=== PATIENT | female | born 1965 | race Caucasian/White ===

== ENCOUNTER 2017-07-09 09:45 | Outpatient (RCR) | payer OTHER, SELFPAY ==
--- NOTE | 2017-06-25 11:13 | PT.OTN ---
Current Diagnoses Pain in left shoulder (06/25/17) Stiffness of left shoulder, not elsewhere classified (06/25/17) Abnormal posture (06/25/17) Weakness (06/25/17) Transition note: On June 23, 2017 our therapy services consisting of Speech, Occupational, and Physical Therapy transitioned from the [employer] electronic documentation system to a new [employer] electronic documentation system.?? All documentation prior to June 23 can be found under [employer] saved data. From June 23 forward all medical record documentation will be in [employer].
--- NOTE | 2017-06-25 12:57 | PT.OTN ---
Current Diagnoses Pain in left shoulder (06/25/17) Stiffness of left shoulder, not elsewhere classified (06/25/17) Abnormal posture (06/25/17) Weakness (06/25/17) Physical Therapy Treatment Note PT-OP-A Visit Information Start: 06/25/17 08:08 Freq: Status: Active Protocol: Activity Type Activity Date Activity User E-Sign Co-Sign Detail Recorded Client Recorded Date Recorded By Document 06/25/17 10:52 [facility] [id number] 06/25/17 10:52 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 [id number] 06/25/17 09:53 [facility] 06/25/17 09:52 OP-PT Subjective [Patient Comments] -Patient Comments Hasn't had much time to exercise, but reporting increased pain after doing some aquatic exercise with a friend. Also thinks she may have moved wrong in bed. PT-OP-Q Treatments Start: 06/25/17 08:08 Freq: Status: Active Protocol: Activity Type Activity Date Activity User E-Sign Co-Sign Detail Recorded Client Recorded Date Recorded By Document 06/25/17 10:35 [facility] [id number] 06/25/17 10:51 [facility] 06/25/17 10:35 Cardio Equipment [Upper Body Ergometer (UBE)] -Duration (Minutes) 0 -Other too sore today Therapeutic Exercises [Prone Exercises] 1 -Prone Exercise Name prone shoulder ext, horizontal ab -Side bilateral -Equipment Used therapy ball [Sitting Exercises] 1 -Sitting Exercise Name pulleys for shld flex and abd -Side bilateral -Reps/Minutes 5 min [Standing Exercises] 1 -Standing Exercise Name rows, shoulder extension, ER, IR -Equipment Used L2 theraband -Reps/Minutes 10-15 reps ea -Comments manual cues for scapular movement Manual Therapy Treatment [Soft Tissue Mobilization] 1 -Body Location c/s and upper traps, biceps and deltoid reg -Mobilization Type Myofascial Release Rolling -Intensity/Depth Moderate -Body Position Supine PT-OP-R Modalities Start: 06/25/17 08:08 Freq: Status: Active Protocol: Activity Type Activity Date Activity User E-Sign Co-Sign Detail Recorded Client Recorded Date Recorded By Document 06/25/17 10:35 [facility] [id number] 06/25/17 10:51 [facility] 06/25/17 10:35 Electric Stimulation [Electric Stimulation] Interferential Current (IFC) -Body Location left shoulder -Duration (Minutes) 15 -Target/Sweep Sweep -High/Low High -Patient Position Supine -Combined With Heat/Cold Cold Pack Ultrasound Therapy [Treatment] Left Shoulder -Treatment Duration (minutes) 8 -Patient Position Supine -Coupling Medium Ultrasound Gel -Frequency Setting (mHz) 2 -Mode Setting Continuous -Intensity Setting (w/cm2) 1.2 -Patient Tolerance Fair PT-OP-T Assessment and Plan Start: 06/25/17 08:08 Freq: Status: Active Protocol: Activity Type Activity Date Activity User E-Sign Co-Sign Detail Recorded Client Recorded Date Recorded By Document 06/25/17 10:35 [facility] [id number] 06/25/17 10:51 [facility] 06/25/17 10:35 Physical Therapy Assessment [Progress Towards Goals] -Progress Towards Goals Slow Progress due to Activity Tolerance Slow Progress - Other -Progress Comments work and daily activities irritate shoulder, work schedule makes doing HEP difficult at times. Has not obtained kinesiotape yet . Physical Therapy Plan [Frequency and Duration] -Frequency of Treatment 1x/Week -Duration of Treatment 2 months -Plan of Care Start Date 06/04/17 -Plan of Care End Date 08/03/17 [Therapeutic Interventions] -Therapeutic Interventions Home Exercise Program Manual Therapy Patient/ Caregiver Education Self-Care/Home Management Soft Tissue Mobilization -Modalities Cold Pack/Ice Massage Electric Stimulation Iontophoresis Ultrasound [Next Visit Focus/Plan] -Next Visit Plan progress ther ex as indicated , instruct in self-taping, modify HEP as indicated.
--- NOTE | 2017-07-09 11:37 | PT.OTN ---
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 Further discussion about any other activities including dictating which may be increasing patient's pain. OP-PT Pain Assessment Pain Behaviors Pain Behaviors Facial Grimacing Wincing PT-OP-Q Treatments Start: 06/25/17 08:08 Freq: Status: Active Protocol: Document 07/09/17 09:45 [facility]AK (Rec: 07/09/17 11:35 [facility]AK [id number]) Cardio Equipment Upper Body Ergometer (UBE) Duration (Minutes) 3 Therapeutic Exercises Supine Exercises 1 Supine Exercise Name shoulder ER AROM Comments without then with 1# weight with end-range stretch Prone Exercises 2 Prone Exercise Name prone shld flex Side bilateral Reps/Minutes 15 1 Prone Exercise Name prone shoulder ext, horizontal ab Side bilateral Resistance 2# Equipment Used therapy ball Reps/Minutes 15 Sidelying Exercises 1 Sidelying Exercise Name shoulder ER Resistance 1 Sitting Exercises 2 Sitting Exercise Name lat pull Side bilateral Resistance 20 Standing Exercises 1 Standing Exercise Name rows, shoulder extension, ER, IR Equipment Used L2 theraband Reps/Minutes 10-15 reps ea Comments manual cues for scapular movement Manual Therapy Treatment Soft Tissue Mobilization 1 Body Location periscapular reg Mobilization Type Rolling Sustained Pressure Trigger Point Release Intensity/Depth Deep Body Position Sidelying Taping 1 Body Location left shoulder Treatment Focus pain management and facilitation of normal scapulohumeral rhythm Type of Tape Kinesio Tape Other Other Manual Treatments manual facilitation of correct scapular movement with all ther ex Self-Care/Home Management Treatment Education Patient Education Home Exercise Program Pain Management Other Education Try adjustment of posture for dictating PT-OP-R Modalities Start: 06/25/17 08:08 Freq: Status: Active Protocol: Document 07/09/17 09:45 [facility] (Rec: 07/09/17 11:35 [facility] [id number]) Electric Stimulation Electric Stimulation Interferential Current (IFC) Body Location left shoulder Duration (Minutes) 15 Target/Sweep Sweep High/Low High Patient Position Supine Combined With Heat/Cold Cold Pack PT-OP-T Assessment and Plan Start: 06/25/17 08:08 Freq: Status: Active Protocol: Document 07/09/17 09:45 [facility] (Rec: 07/09/17 11:35 [facility] [id number]) Physical Therapy Assessment Progress Towards Goals Progress Towards Goals Slow Progress due to Activity Tolerance Slow Progress - Other Progress Comments work and daily activities irritate shoulder, work schedule makes doing HEP difficult at times. Has not obtained kinesiotape yet. Assessment Summary Assessment Able to get good release of perscapular musculature with manual techniques today. Much discussion about need for improved compliance with HEP. Physical Therapy Plan Frequency and Duration Frequency of Treatment 1x/Week Duration of Treatment 2 months Plan of Care Start Date 06/04/17 Plan of Care End Date 08/03/17 Next Visit Focus/Plan Next Visit Plan emphasis on manual techniques in PT
--- NOTE | 2017-08-28 17:35 | PT.OTN ---
Current Diagnoses Pain in left shoulder (07/09/17) Stiffness of left shoulder, not elsewhere classified (07/09/17) Abnormal posture (07/09/17) Weakness (07/09/17) Physical Therapy Treatment Note PT-OP-A Visit Information Start: 06/25/17 08:08 Freq: Status: Active Protocol: Document 07/09/17 09:45 [facility] (Rec: 07/09/17 11:35 [facility]AK [id number]) Out-Patient Physical Therapy Visit Information Visit Information Visit Type Treatment Note Visit Start Time 09:45 Visit Stop Time 10:45 Total Visit Minutes 60 Visit Number 10 Number of BASS GUITAR TEACHER Visits 0 PT-OP-C Subjective Start: 06/25/17 08:08 Freq: Status: Active Protocol: Document 07/09/17 11:36 [facility] (Rec: 07/09/17 11:37 [facility] [id number]) OP-PT Subjective Patient Comments Patient Comments Pain persists, agrees more consistent HEP and possibly increasing frequency of PT to 2x/wk would be helpful. Further discussion about any other activities including dictating which may be increasing patient's pain. OP-PT Pain Assessment Pain Behaviors Pain Behaviors Facial Grimacing Wincing PT-OP-Q Treatments Start: 06/25/17 08:08 Freq: Status: Active Protocol: Document 08/27/17 09:09 [facility] (Rec: 08/27/17 09:47 [facility] [id number]) Cardio Equipment Upper Body Ergometer (UBE) Duration (Minutes) 5 RPM 80 Therapeutic Exercises Prone Exercises 2 Prone Exercise Name prone shld flex Side bilateral Equipment Used therapy ball Reps/Minutes 15 1 Prone Exercise Name prone shoulder ext, horizontal ab Side bilateral Resistance 2# Equipment Used therapy ball Reps/Minutes 15 Sitting Exercises 1 Sitting Exercise Name pulleys for shld flex and abd Side bilateral Reps/Minutes 5 min Standing Exercises 1 Standing Exercise Name rows, shoulder extension, ER, IR Equipment Used L2 theraband Reps/Minutes 10-15 reps ea Comments manual cues for scapular movement Manual Therapy Treatment Taping 1 Body Location left shoulder Treatment Focus pain management and facilitation of normal scapulohumeral rhythm Type of Tape Kinesio Tape Other Other Manual Treatments manual facilitation of correct scapular movement with all ther ex Self-Care/Home Management Treatment Education Patient Education Home Exercise Program Pain Management Other Education activity modification as needed PT-OP-R Modalities Start: 06/25/17 08:08 Freq: Status: Active Protocol: Document 08/27/17 09:09 [facility] (Rec: 08/28/17 17:35 [facility] [id number]) Electric Stimulation Electric Stimulation Interferential Current (IFC) Comments refused today due to time constraints, feeling better Ultrasound Therapy Treatment Left Shoulder Treatment Duration (minutes) 8 Patient Position Supine Coupling Medium Ultrasound Gel Frequency Setting (mHz) 2 Mode Setting Continuous Intensity Setting (w/cm2) 1.2 PT-OP-T Assessment and Plan Start: 06/25/17 08:08 Freq: Status: Active Protocol: Document 08/27/17 09:09 [facility] (Rec: 08/28/17 17:35 [facility] [id number]) Physical Therapy Assessment Impairments Impairments Activity Tolerance Pain Posture ROM Soft Tissue Mobility Strength Goals Four Impairment activity tolerance Intermediate Goal (LTG) Decrease Quickdash UE disability questionaire to no greater than 5% LTG Duration 2 months Three Impairment weakness Senior Financial Goal (LTG) Patient strength left shoulder to increase to 5/5 LTG Duration 2 months Two Impairment unable to perform surgery without an increase in pain Senior Financial Goal (LTG) Patient able to consistently perform surgery and do other usual activities without an increase in pain LTG Duration 2 months One Impairment pain Intermediate Goal (LTG) Decrease pain to no greater than 1-2/10 LTG Duration 2 months Progress Towards Goals Progress Towards Goals Progressing Toward Goals Progress Comments Better progress due to patient not going to cross-fit and modifying other activities. Assessment Summary Assessment will need further PT as patient attempts to resume some prior activities, continue with strengthening, flexibility, pain management. Physical Therapy Plan Frequency and Duration Frequency of Treatment 1x/Week Duration of Treatment 2 months Plan of Care Start Date 08/28/17 Plan of Care End Date 10/29/17 Therapeutic Interventions Therapeutic Interventions Aquatic Therapy Home Exercise Program Manual Therapy Patient/Caregiver Education Self-Care/Home Management Soft Tissue Mobilization Modalities Cold Pack/Ice Massage Electric Stimulation Iontophoresis Ultrasound Next Visit Focus/Plan Next Note Type Treatment Note Next Visit Plan Progression of ther ex as indicated, manual techniques and modalities as needed, assist/instruction with self- taping/family taping of shoulder.
--- NOTE | 2017-08-28 17:35 | PT.OPPOC ---
Current Diagnoses Pain in left shoulder (07/09/17) Stiffness of left shoulder, not elsewhere classified (07/09/17) Abnormal posture (07/09/17) Weakness (07/09/17) Provider Visit Care Team Role Provider Type Jeison Vences MD Family Provider Physician Primary Care Provider Specialty: [facility] Practice Address: [address] [place] [id number] Email: [email or web address] Jennifer Duque MD Attending Provider Physician Specialty: [facility] Practice Address: [address] [place] [address], [id number] Email: [email or web address] Plan Of Care PT-OP-T Assessment and Plan Start: 06/25/17 08:08 Freq: Status: Active Protocol: Document 08/27/17 09:09 [facility] (Rec: 08/28/17 17:35 [facility] [id number]) Physical Therapy Assessment Impairments Impairments Activity Tolerance Pain Posture ROM Soft Tissue Mobility Strength Goals Four Impairment activity tolerance Retirement Goal (LTG) Decrease Quickdash UE disability questionaire to no greater than 5% LTG Duration 2 months Three Impairment weakness Retirement Goal (LTG) Patient strength left shoulder to increase to 5/5 LTG Duration 2 months Two Impairment unable to perform surgery without an increase in pain 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 Assessment Summary Assessment will need further PT as patient attempts to resume some prior activities, continue with strengthening, flexibility, pain management. Physical Therapy Plan Frequency and Duration Frequency of Treatment 1x/Week Duration of Treatment 2 months Plan of Care Start Date 08/28/17 Plan of Care End Date 10/29/17 Therapeutic Interventions Therapeutic Interventions Aquatic Therapy Home Exercise Program Manual Therapy Patient/Caregiver Education Self-Care/Home Management Soft Tissue Mobilization Modalities Cold Pack/Ice Massage Electric Stimulation Iontophoresis Ultrasound Next Visit Focus/Plan Next Note Type Treatment Note Next Visit Plan Progression of ther ex as indicated, manual techniques and modalities as needed, assist/instruction with self- taping/family taping of shoulder. Plan of Care Dates Plan of Care Start Date 08/28/17 Plan of Care End Date 10/29/17 Please Sign and Return: I have reviewed this Plan of Care and certify that the skilled therapy services above are required to meet the patient?s needs. Physician Signature Date Printed Name and Credentials Clinical Instructor Signature Printed Name and Credentials
--- NOTE | 2018-01-10 11:14 | PT.OPDS ---
Current Diagnoses Pain in left shoulder (07/09/17) Stiffness of left shoulder, not elsewhere classified (07/09/17) Abnormal posture (07/09/17) Weakness (07/09/17) Provider Visit Care Team Role Provider Type Jeison Vences MD Family Provider Physician Primary Care Provider Specialty: [facility] Practice Address: [address] [place] [id number] Email: [email or web address] Jennifer Duque MD Attending Provider Physician Specialty: [facility] Practice Address: [address] [place] [address], [address] Email: [email or web address] Visit Number Visit Number 10 Discharge Summary PT-OP-C Subjective Start: 06/25/17 08:08 Freq: Status: Active Protocol: Document 07/09/17 11:36 SAK (Rec: 07/09/17 11:37 SAK [id number]) OP-PT Subjective Patient Comments Patient Comments Pain persists, agrees more consistent HEP and possibly increasing frequency of PT to 2x/wk would be helpful. Further discussion about any other activities including dictating which may be increasing patient's pain. OP-PT Pain Assessment Pain Behaviors Pain Behaviors Facial Grimacing Wincing PT-OP-T Assessment and Plan Start: 06/25/17 08:08 Freq: Status: Active Protocol: Document 01/10/18 11:13 SAK (Rec: 01/10/18 11:14 SAK [id number]) Physical Therapy Plan Discharge Physical Therapy Discharge Reasons No Longer Attending PT Discharge Comments Nolberto has not been seen in PT since 08/27/17. Will discharge from PT at this time. May benefit from further PT in the future.
== END 2018-02-08 11:10 ==
LOC: PHYS 09:45
PROVIDERS: Family Provider Family Medicine; PCP Family Medicine; Visit Provider Family Medicine
DX: M25.512 Pain in left shoulder (principal); R53.1 Weakness; M25.612 Stiffness of left shoulder, not elsewhere classified; R29.3 Abnormal posture
CPT/HCPCS: 97014; 97033; 97035; 97110; 97140; G0283

== ENCOUNTER → 2017-10-15 12:46 | Outpatient (CLI) | payer OTHER, SELFPAY ==
--- NOTE | 2017-10-15 | DI.MG.S_ITS ---
BILATERAL DIGITAL SCREENING MAMMOGRAM 3D/2D WITH CAD: 10/15/2017 CLINICAL: Routine screening. Family history of breast cancer. Comparison is made to exams dated: 10/04/2015 mammogram, 12/01/2013 mammogram, and 02/06/2011 mammogram - [facility]. The tissue of both breasts is extremely dense, which lowers the sensitivity of mammography. Current study was also evaluated with a Computer Aided Detection (CAD) system. There are clustered fine calcifications in the right breast at 11 o'clock posterior depth. There is irregular equal density architectural distortion with an indistinct margin in the left breast central to the nipple anterior depth. This correlates with surgery. There is a post surgical scar associated with the architectural distortion. No other significant masses or calcifications are seen in either breast. IMPRESSION: INCOMPLETE: NEEDS ADDITIONAL IMAGING EVALUATION The clustered fine calcifications in the right breast at 11 o'clock posterior depth are indeterminate. Mediolateral, exaggerated CC, and additional views are recommended. The irregular equal density architectural distortion in the left breast central to the nipple anterior depth is consistent with a post surgical scar and is benign. This exam was interpreted at Station ID: [id number]. NOTE: For mammograms, a report in lay terms will be sent to the patient. Approximately 15% of breast malignancies will not be visualized mammographically. In the management of a palpable breast mass, a negative mammogram must not discourage biopsy of a clinically suspicious lesion. Electronically Signed By: Amos nava/ki:10/15/2017 18:47:53 letter sent: Additional Imaging Needed ACR BI-RADS Category 0: Incomplete [id number]
== END ==
PROVIDERS: Family Provider Family Medicine; PCP Family Medicine; Visit Provider Family Medicine
DX: Z12.31 Encounter for screening mammogram for malignant neoplasm of breast (principal); Z80.3 Family history of malignant neoplasm of breast
CPT/HCPCS: 77063; 77067

== ENCOUNTER → 2017-10-23 06:55 | Outpatient (CLI) | payer OTHER, SELFPAY ==
[2017-10-23 08:37] LABS: Add Manual Diff / Slide Review NO; Basophils Percent Auto 0.3 % (0-2); Eosinophils Percent Auto 1.3 % (2-4); Hematocrit 40.9 % (36-46); Hemoglobin 14.2 g/dL (12.0-16.0); Lymphocytes Percent Auto 33.9 % (25-40); Mean Corpuscular HGB Conc 34.7 % (30-36); Mean Corpuscular Hemoglobin 32.9 PG (26-34); Mean Corpuscular Volume 94.9 fL (80-100); Monocytes Percent Auto 10.8 % (3-14); Neutrophils Absolute Auto 2600 /uL (3000-5900); Neutrophils Percent Auto 53.7 % (50-75); Platelet Count 361 X10^3/uL (150-400); Red Blood Cell Count 4.31 X10^6/uL (4.0-5.2); Red Cell Distribution Width 13.1 % (11.6-14.8); White Blood Cell Count 4.8 X10^3/uL (4.5-11.0)
[2017-10-23 09:20] LABS: Alanine Aminotransferase 17 IU/L (9-52); Albumin 4.4 g/dL (3.5-5.0); Albumin Globulin Ratio 1.3 (1.0-2.8); Alkaline Phosphatase 69 U/L (38-126); Aspartate Aminotransferase 24 IU/L (14-36); BUN Creatinine Ratio 21.4 (6-22); Bilirubin Total 0.5 mg/dL (0.2-1.3); Blood Urea Nitrogen 15 mg/dL (7-17); Calcium 9.1 mg/dL (8.4-10.2); Carbon Dioxide 33 mmol/L (22-32); Chloride 104 mmol/L (98-107); Cholesterol 193 mg/dL (140-199); Estimated Glomerular Filt Rate > 60.0 mL/min (>60); Globulin 3.4 g/dL (1.7-4.1); Glucose 100 mg/dL (70-100); HDL Cholesterol 57 mg/dL (40-60); HEMOLYSIS < 15 (0-50); LDL Cholesterol Calculated 114 mg/dL (<100); Magnesium 2.2 mg/dL (1.6-2.3); Potassium 4.6 mmol/L (3.4-5.1); Sodium 146 mmol/L (137-145); Total Protein 7.8 g/dL (6.3-8.2); Triglycerides 109 mg/dL (35-150)
[2017-10-23 09:43] LABS: Free T4, Direct Thyroxine 1.35 ng/dL (0.78-2.19)
[2017-10-23 09:57] LABS: Thyroid Stimulating Hormone 2.66 uIU/mL (0.47-4.68)
== END ==
PROVIDERS: PCP Family Medicine; Visit Provider Family Medicine
DX: E78.5 Hyperlipidemia, unspecified (principal)
CPT/HCPCS: 36415; 80053; 80061; 83735; 84439; 84443; 85025

== ENCOUNTER 2017-10-24 07:45 | Emergency (ER) | payer OTHER, SELFPAY ==
[2017-10-24 07:45] VITALS: BP 156/104; PULSE 80; RESP 20; TEMP 37; O2SAT 100; BMI 35.0
[2017-10-24 07:55] VITALS: BP 151/100; PULSE 83; O2SAT 100
--- NOTE | 2017-10-24 07:55 | DI.CT.S_ITS ---
PROCEDURE: CT HEAD/BRAIN WO CON INDICATIONS: headahes for couple weeks TECHNIQUE: Noncontrast 4.5 mm thick angled axial sections acquired from the foramen magnum to the vertex, with coronal and sagittal reformats. For radiation dose reduction, the following was used: automated exposure control, adjustment of mA and/or kV according to patient size. COMPARISON: None. FINDINGS: Image quality: Excellent. CSF spaces: Basal cisterns are patent. No extra-axial fluid collections. Ventricles are normal in size and shape. Brain: No midline shift. No intracranial masses or hemorrhage. Rodríguez-white matter interface is normal. Skull and face: Calvarium and visualized facial bones are intact, without suspicious lesions. Sinuses: Visualized sinuses and mastoids are clear. IMPRESSION: No acute intracranial findings. Dictated by: Mitzi Deleon M.D. on 10/24/2017 at 8:28 Approved by: Mitzi Deleon M.D. on 10/24/2017 at 8:30
--- NOTE | 2017-10-24 07:56 | DI.RAD.S_ITS ---
PROCEDURE: XR CHEST 1V INDICATIONS: chest pain TECHNIQUE: One view of the chest was acquired. COMPARISON: None. FINDINGS: Surgical changes and devices: None. Lungs and pleura: No pleural effusions or pneumothorax. Lungs are clear. Mediastinum: Mediastinal contours appear normal. Heart size is normal. Bones and chest wall: No suspicious bony lesions. Overlying soft tissues appear unremarkable. IMPRESSION: No acute cardiopulmonary findings. Dictated by: Mitzi Deleon M.D. on 10/24/2017 at 8:27 Approved by: Mitzi Deleon M.D. on 10/24/2017 at 8:27
[2017-10-24] MEDS: PANTOPRAZOLE 40 MG VIAL IV (08:17)
[2017-10-24] MEDS: ONDANSETRON 4 MG/2 ML INJ IV (08:17)
[2017-10-24] MEDS: KETOROLAC 60 MG/2 ML VIAL 30 MG IV (08:17)
[2017-10-24] MEDS: SODIUM CHLORIDE 0.9% 1,000 ML 1000 ML IV (08:17)
[2017-10-24 08:19] LABS: Alanine Aminotransferase 19 IU/L (9-52); Albumin 4.3 g/dL (3.5-5.0); Albumin Globulin Ratio 1.4 (1.0-2.8); Alkaline Phosphatase 67 U/L (38-126); Aspartate Aminotransferase 19 IU/L (14-36); BUN Creatinine Ratio 22.9 (6-22); Bilirubin Total 0.6 mg/dL (0.2-1.3); Blood Urea Nitrogen 16 mg/dL (7-17); Calcium 8.8 mg/dL (8.4-10.2); Carbon Dioxide 29 mmol/L (22-32); Chloride 105 mmol/L (98-107); Creatine Kinase 63 U/L (30-135); Estimated Glomerular Filt Rate > 60.0 mL/min (>60); Globulin 3.1 g/dL (1.7-4.1); Glucose 106 mg/dL (70-100); HEMOLYSIS 22 (0-50); Potassium 3.8 mmol/L (3.4-5.1); Sodium 143 mmol/L (137-145); Total Protein 7.4 g/dL (6.3-8.2)
[2017-10-24 08:35] LABS: Troponin I < 0.012 ng/mL (0.01-0.034)
--- NOTE | 2017-10-24 08:45 | ED.CHESTPAIN ---
HPI - Chest Pain General Chief Complaint: Chest Pain Stated Complaint: CHEST PAIN, HEADACHE Time Seen by Provider: 10/24/17 07:48 Source: patient, RN notes reviewed and old records reviewed Mode of arrival: ambulatory Limitations: no limitations History of Present Illness HPI narrative: patient is a 52-year-old female who presents with headache and chest pain. She has had worsening headaches over the last few weeks all. She has also noticed that her blood pressure has been elevated actually just started metoprolol yesterday. This morning she does have a headache and had some right-sided arm and chest discomfort as well. No shortness of breath feeling somewhat nauseated no vomiting no weakness. MD complaint: chest pain and other ( headache) Related Data Previous Rx's Medication Instructions Recorded zolpidem [Ambien] 10 mg PO HS #10 tab 03/25/16 levonorgestrel-ethinyl estrad 1 tab PO Q DAY #4 pac 12/02/16 [Aviane] levothyroxine [Synthroid] 100 mcg PO QAM #90 tab 12/02/16 scopolamine 1 mg over 3 days 1 patch TRANSDERMAL Q3D PRN #1 each 08/27/17 transdermal patch gentamicin 0.3 % eye drops 2 drop OPHTHALMIC (EYE) Q4H #5 ml 08/28/17 nitrofurantoin 100 mg PO BID #14 cap 09/07/17 monohydrate/macrocrystals 100 mg capsule metoprolol succinate ER 25 mg 12.5 mg PO BID #60 tab 10/22/17 tablet,extended release 24 hr progesterone micronized 100 mg 100 mg PO QAM 30 Days #30 cap 10/23/17 capsule Allergies Allergy/AdvReac Type Severity Reaction Status Date / Time Sulfa (Sulfonamide Allergy Unknown RASH Verified 10/24/17 09:13 Antibiotics) [SULFA (SULFONAMIDE ANTIBIOTICS)] codeine [CODEINE] AdvReac Mild GI Verified 10/24/17 09:13 Review of Systems Review of Systems All systems reviewed & are unremarkable except as noted in HPI and below Constitutional Denies chills, Denies fever(s), Reports headache(s), Denies lethargy and Denies weakness Eyes Denies blurry vision, Denies change in vision, Denies diplopia, Denies eye discharge and Denies loss of vision ENT Ears, Nose, Mouth, and Throat: Reports headache(s) Cardiovascular Reports chest pain, Denies irregular heart rhythm, Denies lightheadedness, Denies palpitations, Denies dyspnea and Denies dyspnea on exertion Respiratory Denies cough, Denies dyspnea, Denies dyspnea on exertion and Denies wheezing Gastrointestinal Gastrointestinal: Denies abdominal pain, Reports nausea and Denies vomiting Musculoskeletal Denies back pain, Denies muscle weakness, Denies numbness and Denies tingling Integumentary/Breasts Denies pruritus, Denies erythema, Denies rash and Denies wounds Neurologic Reports headache(s), Denies loss of vision, Denies numbness, Denies tingling and Denies weakness Endocrine Denies palpitations Allergic/Immunologic Denies wheezing PFSH Medical History Hypertension (Acute) Social History Smoking Status: Never smoker alcohol intake: current substance use type: does not use Exam Initial Vital Signs Initial Vital Signs: Vital Signs Temperature 98.6 F 10/24/17 07:45 Pulse Rate 80 10/24/17 07:45 Respiratory Rate 20 10/24/17 07:45 Blood Pressure 156/104 H 10/24/17 07:45 Pulse Oximetry 100 10/24/17 07:45 GENERAL: Well-appearing, well-nourished and in no acute distress. HEENT: Head atraumatic,EOMI, pupils reactive, face symmetric, neck is supple no meningeal signs CARDIOVASCULAR: Regular rate and rhythm without murmurs, rubs or gallops. RESPIRATORY: Breath sounds equal bilaterally, no wheezes rales or rhonchi. ABDOMEN: Soft, nontender. Normoactive bowel sounds all 4 quadrants. No guarding or rebound. EXTREMITIES: Normal range of motion, no clubbing or edema. Neurovascularly intact NEUROLOGICAL: Alert and oriented x4.Normal gait and speech. Cranial nerves II through XII grossly intact. Good ebecqd-st-owta, good ewig-kq-sefo, strength equal bilaterally, no dysarthria or aphasia, sensation in tact to soft touch bilaterally, no visual changes, no facial droop SKIN: Warm, dry, no laceration, no petechiae, no rashes or lesions. Scores HEART Score Heart Score history: Slightly Suspicious Heart Score EKG: Normal Heart Score Age: 45-64 years old Heart Score risk factors: 1-2 risk factors Heart Score troponin: < or = to normal limit Heart Score Total: 2 NIH Stroke Scale Level of Conciousness: Alert, keenly responsive Ask month/age: Answers both questions correctly. Open/close eyes, close hand: Performs both tasks correctly Best gaze horizontal: Normal Visual melendez: No visual loss Facial palsy: Normal symetrical movement Left arm drift: No drift for full 10 sec Right arm drift: No drift for full 10 sec Left leg drift: No drift for full 10 sec Right leg drift: No drift for full 10 sec Limb ataxia: Absent Sensory on face/arms/legs: Normal, no sensory loss Best language: No aphasia, normal Dysarthria: Normal Extinction or inattention: No abnormality Total NIH Stroke scale score: 0 Course Orders Ordered: ED Orders 10/24/17 07:55 CT head/brain wo con Stat 10/24/17 07:56 XR chest 1V Stat 10/24/17 07:59 Comprehensive Metabolic Panel Stat Troponin & CK Cardiac Panel Stat Discontinued Medications Sodium Chloride (Normal Saline 0.9%) 1,000 mls @ 1,000 mls/hr IV BOLUS ONE Stop: 10/24/17 08:54 Last Infusion: 10/24/17 09:36 Dose: 0 mls/hr Admin: 10/24/17 08:17 Dose: 1,000 mls/hr Ketorolac Tromethamine (Toradol) 30 mg IV NOW ONE Stop: 10/24/17 07:56 Last Admin: 10/24/17 08:17 Dose: 30 mg Labetalol HCl (Normodyne) 10 mg IV NOW ONE Stop: 10/24/17 08:55 Last Admin: 10/24/17 09:00 Dose: 10 mg Ondansetron HCl (Zofran) 4 mg IV NOW ONE Stop: 10/24/17 07:56 Last Admin: 10/24/17 08:17 Dose: 4 mg Pantoprazole Sodium (Protonix) 40 mg IV NOW ONE Stop: 10/24/17 07:56 Last Admin: 10/24/17 08:17 Dose: 40 mg Vital Signs - 8 hr 10/24/17 07:45 10/24/17 07:55 10/24/17 08:55 Temperature 98.6 F Pulse Rate 80 83 74 Respiratory Rate 20 12 Blood Pressure 156/104 H Blood Pressure [Right Arm] 151/100 H 141/111 H Pulse Oximetry 100 100 99 10/24/17 09:15 Temperature Pulse Rate 81 Respiratory Rate 20 Blood Pressure Blood Pressure [Right Arm] 143/91 H Pulse Oximetry 98 MDM - Chest Pain Lab Data Attestation: I reviewed the patient's lab results. Result diagrams: 10/24/17 07:59 Lab Results 10/24/17 Range/Units 07:59 Sodium 143 (137-145) mmol/L Potassium 3.8 (3.4-5.1) mmol/L Chloride 105 (98-107) mmol/L Carbon Dioxide 29 (22-32) mmol/L BUN 16 (7-17) mg/dL Creatinine 0.70 (0.52-1.04) mg/dL Estimated GFR > 60.0 (>60) mL/min BUN/Creatinine Ratio 22.9 H (6-22) Glucose 106 H (70-100) mg/dL Calcium 8.8 (8.4-10.2) mg/dL Total Bilirubin 0.6 (0.2-1.3) mg/dL AST 19 (14-36) IU/L ALT 19 (9-52) IU/L Alkaline Phosphatase 67 (38-126) U/L Total Creatine Kinase 63 (30-135) U/L Troponin I < 0.012 (0.01-0.034) ng/mL Total Protein 7.4 (6.3-8.2) g/dL Albumin 4.3 (3.5-5.0) g/dL Globulin 3.1 (1.7-4.1) g/dL Albumin/Globulin Ratio 1.4 (1.0-2.8) Imaging Data Chest x-ray: Radiologist's impression: PROCEDURE: XR CHEST 1V INDICATIONS: chest pain TECHNIQUE: One view of the chest was acquired. COMPARISON: None. FINDINGS: Surgical changes and devices: None. Lungs and pleura: No pleural effusions or pneumothorax. Lungs are clear. Mediastinum: Mediastinal contours appear normal. Heart size is normal. Bones and chest wall: No suspicious bony lesions. Overlying soft tissues appear unremarkable. IMPRESSION: No acute cardiopulmonary findings. Dictated by: Mitzi Deleon M.D. on 10/24/2017 at 8:27 CT scan - head: Radiologist's impression: PROCEDURE: CT HEAD/BRAIN WO CON INDICATIONS: headahes for couple weeks TECHNIQUE: Noncontrast 4.5 mm thick angled axial sections acquired from the foramen magnum to the vertex, with coronal and sagittal reformats. For radiation dose reduction, the following was used: automated exposure control, adjustment of mA and/or kV according to patient size. COMPARISON: None. FINDINGS: Image quality: Excellent. CSF spaces: Basal cisterns are patent. No extra-axial fluid collections. Ventricles are normal in size and shape. Brain: No midline shift. No intracranial masses or hemorrhage. Rodríguez-white matter interface is normal. Skull and face: Calvarium and visualized facial bones are intact, without suspicious lesions. Sinuses: Visualized sinuses and mastoids are clear. IMPRESSION: No acute intracranial findings. Dictated by: Mitzi Deleon M.D. on 10/24/2017 at 8:28 ECG Data Attestation: I personally reviewed and interpreted this ECG as follows: Prior ECG tracings: available for review Interpretation: Normal sinus rhythm rate [address] changes no T-wave inversions similar to prior EKG MDM Narrative Medical decision making narrative: Toradol has helped her headache some however her blood pressure still remained elevated. She is given 1 dose of labetalol. She is headache and chest pain free feels ready able to go home. She has appointment with primary next week to discuss her blood pressure medication. she actually did have blood work as CBC a cholesterol panel done yesterday. Sodium was noted to be slightly elevated at 146 which is improved today. No other abnormalities noted. Discharge Plan Departure Patient Disposition: Home Clinical Impression: Headache, Atypical chest pain, Hypertension Discharge Date/Time: 10/24/17 09:38 Interventions: ED Discharge Assessment Last Done: 10/24/17 09:37 Instructions: Essential Hypertension Activity Restrictions/Additional Instructions: *You have been diagnosed with hypertension, headache, atypical chest *What to do: blood work, CT scan chest x-ray EKG all reassuring you may need blood pressure medication change please discuss this with your primary *Continue to take medications as directed *Follow up with your primary care provider in 2-3 days *Return to ER if you should have worsening headache, chest pain, shortness of breath palpitations dizziness had or any new, worsening or concerning symptoms Prescriptions: No Action zolpidem [Ambien] 10 MG tablet 10 mg PO HS Qty: 10 RF: 0 levonorgestrel-ethinyl estrad [Aviane] 1 EACH tablet 1 tab PO Q DAY Qty: 4 RF: 3 levothyroxine [Synthroid] 100 MCG tablet 100 mcg PO QAM Qty: 90 RF: 3 scopolamine base [Transderm-Scop] 1 mg over 3 days patch 3 day 1 patch Transdermal Q3D PRN (Reason: motion sickness) Qty: 1 RF: 0 gentamicin 0.3 % drops 2 drop ophthalmic (eye) Q4H Qty: 5 RF: 0 nitrofurantoin monohyd/m-cryst [Macrobid] 100 mg capsule 100 mg PO BID Qty: 14 RF: 1 metoprolol succinate 25 mg tablet extended release 24 hr 12.5 mg PO BID Qty: 60 RF: 5 progesterone micronized 100 mg capsule 100 mg PO QAM 30 Days Qty: 30 RF: 11 Referrals: Jeison Vences MD [Primary Care Provider] -
[2017-10-24 08:55] VITALS: BP 141/111; PULSE 74; RESP 12; O2SAT 99
[2017-10-24] MEDS: LABETALOL 100 MG/20ML MDV 10 MG IV (09:00)
[2017-10-24 09:15] VITALS: BP 143/91; PULSE 81; RESP 20; O2SAT 98
== END 2017-10-24 09:38 | disposition home or self-care (01) ==
PROVIDERS: Emergency Provider Emergency Medicine; PCP Family Medicine
DX: R51 Headache (principal); R07.89 Other chest pain; I10 Essential (primary) hypertension
CPT/HCPCS: 36415; 36591; 70450; 71045; 80053; 82550; 82553; 84484; 93005; 93010; 93041; 96361; 96374; 96375; 99283; 99285; C9113; J1885; J2405

== ENCOUNTER → 2017-11-26 13:03 | Outpatient (CLI) | payer OTHER, SELFPAY ==
--- NOTE | 2017-11-26 13:04 | DI.MG.S_ITS ---
UNILATERAL RIGHT DIGITAL DIAGNOSTIC MAMMOGRAM 3D/2D WITH ADDITIONAL VIEWS: 11/26/2017 CLINICAL: Additional evaluation requested from prior study. Family history of breast cancer. Comparison is made to exams dated: 10/15/2017 mammogram, 10/04/2015 mammogram, and 12/08/2013 mammogram - [facility]. The tissue of right breast is extremely dense, which lowers the sensitivity of mammography. There is new cluster of grouped fine pleomorphic calcifications in the right breast at 11 o'clock posterior depth. No other significant masses or calcifications are seen in the breast. IMPRESSION: SUSPICIOUS OF MALIGNANCY The new cluster of grouped fine pleomorphic calcifications in the right breast are at a moderate suspicion for malignancy. A stereotactic biopsy is recommended. The findings were discussed with the patient at the conclusion of the study by Dr. Brenner. This exam was interpreted at Station ID: [id number]. NOTE: For mammograms, a report in lay terms will be sent to the patient. Approximately 15% of breast malignancies will not be visualized mammographically. In the management of a palpable breast mass, a negative mammogram must not discourage biopsy of a clinically suspicious lesion. Electronically Signed By: Amos Rodríguez M.D. ddannie/:11/26/2017 15:04:10 letter sent: Biopsy Required ACR BI-RADS Category 4c: Suspicious abnormality - moderate concern but not classic for malignancy [id number]
== END ==
PROVIDERS: PCP Family Medicine; Visit Provider Family Medicine
DX: R92.1 Mammographic calcification found on diagnostic imaging of breast (principal); Z80.3 Family history of malignant neoplasm of breast
CPT/HCPCS: 77065; G0279

== ENCOUNTER → 2017-12-21 08:12 | Outpatient (CLI) | payer OTHER, SELFPAY ==
[2017-12-21 16:39] LABS: Influenza A and B by PCR Rapid Negative (Negative)
== END ==
PROVIDERS: PCP Family Medicine; Visit Provider Family Medicine
DX: R05 Cough (principal)
CPT/HCPCS: 87400

== ENCOUNTER → 2018-01-11 14:06 | Outpatient (CLI) | payer OTHER, SELFPAY | DX: Z23 Encounter for immunization (principal) | CPT/HCPCS: 90471; 90686 ==

== ENCOUNTER → 2018-02-12 14:15 | Outpatient (CLI) | payer OTHER, SELFPAY ==
--- NOTE | 2018-02-12 14:16 | DI.RAD.S_ITS ---
PROCEDURE: XR SHOULDER LT MIN 2V INDICATIONS: SHOULDER PAIN TECHNIQUE: 3 views of the shoulder were acquired. COMPARISON: None. FINDINGS: Bones: No fractures or dislocations. Suspected 7-8mm loose body Moderate chromic clavicular joint degeneration. There is glenohumeral degenerative sclerosis and spurring. No suspicious bony lesions. Visualized ribs appear intact. Soft tissues: No suspicious soft tissue calcifications. IMPRESSION: Mild to moderate left shoulder joint degeneration. Small loose body. Dictated by: Jacob Brenner M.D. on 02/12/2018 at 16:25 Approved by: Jacob Brenner M.D. on 02/12/2018 at 16:27
== END ==
PROVIDERS: PCP Family Medicine; Visit Provider Physical Medicine & Rehabilitation
DX: M25.512 Pain in left shoulder (principal); M19.012 Primary osteoarthritis, left shoulder; M24.012 Loose body in left shoulder
CPT/HCPCS: 73030

== ENCOUNTER 2018-05-13 09:01 | Day surgery (SDC) | payer OTHER, SELFPAY ==
--- NOTE | 2018-05-13 | PATH_ITS ---
[facility] Accession Number: [id number] . 01 Material submitted: . GASTRIC POLYPS . 02 Diagnosis: Gastric Polyps, Biopsies: Fundic gland polyps. No evidence of Helicobacter organisms on H/E stain. Negative for intestinal metaplasia, dysplasia or malignancy. MRV/05/14/2018 . 02 Electronically signed: . Sukhwinder Sun MD, PhD, Pathologist NPI- [id number] . 01 Gross description: . GASTRIC POLYPS: Received in formalin are 3 fragment(s) of kan, soft tissue measuring 0.2 x 0.2 x 0.2 cm to 0.3 x 0.3 x 0.3 cm which is entirely submitted and submitted entirely in 1 cassette(s) /DMC /DMC . 02 Pathologist provided ICD-10: K31.7 . 02 CPT . 351830 Performed at: 01 [facility] [address] [place] [address], [place], [place] [id number] MD Amos Bills MD Phone: [phone] Performed at: 02 [facility] [address] [place], [place] [id number] MD Louise Martinez MD Phone: [phone]
[2018-05-13 09:19] VITALS: BP 124/83; PULSE 74; RESP 15; TEMP 36.8; O2SAT 98; BMI 31.9
[2018-05-13] MEDS: LACTATED RINGERS 1,000 ML 200 ML IV (09:30)
--- NOTE | 2018-05-13 09:39 | PM.HP.1 ---
History of Present Illness Date Patient Seen: 05/13/18 Time Patient Seen: 09:31 Chief complaint: [id number] EGD Narrative: The patient is a woman who has dysphagia mostly of pills in her upper esophagus and epigastric pain often after an evening meal. She is here for an EGD to evaluate for a stricture and to determine if she has some cause of her epigastric pain. Patient History Medical History Hypothyroidism (Chronic) Hypertension (Chronic) Surgical History H/O rectocele repair (Resolved) Social History household members: family Smoking Status: Never smoker alcohol intake: current substance use type: does not use Family & Social History Social History: household members family Tobacco & Substance use: Smoking Status Never smoker alcohol intake current alcohol intake frequency holiday/special occasion Substance Use Type does not use Meds Home Medications Medication Instructions Recorded Confirmed Type progesterone micronized 100 mg 100 mg PO QAM 30 Days #30 cap 10/23/17 05/13/18 Rx capsule levothyroxine 112 mcg tablet 112 mcg PO DAILY #90 tab 10/30/17 02/12/18 Rx lisinopril 10 mg tablet 10 mg PO DAILY #90 tab 10/30/17 05/13/18 Rx conjugated estrogens 0.3 mg tablet 0.3 mg PO .COMPLEX #45 tab 02/24/18 05/13/18 Rx conjugated estrogens 0.625 mg 0.625 mg PO .COMPLEX #45 tab 02/24/18 05/13/18 Rx tablet Allergies Allergy/AdvReac Type Severity Reaction Status Date / Time Sulfa (Sulfonamide Allergy Mild RASH Verified 05/13/18 09:17 Antibiotics) [SULFA (SULFONAMIDE ANTIBIOTICS)] codeine [CODEINE] AdvReac Mild GI Verified 02/12/18 14:44 Review of Systems Review of Systems No cardiopulmonary GI symptoms. No neurovascular symptoms. Exam Vital Signs (past 8 hours): - 05/13/18 09:19 Temperature 98.3 F Pulse Rate 74 Respiratory Rate 15 Blood Pressure 124/83 Pulse Oximetry 98 Oxygen Delivery Method Room Air Narrative Exam Narrative: Co Operative no apparent distress. Eyes nonicteric. Lungs are clear to auscultation no rales or rhonchi. Heart regular rate and rhythm without murmur gallop. Abdomen is soft nontender without mass. Alert and oriented x3. Assessment & Plan Assessment & Plan narrative: Patient with dysphagia and epigastric pain for an EGD to evaluate. I have discussed an EGD with her. Also the possibility of dilatation of the stricture. Risks of bleeding and perforation were discussed with her. She appears to understand and wishes to proceed.
--- NOTE | 2018-05-13 09:45 | PM.PREOP ---
Pre-operative Note Interval Note History & Physical reviewed/Exam performed by Physician: Yes Changes to H&P: No ASA Class (for procedural sedation): II
[2018-05-13] MEDS: TETRACAINE/BENZOCAINE/BUTAMBEN (CETACAINE) BOTTLE 1 SPRAY TOP (09:52)
[2018-05-13] MEDS: LIDOCAINE 4% SOLN 50 ML 20 ML TOP (09:52)
[2018-05-13] MEDS: fentaNYL 250 MCG/5 ML INJ IV (09:56)
[2018-05-13] MEDS: MIDAZOLAM 5 MG/5 ML VIAL IV (09:56)
[2018-05-13 10:20] VITALS: BP 120/74; PULSE 80; RESP 16; TEMP 36.4; O2SAT 98
--- NOTE | 2018-05-13 10:20 | P.OP.ENDO_ITS ---
Operative Date/Time/Diagnoses Date of procedure: 05/13/18 Time of procedure: 10:15 Post-op diagnosis: same (Benign appearing gastric polyps) Procedure & Clinicians Study performed: EGD with cold biopsy Same procedure as scheduled: Yes Indications: Determine cause of symptoms Surgeon: Tarun Craft Procedure Notes SCOAP/Timeout: Performed Procedure in detail: The patient had topical anesthetic applied to oropharynx. She was placed in left lateral decubitus position and underwent IV sedation directed by the surgeon consisting of fentanyl and Versed. A bite block was inserted and the scope was advanced through it into the esophagus. The es ophagus was unremarkable. GE junction was noted at 37 cm from the incisors. The stomach insufflated well. Multiple gastric fundic appearing polyps were seen in the body. There were no ulcers in the body the antrum or incisura. Examining the incisura it was clear there were additional proximal benign-appearing polyps. The pyloric channel was patent but appeared to be fixed open. The duodenum was unremarkable to the 4th part. The scope was brought back into the stomach and retroflexed. The proximal stomach was normal except for gastric fundic polyps. There was no evidence of a hiatal hernia either from above or below. Biopsies were taken randomly of multiple polyps to confirm the diagnosis suspected. The scope was straightened and brought out through the esophagus again. No lesions were seen. The scope was removed and the patient tolerated the procedure well. Of note: The patient had an inordinate amount of secretions during the procedure. If future studies are contemplated content sitter giving a drug preprocedure to reduce her secretions. Scope withdrawal time: Not applicable Sedation minutes: 11 Findings: polyp (Gastric fundic) Specimen(s): other (Gastric fundic polyps) Complications: none Recommendations: Continue medication(s) Follow up: as needed Disposition: same day surgery
[2018-05-13 10:32] VITALS: BP 121/75; PULSE 82; RESP 15; TEMP 36.4; O2SAT 95
--- NOTE | 2018-05-13 10:36 | SUR.OPER ---
attempted to document sedation medications in flow sheet but was unable to input .5mg doses of midazolam. Correct dosage of fentanyl 75mg and midazolam 1.50mg are documented in the MAR
== END 2018-05-13 10:40 | disposition home or self-care (01) ==
PROVIDERS: PCP Family Medicine; Visit Provider Specialist
PROC: 0DJ08ZZ Inspection of Upper Intestinal Tract, Via Natural or Artificial Opening Endoscopic (ICD-10-PCS; CPT 43235; principal; 2018-05-13 09:45)
DX: K31.7 Polyp of stomach and duodenum (principal); E03.9 Hypothyroidism, unspecified; I10 Essential (primary) hypertension; R10.13 Epigastric pain
CPT/HCPCS: 43239; 99152; J2250; J3010

== ENCOUNTER → 2018-10-22 07:50 | Outpatient (CLI) | payer OTHER, SELFPAY ==
[2018-10-22 08:51] LABS: BUN Creatinine Ratio 28.6 (6-22); Blood Urea Nitrogen 20 mg/dL (7-17); Calcium 9.2 mg/dL (8.4-10.2); Carbon Dioxide 30 mmol/L (22-32); Chloride 104 mmol/L (98-107); Cholesterol 233 mg/dL (140-199); Estimated Glomerular Filt Rate > 60.0 mL/min (>60); Glucose 97 mg/dL (70-100); HDL Cholesterol 55 mg/dL (40-60); HEMOLYSIS < 15 (0-50); LDL Cholesterol Calculated 161 mg/dL (<100); Sodium 144 mmol/L (137-145); Triglycerides 84 mg/dL (35-150)
[2018-10-22 09:15] LABS: Thyroid Stimulating Hormone 3.79 uIU/mL (0.47-4.68)
== END ==
PROVIDERS: PCP Family Medicine; Visit Provider Family Medicine
DX: I10 Essential (primary) hypertension (principal); E78.2 Mixed hyperlipidemia; E03.9 Hypothyroidism, unspecified
CPT/HCPCS: 36415; 80048; 80061; 84439; 84443

== ENCOUNTER → 2018-11-18 17:46 | Outpatient (CLI) | payer OTHER, SELFPAY ==
--- NOTE | 2018-11-18 | DI.MG.S_ITS ---
BILATERAL DIGITAL SCREENING MAMMOGRAM 3D/2D WITH CAD: 11/18/2018 CLINICAL: Routine screening. Family history of breast cancer. Comparison is made to exams dated: 10/15/2017 mammogram, 10/04/2015 mammogram, and 12/01/2013 mammogram - [facility]. The tissue of both breasts is heterogeneously dense. This may lower the sensitivity of mammography. Current study was also evaluated with a Computer Aided Detection (CAD) system. There is possible architectural distortion in the left breast at 1 o'clock anterior depth. No other significant masses, calcifications, or other findings are seen in either breast. IMPRESSION: INCOMPLETE: NEEDS ADDITIONAL IMAGING EVALUATION The possible architectural distortion in the left breast is indeterminate. A diagnostic mammogram and ultrasound is recommended. This exam was interpreted at Station ID: [id number]. NOTE: For mammograms, a report in lay terms will be sent to the patient. Approximately 15% of breast malignancies will not be visualized mammographically. In the management of a palpable breast mass, a negative mammogram must not discourage biopsy of a clinically suspicious lesion. Electronically Signed By: Mitzi rogers/ki:11/19/2018 13:46:08 letter sent: Additional Imaging Needed ACR BI-RADS Category 0: Incomplete 3340F
== END ==
PROVIDERS: PCP Family Medicine; Visit Provider Family Medicine
DX: Z12.31 Encounter for screening mammogram for malignant neoplasm of breast (principal); Z80.3 Family history of malignant neoplasm of breast
CPT/HCPCS: 77063; 77067

== ENCOUNTER → 2018-12-03 10:18 | Outpatient (CLI) | payer OTHER, SELFPAY ==
--- NOTE | 2018-12-03 10:20 | DI.MG.S_ITS ---
UNILATERAL LEFT DIGITAL DIAGNOSTIC MAMMOGRAM 3D/2D WITH ADDITIONAL VIEWS: 12/03/2018 CLINICAL: Additional evaluation requested from prior study. Left Palpable lump. Comparison is made to exams dated: 11/18/2018 mammogram, 11/26/2017 mammogram, and 10/15/2017 mammogram - [facility]. The tissue of left breast is heterogeneously dense. This may lower the sensitivity of mammography. There is a triangular marker overlying the skin of the upper outer left breast at the site of the patient's reported palpable abnormality. This correlates with the architectural distortion in the left breast seen on comparison screening mammogram of 11/18/18. IMPRESSION: INCOMPLETE: NEEDS ADDITIONAL IMAGING EVALUATION Patient's reported focal palpable abnormality correlates with the architectural distortion in the left breast seen on comparison screening mammogram of 11/18/18. Targeted diagnostic ultrasound recommended for further evaluation, which will be performed immediately following this exam. This exam was interpreted at Station ID: [id number]. NOTE: For mammograms, a report in lay terms will be sent to the patient. Approximately 15% of breast malignancies will not be visualized mammographically. In the management of a palpable breast mass, a negative mammogram must not discourage biopsy of a clinically suspicious lesion. Electronically Signed By: New Olson M.D. ecl/:12/03/2018 10:52:12 ACR BI-RADS Category 0: Incomplete [id number]
--- NOTE | 2018-12-03 10:21 | DI.US.S_ITS ---
LIMITED ULTRASOUND OF LEFT BREAST AND AXILLA: 12/03/2018 CLINICAL: Patient returns today to evaluate an architectural distortion in the left breast. Comparison is made to exams dated: 12/03/2018 mammogram, 11/18/2018 mammogram, 10/15/2017 mammogram, 10/04/2015 mammogram, 12/01/2013 mammogram, and 02/13/2011 mammogram - [facility]. Color flow and real-time ultrasound of the left breast upper outer quadrant and axilla regions were performed. Rodríguez scale images of the real-time examination were reviewed. The targeted ultrasound of the upper outer quadrant of the left breast demonstrates a 1.0 x 1.0 x 0.7 cm irregular indistinct hypoechoic mass in the left breast at 2:00 position retroareolar depth which demonstrates posterior shadowing artifact and internal vascularity on Doppler ultrasound. This lesion is superficial and there is possible involvement of the overlying skin as the skin layer overlying the lesion appears indistinct. This appears to correlate with the site of architectural distortion seen on comparison mammography. This is located near but not immediately beneath the site of patient's reported focal palpable abnormality. No other suspicious masses or abnormalities are identified by ultrasound in the imaged areas of the upper outer left breast. Targeted ultrasound of the left axilla demonstrates multiple left axillary lymph nodes, with an axillary lymph node demonstrating a 4 mm of cortical thickening along the superficial cortex of the lymph node. IMPRESSION: SUSPICIOUS OF MALIGNANCY 1. 1.0 x 0.7 x 0.7 cm irregular indistinct mass in the left breast at 2:00 position retroareolar depth is suspicious for malignancy. An ultrasound-guided biopsy is recommended. 2. There is an axillary lymph node demonstrating 4 mm of cortical thickening along the superficial cortex of the lymph node. An ultrasound-guided biopsy is recommended. These results and recommendations were discussed with the patient at the time of the exam by the [facility] Radiologist Dr. Edmar Matthew in person. This exam was interpreted at Station ID: [id number]. Electronically Signed By: New Olson M.D. ecl/:12/03/2018 11:27:21 letter sent: Biopsy Required Ultrasound BI-RADS: 4c High suspicion of malignancy
== END ==
PROVIDERS: PCP Family Medicine; Visit Provider Family Medicine
DX: R92.8 Other abnormal and inconclusive findings on diagnostic imaging of breast (principal); N63.21 Unspecified lump in the left breast, upper outer quadrant
CPT/HCPCS: 76642; 77065; G0279

== ENCOUNTER → 2018-12-17 07:40 | Outpatient (CLI) | payer OTHER, SELFPAY ==
--- NOTE | 2018-12-17 07:42 | DI.MRI.S_ITS ---
BREAST MRI OF BOTH BREASTS: 12/17/2018 CLINICAL: Abnormal mammo. Separate possible mass. Strong family history. Screening mammogram of 11/18/18 demonstrated possible architectural distortion in the upper outer left breast near 1:00 position. This persisted on the additional diagnostic views performed on 12/03/18, and also correlated with an area of palpable concern as indicated by the patient at the time of the exam. Targeted left breast and axillary ultrasound demonstrated a 1.0 x 0.7 x 0.7 cm irregular mass in the left breast at 2:00 position retroareolar depth which was suspicious for malignancy, and an ultrasound-guided biopsy was recommended. There was an axillary lymph node demonstrating 4 mm of cortical thickening, for which ultrasound biopsy was also recommended. Targeted ultrasound of the upper outer left breast demonstrated no other suspicious abnormality. Comparison is made to exams dated: 12/03/2018 ultrasound, 12/03/2018 mammogram, 11/18/2018 mammogram, and 10/15/2017 mammogram - [facility]. Informed consent was obtained from the patient. Axial T1 images were obtained. Bilateral background breast enhancement is minimal. PROCEDURE: MR BREAST BI WO/W CON INDICATIONS: Abnormal mammo. Separate possible mass. Strong family history. Screening mammogram of 11/18/18 demonstrated possible architectural distortion in the upper outer left breast near 1:00 position. This persisted on the additional diagnostic views performed on 12/03/18, and also correlated with an area of palpable concern as indicated by the patient at the time of the exam. Targeted left breast and axillary ultrasound demonstrated a 1.0 x 0.7 x 0.7 cm irregular mass in the left breast at 2:00 position retroareolar depth which was suspicious for malignancy, and an ultrasound-guided biopsy was recommended. There was an axillary lymph node demonstrating 4 mm of cortical thickening, for which ultrasound biopsy was also recommended. Targeted ultrasound of the upper outer left breast demonstrated no other suspicious abnormality. TECHNIQUE: The patient was placed prone in a dedicated breast imaging coil. Precontrast axial STIR and 3D FLASH without fat saturation sequences were obtained. Both before and after bolus injection of contrast, sequential 1-minute axial 3D FLASH with fat saturation sequences for 3 time points, with subtraction images and maximum intensity projections (MIP's) generated. Delayed sagittal FLASH images with fat saturation were also obtained. 20 cc of ProHance intravenous contrast was utilized for this exam. Computer-aided detection, including computer algorithm analysis of MRI image data for lesion detection and characterization, pharmacokinetic analysis, with further physician review for interpretation, was performed. COMPARISON: [facility], US, US BREAST LT LIMITED, 12/03/2018, 10:53. [facility], MG, MM SPECIAL VIEW LT, 12/03/2018, 10:34. [facility], MG, MM SCREENING MAMMO BI, 11/18/2018, 18:01. [facility], MR, SHOULDER WITHOUT CONTRAST, 02/12/2017, 15:42. [facility], MR, SHOULDER WITHOUT CONTRAST, 12/01/2013, 16:15. FINDINGS: Image quality: Excellent. There is mild background parenchymal enhancement. Right breast: There is mild to moderate retroareolar ductal ectasia with T1 signal hyperintensity suggestive of proteinaceous or hemorrhagic intraductal debris. Left breast: There is mild to moderate retroareolar ductal ectasia with T1 signal hyperintensity suggestive of infiltrates or hemorrhagic intraductal debris. There is anterior left lateral retroareolar parenchymal scarring and distortion. There is a 0.9 cm anteroposterior by 0.7 cm mediolateral by 0.7 cm craniocaudal peripherally enhancing oval mass adjacent the ductal ectasia described above in the upper outer left breast at retroareolar depth, best seen on axial image 64 of series 22. This demonstrates rapid initial phase contrast enhancement with washout contrast enhancement kinetics. This appears to correlate with the mass seen in the left breast at 2:00 position retroareolar depth as described on comparison left breast ultrasound 12/03/18. There is a 2.8 cm anteroposterior by 1.7 cm mediolateral by 1.9 cm craniocaudal irregular spiculated mass of the upper outer left breast at middle depth. This appears to be located near 1:00-2:00 position approximately 5 cm from the nipple. There is additional irregular non-mass enhancement extending approximately 2 cm surrounding this mass. This demonstrates rapid initial phase contrast enhancement with washout contrast enhancement kinetics. This appears to correlate with the area of architectural distortion seen on comparison mammography. Miscellaneous: There is an inferior left axillary lymph node demonstrating asymmetric anterior cortical thickening, best seen on axial image 110 of series 17. This correlates with fracture or ultrasound findings of 12/03/18. There is a 0.8 cm T2 hyperintense intrahepatic mass in the anterior right hepatic lobe on axial image 20 of series 2. A subtle T2 hyperintense mass measuring 1.9 cm diameter is identified in the hepatic lobe on axial image 2 of series 23, which appears to correlate with the probable hemangioma seen on comparison CTs of 03/21/12 and 08/07/11. IMPRESSION: SUSPICIOUS OF MALIGNANCY 1. 0.9 cm x 0.7 cm x 0.7 cm enhancing oval mass in the upper outer left breast at retroareolar depth, with adjacent ductal ectasia. This is suspicious for malignancy and appears to correlate with the mass in the left breast at 2:00 position retroareolar depth as described on comparison left breast ultrasound of 12/03/18. An ultrasound-guided biopsy of the mass seen on ultrasound with post-biopsy clip placement and post-biopsy mammogram remains recommended. 2. 2.8 cm x 1.9 cm x 1.7 cm enhancing irregular mass in the upper outer left breast at middle depth, with a surrounding non-mass enhancement. This is also suspicious for malignancy and appears to correlate with the architectural distortion seen on comparison mammograms of 12/03/18 and 11/18/18. Of note, a convincing ultrasound correlate for this 2.8 cm mass could not be identified on the comparison ultrasound of 12/03/18. Recommend correlation with the results and post-biopsy clip marker location of the biopsy described above. If the clip does not correlate with the architectural distortion seen on mammography, then a stereotactic/tomosynthesis guided biopsy or MRI guided biopsy is recommended for this suspicious finding. 3. Redemonstrated inferior left axillary lymph node demonstrating asymmetric anterior cortical thickening, correlating with ultrasound findings of 12/03/18. 4. No suspicious masses or non-mass enhancement in the right breast. No right axillary or bilateral internal mammary lymphadenopathy. BIRADS: 4. Suspicious for malignancy. Recommend ultrasound-guided biopsy as described above, with possible additional stereotactic/tomosynthesis or MRI guided biopsy as recommended above. These findings were discussed with referring provider Dr. Jeison Vences by telephone by Dr. Olson at 4:15 pm on 12/17/18. COMMENT: The imaging literature indicates that a negative contrast breast MRI examination has a high sensitivity and a moderate specificity for detecting and excluding invasive carcinomas to a detection threshold of 3-5 mm; nonetheless, appropriate clinical and mammographic follow-up are recommended. MRI is not sensitive for detecting DCIS (ductal carcinoma in situ) and may not detect large invasive neoplasms that show only minimal enhancement such as mucinous carcinoma. If there are suspicious calcifications or clinically worrisome palpable masses, then biopsy should still be considered. Invasive neoplasms can be hidden by co-existent and benign enhancement caused by mastitis, hormone therapy effects, radiation therapy, , and recent biopsy or surgery. False positive examinations can occur in a number of circumstances, including breasts that have recently been subject to invasive procedures and those that contain atypical ductal hyperplasia, hormonally stimulated glandular tissue, fat necrosis, or radial scars. This exam was interpreted at Station ID: [id number]. Electronically Signed By: New Olson M.D. ecl/:12/17/2018 16:46:59 copy to: JEISON VENCES letter sent: Biopsy Required ACR BI-RADS Category 4: Suspicious abnormality 3344F
== END ==
PROVIDERS: PCP Family Medicine; Referring Provider Specialist; Visit Provider Family Medicine
DX: R92.8 Other abnormal and inconclusive findings on diagnostic imaging of breast (principal); N63.21 Unspecified lump in the left breast, upper outer quadrant; N60.42 Mammary duct ectasia of left breast; N60.41 Mammary duct ectasia of right breast; Z80.3 Family history of malignant neoplasm of breast
CPT/HCPCS: 77049; A9579

== ENCOUNTER → 2019-01-07 17:09 | Outpatient (CLI) | payer OTHER, SELFPAY | PROVIDERS: PCP Family Medicine | DX: Z23 Encounter for immunization (principal) | CPT/HCPCS: 90471; 90686 ==

== ENCOUNTER 2019-01-18 14:42 | Observation (INO) | payer OTHER, SELFPAY ==
[2019-01-17] VITALS (14 sets, daily range): BP systolic 118–148; BP diastolic 7–91; PULSE 91–111; RESP 9–20; TEMP 36.6–37.1; O2SAT 93–96; BMI 68.3
--- NOTE | 2019-01-17 | PATH_ITS ---
[facility] Accession Number: [id number] . 01 Material submitted: . PART A: lymph node - LEFT AXILLA SENTINEL NODE PART B: lymph node - LEFT AXILLA NODES ADJACENT TO SENTINEL NODE PART C: breast - LEFT BREAST . 01 Clinical history: . L MASTECTOMY/SENT NODE BX C: STITCH DUMONT TAIL OF GOLDEN, SHORT STITCH DUMONT MEDIAL ELIPSE . 01 Diagnosis: A. Left Axilla [place] Lymph Node, Excisional Biopsy: One out of one lymph node positive for carcinoma (1/1). Largest metastatic focus: 0.6 cm. Extranodal extension: Not definitively identified. Background with benign lymphoepithelial-like (squamous) inclusion cyst. . B. Left Axilla Lymph Nodes, Adjacent to [place] Lymph Node, Dissection: Two out of two lymph nodes positive for carcinoma (2/2). Largest metastatic focus: 1.3 cm. Extranodal extension: Focally present. . C. Left Breast, Mastectomy: Invasive (lobular) carcinoma with focal pleomorphic features, grade 2 of 3 ([place] combined histologic grade, total score 7/9), with the following features: 1. Tumor size (invasive component): 4.4 cm, by microscopic measurement; see comment. 2. Tubular differentiation: None (3/3). 3. Nuclear pleomorphism: High (3/3). 4. Mitotic grade: Low (1/3). 5. In situ Neoplasia: a. Ductal carcinoma in situ: Absent (focal atypical ductal hyperplasia is present). b. Atypical lobular hyperplasia/lobular carcinoma in situ: Present. 6. Calcifications: Present, in association with benign breast tissue. 7. Lymphovascular space invasion: Not definitively identified (please see parts A and B). 8. Resection margins: a. Invasive carcinoma: Negative (invasive carcinoma is 0.25 cm from the posterior margin, 0.4 cm from the superficial superior margin (see comment), 0.4 cm from the lateral margin, and more than 1.0 cm from the remaining margins). 9. Prognostic markers (performed on this mastectomy specimen): a. Estrogen receptor status: Positive (>95% tumor cells staining, staining intensity: strong). b. Progesterone recptor status: Positive (>85% tumor cells staining, staining intensity: strong). c. HER-2 status: Equivocal for protein overexpression by immunohistochemistry (2+); Her2 gene amplification by FISH studies are pending, and results will be reported in an addendum. 10. Regional lymph node status: a. 3/3 lymph nodes positive for metastatic carcinoma (including 1 sentinel lymph node). b. Size of largest metastatic deposit: 1.3 cm. c. Extranodal extension: Focally present. 11. Additional findings: a. Skin and nipple are present, and are not involved by invasive carcinoma or Paget disease. b. Skeletal muscle is not present for evaluation. c. Background breast consisting of fibrocystic change including sclerosing adenosis, columnar cell change/columnar cell hyperplasia, fibroadenomatoid change, focal usual ductal hyperplasia, incidental fibroadenoma (0.5 cm), and incidental intraductal papilloma. d. Biopsy site changes and areas of scarring/fibrosis consistent with prior procedure are also present. 12. Pathologic Stage: pT2 pN1a (sn). [facility] [place] [place] 01/24/2019 1641 Local . 01 Comment: The invasive lobular carcinoma has an irregular growth pattern, with two main masses, forming a 'dumbbell' shape, connected by scattered foci of invasive carcinoma. Based on the pattern of involvement of the intervening sections, it is best to interpret this lesion as one large contiguous mass. Invasive carcinoma involves relatively contiguously slices 6 through 17, for an estimated size, based on slice thickness, of approximately 4.4 cm (approximately 10 slices involved, each of about 0.44 cm in thickness). . Within one block of tissue (C32), invasive carcinoma is present at an edge of tissue with thermal cautery artifact and scattered ink; however, adjacent fibroadipose tissue with blue ink is present and is considered to represent the true (superficial superior) margin. Deeper levels are examined. These findings are best interpreted as artefactual and the margin is best assessed as negative. This is further reviewed by my colleague Dr. Inman who agrees with the interpretation. . Dr. oSuza reviewed block A1, and agrees with the interpretation of a benign lymphoepithelial-like (squamous) inclusion cyst. . 01 Electronically signed: . Leann Smith MD, Pathologist NPI- [id number] . 01 Gross description: . (A) Received in formalin, labeled left axilla sentinel node [id number], is a lymph node (1.5 x 1.3 x 0.3 cm). Serially sectioned and entirely submitted in cassette A1. (B) Received in formalin, labeled left axilla nodes adjacent to sentinel node, are two lymph nodes (1.1 x 0.7 x 0.3 cm and 1.5 x 1.3 x 0.7 cm). The smaller lymph node is trisected and entirely submitted in cassette B1 and the larger one is serially sectioned and entirely submitted in cassettes B2-B3. . (C) Received: In formalin, labeled left breast, long stitch dumont tail of Golden, short stitch dumont medial ellipse. . Specimen: Left modified radical mastectomy. Weight: 713 grams. 3.7 cm anterior to posterior, 18.2 cm medial to lateral, and 23.2 cm superior to inferior. Skin Ellipse: Present, kan and unremarkable, measuring 7.5 cm medial to lateral, 3.7 cm superior to inferior. Nipple/Areolar: 1.7 x 1.5 cm diameter everted nipple within a 4.8 x 3.0 cm diameter areola. Axillary Tail: Attached, long stitch dumont tail of Golden, measures 6.2 x 5.0 x 1.7 cm. Margins: The skin ellipse is oriented by surgeon with short medial suture. The posterior surface is covered by fascia and is smooth and is inked black. The anterior soft tissue margins are unremarkable and are inked blue for anterior-superior and green for anterior-inferior. Slices: Serially sectioned medial to lateral into seventeen slices excluding the tail of Golden. . Lesions: Two lesions are identified. Lesion #1: Description: Rodríguez-white firm 1.3 x 1.0 x 0.9 cm. Slices Involved: Slices 9 and 10 located in the upper outer quadrant at approximately 1 to 2 o'clock position. Distance to Margins: 1.4 cm from the superior anterior margin, 2.2 cm from the skin surface, and 3.3 cm from the inferior margin. . Lesion #2: Description: Rodríguez-white firm with ill-defined borders. A biopsy marker is identified within the mass in slice 12. Size: 3.0 x 1.8 x 0.9 cm. Slices Involved: Slices 12 and 13 located in the upper outer quadrant. Distance to Margins: 1.2 cm from the superior-anterior margin, 3.5 cm from the deep margin and 8.3 cm from lesion #1. Other: The uninvolved breast parenchyma is kan-yellow lobulated adipose tissue and densely fibrous focally firm. No lymph nodes are identified within the tail of Golden. . Patient Transition Specialist sections are submitted as follows: Cassette Code: C1-C2: Nipple, serially sectioned, entirely submitted. C3: Skin, b2b outside sales representative. C4: Slice 6, b2b outside sales representative fibrous firm tissue, four slices lateral to lesion #1. C5-C8: Slice 8, tissue directly medial to lesion #1, no lesion identified within this slice. C9-C14: Slice 9, lesion #1, margins. C15-C20: Slice 10, lesion #1, margins, location of biopsy marker. C21-C24: Slice 11, tissue directly medial to lesion #2, no obvious lesion identified within this slice. C25-C30: Slice 12, lesion #2, margins, location of biopsy marker. C31, C32: Slice 13, lesion #2, b2b outside sales representative. C33-C36: Slice 14, tissue directly lateral to lesion #2, no obvious lesion is identified within this slice. C37: Slice 15, fibrous and focally firm tissue, b2b outside sales representative. C38: Slice 12, tumor close to superficial superior margin. C39: Slice 11, questionable tumor. C40: Slice 17, b2b outside sales representative, perpendicularly sectioned (representing most lateral margin. C41: Slice 16, b2b outside sales representative. C42: Slice 5, b2b outside sales representative, lower inner quadrant. C43: Slice 5, upper inner quadrant, b2b outside sales representative. C44: Slice 4, b2b outside sales representative. C45: Slice 12, b2b outside sales representative, left lower quadrant. . Fixation time: The specimen was placed in formalin on 01/17/2019 with no time given. The approximate total fixation time is calculated to be 56 hours and 30 minutes. . Note: After serially sectioning, the specimen was reviewed by Dr. Miryam Souza. ([id number]) /JOSE ANTONIO 01/24/2019 1028 Local . 01 Microscopic: . PARADISE immunostain is performed on block B2, in order to assess for extranodal extension and the extent of metastasis, with appropriately staining external controls. PARADISE highlights focal extranodal extension. E-cadherin and Beta-catenin immunostains are performed on block C31, with appropriately staining external controls, and are lost within the invasive carcinoma in support of the lobular phenotype. . Predictive marker immunohistochemical studies are performed on block C31 with the invasive carcinoma showing the following results: . Estrogen receptor (SP1): Positive (>95%, Strong intensity). Progesterone receptor (1E2): Positive (>85%, Strong intensity). Her2 (4B5): Equivocal for protein overexpression by immunohistochemistry (2+); Her2 gene amplification by FISH studies are pending. . Internal controls are present for ER and TN. . Cold ischemic time is indeterminate. The scoring criteria for breast biomarkers by immunohistochemistry is based on the ASCO/CAP guidelines (Alaina AC et al, J Clin Oncol: 2017 10;36(20):1538-1775 and Medel ME et al, Arch Pathol Lab Med: 2009;134(6):907-22). Deparaffinized sections of formalin fixed tissue (along with appropriate positive controls) are incubated with the above antibody(s). Using the automated [place] stainer, tissue is incubated with the designated antibody which is then localized by a non-biotin, dual polymer detection system. The external controls are reviewed for appropriate reactivity and found to be adequate. Results on the target cell population are indicated above. These tests have not been validated on decalcified tissue. This test was developed and its performance characteristics determined by [facility]. It has not been cleared or approved by the U.S. Food and Drug Administration. The FDA has determined that such clearance or approval is not necessary. This test is used for clinical purposes. It should not be regarded as investigational or for research. . 01 Pathologist provided ICD-10: C50.112 . 01 CPT . 628200, 505654, 261856, Y01693, Y42307, 299569, [id number], [id number] Performed at: 01 [facility] [place] [address], [place], [place] [id number] MD Amos Bills MD Phone: [phone]
--- NOTE | 2019-01-17 11:26 | DI.NM.S_ITS ---
PROCEDURE: NM SENTINEL NODE W IMAGING COMPARISON: [facility], US, US BIOPSY BREAST 1ST LESION LEFT, 12/31/2018, 13:08. INDICATIONS: breast cancer left breast FINDINGS: A single identified sentinel lymph node is found at the left axilla, marked on the skin surface overlying the structure to assist in surgical localization. IMPRESSION: Successful identification of a single left axillary lymph node showing elevated isotope deposition after periareolar isotope injection. Dictated by: Edmar Matthew M.D. on 01/17/2019 at 14:31 Approved by: Edmar Matthew M.D. on 01/17/2019 at 14:34
[2019-01-17] MEDS: SCOPOLAMINE 1 PATCH TOP (12:33)
--- NOTE | 2019-01-17 12:48 | PM.HP.1 ---
History of Present Illness History of Present Illness Date Patient Seen: 01/17/19 Time Patient Seen: 12:48 Chief complaint: [id number] L MASTECTOMY/SENT NODE BX *OPB* Narrative: The patient is a woman who had biopsies done of 2 areas in her left breast. Both positive for lobular carcinoma ERPR positive HER2 Guille negative. She is brought in for mastectomy and sentinel node biopsy for multi focal disease. This is been discussed with her extensively preop. She is not interested in reconstruction at this time. Patient History Medical History Hypertension (Chronic) Hypothyroidism (Chronic) Surgical History H/O rectocele repair (Resolved) History of breast biopsy (Acute) History of tonsillectomy (Acute) Family & Social History Family History (Updated 01/17/19 @ 12:50 by Tarun Craft MD) Family/Other Cancer Social History: household members spouse,family,children Prior Living Arrangements House Tobacco & Substance use: Smoking Status Never smoker alcohol intake current alcohol intake frequency holiday/special occasion Substance Use Type does not use Meds Home Medications and Allergies Home Medications Medication Instructions Recorded Confirmed Type levothyroxine 112 mcg tablet 112 mcg PO DAILY #90 tab 10/30/17 01/17/19 Rx lisinopril 10 mg tablet 10 mg PO DAILY #90 tab 10/30/17 01/17/19 Rx Allergies Allergy/AdvReac Type Severity Reaction Status Date / Time Sulfa (Sulfonamide Allergy Mild RASH Verified 12/08/18 12:25 Antibiotics) [SULFA (SULFONAMIDE ANTIBIOTICS)] codeine [CODEINE] AdvReac Mild GI Verified 12/08/18 12:25 Review of Systems Review of Systems ROS Unobtainable: All systems reviewed & are unremarkable except as noted in HPI and below Respiratory Comments: Has a slight cough that she believes is related to the lisinopril she is taking. She has no sputum production. Gastrointestinal Comments: Severe GI upset accompanies the use of some narcotics. She does tolerate tramadol. Hematologic/Lymphatic Comments: Bleeds unusually after procedures. Exam Vital Signs (past 8 hours): - 01/17/19 11:52 Temperature 98 F Pulse Rate 91 H Respiratory Rate 20 Blood Pressure 138/85 Pulse Oximetry 95 Oxygen Delivery Method Room Air Narrative Exam Narrative: Vitals noted. Cooperative in no apparent distress. Eyes are nonicteric. There are no nodes in the neck or supraclavicular axillary areas. There is some bruising about her breast from her prior biopsy on the left. No mass in the right breast. Prior to the biopsy her left breast was also without palpable lesion except for small area which she could feel. Heart regular rate and rhythm without murmur gallop. Lungs are clear to auscultation without rales or rhonchi. Assessment & Plan Assessment & Plan narrative: Multifocal breast cancer in the left patient is opted to undergo a mastectomy with sentinel node biopsy. I have discussed the procedure with her including risks of bleeding infection intercostal brachial nerve injury and a seroma formation. She understands should be numb on her chest wall permanently. All questions were answered and she wished to proceed. Because of her tendency to bleed after procedures will probably keep her overnight for observation.
[2019-01-17] MEDS: LACTATED RINGERS 1,000 ML 100 ML IV ×2 (13:54→17:35)
[2019-01-17] MEDS: ACETAMINOPHEN IV 1,000 MG/100 ML VIAL 400 MG IV (14:30)
[2019-01-17] MEDS: CEFAZOLIN 2 GM/100 ML FROZ.PIGGY IV (14:33)
--- NOTE | 2019-01-17 14:58 | SUR.OPER ---
Supine on padded OR bed, head on pillow, arms secured on padded arm boards at <90 degrees abduction, legs uncrossed, safety belt at thigh, tape over blanket over lower legs.EXTRA PADDING TO LEFT ARM TO SUPPORT PATIENTS LEFT SHOULDER.
--- NOTE | 2019-01-17 15:13 | SUR.OPER ---
GLASSES TO PACU IN LABELED CONTAINER
[2019-01-17] MEDS: CEFAZOLIN 1 GM VIAL IV (18:47)
[2019-01-17] MEDS: HYDROMORPHONE 2 MG INJ IV ×4 (19:33→19:53)
--- NOTE | 2019-01-17 19:34 | PM.OP.1 ---
Operative Date/Time/Diagnoses Date of procedure: 01/17/19 Time of procedure: 19:35 Pre-op diagnosis: Mult centric l breast cancer left side Post-op diagnosis: same Procedure & Clinicians Procedure: Left mastectomy with sentinel node biopsy Same procedure as scheduled: Yes Indications: Multicentric breast cancer Surgeon: Tarun Craft Click Yes if Unassisted: Yes Anesthesia Type: General Operative Notes Findings: Very deep node in the axilla. Diffuse oozing during the operation. Closure Type: primary Specimen(s): other (Breast and sentinel node) Applied: drain(s) (Two Boni drains) Estimated Blood Loss (mL): 500 Blood products transfused: none Procedure in detail: Patient was placed supine on the operating room table and underwent general LMA anesthesia. She was prepped and draped in the usual fashion. She had been injected with radionucleotide prior to the operation for the sentinel node biopsy any lips was made including the nipple areolar complex. This carried into the subcu. Flaps were raised superiorly to the clavicle medially to the midline and lateral when I reached the area of the axilla using the navigator we dissected into the axilla to locate the sentinel node. This was rather difficult because the node and a being very high in the axilla behind tech minor. Ultimately we were able to located in remove it along with adjacent nodes. Only 1 however was positive and had counts at 10 seconds of over 40,000.(there were brief counts noted as high as 10,000 but they could not be sustained). The other nodes adjacent to the positive node were removed with the specimen. Meticulous hemostasis was achieved. Clips were used to try to limit the amount of drainage that might occur with removal of this node with the clips being applied to any thing that might have been lymphatic going to or from the node. Once this was accomplished we turned back to the breast and raised the inferior flap to the inframammary fold. The breast was then taken off superior to inferior and medial lateral. This was done using cautery. As the operation progressed I attempted to the patient bled unusually. This prolonged the operation considerably along with the dissection to find the node. Ultimately the breast was removed and the wound was irrigated and hemostasis achieved. I was very meticulous about this due to the patient's history of bleeding postop from other operations. Two drains were placed. These were 19 Hebrew Boni drains. Both were placed under the flap and also into the axilla. The subcu was closed with interrupted 3 0 Vicryl. The skin was closed running 4 0 Vicryl subcuticular stitch and Steri-Strips. Bulky dressing was applied and an Yony wrap applied over it and the patient was awakened extubated taken recovery area in good condition. Complications: none Post-operative Condition: stable Disposition: PACU
[2019-01-17] MEDS: LORazepam 2 MG/ML INJ 0.25 MG IV (19:51)
--- NOTE | 2019-01-17 20:52 | SUR.PHASEI ---
Stable PACU> Dr. Craft to bedside spoke with pt about pain. Pt states pain level high, falls asleep easily when not spoken to, easily arousable. Transported up to room 204, and left in stable condition. Ice packs x 2 placed to both shoulder areas per request of pt for comfort.
[2019-01-17] MEDS: LACTATED RINGERS 1,000 ML 125 ML IV (21:20)
[2019-01-18] VITALS (12 sets, daily range): BP systolic 109–128; BP diastolic 58–78; PULSE 80–90; RESP 13–18; TEMP 37.1–37.4; O2SAT 86–96
--- NOTE | 2019-01-18 01:34 | PC.NURSE ---
Addendum entered by Joanne Reeves R.N. 01/18/19 03:49: Up to bathroom and voided 800cc; no further hesitancy. More alert than earlier. States pain in left axilla is 2/10 at rest but increases with movement but is tolerable and states she doesn't need any further pain medication. No further nausea but still seems unsteady when walking. Taking sips of gingerale and ice chips. Addendum entered by Joanne Reeves R.N. 01/18/19 01:39: Did attempt to try patient on RA but O2 sat dropped to 86% when asleep so back on 2L/min oxygen per NC and sat is at 96% while asleep. Original Note: 0020 Patient found attempting to get out of bed with spouse's assistance. Walked to/from bathroom with 1-2 assist as is weak and unsteady. Currently remains drowsy fuzzy and slightly forgetful likely due to Ativan + Dilaudid given in PACU. Breath sounds CTA with sat of 96% while on oxygen at 2L/min. HRR but tachy in low 100's which she states is her baseline. Having nausea with movement and did have small emesis of clear liquid; offered Zofran but declines as having no nausea at rest. BT hypoactive; denies flatus. Was able to urinate when on toilet but was unmeasured; did have some urinary hesitancy but denies dysuria. Dressing/mary wrap to left chest is CDI. Has 2 Boni drains which are intact and compressed. Once back in bed positioned with arm supported by blanket/pillow and ice packs to chest and axilla. Denies pain. Wearing bilateral calf SCD's. Fall risk score is moderate but spouse at bedside so alarm is not in use.
[2019-01-18] MEDS: LACTATED RINGERS 1,000 ML 125 ML IV (04:38)
[2019-01-18] MEDS: LEVOTHYROXINE 112 MCG TABLET PO (05:37)
[2019-01-18 05:55] LABS: Add Manual Diff / Slide Review NO; Basophils Absolute Auto 0 /uL (0-100); Basophils Percent Auto 0.2 % (0-2); Eosinophils Absolute Auto 0 /uL (0-450); Hematocrit 34.2 % (36-46); Hemoglobin 11.9 g/dL (12.0-16.0); Lymphocytes Absolute Auto 1100 /uL (1100-4500); Lymphocytes Percent Auto 12.9 % (25-40); Mean Corpuscular HGB Conc 34.8 % (30-36); Mean Corpuscular Volume 91.9 fL (80-100); Monocytes Absolute Auto 700 /uL (0-900); Monocytes Percent Auto 8.5 % (3-14); Neutrophils Absolute Auto 6400 /uL (1500-7000); Neutrophils Percent Auto 78.4 % (50-75); Platelet Count 307 X10^3/uL (150-400); Red Blood Cell Count 3.72 X10^6/uL (4.0-5.2); Red Cell Distribution Width 12.7 % (11.6-14.8); White Blood Cell Count 8.2 X10^3/uL (4.5-11.0)
--- NOTE | 2019-01-18 08:40 | CM.DANOTE ---
Addendum entered by Rosa Alberts LPN 01/18/19 13:54: Dr. Craft was here this morning to see pt. She may go home later today or may stay overnight, dependent on how she is feeling...DCP team will check in tomorrow if she is still here to follow for any d/c needs that may arise. and friend have been at bedside and are supportive. Original Note: Discharge Planning/Care Management DCP: assessment: case received, EMR reviewed. 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 She admitted yesterday for a scheduled surgery: L Mastectomy under care of Dr. Craft. PCP: Dr. Jere Vences Payer: [facility]. Pt spouse has been at bedside through the night. Dr. Craft indicates he is keeping pt overnight post surgery to monitor for bleeding. [address] P: check in prn as needs unfold and assist with any d/c needs that may arise (being also mindful of pt's status at and respect for her privacy. CM Discharge Assessment Start: 01/18/19 08:39 Freq: Status: Active Protocol: Document 01/18/19 08:39 ITV (Rec: 01/18/19 08:40 ITV [id number]) Discharge Planning Assessment Advance Directives? Yes: at home Advance Directives on File No History Provided By Medical Record Prior Living Arrangements House Household Members spouse,family,children Type of transportation used prior to Drives own vehicle admit Independent with ADL's Yes Is patient alert and oriented? 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 No Does patient have MANCIA/SOB No Hx Sleep Apnea No CPAP/BIPAP use not prescribed Currently Taking a Beta Omar No Hx Chest Pain No Hx SOB No Hx Syncope or Dizziness No Anti-Coagulant Therapy No Has a Child Care Leader No Cardiac Testing No Hx Pacemaker/ICD No Pacemaker Rep Required? No Cardiac Clearance Received Not Applicable dysphagia No Urinary Catheter Present No Hx Urinary Self Catheterization No Diabetes No Patient No Lactating No Hx Drug Resistant Organism No Presence of External or Internal Medical No Devices Marital Status Lives With spouse,family Prior Living Arrangements House Support System Spouse Does the Patient Have Assistance After Yes Surgery Patient Discharge Plan Description Return Home Advance Directives? Yes
[2019-01-18] MEDS: DOCUSATE 100 MG CAPSULE PO ×2 (09:11→20:53)
[2019-01-18] MEDS: LISINOPRIL 10 MG TABLET PO (09:12)
--- NOTE | 2019-01-18 09:41 | PC.NURSE ---
Addendum entered by Marlena Guerra R.N. 01/18/19 10:14: Dr. Craft in to see pt, changed left breast dressing. Per Dr. Plata drains do not need to be stripped, order to empty Q4hr. Behind right ear is a scopolamine patch placed 01/17. O2 sat 95% on 2L NC, instructed to deep breath and cough with breast splinting. Original Note: Day Shift- Pt A&OX4, able to make needs known, call light within reach. Pt's Fantasma and friend Maria Luz in room. Pt rates 2/10 deep aching to left axilla area, Did not want prn meds at this time. Ice pack in place. CMS+, radial pulse moderate and palpable. Denies numbness or tingling. Pt instructed on light movement, no heavy lifting, or extension of left arm. [address] labelled #1 and #2 draining bloody drainage. Pt stated her Fantasma and her sister will be emptying at home. Pt requesting regular diet, did not want clear liquids and request for stool softener. Dr. Craft paged at [phone], rec'd call back to S/L IVF, Docusate 100mg BID, and to keep with clear liquid diet until Dr assess pt at bedside. Pt updated with above conversation with Dr. Craft.
[2019-01-18] MEDS: ACETAMINOPHEN 325 MG TABLET 650 MG PO ×2 (10:25→20:53)
--- NOTE | 2019-01-18 17:14 | PM.PNPO.1 ---
Subjective Subjective Date Patient Seen: 01/18/19 Time Patient Seen: 17:14 Interval history: The patient seen earlier today and again this evening. She was a bit a little nauseated earlier and was feeling a little weak. This evening she remains dizzy and not quite up to going home. Principal pain is in the left axilla. The rest is not tender. Exam Vital Signs (past 8 hours): - 01/18/19 10:25 01/18/19 12:00 01/18/19 16:11 Temperature 98.8 F 99.2 F Pulse Rate 90 80 Respiratory Rate 13 18 Blood Pressure 118/58 L 116/73 Pulse Oximetry 95 91 96 Oxygen Delivery Method Room Air Oxygen Flow Rate 0 Narrative Exam Narrative: Chest wall is flat. Drainage as expected. Dressing was not taken down entirely just enough to make sure there was no bleeding under the flaps. Objective Labs Result Diagrams: 01/18/19 05:45 Labs: Laboratory Results - last 24 hr 01/18/19 05:45 WBC 8.2 RBC 3.72 L Hgb 11.9 L Hct 34.2 L MCV 91.9 MCH 32.0 MCHC 34.8 RDW 12.7 Plt Count 307 Neut % (Auto) 78.4 H Lymph % (Auto) 12.9 L Jennings % (Auto) 8.5 Eos % (Auto) 0.0 L Baso % (Auto) 0.2 Neut # (Auto) 6400 Lymph # (Auto) 1100 Jennings # (Auto) 700 Eos # (Auto) 0 Baso # (Auto) 0 Assessment & Plan Post-op Postoperative Procedures: Procedures Operation Date: 01/17/19 14:00 Actual Procedures Side Surgeon p Mastectomy With [place] Node Biopsy Left Tarun Craft MD Postoperative day: 1 Postoperative status narrative: Patient is doing well but feeling a little queasy at times and dizzy. Not quite sure she is ready to be discharged. She had a very prolonged operation with a large amount of blood loss and I would like to keep her 1 more night and probably discharge her in the morning. Postoperative plan narrative: Probable discharge in the morning Quality VTE Deep Vein Thrombosis/Pulmonary Embolism Present on Admission: No
[2019-01-18] MEDS: SODIUM CHLORIDE 0.9% FLUSH 10 ML IV (20:54)
--- NOTE | 2019-01-18 22:00 | PC.NURSE ---
PM shift student note. Patient c/o minimal pain, 1 or 2 at worst. Dressing CDI, two Boni drains in place labeled 1 and 2. Small, sero-sanguineous drainage from both ( 10mL and 15mL respectively). Low grade fever trending for most of shift, decreased with tylenol at 2100. Both right hand and right forearm IV's removed, one on patient request and the other due to infiltration. IVs will not be replaced on patient request. IS at bedside, call light in reach, and bed locked and low.
--- NOTE | 2019-01-18 23:10 | PC.NURSE ---
Evening Shift Note R hand PIV removed per patient request at change of shift, site painful with mobility. R FA PIV flushed during this shift, site painful and no blood return, PIV removed due to site compromise. Patient aware of need for PIV incase of emergent access, patient will consider new PIV. aircraft stress analyst RN aware and will follow up tonight.
[2019-01-19 00:50] VITALS: O2SAT 94
[2019-01-19 01:00] VITALS: BP 111/71; PULSE 86; RESP 16; TEMP 36.8; O2SAT 93
[2019-01-19 05:00] VITALS: BP 109/70; PULSE 74; RESP 16; TEMP 36.8; O2SAT 94
[2019-01-19] MEDS: LEVOTHYROXINE 112 MCG TABLET PO (06:13)
[2019-01-19] MEDS: DOCUSATE 100 MG CAPSULE PO (08:18)
[2019-01-19] MEDS: ACETAMINOPHEN 325 MG TABLET 650 MG PO (08:18)
[2019-01-19] MEDS: TRAMADOL 50 MG TABLET 100 MG PO ×2 (08:21→09:38)
[2019-01-19 08:22] VITALS: BP 121/75; PULSE 94; RESP 17; TEMP 36.9; O2SAT 96
[2019-01-19] MEDS: LISINOPRIL 10 MG TABLET PO (08:22)
--- NOTE | 2019-01-19 11:47 | P.DS_ITS ---
History of Present Illness History of Present Illness Chief complaint: [id number] L MASTECTOMY/SENT NODE BX *OPB* Narrative: The patient is a woman who had biopsies done of 2 areas in her left breast. Both positive for lobular carcinoma ERPR positive HER2 Guille negative. She is brought in for mastectomy and sentinel node biopsy for multi focal disease. This is been discussed with her extensively preop. She is not interested in reconstruction at this time. Discharge Providers Provider Date of admission: 01/18/19 14:42 Discharge Date: 01/19/19 Primary care physician: Jeison Vences MD Consults: 01/17/19 21:02 Consult to Discharge Planning Routine Comment: Discharge provider: Tarun Craft MD Summary Hospital Course Discharge Diagnosis: 1. Multicentric breast cancer left breast 2. Chronic hypertension treated with medication 3. Chronic hypothyroidism treated with medication 4. Acute blood loss anemia secondary to operation Exam Vital Signs (past 8 hours): - 01/19/19 05:00 01/19/19 08:22 Temperature 98.2 F 98.5 F Pulse Rate 74 94 H Respiratory Rate 16 17 Blood Pressure 109/70 121/75 Pulse Oximetry 94 96 Oxygen Delivery Method Room Air Oxygen Flow Rate 0 Narrative Exam Narrative: Wounds look fine. No cellulitis. Some minor bruising. Drains draining principally serous with slight blood tinged fluid. No evidence of bleeding under the flaps. Objective Labs Result Diagrams: 01/18/19 05:45 Discharge Plan Discharge Plan Patient Disposition: Home Discharge orders & Medications Prescriptions: New tramadol 50 mg tablet See Rx Instructions .ROUTE .COMPLEX PRN (Reason: painful procedure) Qty: 20 RF: 0 Continued lisinopril 10 mg tablet 10 mg PO DAILY Qty: 90 RF: 3 levothyroxine [Levo-T] 112 mcg tablet 112 mcg PO DAILY Qty: 90 RF: 3 Follow up/Referrals: Jeison Vences MD [Primary Care Provider] - Tarun Craft MD [Physician] - 3-5 Days (If you need to reach a doctor after hours call our office and listen to the entire message. At the end you will be connected with our page paraffin plant sweater operator) Diet/Activity/Treatments Diet: Diet as Tolerated Activity: Avoid driving until pain free off medication Other treatments: Do your arm exercises at least 3 times a day. Take a multiple vitamin with iron in it at least daily. Skin/Wound/Dressing Care Dressing: You may remove dressing daily and shower. After a few more days you will not need a dressing on the incision but you will need 1 around the drains. Visit Report/Discharge Packet Instructions: DI for Mastectomy, DI for [place] Drains, How to Prevent Falls, DI for Postoperative Pain Visit Report Forms: Patient Portal/API, Stroke Signs & Symptoms Discharge Data Primary Care Provider: Jeison Vences Attending Provider: Tarun Craft Admit Date/Time: 01/18/19 14:42 Quality VTE Deep Vein Thrombosis/Pulmonary Embolism Present on Admission: No
--- NOTE | 2019-01-19 12:57 | PC.NURSE ---
Discharge pt c/o pain in left axilla. Requested tramadol for pain. after second dose states that pain is tolerable at a 1-2/10 (from 08/02). Drain care provided to pt, aware of emptying and recording output. States her sister in law will empty and she is RN. Dressing changed by MD prior to d/c. Pt aware of showering instructions per MD. PIV out already. Pt states she took all belongings with her. took Rx and got filled prior to pt leaving. Pt left in w/c with Student RN escort to car with .
== END 2019-01-19 12:20 | disposition home or self-care (01) ==
LOC: OR 16:47
PROVIDERS: Admitting Provider Specialist; PCP Family Medicine; Visit Provider Specialist
PROC: 0HTU0ZZ Resection of Left Breast, Open Approach (ICD-10-PCS; CPT 19303; principal; 2019-01-17 14:00)
DX: C50.112 Malignant neoplasm of central portion of left female breast (principal); I10 Essential (primary) hypertension; E03.9 Hypothyroidism, unspecified; Z17.0 Estrogen receptor positive status [ER+]; D62 Acute posthemorrhagic anemia
CPT/HCPCS: 19303; 38525; 36415; 78195; 85025; A9541; G0378; J0131; J0690; J1100; J1170; J2060; J2250; J2405; J2704; J3010

== ENCOUNTER → 2019-01-28 07:30 | Outpatient (CLI) | payer OTHER, SELFPAY ==
[2019-01-17 22:53] VITALS: BMI 68.3
--- NOTE | 2019-01-28 07:34 | DI.NM.S_ITS ---
PROCEDURE: NM BONE SCAN WHOLE BODY RADIOPHARMACEUTICAL: 19.6 mCi Tc-99m MDP IV. INDICATIONS: Breast cancer rule out Mets TECHNIQUE: Delayed whole-body scintigrams were obtained approximately 3-4 hours after intravenous injection of radiotracer. Anterior and posterior views were acquired from vertex to feet. Additional left and right oblique views of the chest, abdomen, and pelvis were obtained. COMPARISON: [facility], CT, CT CHEST ABD PEL W CON, 01/28/2019, 9:19. [facility], CT, PE STUDY (CTA CHEST), 03/21/2012, 8:43. [facility], CT, ABDOMEN/PELVIS WITH CONTRAST, 08/07/2011, 16:16. FINDINGS: Degenerative changes at the tarsal-metatarsal region of the feet bilaterally, otherwise normal. IMPRESSION: No evidence of osseous metastatic disease. Tarsal-metatarsal region bone scan uptake noted symmetric bilaterally consistent with underlying mild degenerative change. Dictated by: Edmar Matthew M.D. on 01/28/2019 at 13:47 Approved by: Edmar Matthew M.D. on 01/28/2019 at 13:50
[2019-01-28 08:16] LABS: Add Manual Diff / Slide Review NO; Basophils Absolute Auto 0 /uL (0-100); Basophils Percent Auto 0.5 % (0-2); Eosinophils Absolute Auto 100 /uL (0-450); Eosinophils Percent Auto 2.2 % (2-4); Hematocrit 34.9 % (36-46); Hemoglobin 12.2 g/dL (12.0-16.0); Lymphocytes Absolute Auto 2100 /uL (1100-4500); Lymphocytes Percent Auto 42.9 % (25-40); Mean Corpuscular Hemoglobin 32.2 PG (26-34); Mean Corpuscular Volume 91.9 fL (80-100); Monocytes Absolute Auto 500 /uL (0-900); Monocytes Percent Auto 10.8 % (3-14); Neutrophils Absolute Auto 2200 /uL (1500-7000); Neutrophils Percent Auto 43.6 % (50-75); Platelet Count 431 X10^3/uL (150-400); Red Blood Cell Count 3.79 X10^6/uL (4.0-5.2); Red Cell Distribution Width 12.8 % (11.6-14.8); White Blood Cell Count 4.9 X10^3/uL (4.5-11.0)
[2019-01-28 09:20] LABS: Alanine Aminotransferase 17 IU/L (<35); Albumin 4.5 g/dL (3.5-5.0); Albumin Globulin Ratio 1.5 (1.0-2.8); Alkaline Phosphatase 83 U/L (38-126); Aspartate Aminotransferase 23 IU/L (14-36); Bilirubin Total 0.5 mg/dL (0.2-1.3); Blood Urea Nitrogen 21 mg/dL (7-17); Calcium 9.6 mg/dL (8.4-10.2); Carbon Dioxide 30 mmol/L (22-32); Chloride 103 mmol/L (98-107); Estimated Glomerular Filt Rate > 60.0 mL/min (>60); Globulin 3.1 g/dL (1.7-4.1); Glucose 102 mg/dL (70-100); HEMOLYSIS < 15 (0-50); Potassium 4.1 mmol/L (3.4-5.1); Sodium 141 mmol/L (137-145); Total Protein 7.6 g/dL (6.3-8.2)
--- NOTE | 2019-01-28 09:40 | DI.CT.S_ITS ---
PROCEDURE: CT CHEST ABD PEL W CON INDICATIONS: Breast cancer rule out Mets TECHNIQUE: After the administration of oral and intravenous contrast, 5 mm thick sections acquired from the lung apices to the symphysis. 5 mm coronal and sagittal reformats were performed, with additional 7 mm coronal MIP reformats through the lungs. For radiation dose reduction, the following was used: automated exposure control, adjustment of mA and/or kV according to patient size. COMPARISON: [facility], CT, ABDOMEN/PELVIS WITH CONTRAST, 08/07/2011, 16:16. [facility], CT, PE STUDY (CTA CHEST), 03/21/2012, 8:43. [facility], MG, MM SCREENING MAMMO BI, 10/15/2017, 13:02. [facility], MR, MR BREAST BI WO/W CON, 12/17/2018, 8:00. FINDINGS: Image quality: Excellent. CHEST: Lungs and pleura: No acute airspace opacities. No pleural effusions or pneumothorax. Central and peripheral airways appear patent and normal in caliber. Mediastinum: Heart size is normal. No pericardial effusion. No mediastinal or hilar adenopathy by size criteria. Thoracic aorta and central pulmonary arteries are normal in size. Esophagus is normal in caliber. No hiatal hernia. Chest wall: No axillary or supraclavicular adenopathy by size criteria. Thyroid gland appears normal. There is expected postsurgical change of left axillary node excision, and also of operative intervention left breast and possible superimposed radiation therapy.. ABDOMEN: Solid organs: Liver is normal in size and unchanged in enhancement. With reference to prior CT pulmonary angiogram and also earlier abdomen/pelvis CT dated 08/07/11 no change in the liver parenchyma is suspected. Within the right anterior hepatic segment superiorly seen on series 2 image 44 is a low density 6 mm cystlike structure, which can be seen as faintly present on the CT pulmonary angiogram study from February 2012. Additionally, a homogeneously enhancing structure at the right posterior hepatic segment superiorly was present on that 2012 CT, representing a hemangioma. More inferiorly within the inferior margin of the right hepatic lobe to nearby nodular enhancing structures were previously present in 2012, characteristic of intrahepatic hemangiomas and have not enlarged. Incidental note is made of mild focal fatty infiltration within the anterior border of the fissure for the falciform ligament, left medial hepatic segment, as a frequent normal variant finding. This specifically does not represent a focus of metastatic disease. Gallbladder appears normal. Biliary system is non dilated. Pancreas enhances normally. Spleen is normal in size and enhancement. No adrenal nodules. Kidneys demonstrate normal size and enhancement, without hydronephrosis. An extrarenal pelvis is again noted on the left. Peritoneum and bowel: Bowel loops demonstrate normal wall thickness and caliber. No free fluid or air. Nodes and vessels: No retroperitoneal or mesenteric adenopathy by size criteria. Aorta and inferior vena cava are normal in size. Miscellaneous: No ventral hernias. PELVIS: Genitourinary: Bladder wall thickness is normal. Miscellaneous: No inguinal hernias or adenopathy. Bones: No suspicious bony lesions. No vertebral body compression fractures. IMPRESSION: 1. No evidence of metastatic disease. 2. Expected postsurgical change of left axillary node excision and left breast operative intervention. Cutaneous thickening noted over the left breast may indicate superimposed post radiation change. 3. Prior CT scan from 2011 and 2012 includes visualization of liver parenchyma, which contains several scattered hepatic hemangiomas, a single subcentimeter cyst near the dome of the right diaphragm, and also a triangular focus of fatty infiltration at the anterior border of the fissure for the falciform ligament, a frequent normal variant finding. Dictated by: Edmar Matthew M.D. on 01/28/2019 at 11:11 Approved by: Edmar Matthew M.D. on 01/28/2019 at 11:31
== END ==
PROVIDERS: Family Provider Internal Medicine; PCP Family Medicine; Visit Provider Specialist
DX: Z01.818 Encounter for other preprocedural examination (principal); C50.912 Malignant neoplasm of unspecified site of left female breast; C77.3 Secondary and unspecified malignant neoplasm of axilla and upper limb lymph nodes; D18.09 Hemangioma of other sites; K76.89 Other specified diseases of liver; Z79.890 Hormone replacement therapy
CPT/HCPCS: 36415; 71260; 74177; 77080; 78306; 80053; 85025; A9503; Q9967

== ENCOUNTER 2019-02-17 12:00 | Day surgery (SDC) | payer OTHER, SELFPAY ==
[2019-01-17 22:53] VITALS: BMI 68.3
[2019-02-17] VITALS (8 sets, daily range): BP systolic 134–149; BP diastolic 86–104; PULSE 81–97; RESP 11–20; TEMP 36.1–36.5; O2SAT 92–98
[2019-02-17] MEDS: LACTATED RINGERS 1,000 ML 100 ML IV (12:41)
--- NOTE | 2019-02-17 12:50 | PM.HP.1 ---
History of Present Illness History of Present Illness Date Patient Seen: 02/17/19 Time Patient Seen: 12:50 Chief complaint: [id number] PORT-A-CATH Narrative: Patient is a woman who has breast cancer about to undergo chemotherapy. She has limited peripheral access and I was asked to place a Port-A-Cath. Patient History Medical History (Updated 02/17/19 @ 12:54 by Tarun Craft MD) Breast cancer metastasized to axillary lymph node (Acute) Hypertension (Chronic) Hypothyroidism (Chronic) Surgical History H/O rectocele repair (Resolved) History of breast biopsy (Acute) History of tonsillectomy (Acute) S/P left mastectomy (Acute 01/17/19) Family & Social History Family History Family/Other Cancer Social History: household members spouse,family,children Tobacco & Substance use: Smoking Status Never smoker alcohol intake current alcohol intake frequency holiday/special occasion Substance Use Type does not use Meds Home Medications and Allergies Home Medications Medication Instructions Recorded Confirmed Type levothyroxine 112 mcg tablet 112 mcg PO DAILY #90 tab 10/30/17 02/17/19 Rx lisinopril 10 mg tablet 10 mg PO DAILY #90 tab 10/30/17 02/17/19 Rx tramadol See Rx Instructions .ROUTE 01/19/19 01/24/19 Rx .COMPLEX PRN #20 tab gabapentin 100 mg capsule 100 mg PO BID #60 cap 02/07/19 02/17/19 Rx Allergies Allergy/AdvReac Type Severity Reaction Status Date / Time Sulfa (Sulfonamide Allergy Mild RASH Verified 02/17/19 12:39 Antibiotics) [SULFA (SULFONAMIDE ANTIBIOTICS)] codeine [CODEINE] AdvReac Mild GI Verified 02/17/19 12:39 Review of Systems Review of Systems ROS Unobtainable: All systems reviewed & are unremarkable except as noted in HPI and below Cardiovascular Comments: Hypertension controlled with medication Musculoskeletal Comments: Chronic left shoulder problems with some pain postmastectomy Endocrine Comments: Hypothyroid on medication Exam Vital Signs (past 8 hours): - 02/17/19 12:30 Temperature 96.9 F L Pulse Rate 81 Respiratory Rate 16 Blood Pressure 142/86 H Pulse Oximetry 98 Oxygen Delivery Method Room Air Narrative Exam Narrative: Cooperative no apparent distress. Lungs are clear to auscultation no rales or rhonchi. Heart regular rate and rhythm no murmur gallop. No rashes on the chest wall. Eyes are nonicteric. Patient is alert and oriented x3. Speech rate and content are appropriate. Assessment & Plan Assessment and plan (1) Breast cancer metastasized to axillary lymph node: Problem details: Plan to place a port. I've discussed the procedure with her and the rationale. Risks of bleeding, infection (risk ongoing with access), lung collapse which might require chest tube, and DVT which could cause arm swelling or pulmonary embolism or all discussed with her. She appears to understand wishes to proceed. Current visit: No Status: Acute
--- NOTE | 2019-02-17 12:55 | PM.PREOP ---
Pre-operative Note Interval Note History & Physical reviewed/Exam performed by Physician: Yes Changes to H&P: No
[2019-02-17] MEDS: CEFAZOLIN 2 GM/100 ML FROZ.PIGGY IV (13:02)
[2019-02-17] MEDS: LIDOCAINE 1% 30 ML INJ (13:34)
[2019-02-17] MEDS: HEPARIN 5,000 UNIT, SODIUM CHLORIDE 0.9% 50 ML IV (13:35)
--- NOTE | 2019-02-17 13:55 | PM.OP.1 ---
Operative Date/Time/Diagnoses Date of procedure: 02/17/19 Time of procedure: 13:55 Pre-op diagnosis: Breast cancer Post-op diagnosis: same Procedure & Clinicians Procedure: Placement of right subclavian Port-A-Cath Same procedure as scheduled: Yes Indications: IV access for chemotherapy. Patient has limited peripheral access. Surgeon: Tarun Craft Click Yes if Unassisted: Yes Anesthesia Type: General Operative Notes Findings: Tip in the SVC. No evidence of pneumothorax Closure Type: primary Specimen(s): none sent Prosthetic devices, grafts, tissues, transplants, or devices: Port Estimated Blood Loss (mL): 5 Blood products transfused: none Procedure in detail: Patient was placed supine on the operating room table and underwent general LMA anesthesia. Her chest wall was washed with Betadine soap and then she was prepped with chlorhexidine and alcohol. Local anesthetic was infiltrated in a field block fashion beneath the right clavicle. A transverse incision was made and carried into the subcu. The patient was placed in Trendelenburg and needle inserted on 2nd attempt into the subclavian vein.(The patient had expressed a desire to avoid the neck if possible.) A guidewire was passed and the needle removed. Fluoroscopy revealed the guidewire going in the appropriate direction. A pocket was created inferior to the incision and the port was put together and placed in the pocket. The catheter length that was appropriate was estimated and the length adjusted accordingly. Dilator and introducer were passed over the guidewire under fluoroscopic visualization. The guidewire and dilator removed leaving the introducer in place. The catheter was passed through the introducer and it was peeled away leaving the tip of the catheter in the distal SVC. The catheter was aspirated and flushed with heparinized saline. The catheter was secured to the chest wall with interrupted silk sutures. The subcu was closed with interrupted 3 0 Vicryl and the skin was closed a running 4 0 Vicryl subcuticular stitch and a Steri-Strip. The dressing was applied and the patient was awakened, extubated taken the recovery area in good condition. Postprocedure x-ray showed the catheter in appropriate position in the SVC and no evidence of pneumothorax Complications: none Post-operative Condition: stable Disposition: PACU Plan for aftercare: Will follow up to examine the incision in about a week to 10 days
--- NOTE | 2019-02-17 14:04 | DI.RAD.S_ITS ---
PROCEDURE: XR CHEST 1V INDICATIONS: PORT A CATH PLACEMENT TECHNIQUE: One view of the chest was acquired. COMPARISON: [facility], CR, XR CHEST 1V, 10/24/2017, 7:39. FINDINGS: Surgical changes and devices: There is a right Port-A-Cath, the tip of which is likely within the superior projected over the superior SVC. Surgical clips are present in the left axilla. Lungs and pleura: Lungs are clear. No pleural effusions or pneumothorax. Mediastinum: Mediastinal contours appear normal. Heart size is normal. Bones and chest wall: No suspicious bony lesions. Overlying soft tissues appear unremarkable. IMPRESSION: No acute cardiopulmonary findings. Right Port-A-Cath as above. Dictated by: Mitzi Deleon M.D. on 02/17/2019 at 13:35 Approved by: Mitzi Deleon M.D. on 02/17/2019 at 13:36
--- NOTE | 2019-02-17 14:29 | SUR.PHASEI ---
Dr Craft at bedside. Site CDI. Tolerating po.
[2019-02-17] MEDS: KETOROLAC 30 MG/ML VIAL IV (15:16)
== END 2019-02-17 16:57 | disposition home or self-care (01) ==
PROVIDERS: Family Provider Internal Medicine; PCP Family Medicine; Visit Provider Specialist
PROC: (CPT 36561; principal; 2019-02-17 13:00)
DX: C50.919 Malignant neoplasm of unspecified site of unspecified female breast (principal); C77.3 Secondary and unspecified malignant neoplasm of axilla and upper limb lymph nodes; I87.2 Venous insufficiency (chronic) (peripheral)
CPT/HCPCS: 36561; 71045; 76000; C1788; J0690; J1644; J1885; J2250; J3010

== ENCOUNTER → 2019-02-21 17:15 | Outpatient (CLI) | payer OTHER, SELFPAY ==
[2019-01-17 22:53] VITALS: BMI 68.3
[2019-02-21 17:54] LABS: Add Manual Diff / Slide Review NO; Basophils Absolute Auto 100 /uL (0-100); Basophils Percent Auto 1.7 % (0-2); Eosinophils Absolute Auto 100 /uL (0-450); Eosinophils Percent Auto 2.2 % (2-4); Hematocrit 36.3 % (36-46); Hemoglobin 12.5 g/dL (12.0-16.0); Lymphocytes Absolute Auto 2000 /uL (1100-4500); Lymphocytes Percent Auto 32.5 % (25-40); Mean Corpuscular HGB Conc 34.3 % (30-36); Mean Corpuscular Hemoglobin 31.8 PG (26-34); Mean Corpuscular Volume 92.7 fL (80-100); Monocytes Absolute Auto 600 /uL (0-900); Monocytes Percent Auto 9.5 % (3-14); Neutrophils Absolute Auto 3400 /uL (1500-7000); Neutrophils Percent Auto 54.1 % (50-75); Platelet Count 384 X10^3/uL (150-400); Red Blood Cell Count 3.92 X10^6/uL (4.0-5.2); White Blood Cell Count 6.2 X10^3/uL (4.5-11.0)
== END ==
PROVIDERS: Family Provider Internal Medicine; PCP Family Medicine; Visit Provider Surgery
DX: C50.919 Malignant neoplasm of unspecified site of unspecified female breast (principal); C77.3 Secondary and unspecified malignant neoplasm of axilla and upper limb lymph nodes
CPT/HCPCS: 36415; 85025

== ENCOUNTER → 2019-02-28 11:04 | Outpatient (CLI) | payer OTHER, SELFPAY ==
[2019-01-17 22:53] VITALS: BMI 68.3
--- NOTE | 2019-02-28 11:06 | DI.ECHO.S_ITS ---
[facility]---------+ [facility] +---------+ : : [address] [place] : : : : [id number] : : : : Phone: [phone]+ Echocardiogram Report + + :Name: JEFFERY CUELLAR Study Date: 02/28/2019 Height: 67 in : :[facility] Weight: 200 lb : : Gender: Female BSA: 2.0 m2 : :: 1965 Age: 53 yrs BP: 120/74 mmHg: :Reason For Study: Pre Chemo : :Ordering Physician: Zeferino : :Hospitalist Performed By: Estuardo Castrejon : :Referring: FLAVIA ARRIETA : + + Interpretation Summary The left ventricle is normal in size. The left ventricular ejection fraction is normal. Left ventricular wall motion is normal. Diastolic parameters suggest a relaxation abnormality of the left ventricle, consistent with probable normal filling pressures. The right ventricle is normal in size and function. No hemodynamically significant valvular abnormalities. No significant change compared to prior echo. Procedure: A two-dimensional transthoracic echocardiogram with color flow and Doppler was performed. The study quality was technically adequate. Prior echo performed on 10/04/15. The patient was in normal sinus rhythm during the exam. Left Ventricle: The left ventricle is normal in size. There is normal left ventricular wall thickness. The ejection fraction is estimated to be 55-60%. The left ventricular ejection fraction is normal. Left ventricular wall motion is normal. Diastolic parameters suggest a relaxation abnormality of the left ventricle, consistent with probable normal filling pressures. Right Ventricle: The right ventricle is normal in size and function. Atria: The left atrial size is normal. Right atrial size is normal. There is no Doppler evidence for an interatrial shunt. Mitral Valve: The mitral valve is normal in structure and function. There is no mitral regurgitation noted. Aortic Valve: The aortic valve is trileaflet. The aortic valve opens well. No aortic regurgitation is present. Tricuspid Valve: The tricuspid valve leaflets are thin and pliable. No tricuspid regurgitation. Pulmonary artery pressures cannot be estimated because of the lack of a measurable TR jet velocity. Pulmonic Valve: The pulmonic valve is normal in structure and function. There is trace pulmonic regurgitation. Great Vessels: The aortic root is normal size. The dimensions of the ascending aorta are normal. The pulmonary artery is normal size. The IVC is of normal diameter and collapses greater than 50% with a sniff. This suggests a low right atrial pressure of 3 mm Hg. Pericardium/ Pleura There is no pericardial effusion. There is no pleural effusion. MMode/2D Measurements & Calculations LVIDd: 4.4 cm LVOT diam: 2.1 cm LVIDs: 3.1 cm Ao root diam: 3.1 cm FS: 29.7 % Aortic Jxn: 3.1 cm EPSS: 0.83 cm asc Aorta Diam: 3.0 cm IVSd: 1.1 cm LVPWd: 0.88 cm LV treviño. diameter/BSA (cm/m^2): 2.2 LV sys. diameter/BSA (cm/m^2): 1.5 LA A2 area: 21.1 cm2 RA long axis: 5.2 cm LA A4 area: 14.6 cm2 RA area: 16.1 cm2 LA length (vol): 5.0 cm RA vol: 42.3 ml LA vol: 52.2 ml RA : 20.9 ml/m2 LA vol index: 25.8 ml/m2 TAPSE: 2.4 cm Doppler Measurements & Calculations Ao V2 max: 106.0 cm/sec LVOT Max Ld: 72.5 cm/sec Ao V2 mean: 74.4 cm/sec LV V1 max P.1 mmHg Ao max P.5 mmHg LV V1 VTI: 16.2 cm Ao mean P.5 mmHg WICHO(I,D): 2.7 cm2 Ao V2 VTI: 21.5 cm WICHO(V,D): 2.4 cm2 sev ratio: 0.75 WICHO indexed to BSA (cm^2/m^2): 1.3 MV E max ld: 49.3 cm/sec PA V2 max: 64.2 cm/sec MV A max ld: 59.9 cm/sec PA V2 mean: 47.1 cm/sec MV E/A: 0.82 PA mean P.97 mmHg Med Peak E' Ld: 5.7 cm/sec PA Accel Time: 0.09 sec E/E' med: 8.7 Lat Peak E' Ld: 11.3 cm/sec E/E' lat: 4.4 E/e' average: 6.5 MV dec time: 0.23 sec SV(LVOT): 57.2 ml Electronically signed by: Chevy Wilde M.D. on Reading Physician:02/28/2019 04:57 PM
== END ==
PROVIDERS: PCP Family Medicine; Visit Provider Specialist
DX: Z01.818 Encounter for other preprocedural examination (principal); C50.919 Malignant neoplasm of unspecified site of unspecified female breast; C77.3 Secondary and unspecified malignant neoplasm of axilla and upper limb lymph nodes
CPT/HCPCS: 93306

== ENCOUNTER → 2019-03-25 13:13 | Outpatient (CLI) | payer OTHER, SELFPAY ==
[2019-01-17 22:53] VITALS: BMI 68.3
[2019-03-25 13:36] LABS: Add Manual Diff / Slide Review YES; Hematocrit 34.6 % (36-46); Hemoglobin 11.9 g/dL (12.0-16.0); Mean Corpuscular HGB Conc 34.2 % (30-36); Mean Corpuscular Hemoglobin 31.4 PG (26-34); Mean Corpuscular Volume 91.7 fL (80-100); Platelet Count 352 X10^3/uL (150-400); Red Blood Cell Count 3.78 X10^6/uL (4.0-5.2); Red Cell Distribution Width 12.8 % (11.6-14.8); White Blood Cell Count 11.8 X10^3/uL (4.5-11.0)
[2019-03-25 13:56] LABS: Neutrophils Absolute Manual 8850 /uL (3000-5900); RBC Morphology Normal Morphology; Total Cells Counted 100
== END ==
PROVIDERS: PCP Family Medicine; Visit Provider Specialist
DX: R50.9 Fever, unspecified (principal); Z91.89 Other specified personal risk factors, not elsewhere classified
CPT/HCPCS: 36415; 85025

== ENCOUNTER → 2019-04-05 12:28 | Outpatient (CLI) | payer OTHER, SELFPAY ==
[2019-01-17 22:53] VITALS: BMI 68.3
--- NOTE | 2019-04-05 12:57 | DI.CT.S_ITS ---
PROCEDURE: CT ANGIO CHEST INDICATIONS: dyspnea TECHNIQUE: After the administration of intravenous contrast, 2 mm thick sections acquired from the pulmonary apices to the posterior costophrenic angles. 3-dimensional maximum intensity projection (MIP) coronal and sagittal reformats were then acquired through the thorax. For radiation dose reduction, the following was used: automated exposure control, adjustment of mA and/or kV according to patient size. COMPARISON: [facility], CT, PE STUDY (CTA CHEST), 03/21/2012, 8:43. [facility], CT, CT CHEST ABD PEL W CON, 01/28/2019, 9:19. FINDINGS: Image quality: Excellent. Pulmonary arteries: Pulmonary arteries are normal in size, and demonstrate no intraluminal filling defects to suggest central pulmonary embolism. Lungs and pleura: Lungs are clear. No pleural effusions or pneumothorax. Central and peripheral airways are patent. Mediastinum: Heart size is normal, without pericardial effusion. No mediastinal or hilar adenopathy. Thoracic aorta is normal in caliber and enhancement. Esophagus is normal in caliber, without hiatal hernia. Bones and chest wall: Right chest wall Port-A-Cath. Status post left mastectomy. No suspicious bony lesions. Spine degenerative disc disease and facet arthropathy. Ribs and thoracic spine appear intact throughout. Thyroid gland is normal. No axillary or supraclavicular adenopathy. Surgical clips in the left axilla. Abdomen: Small cyst in the anterior margin of the right lobe liver is stable. Visualized upper abdominal solid organs appear normal in the early arterial phase of enhancement. IMPRESSION: 1. No pulmonary embolus. 2. No lung consolidation or pleural effusions. Dictated by: Luh Presley MD, PhD on 04/05/2019 at 13:16 Approved by: Luh Presley MD, PhD on 04/05/2019 at 13:32
== END ==
PROVIDERS: PCP Family Medicine; Referring Provider Family Medicine; Visit Provider Family Medicine
DX: R06.09 Other forms of dyspnea (principal); K76.89 Other specified diseases of liver; Z90.12 Acquired absence of left breast and nipple
CPT/HCPCS: 71275; Q9967

== ENCOUNTER → 2019-06-22 15:32 | Outpatient (CLI) | payer OTHER, SELFPAY ==
[2019-01-17 22:53] VITALS: BMI 68.3
[2019-06-22 18:14] LABS: COVID19 -Nasal RAPID Negative (Negative)
== END ==
PROVIDERS: PCP Family Medicine; Visit Provider Registered Nurse
DX: Z20.828 Contact with and (suspected) exposure to other viral communicable diseases (principal)
CPT/HCPCS: 87635

== ENCOUNTER → 2019-07-01 14:58 | Outpatient (CLI) | payer OTHER, SELFPAY ==
[2019-01-17 22:53] VITALS: BMI 68.3
--- NOTE | 2019-07-01 15:01 | DI.MRI.S_ITS ---
PROCEDURE: MR HEAD/BRAIN WO/W CON INDICATIONS: Vertigo. History of breast cancer TECHNIQUE: Noncontrast axial T1 spin echo, axial T2 fast spin echo, sagittal and axial FLAIR, coronal T2 fast spin echo, axial gradient echo, axial diffusion and ADC through the brain. After the administration of contrast, axial and coronal 3D VIBE or T1 spin echo with fat saturation through the brain. COMPARISON: None. FINDINGS: Image quality: Excellent. CSF Spaces: Basal cisterns are patent. No extra-axial fluid collections. Ventricles are normal in size and shape. Brain: No midline shift. No intracranial bleeds or masses. No abnormal intracranial enhancement. The brainstem appears normal. Diffusion-weighted images demonstrate no acute ischemic insults. No chronic ischemic insults. Normal intravascular flow voids are present. Skull and face: Calvarial marrow is normal in signal. Orbits appear normal. Sinuses: Sinuses and mastoids appear clear. IMPRESSION: 1. No evidence of metastatic disease. 2. No abnormal intracranial mass or mass effect. 3. No suspicious postcontrast enhancement. 4. No abnormal intracranial signal. 5. No areas of acute or chronic infarction. Dictated by: Luh Presley MD, PhD on 07/01/2019 at 16:17 Approved by: Luh Presley MD, PhD on 07/01/2019 at 16:19
== END ==
PROVIDERS: PCP Family Medicine; Referring Provider Radiology Therapeutic Radiology; Visit Provider Radiology Therapeutic Radiology
DX: C50.412 Malignant neoplasm of upper-outer quadrant of left female breast (principal); R42 Dizziness and giddiness; Z17.0 Estrogen receptor positive status [ER+]
CPT/HCPCS: 70553

== ENCOUNTER → 2019-07-11 09:20 | Outpatient (CLI) | payer OTHER, SELFPAY ==
[2019-01-17 22:53] VITALS: BMI 68.3
[2019-07-11 11:35] LABS: COVID19 -Nasal RAPID Negative (Negative)
== END ==
PROVIDERS: PCP Family Medicine; Visit Provider Registered Nurse
DX: Z01.818 Encounter for other preprocedural examination (principal)
CPT/HCPCS: 87635

== ENCOUNTER 2019-07-14 09:44 | Day surgery (SDC) | payer OTHER, SELFPAY ==
[2019-01-17 22:53] VITALS: BMI 68.3
[2019-07-07 10:46] VITALS: BMI 31.3
[2019-07-14] VITALS (7 sets, daily range): BP systolic 121–138; BP diastolic 77–88; PULSE 86–92; RESP 13–15; TEMP 36.3–37; O2SAT 94–99; BMI 31.3
[2019-07-14] MEDS: LACTATED RINGERS 1,000 ML 42 ML IV (11:05)
--- NOTE | 2019-07-14 11:36 | PM.HP.1 ---
History of Present Illness History of Present Illness Date Patient Seen: 07/14/19 Time Patient Seen: 11:36 Chief complaint: [id number] Narrative: The patient is a woman who is about to undergo radiation therapy for breast cancer. The radiation oncologist requested removal of her Port-A-Cath prior to initiation of treatment. Otherwise I would have to stay in and she is at risk of DVT therefore she is brought in for removal. Patient History Medical History (Updated 07/14/19 @ 11:37 by Tarun Craft MD) Breast cancer metastasized to axillary lymph node (Acute) Hypertension (Chronic) Hypothyroidism (Chronic) Port-A-Cath in place (Acute 02/17/19) Surgical History H/O rectocele repair (Resolved) History of breast biopsy (Acute) History of tonsillectomy (Acute) S/P left mastectomy (Acute 01/17/19) Family & Social History Family History Family/Other Cancer Social History: household members spouse,family,children Prior Living Arrangements House Tobacco & Substance use: Smoking Status Never smoker alcohol intake current alcohol intake frequency holiday/special occasion Substance Use Type does not use Meds Home Medications and Allergies Home Medications Medication Instructions Recorded Confirmed Type levothyroxine 112 mcg tablet 112 mcg PO DAILY #90 tab 10/30/17 07/14/19 Rx Breast prosthesis and bra fitting #1 ea 05/02/19 07/13/19 Rx pantoprazole [Protonix] 40 mg PO DAILY 07/14/19 07/14/19 History Allergies Allergy/AdvReac Type Severity Reaction Status Date / Time Sulfa (Sulfonamide Allergy Mild RASH Verified 07/14/19 10:37 Antibiotics) [SULFA (SULFONAMIDE ANTIBIOTICS)] codeine [CODEINE] AdvReac Mild GI Verified 07/14/19 10:37 Review of Systems Review of Systems Narrative: No cough cold asthma. No chest pain. Has reflux symptoms and hypothyroidism. No black or bloody bowel movements. Exam Vital Signs (past 8 hours): - 07/14/19 10:17 Temperature 98.6 F Pulse Rate 92 H Respiratory Rate 15 Blood Pressure 138/88 Pulse Oximetry 98 Oxygen Delivery Method Room Air Narrative Exam Narrative: Cooperative no apparent distress. Lungs are clear to auscultation no rales or rhonchi heart regular rate and rhythm no murmur gallop well-healed scar from her mastectomy. Port with no rash overlying it. Assessment & Plan Assessment and plan (1) Breast cancer metastasized to axillary lymph node: Current visit: No Status: Acute Assessment & Plan narrative: Patient post chemotherapy for breast cancer. They have completed use of her Port-A-Cath. She is here for removal. I have discussed the procedure with her. Risks of bleeding infection and a divot on her chest wall discussed. She appears to understand wishes to proceed
--- NOTE | 2019-07-14 11:39 | PM.PREOP ---
Pre-operative Note COVID-19 COVID-19 status: Negative Result date/Date tested (Pos, Neg/Pending): 07/11/19 Interval Note History & Physical reviewed/Exam performed by Physician: Yes Changes to H&P: No
[2019-07-14] MEDS: CEFAZOLIN 2 GM/100 ML FROZ.PIGGY IV (12:20)
--- NOTE | 2019-07-14 12:23 | SUR.OPER ---
Supine on padded OR bed, head on pillow, arms secured on padded arm boards at <90 degrees abduction, legs uncrossed, safety belt at thigh, tape over blanket over lower legs.
[2019-07-14] MEDS: BUPIVACAINE 0.5% (PF) VIAL 30 ML INJ (12:30)
--- NOTE | 2019-07-14 12:34 | SUR.OPER ---
GLASSES IN LABELED BAG TO PACU WITH PATIENT
--- NOTE | 2019-07-14 13:10 | PM.OP.1 ---
Operative Date/Time/Diagnoses Date of procedure: 07/14/19 Time of procedure: 13:10 Pre-op diagnosis: Breast cancer with history of Port-A-Cath now no longer in use. Post-op diagnosis: same Procedure & Clinicians Procedure: Removal of Port-A-Cath Same procedure as scheduled: Yes Indications: Patient with a Port-A-Cath no longer in use. Surgeon: Tarun Craft Click Yes if Unassisted: Yes Anesthesia Type: General Operative Notes Findings: Port removed intact Closure Type: primary Specimen(s): none sent Prosthetic devices, grafts, tissues, transplants, or devices: None Estimated Blood Loss (mL): 5 Blood products transfused: none Procedure in detail: The patient was placed supine on the operating room table and underwent general LMA anesthesia. She was prepped and draped in the usual fashion. Local anesthetic was infiltrated in field block fashion around the port and the prior incision site. The scar was excised. The dissection was carried down to the level of the catheter. A pursestring suture of 3 0 Vicryl was placed around the catheter entrance into the subcu on the upper flap. The catheter was removed and the suture tied closing off the tract. The port was then dissected from surrounding tissue and removed intact. The sutures holding in place were also removed. A small part of the wall that formed around the port was also removed. The subcu was closed with interrupted 3 0 Vicryl. The skin was closed running 4 0 Vicryl subcuticular stitch and Steri-Strips. Dressing was applied. Patient tolerated the procedure well. Complications: none Post-operative Condition: stable Disposition: PACU Plan for aftercare: Follow-up by phone or in the office
[2019-07-14] MEDS: KETOROLAC 30 MG/ML VIAL IV (13:30)
== END 2019-07-14 13:58 | disposition home or self-care (01) ==
PROVIDERS: PCP Family Medicine; Referring Provider Specialist; Visit Provider Specialist
PROC: (CPT 36590; principal; 2019-07-14 09:45)
DX: Z45.2 Encounter for adjustment and management of vascular access device (principal); C77.3 Secondary and unspecified malignant neoplasm of axilla and upper limb lymph nodes; C50.919 Malignant neoplasm of unspecified site of unspecified female breast; E03.9 Hypothyroidism, unspecified
CPT/HCPCS: 36590; J0690; J1100; J1885; J2250; J2405; J2704; J3010

== ENCOUNTER → 2019-10-25 14:10 | Outpatient (CLI) | payer OTHER, SELFPAY ==
[2019-01-17 22:53] VITALS: BMI 68.3
[2019-10-26 10:16] LABS: COVID19 Sendout Not Detected (Not Detect)
== END ==
PROVIDERS: PCP Family Medicine; Visit Provider Nurse Practitioner
DX: Z20.828 Contact with and (suspected) exposure to other viral communicable diseases (principal)
CPT/HCPCS: 87635

== ENCOUNTER → 2019-11-19 08:45 | Outpatient (CLI) | payer OTHER, SELFPAY ==
[2019-01-17 22:53] VITALS: BMI 68.3
[2019-11-19 09:59] LABS: Add Manual Diff / Slide Review NO; Alanine Aminotransferase 33 IU/L (<35); Albumin 4.5 g/dL (3.5-5.0); Albumin Globulin Ratio 1.4 (1.0-2.8); Alkaline Phosphatase 77 U/L (38-126); Aspartate Aminotransferase 28 IU/L (14-36); BUN Creatinine Ratio 25.4 (6-22); Basophils Absolute Auto 0 /uL (0-100); Basophils Percent Auto 0.8 % (0-2); Bilirubin Total 0.6 mg/dL (0.2-1.3); Blood Urea Nitrogen 17 mg/dL (7-17); Calcium 9.5 mg/dL (8.4-10.2); Carbon Dioxide 32 mmol/L (22-32); Chloride 103 mmol/L (98-107); Cholesterol 210 mg/dL (140-199); Eosinophils Absolute Auto 100 /uL (0-450); Eosinophils Percent Auto 4.1 % (2-4); Estimated Glomerular Filt Rate > 60.0 mL/min (>60); Globulin 3.3 g/dL (1.7-4.1); Glucose 105 mg/dL (70-100); HDL Cholesterol 38 mg/dL (40-60); HEMOLYSIS < 15 (0-50); Hematocrit 37.5 % (36-46); Hemoglobin 12.9 g/dL (12.0-16.0); LDL Cholesterol Calculated 145 mg/dL (<100); Lymphocytes Absolute Auto 1000 /uL (1100-4500); Lymphocytes Percent Auto 32.8 % (25-40); Mean Corpuscular HGB Conc 34.5 % (30-36); Mean Corpuscular Hemoglobin 31.5 PG (26-34); Mean Corpuscular Volume 91.2 fL (80-100); Monocytes Absolute Auto 400 /uL (0-900); Monocytes Percent Auto 14.4 % (3-14); Neutrophils Absolute Auto 1400 /uL (1500-7000); Neutrophils Percent Auto 47.9 % (50-75); Platelet Count 321 X10^3/uL (150-400); Red Blood Cell Count 4.11 X10^6/uL (4.0-5.2); Red Cell Distribution Width 13.7 % (11.6-14.8); Sodium 142 mmol/L (137-145); Total Protein 7.8 g/dL (6.3-8.2); Triglycerides 134 mg/dL (35-150)
[2019-11-19 10:14] LABS: Free T4, Direct Thyroxine 1.12 ng/dL (0.78-2.19)
[2019-11-19 10:27] LABS: Thyroid Stimulating Hormone 3.19 uIU/mL (0.47-4.68)
== END ==
PROVIDERS: PCP Family Medicine; Referring Provider Family Medicine; Visit Provider Family Medicine
DX: C50.919 Malignant neoplasm of unspecified site of unspecified female breast (principal); C77.3 Secondary and unspecified malignant neoplasm of axilla and upper limb lymph nodes; E78.5 Hyperlipidemia, unspecified; I10 Essential (primary) hypertension; E03.9 Hypothyroidism, unspecified
CPT/HCPCS: 36415; 80053; 80061; 84439; 84443; 85025

== ENCOUNTER → 2019-11-21 12:56 | Outpatient (CLI) | payer OTHER, SELFPAY ==
[2019-01-17 22:53] VITALS: BMI 68.3
[2019-11-22 06:36] LABS: Hemoglobin A1C% w Est Avg Glu 5.7 % (4.0-6.0)
== END ==
PROVIDERS: PCP Family Medicine; Visit Provider Family Medicine
DX: R73.9 Hyperglycemia, unspecified (principal)
CPT/HCPCS: 83036

== ENCOUNTER → 2019-11-22 13:49 | Outpatient (CLI) | payer OTHER, SELFPAY ==
[2019-01-17 22:53] VITALS: BMI 68.3
[2019-11-24 08:40] LABS: COVID19 Sendout Not Detected (Not Detect)
== END ==
PROVIDERS: PCP Family Medicine; Visit Provider Physician Assistant
DX: Z03.818 Encounter for observation for suspected exposure to other biological agents ruled out (principal)
CPT/HCPCS: 87635

== ENCOUNTER 2019-12-07 12:00 | Outpatient (RCR) | payer OTHER, SELFPAY ==
[2019-01-17 22:53] VITALS: BMI 68.3
--- NOTE | 2019-07-18 19:36 | PT.OIE ---
Current Diagnoses Lymphedema, not elsewhere classified (07/13/19) Pain in left shoulder (07/13/19) Past Medical History (Last Updated 07/14/19 @ 11:37 by Tarun Craft MD) Breast cancer metastasized to axillary lymph node (Acute) Hypertension (Chronic) Hypothyroidism (Chronic) Port-A-Cath in place (Acute 02/17/19) Past Surgical History (Last Reviewed 07/14/19 @ 11:37 by Tarun Craft MD) H/O rectocele repair (Resolved) History of breast biopsy (Acute) History of tonsillectomy (Acute) S/P left mastectomy (Acute 01/17/19) Visit Care Team Role Provider Type Jeison Vences MD Attending Provider Physician Primary Care Provider Referring Provider Specialty: Family Practice Address: [address] [place] [address] Email: [email or web address] Physical Therapy Initial Evaluation PT-OP-A Visit Information Start: 07/13/19 08:14 Freq: Status: Active Protocol: Document 07/13/19 13:29 [facility] (Rec: 07/13/19 13:48 [facility] [email or web address]) Out-Patient Physical Therapy Visit Information Visit Information Visit Type Initial Evaluation Visit Note 54 year old female s/o left breast mastectomy. She has finished her chemo treatment over 3 weeks ago and will begin radiation treatment 07/19/19 Visit Start Time 11:20 Visit Stop Time 12:20 Total Visit Minutes 60 Visit Number 1 Evaluation Information Evaluation Date 07/13/19 PT-OP-B Current Condition Start: 07/13/19 08:14 Freq: Status: Active Protocol: Document 07/13/19 13:29 [facility] (Rec: 07/13/19 13:48 [facility] [email or web address]) Current Condition History of Current Condition Onset Date surgical date 01/17/19 History of Current Condition pt underwent Left sided mastectomy with lymph node removal 01/17/19. She has finished her course of chemotherapy over 3 weeks ago and is starting her radiation next Thursday07/19/19. 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 She reports she has had little to no c/o swelling in the left arm which was her surgical side however her right arm did become swollen due to the port. At one point she described pain down the back of her right arm to her elbow. A ultrasound was taken to rule out a blood clot and this was negative. She is having her port removed tomorrow. 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 She was seen in PT in June of 2017 for her shoulder. At this point Ana Luisa feels her shoulder ROM restrictions are more from this old injury than from her mastectomy. She rates her left shoulder pain as 2/10. Future Testing and Treatments Planned Ana Luisa will be starting daily radiation on Tuesday 07/18 for 5 weeks. Treatment Goals Patient/Caregiver Goals Ana Luisa's goals are for prevention of muscle restriction, ROM restrictions and prevention of lymphedema as she is returning to work in August 2019. Prior Functional Status Baseline Function- Other prior history of left sided pain and decreased ROM Current Functional Impairments (Reported) Functional Limitations- ADL's Decreased energy s/p chemo therapy and she is somewhat limited with doing her usual activities at home at this time due to decreased energy. Her shoulder pain is rated 2/ 10 and does cause pain with full shoulder flexion over head and with full ER. PT-OP-C Subjective Start: 07/13/19 08:14 Freq: Status: Active Protocol: Document 07/13/19 13:29 [facility] (Rec: 07/13/19 13:48 [facility] [email or web address]) Patient Questionnaires Lymphedema Life Impact Score Lymphedema Score 1 Lymphedema Impairment 0% Impaired (Score 18) Other Questionnaire Name and Score FACIT fatigue scale score of 13 OP-PT Pain Assessment Pain Assessment Grid Paper Pain Assessment Grid Completed Yes Location Left Shoulder Pain Location Details left shoulder Intensity 2 Scale Used Numeric (1 - 10) Pain Duration with reaching and lifting overhead PT-OP-F Manual Assessment Start: 07/13/19 08:14 Freq: Status: Active Protocol: Document 07/13/19 19:02 [facility] (Rec: 07/18/19 19:13 [facility] [email or web address]) Manual Assessments Soft Tissue Assessment Soft Tissue Mobility Assessment Ana Luisa's incisions appear well healed from her left mastectomy and she is happy with the limited amount of scar tissue. There is palpable tightness of the pec minor at both corocoid and attachment to the ribs. Suscapularis is tight with shoulder PROM abduction She is very tender to palpation on the right side at her port location and this will be taken out tomorrow PT-OP-J Posture/Palpation/Skin Start: 07/13/19 08:14 Freq: Status: Active Protocol: Document 07/13/19 19:02 [facility] (Rec: 07/18/19 19:13 [facility] [email or web address]) Palpation Assessment Location right chest tenderness Palpation Location tenderness at the region of the port on the right side chest wall Palpation Findings None/Normal,Tenderness left pec minor Palpation Findings Soft Tissue Tightness PT-OP-K Range of Motion Start: 07/13/19 08:14 Freq: Status: Active Protocol: Document 07/13/19 13:52 [facility] (Rec: 07/13/19 13:55 [facility] [email or web address]) Shoulder Goniometric Range of Motion Shoulder Right Shoulder ROM WFL Yes Left Shoulder ROM WFL No Testing Position Sitting Flexion 150 Abduction 120 External Rotation at 45 degrees 35 Abduction Shoulder ROM Limitations Shoulder ROM Limitations Soft Tissue Tightness Comments supine L shoulder ROM was more painful than sitting. left side flexion to 150, abduction to 90 degrees prior to pain, 30 with pec minor stretch, IR full ROM, ER pain at end range of 40 degrees. There is some pec minor tightness limiting abduction but Ana Luisa feels that most of these ROM restrictions are due to her previous shoulder injury PT-OP-M Strength Start: 07/13/19 08:14 Freq: Status: Active Protocol: Document 07/13/19 19:02 [facility] (Rec: 07/18/19 19:13 [facility] [email or web address]) Shoulder Strength Shoulder Manual Muscle Testing Right Flexion 5 Normal Abduction (C5) 5 Normal External Rotation 5 Normal Left Flexion 3 Fair Abduction (C5) 3 Fair External Rotation 4 Good PT-OP-N Lymphedema Start: 07/13/19 08:14 Freq: Status: Active Protocol: Document 07/13/19 19:02 [facility] (Rec: 07/18/19 19:13 [facility] [email or web address]) Lymphedema Measurements Upper Extremity Circumference Measurements Left MCP 18 cm Wrist 15.5 cm 10 cm From Distal Crease 20 cm 20 cm From Distal Crease 27 cm 35 cm From Distal Crease 37 cm Right MCP 18 cm Wrist 15.5 cm 10 cm From Distal Crease 21 cm 20 cm From Distal Crease 27 cm 30 cm From Distal Crease 37 cm Comments Lymphedema Comments The right UE had the port placement which gave Ana Luisa more trouble than the surgical side on the left. Ana Luisa reports she did have a good amount of swelling in her right arm at one point. She measures 1 cm more on the right side at 10 cm distal from the wrist crease as compared to the left. PT-OP-Q Treatments Start: 07/13/19 08:14 Freq: Status: Active Protocol: Document 07/13/19 13:48 [facility] (Rec: 07/13/19 13:52 [facility] [email or web address]) Therapeutic Exercises Supine Exercises 1 Supine Exercise Name 1/2 foam roll stretch with arms in 30 degrees abduction Side bilateral Reps/Minutes 5-10 minutes Comments good tolerance for the stretch and no increased complaints of pain Prone Exercises 1 Prone Exercise Name sphinx pose Comments pt unable to due today due to the port but will try once port is out Other Exercises 1 Other Exercise Name bonita pose Side bilateral Reps/Minutes hold 1-2 minutes each Comments pt to place hands in center, then left, then right Manual Therapy Treatment Soft Tissue Mobilization 1 Body Location gentle STM and stretching of the pec minor on the left Intensity/Depth Superficial Body Position Supine Comments I went very light today with soft tissue work but Ana Luisa reports treatment feels good, gentle stretching into abduction with pec minor stretch and gentle STM/MFR over the pec minor PT-OP-T Assessment and Plan Start: 07/13/19 08:14 Freq: Status: Active Protocol: Document 07/13/19 19:13 [facility] (Rec: 07/18/19 19:21 [facility] [email or web address]) Physical Therapy Assessment Goals Four Impairment Cancer related fatigue Translational Specialist Goal (LTG) With a individualized training program Ana Luisa is able to reduce effects of fatigue with radiation therapy. She is able to return to work in August after she finishes radiation treatment. LTG Duration 8 weeks Three Impairment Decreased flexion and abduction strength of the left shoulder Translational Specialist Goal (LTG) Ana Luisa demonstrates improved strength of the left shoulder and her strength is improved to 5/5 MMT Two Impairment Shoulder pain rated 2/10 Short Term Goal (STG) Ana Luisa is able to begin strengthening her rotator cuff for improved stabilization of the left shoulder and decreased c/o pain STG Duration 5 weeks One Impairment Pectoralis muscle tightness and restrictions Fpc Goal (LTG) Manual therapy techniques will be used to keep the pectoralis muscle for being more restricted as Ana Luisa undergoes radiation therapy and prevent forward shoulder posture. LTG Duration 8 weeks Assessment Summary Assessment Ana Luisa presents to physical therapy today s/p left sided Mastectomy on 01/17/19. At this time she has completed her chemotherapy 3 1/2 weeks ago and is scheduled to begin radiation therapy 07/19/19. She has been working at home on her shoulder ROM and flexibility. She has been walking daily and doing some yoga. Ana Luisa does have a history of left sided shoulder pain and MRI report taken 2016 showed a calcific tendinitis of the supraspinatus tendon on the left and mild to moderated AC joint degeneration. She notes at this point her shoulder symptoms she has are due to her old shoulder surgery and not her mastectomy. With examination today she has pain in the left shoulder with end range flexion and abduction. Ana Luisa does report a reduction in her energy levels overall. Her pain in the left shoulder is mild and rated 2/10. Ana Luisa's goals for PT are prevention of muscle tightening and restriction, prevention of ROM restriction, prevention of lymphedema, improving overall endurance. Ana Luisa plans on returning to work in August 2019. With examination today the scar from the mastectomy appears well healed. Ana Luisa has restrictions in the pec minor and subscapulais musculature. She has pain with active and passive shoulder abduction and flexion rated 2/10. There is weakness of the shoulder MMT in flexion and abduction. Ana Luisa reports having more swelling in her right arm during her course of chemo due to pain from the port. She is having her port removed tomorrow. With circumferencial measurements Ana Luisa's was equal B UE with the exception of 1 cm more girth on the right forearm. She has no symptoms at this time of lymphedema. Treatment for Ana Luisa will be to work on left shoulder stability and AROM during her radiation. We will work on keeping her tissue of the chest wall especially the pec minor flexible with manual therapy techniques and a gentle stretching program. A individualized training program will also be used for decreasing cancer related fatigue with radiation. Physical Therapy Plan Frequency and Duration Frequency of Treatment 2x/Week Duration of Treatment 8 Plan of Care Start Date 07/13/19 Plan of Care End Date 09/07/19 Therapeutic Interventions Therapeutic Interventions Home Exercise Program,Manual Therapy,Patient/Caregiver Education,Self-Care/Home Management,Soft Tissue Mobilization,Therapeutic Exercises Next Visit Focus/Plan Next Note Type Treatment Note Next Visit Plan Assess Ana Luisa's tolerance with her first 2 radiation treatments, begin strengthening for the rotator cuff, postural exercises, gentle stretches, STM over the pec minor
--- NOTE | 2019-07-18 19:40 | PT.OPPOC ---
Physical, Occupational & Speech Therapy At [facility] Current Diagnoses Lymphedema, not elsewhere classified (07/13/19) Pain in left shoulder (07/13/19) Visit Care Team Role Provider Type Jeison Vences MD Attending Provider Physician Primary Care Provider Referring Provider Specialty: Family Practice Address: [address] [place] [address], [id number] Email: [email or web address] Plan Of Care PT-OP-T Assessment and Plan Start: 07/13/19 08:14 Freq: Status: Active Protocol: Document 07/13/19 19:13 [facility] (Rec: 07/18/19 19:21 [facility] [email or web address]) Physical Therapy Assessment Goals Four Impairment Cancer related fatigue Customer Assistant Goal (LTG) With a individualized training program Ana Luisa is able to reduce effects of fatigue with radiation therapy. She is able to return to work in August after she finishes radiation treatment. LTG Duration 8 weeks Three Impairment Decreased flexion and abduction strength of the left shoulder Group Home Goal (LTG) Ana Luisa demonstrates improved strength of the left shoulder and her strength is improved to 5/5 MMT Two Impairment Shoulder pain rated 2/10 Short Term Goal (STG) Ana Luisa is able to begin strengthening her rotator cuff for improved stabilization of the left shoulder and decreased c/o pain STG Duration 5 weeks One Impairment Pectoralis muscle tightness and restrictions Customer Assistant Goal (LTG) Manual therapy techniques will be used to keep the pectoralis muscle for being more restricted as Ana Luisa undergoes radiation therapy and prevent forward shoulder posture. LTG Duration 8 weeks Assessment Summary Assessment Ana Luisa presents to physical therapy today s/p left sided Mastectomy on 01/17/19. At this time she has completed her chemotherapy 3 1/2 weeks ago and is scheduled to begin radiation therapy 07/19/19. She has been working at home on her shoulder ROM and flexibility. She has been walking daily and doing some yoga. Ana Luisa does have a history of left sided shoulder pain and MRI report taken 2016 showed a calcific tendinitis of the supraspinatus tendon on the left and mild to moderated AC joint degeneration. She notes at this point her shoulder symptoms she has are due to her old shoulder surgery and not her mastectomy. With examination today she has pain in the left shoulder with end range flexion and abduction. Ana Luisa does report a reduction in her energy levels overall. Her pain in the left shoulder is mild and rated 2/10. Ana Luisa's goals for PT are prevention of muscle tightening and restriction, prevention of ROM restriction, prevention of lymphedema, improving overall endurance. Ana Luisa plans on returning to work in August 2019. With examination today the scar from the mastectomy appears well healed. Ana Luisa has restrictions in the pec minor and subscapulais musculature. She has pain with active and passive shoulder abduction and flexion rated 2/10. There is weakness of the shoulder MMT in flexion and abduction. Ana Luisa reports having more swelling in her right arm during her course of chemo due to pain from the port. She is having her port removed tomorrow. With circumferential measurements Ana Luisa's was equal B UE with the exception of 1 cm more girth on the right forearm. She has no symptoms at this time of lymphedema. Treatment for Ana Luisa will be to work on left shoulder stability and AROM during her radiation. We will work on keeping her tissue of the chest wall especially the pec minor flexible with manual therapy techniques and a gentle stretching program. A individualized training program will also be used for decreasing cancer related fatigue with radiation. Physical Therapy Plan Frequency and Duration Frequency of Treatment 2x/Week Duration of Treatment 8 Plan of Care Start Date 07/13/19 Plan of Care End Date 09/07/19 Therapeutic Interventions Therapeutic Interventions Home Exercise Program,Manual Therapy,Patient/Caregiver Education,Self-Care/Home Management,Soft Tissue Mobilization,Therapeutic Exercises Next Visit Focus/Plan Next Note Type Treatment Note Next Visit Plan Assess Ana Luisa's tolerance with her first 2 radiation treatments, begin strengthening for the rotator cuff, postural exercises, gentle stretches, STM over the pec minor Plan of Care Dates Plan of Care Start Date 07/13/19 Plan of Care End Date 09/07/19 Electronically Signed by: Cookie Pelaez, PT 07/18/191939 Please Sign and Return: I have reviewed this Plan of Care and certify that the skilled therapy services above are required to meet the patient?s needs. Physician Signature Date Printed Name and Credentials Clinical Instructor Signature Printed Name and Credentials
--- NOTE | 2019-07-20 07:00 | PT.OTN ---
Current Diagnoses Lymphedema, not elsewhere classified (07/25/19) Pain in left shoulder (07/25/19) Physical Therapy Treatment Note PT-OP-A Visit Information Start: 07/13/19 08:14 Freq: Status: Active Protocol: Document 07/20/19 16:33 [facility] (Rec: 07/20/19 16:35 [facility] [email or web address]) Out-Patient Physical Therapy Visit Information Visit Information Visit Type Treatment Note Visit Start Time 14:30 Visit Stop Time 15:20 Total Visit Minutes 55 Visit Number 2 PT-OP-B Current Condition Start: 07/13/19 08:14 Freq: Status: Active Protocol: Document 07/13/19 13:29 [facility] (Rec: 07/13/19 13:48 [facility] [email or web address]) Current Condition History of Current Condition Onset Date surgical date 01/17/19 History of Current Condition pt underwent Left sided masectomy with lymph node removal 01/17/19. She has finished her course of chemotherapy over 3 weeks ago and is starting her radiaton next thursday07/19/19. 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 She reports she has had little to no c/o swelling in the left arm which was her surgical side however her right arm did become swollen due to the port. At one point she described pain down the back of her right arm to her elbow. A ultrasound was taken to rule out a blood clot and this was negative. She is having her port removed tomorrow. 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 She was seen in PT in June of 2017 for her shoulder. At this point Ana Luisa feels her shoulder ROM restrictions are more from this old injury than from her masectomy. She rates her left shoulder pain as 2/10. Future Testing and Treatments Planned Ana Luisa will be starting daily radiation on tuesday 07/18 for 5 weeks. Treatment Goals Patient/Caregiver Goals Ana Luisa's goals are for prevention of muscle restiction, ROM restrictions and prevention of lymphedema as she is returning to work in August 2019. Prior Functional Status Baseline Function- Other prior history of left sided pain and decreased ROM Current Functional Impairments (Reported) Functional Limitations- ADL's Decreased energy s/p chemo therapy and she is somewhat limited with doing her usual activities at home at this time due to decreased energy. Her shoulder pain is rated 2/ 10 and does cause pain with full shoulder flexion over head and with full ER. PT-OP-C Subjective Start: 07/13/19 08:14 Freq: Status: Active Protocol: Document 07/20/19 16:33 [facility] (Rec: 07/20/19 16:35 [facility] [email or web address]) OP-PT Subjective Patient Comments Patient Comments pt has had 2 radiation apppointments she notes she can feel the tissue sticky at her throat. She had her port taken out on the right side and is still very tender from the incision. PT-OP-F Manual Assessment Start: 07/13/19 08:14 Freq: Status: Active Protocol: Document 07/13/19 19:02 [facility] (Rec: 07/18/19 19:13 [facility] [email or web address]) Manual Assessments Soft Tissue Assessment Soft Tissue Mobility Assessment Ana Luisa's incisions appear well healed from her left masectomy and she is happy with the limited amount of scar tissue. There is palpable tightness of the pec minor at both corocoid and attachment to the ribs. Suscapularis is tight with shoulder PROM abduction She is very tender to palpation on the right side at her port location and this will be taken out tomorrow PT-OP-J Posture/Palpation/Skin Start: 07/13/19 08:14 Freq: Status: Active Protocol: Document 07/13/19 19:02 [facility] (Rec: 07/18/19 19:13 [facility] [email or web address]) Palpation Assessment Location right chest tenderness Palpation Location tenderness at the region of the port on the right side chest wall Palpation Findings None/Normal,Tenderness left pec minor Palpation Findings Soft Tissue Tightness PT-OP-K Range of Motion Start: 07/13/19 08:14 Freq: Status: Active Protocol: Document 07/13/19 13:52 [facility] (Rec: 07/13/19 13:55 [facility] [email or web address]) Shoulder Goniometric Range of Motion Shoulder Right Shoulder ROM WFL Yes Left Shoulder ROM WFL No Testing Position Sitting Flexion 150 Abduction 120 External Rotation at 45 degrees 35 Abduction Shoulder ROM Limitations Shoulder ROM Limitations Soft Tissue Tightness Comments supine L shoulder ROM was more painful than sitting. left side flexion to 150, abduction to 90 degrees prior to pain, 30 with pec minor stretch, IR full ROM, ER pain at end range of 40 degrees. There is some pec minor tightness limiting abduction but Ana Luisa feels that most of these ROM restrictions are due to her previous shoulder injury PT-OP-M Strength Start: 07/13/19 08:14 Freq: Status: Active Protocol: Document 07/13/19 19:02 [facility] (Rec: 07/18/19 19:13 [facility] [email or web address]) Shoulder Strength Shoulder Manual Muscle Testing Right Flexion 5 Normal Abduction (C5) 5 Normal External Rotation 5 Normal Left Flexion 3 Fair Abduction (C5) 3 Fair External Rotation 4 Good PT-OP-N Lymphedema Start: 07/13/19 08:14 Freq: Status: Active Protocol: Document 07/13/19 19:02 [facility] (Rec: 07/18/19 19:13 [facility] [email or web address]) Lymphedema Measurements Upper Extremity Circumference Measurements Left MCP 18 cm Wrist 15.5 cm 10 cm From Distal Crease 20 cm 20 cm From Distal Crease 27 cm 35 cm From Distal Crease 37 cm Right MCP 18 cm Wrist 15.5 cm 10 cm From Distal Crease 21 cm 20 cm From Distal Crease 27 cm 30 cm From Distal Crease 37 cm Comments Lymphedema Comments The right UE had the port placement which gave Ana Luisa more trouble than the surgical side on the left. Ana Luisa reports she did have a good amount of swelling in her right arm at one point. She measures 1 cm more on the right side at 10 cm distal from the wrist crease as compared to the left. PT-OP-Q Treatments Start: 07/13/19 08:14 Freq: Status: Active Protocol: Document 07/20/19 16:33 [facility] (Rec: 07/25/19 18:56 [facility] [email or web address]) Therapeutic Exercises Supine Exercises 1 Supine Exercise Name 1/2 foam roll stretch with arms in 30 degrees abduction Side bilateral Reps/Minutes 5-10 minutes Comments good tolerance for the stretch and no increased complaints of pain Sidelying Exercises 1 Sidelying Exercise Name sidelying reach and pull thoracic rotation Reps/Minutes x 5 reps Standing Exercises 1 Standing Exercise Name standing ER with theraband Equipment Used level 2 Manual Therapy Treatment Soft Tissue Mobilization 3 Body Location STM/MFR at the left rib cage Comments release above the diaphragm and rib cage release of intercostals 2 Body Location SCM release on the left Comments worked in supine on SCM release the whole length of the muscle and at the attachment to the sternum and clavicle. 1 Body Location gentle STM and stretching of the pec minor on the left pectoralis Intensity/Depth Superficial Body Position Supine Comments I went very light today with soft tissue work but Ana Luisa reports treatment feels good, gentle stretching into abduction with pec minor stretch and gentle STM/MFR over the pec minor PT-OP-T Assessment and Plan Start: 07/13/19 08:14 Freq: Status: Active Protocol: Document 07/20/19 16:33 [facility] (Rec: 07/25/19 18:56 [facility] [email or web address]) Physical Therapy Assessment Assessment Summary Assessment Ana Luisa had reported she felt like the tissue was sticky right at the sternal notch area on the left so I worked here with MFR techniques. SHe also reports feeling as if she is swollen under her left rib cage. She is elevated with her left rib cage as compared to the right. I did some work to help with this and added in thoracic rotation in sidelying. Added shouler ER with theraband to begin RT strengthening. Physical Therapy Plan Frequency and Duration Frequency of Treatment 2x/Week Duration of Treatment 8 Plan of Care Start Date 07/13/19 Plan of Care End Date 09/07/19 Therapeutic Interventions Therapeutic Interventions Home Exercise Program,Manual Therapy,Patient/Caregiver Education,Self-Care/Home Management,Soft Tissue Mobilization,Therapeutic Exercises Next Visit Focus/Plan Next Note Type Treatment Note Next Visit Plan reassess the tightness in the left SCM next visit, continue working on decreasing tissue tightness with radiation
--- NOTE | 2019-07-25 19:03 | PT.OTN ---
Current Diagnoses Lymphedema, not elsewhere classified (07/25/19) Pain in left shoulder (07/25/19) Physical Therapy Treatment Note PT-OP-A Visit Information Start: 07/13/19 08:14 Freq: Status: Active Protocol: Document 07/25/19 18:58 [facility] (Rec: 07/25/19 19:03 [facility] [email or web address]) Out-Patient Physical Therapy Visit Information Visit Information Visit Type Treatment Note Visit Start Time 14:30 Visit Stop Time 15:15 Total Visit Minutes 45 Visit Number 3 PT-OP-B Current Condition Start: 07/13/19 08:14 Freq: Status: Active Protocol: Document 07/13/19 13:29 [facility] (Rec: 07/13/19 13:48 [facility] [email or web address]) Current Condition History of Current Condition Onset Date surgical date 01/17/19 History of Current Condition pt underwent Left sided masectomy with lymph node removal 01/17/19. She has finished her course of chemotherapy over 3 weeks ago and is starting her radiaton next thursday07/19/19. 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 She reports she has had little to no c/o swelling in the left arm which was her surgical side however her right arm did become swollen due to the port. At one point she described pain down the back of her right arm to her elbow. A ultrasound was taken to rule out a blood clot and this was negative. She is having her port removed tomorrow. 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 She was seen in PT in June of 2017 for her shoulder. At this point Ana Luisa feels her shoulder ROM restrictions are more from this old injury than from her masectomy. She rates her left shoulder pain as 2/10. Future Testing and Treatments Planned Ana Luisa will be starting daily radiation on tuesday 07/18 for 5 weeks. Treatment Goals Patient/Caregiver Goals Ana Luisa's goals are for prevention of muscle restiction, ROM restrictions and prevention of lymphedema as she is returning to work in August 2019. Prior Functional Status Baseline Function- Other prior history of left sided pain and decreased ROM Current Functional Impairments (Reported) Functional Limitations- ADL's Decreased energy s/p chemo therapy and she is somewhat limited with doing her usual activities at home at this time due to decreased energy. Her shoulder pain is rated 2/ 10 and does cause pain with full shoulder flexion over head and with full ER. PT-OP-C Subjective Start: 07/13/19 08:14 Freq: Status: Active Protocol: Document 07/25/19 18:58 [facility] (Rec: 07/25/19 19:03 [facility] [email or web address]) OP-PT Subjective Patient Comments Patient Comments Ana Luisa reports they moved the radiation field so she is not feeling the same stickyness of the tissue at the sternum region. She has been fatigued , taking naps. Walking daily PT-OP-F Manual Assessment Start: 07/13/19 08:14 Freq: Status: Active Protocol: Document 07/13/19 19:02 [facility] (Rec: 07/18/19 19:13 [facility] [email or web address]) Manual Assessments Soft Tissue Assessment Soft Tissue Mobility Assessment Ana Luisa's incisions appear well healed from her left masectomy and she is happy with the limited amount of scar tissue. There is palpable tightness of the pec minor at both corocoid and attachment to the ribs. Suscapularis is tight with shoulder PROM abduction She is very tender to palpation on the right side at her port location and this will be taken out tomorrow PT-OP-J Posture/Palpation/Skin Start: 07/13/19 08:14 Freq: Status: Active Protocol: Document 07/13/19 19:02 [facility] (Rec: 07/18/19 19:13 [facility] [email or web address]) Palpation Assessment Location right chest tenderness Palpation Location tenderness at the region of the port on the right side chest wall Palpation Findings None/Normal,Tenderness left pec minor Palpation Findings Soft Tissue Tightness PT-OP-K Range of Motion Start: 07/13/19 08:14 Freq: Status: Active Protocol: Document 07/13/19 13:52 [facility] (Rec: 07/13/19 13:55 [facility] [email or web address]) Shoulder Goniometric Range of Motion Shoulder Right Shoulder ROM WFL Yes Left Shoulder ROM WFL No Testing Position Sitting Flexion 150 Abduction 120 External Rotation at 45 degrees 35 Abduction Shoulder ROM Limitations Shoulder ROM Limitations Soft Tissue Tightness Comments supine L shoulder ROM was more painful than sitting. left side flexion to 150, abduction to 90 degrees prior to pain, 30 with pec minor stretch, IR full ROM, ER pain at end range of 40 degrees. There is some pec minor tightness limiting abduction but Ana Luisa feels that most of these ROM restrictions are due to her previous shoulder injury PT-OP-M Strength Start: 07/13/19 08:14 Freq: Status: Active Protocol: Document 07/13/19 19:02 [facility] (Rec: 07/18/19 19:13 [facility] [email or web address]) Shoulder Strength Shoulder Manual Muscle Testing Right Flexion 5 Normal Abduction (C5) 5 Normal External Rotation 5 Normal Left Flexion 3 Fair Abduction (C5) 3 Fair External Rotation 4 Good PT-OP-N Lymphedema Start: 07/13/19 08:14 Freq: Status: Active Protocol: Document 07/13/19 19:02 [facility] (Rec: 07/18/19 19:13 [facility] [email or web address]) Lymphedema Measurements Upper Extremity Circumference Measurements Left MCP 18 cm Wrist 15.5 cm 10 cm From Distal Crease 20 cm 20 cm From Distal Crease 27 cm 35 cm From Distal Crease 37 cm Right MCP 18 cm Wrist 15.5 cm 10 cm From Distal Crease 21 cm 20 cm From Distal Crease 27 cm 30 cm From Distal Crease 37 cm Comments Lymphedema Comments The right UE had the port placement which gave Ana Luisa more trouble than the surgical side on the left. Ana Luisa reports she did have a good amount of swelling in her right arm at one point. She measures 1 cm more on the right side at 10 cm distal from the wrist crease as compared to the left. PT-OP-Q Treatments Start: 07/13/19 08:14 Freq: Status: Active Protocol: Document 07/25/19 18:58 [facility] (Rec: 07/25/19 19:03 [facility] [email or web address]) Manual Therapy Treatment Soft Tissue Mobilization 3 Body Location STM/MFR at the left rib cage Comments release above the diaphragm and rib cage release of intercostals 2 Body Location SCM release on the left Comments worked in supine on SCM release the whole length of the muscle and at the attachment to the sternum and clavicle. 1 Body Location gentle STM and stretching of the pec minor on the left pectoralis Intensity/Depth Superficial Body Position Supine Comments Ana Luisa brought in her own cream today and this worked well for MFR Manual Techniques 1 Type sidelying scapular mobiilzations Comments pec minor stretching PT-OP-T Assessment and Plan Start: 07/13/19 08:14 Freq: Status: Active Protocol: Document 06/01/20 18:58 [facility] (Rec: 07/25/19 19:03 [facility] [email or web address]) Physical Therapy Assessment Assessment Summary Assessment Not as much tightness at the SCM today, pec minor tightness and limited ROM of the left shoudler, began sidelying scapular mobilizations Physical Therapy Plan Frequency and Duration Frequency of Treatment 2x/Week Duration of Treatment 8 Plan of Care Start Date 07/13/19 Plan of Care End Date 09/07/19
--- NOTE | 2019-08-03 18:26 | PT.OTN ---
Current Diagnoses Lymphedema, not elsewhere classified (08/03/19) Pain in left shoulder (08/03/19) Physical Therapy Treatment Note PT-OP-A Visit Information Start: 07/13/19 08:14 Freq: Status: Active Protocol: Document 08/03/19 18:10 [facility] (Rec: 08/03/19 18:26 [facility] [email or web address]) Out-Patient Physical Therapy Visit Information Visit Information Visit Type Treatment Note Visit Start Time 12:45 Visit Stop Time 13:30 Total Visit Minutes 45 Visit Number 4 PT-OP-B Current Condition Start: 07/13/19 08:14 Freq: Status: Active Protocol: Document 07/13/19 13:29 [facility] (Rec: 07/13/19 13:48 [facility] [email or web address]) Current Condition History of Current Condition Onset Date surgical date 01/17/19 History of Current Condition pt underwent Left sided masectomy with lymph node removal 01/17/19. She has finished her course of chemotherapy over 3 weeks ago and is starting her radiaton next thursday07/19/19. 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 She reports she has had little to no c/o swelling in the left arm which was her surgical side however her right arm did become swollen due to the port. At one point she described pain down the back of her right arm to her elbow. A ultrasound was taken to rule out a blood clot and this was negative. She is having her port removed tomorrow. 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 She was seen in PT in June of 2017 for her shoulder. At this point Ana Luisa feels her shoulder ROM restrictions are more from this old injury than from her masectomy. She rates her left shoulder pain as 2/10. Future Testing and Treatments Planned Ana Luisa will be starting daily radiation on tuesday 07/18 for 5 weeks. Treatment Goals Patient/Caregiver Goals Ana Luisa's goals are for prevention of muscle restiction, ROM restrictions and prevention of lymphedema as she is returning to work in August 2019. Prior Functional Status Baseline Function- Other prior history of left sided pain and decreased ROM Current Functional Impairments (Reported) Functional Limitations- ADL's Decreased energy s/p chemo therapy and she is somewhat limited with doing her usual activities at home at this time due to decreased energy. Her shoulder pain is rated 2/ 10 and does cause pain with full shoulder flexion over head and with full ER. PT-OP-C Subjective Start: 07/13/19 08:14 Freq: Status: Active Protocol: Document 08/03/19 18:10 [facility] (Rec: 08/03/19 18:26 [facility] [email or web address]) OP-PT Subjective Patient Comments Patient Comments Ana Luisa reports the reach and pull has been very helpful. She has been feeling really tight in her posterior shoulder region (inferior angle of scapula) PT-OP-F Manual Assessment Start: 07/13/19 08:14 Freq: Status: Active Protocol: Document 07/13/19 19:02 [facility] (Rec: 07/18/19 19:13 [facility] [email or web address]) Manual Assessments Soft Tissue Assessment Soft Tissue Mobility Assessment Ana Luisa's incisions appear well healed from her left masectomy and she is happy with the limited amount of scar tissue. There is palpable tightness of the pec minor at both corocoid and attachment to the ribs. Suscapularis is tight with shoulder PROM abduction She is very tender to palpation on the right side at her port location and this will be taken out tomorrow PT-OP-J Posture/Palpation/Skin Start: 07/13/19 08:14 Freq: Status: Active Protocol: Document 07/13/19 19:02 [facility] (Rec: 07/18/19 19:13 [facility] [email or web address]) Palpation Assessment Location right chest tenderness Palpation Location tenderness at the region of the port on the right side chest wall Palpation Findings None/Normal,Tenderness left pec minor Palpation Findings Soft Tissue Tightness PT-OP-K Range of Motion Start: 07/13/19 08:14 Freq: Status: Active Protocol: Document 07/13/19 13:52 [facility] (Rec: 07/13/19 13:55 [facility] [email or web address]) Shoulder Goniometric Range of Motion Shoulder Right Shoulder ROM WFL Yes Left Shoulder ROM WFL No Testing Position Sitting Flexion 150 Abduction 120 External Rotation at 45 degrees 35 Abduction Shoulder ROM Limitations Shoulder ROM Limitations Soft Tissue Tightness Comments supine L shoulder ROM was more painful than sitting. left side flexion to 150, abduction to 90 degrees prior to pain, 30 with pec minor stretch, IR full ROM, ER pain at end range of 40 degrees. There is some pec minor tightness limiting abduction but Ana Luisa feels that most of these ROM restrictions are due to her previous shoulder injury PT-OP-M Strength Start: 07/13/19 08:14 Freq: Status: Active Protocol: Document 07/13/19 19:02 [facility] (Rec: 07/18/19 19:13 [facility] [email or web address]) Shoulder Strength Shoulder Manual Muscle Testing Right Flexion 5 Normal Abduction (C5) 5 Normal External Rotation 5 Normal Left Flexion 3 Fair Abduction (C5) 3 Fair External Rotation 4 Good PT-OP-N Lymphedema Start: 07/13/19 08:14 Freq: Status: Active Protocol: Document 07/13/19 19:02 [facility] (Rec: 07/18/19 19:13 [facility] [email or web address]) Lymphedema Measurements Upper Extremity Circumference Measurements Left MCP 18 cm Wrist 15.5 cm 10 cm From Distal Crease 20 cm 20 cm From Distal Crease 27 cm 35 cm From Distal Crease 37 cm Right MCP 18 cm Wrist 15.5 cm 10 cm From Distal Crease 21 cm 20 cm From Distal Crease 27 cm 30 cm From Distal Crease 37 cm Comments Lymphedema Comments The right UE had the port placement which gave Ana Luisa more trouble than the surgical side on the left. Ana Luisa reports she did have a good amount of swelling in her right arm at one point. She measures 1 cm more on the right side at 10 cm distal from the wrist crease as compared to the left. PT-OP-Q Treatments Start: 07/13/19 08:14 Freq: Status: Active Protocol: Document 08/03/19 18:10 [facility] (Rec: 08/03/19 18:26 [facility] [email or web address]) Therapeutic Exercises Supine Exercises 1 Supine Exercise Name HOME Other Exercises 1 Other Exercise Name seated shoulder pully exercise Reps/Minutes x 4 min Manual Therapy Treatment Soft Tissue Mobilization 3 Body Location STM/MFR at the left rib cage Comments release above the diaphragm and rib cage release of intercostals 2 Body Location SCM release on the left Comments worked in supine on SCM release the whole length of the muscle and at the attachment to the sternum and clavicle. 1 Body Location gentle STM and stretching of the pec minor on the left pectoralis Intensity/Depth Superficial Body Position Supine Comments Ana Luisa brought in her own cream today and this worked well for MFR Joint Mobilizations 1 Joint sidelying scapular mobilizations Comments with manual pec minor stretch PT-OP-T Assessment and Plan Start: 07/13/19 08:14 Freq: Status: Active Protocol: Document 08/03/19 18:10 [facility] (Rec: 08/03/19 18:26 [facility] [email or web address]) Physical Therapy Assessment Assessment Summary Assessment Ana Luisa could feel release of the tightness today with treatment. Worked on scapula mobilizations and encouraging scapula upward rotation. We also worked on pec minor release. I added in seated shoulder virgil to Ana Luisa's HEP
--- NOTE | 2019-08-10 17:51 | PT.OTN ---
Current Diagnoses Lymphedema, not elsewhere classified (08/10/19) Pain in left shoulder (08/10/19) Physical Therapy Treatment Note PT-OP-A Visit Information Start: 07/13/19 08:14 Freq: Status: Active Protocol: Document 08/10/19 17:37 [facility] (Rec: 08/10/19 17:49 [facility] [email or web address]) Out-Patient Physical Therapy Visit Information Visit Information Visit Type Treatment Note Visit Start Time 12:00 Visit Stop Time 12:45 Total Visit Minutes 45 Visit Number 5 PT-OP-B Current Condition Start: 07/13/19 08:14 Freq: Status: Active Protocol: Document 07/13/19 13:29 [facility] (Rec: 07/13/19 13:48 [facility] [email or web address]) Current Condition History of Current Condition Onset Date surgical date 01/17/19 History of Current Condition pt underwent Left sided masectomy with lymph node removal 01/17/19. She has finished her course of chemotherapy over 3 weeks ago and is starting her radiaton next thursday07/19/19. 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 She reports she has had little to no c/o swelling in the left arm which was her surgical side however her right arm did become swollen due to the port. At one point she described pain down the back of her right arm to her elbow. A ultrasound was taken to rule out a blood clot and this was negative. She is having her port removed tomorrow. 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 She was seen in PT in June of 2017 for her shoulder. At this point Ana Luisa feels her shoulder ROM restrictions are more from this old injury than from her masectomy. She rates her left shoulder pain as 2/10. Future Testing and Treatments Planned Ana Luisa will be starting daily radiation on tuesday 07/18 for 5 weeks. Treatment Goals Patient/Caregiver Goals Ana Luisa's goals are for prevention of muscle restiction, ROM restrictions and prevention of lymphedema as she is returning to work in August 2019. Prior Functional Status Baseline Function- Other prior history of left sided pain and decreased ROM Current Functional Impairments (Reported) Functional Limitations- ADL's Decreased energy s/p chemo therapy and she is somewhat limited with doing her usual activities at home at this time due to decreased energy. Her shoulder pain is rated 2/ 10 and does cause pain with full shoulder flexion over head and with full ER. PT-OP-C Subjective Start: 07/13/19 08:14 Freq: Status: Active Protocol: Document 08/10/19 17:37 [facility] (Rec: 08/10/19 17:49 [facility] [email or web address]) OP-PT Subjective Patient Comments Patient Comments Ana Luisa reports the last couple of nights she has had a great deal of left shoulder pain. She reports it wasd just when she was reaching up or rolling over in bed. PT-OP-F Manual Assessment Start: 07/13/19 08:14 Freq: Status: Active Protocol: Document 07/13/19 19:02 [facility] (Rec: 07/18/19 19:13 [facility] [email or web address]) Manual Assessments Soft Tissue Assessment Soft Tissue Mobility Assessment Ana Luisa's incisions appear well healed from her left masectomy and she is happy with the limited amount of scar tissue. There is palpable tightness of the pec minor at both corocoid and attachment to the ribs. Suscapularis is tight with shoulder PROM abduction She is very tender to palpation on the right side at her port location and this will be taken out tomorrow PT-OP-J Posture/Palpation/Skin Start: 07/13/19 08:14 Freq: Status: Active Protocol: Document 07/13/19 19:02 [facility] (Rec: 07/18/19 19:13 [facility] [email or web address]) Palpation Assessment Location right chest tenderness Palpation Location tenderness at the region of the port on the right side chest wall Palpation Findings None/Normal,Tenderness left pec minor Palpation Findings Soft Tissue Tightness PT-OP-K Range of Motion Start: 07/13/19 08:14 Freq: Status: Active Protocol: Document 07/13/19 13:52 [facility] (Rec: 07/13/19 13:55 [facility] [email or web address]) Shoulder Goniometric Range of Motion Shoulder Right Shoulder ROM WFL Yes Left Shoulder ROM WFL No Testing Position Sitting Flexion 150 Abduction 120 External Rotation at 45 degrees 35 Abduction Shoulder ROM Limitations Shoulder ROM Limitations Soft Tissue Tightness Comments supine L shoulder ROM was more painful than sitting. left side flexion to 150, abduction to 90 degrees prior to pain, 30 with pec minor stretch, IR full ROM, ER pain at end range of 40 degrees. There is some pec minor tightness limiting abduction but Ana Luisa feels that most of these ROM restrictions are due to her previous shoulder injury PT-OP-M Strength Start: 07/13/19 08:14 Freq: Status: Active Protocol: Document 07/13/19 19:02 [facility] (Rec: 07/18/19 19:13 [facility] [email or web address]) Shoulder Strength Shoulder Manual Muscle Testing Right Flexion 5 Normal Abduction (C5) 5 Normal External Rotation 5 Normal Left Flexion 3 Fair Abduction (C5) 3 Fair External Rotation 4 Good PT-OP-N Lymphedema Start: 07/13/19 08:14 Freq: Status: Active Protocol: Document 07/13/19 19:02 [facility] (Rec: 07/18/19 19:13 [facility] [email or web address]) Lymphedema Measurements Upper Extremity Circumference Measurements Left MCP 18 cm Wrist 15.5 cm 10 cm From Distal Crease 20 cm 20 cm From Distal Crease 27 cm 35 cm From Distal Crease 37 cm Right MCP 18 cm Wrist 15.5 cm 10 cm From Distal Crease 21 cm 20 cm From Distal Crease 27 cm 30 cm From Distal Crease 37 cm Comments Lymphedema Comments The right UE had the port placement which gave Ana Luisa more trouble than the surgical side on the left. Ana Luisa reports she did have a good amount of swelling in her right arm at one point. She measures 1 cm more on the right side at 10 cm distal from the wrist crease as compared to the left. PT-OP-Q Treatments Start: 07/13/19 08:14 Freq: Status: Active Protocol: Document 08/10/19 17:37 [facility] (Rec: 08/10/19 17:49 [facility] [email or web address]) Therapeutic Exercises Standing Exercises 3 Standing Exercise Name standing rows Reps/Minutes level 1 3 x 10 reps 2 Standing Exercise Name standing pendullums Reps/Minutes 1# weight 1 Standing Exercise Name standing ER with theraband Equipment Used level 2 Other Exercises 2 Other Exercise Name ball roll outs to stretch the underside of the shoulder Manual Therapy Treatment Soft Tissue Mobilization 1 Body Location gentle STM and stretching of the pec minor on the left pectoralis Intensity/Depth Superficial Body Position Supine Comments Ana Luisa brought in her own cream today and this worked well for MFR Joint Mobilizations 2 Joint gentle posterior and inferior glides of the left shoulder Body Position Supine 1 Joint sidelying scapular mobilizations Comments with manual pec minor stretch PT-OP-T Assessment and Plan Start: 07/13/19 08:14 Freq: Status: Active Protocol: Document 08/10/19 17:37 [facility] (Rec: 08/10/19 17:49 [facility] [email or web address]) Physical Therapy Assessment Assessment Summary Assessment Ana Luisa was shown the model of the shoulder today and why forward shoulder position can contribute to impingement. She feels like at night when she is more fatigued she is more apt to have her shoulders forward. We talked about thinking about putting her shoulder back before she lifted her arm overhead. She ordered the shoulder pulleys for home. Good tolerance for standing rows. Physical Therapy Plan Frequency and Duration Frequency of Treatment 2x/Week Duration of Treatment 8 Plan of Care Start Date 07/13/19 Plan of Care End Date 09/07/19 Therapeutic Interventions Therapeutic Interventions Home Exercise Program,Manual Therapy,Patient/Caregiver Education,Self-Care/Home Management,Soft Tissue Mobilization,Therapeutic Exercises Next Visit Focus/Plan Next Note Type Treatment Note Next Visit Plan continue working on tissue restrictions from radiation, work on scapula upward rotation and decreasing shoulder impingement
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
--- NOTE | 2019-09-07 14:42 | PT.OPPOC ---
Physical, Occupational & Speech Therapy At [facility] Current Diagnoses Lymphedema, not elsewhere classified (09/07/19) Pain in left shoulder (09/07/19) Visit Care Team Role Provider Type Jeison Vences MD Attending Provider Physician Primary Care Provider Referring Provider Specialty: Family Practice Address: [address] [place] [address], [id number] Email: [email or web address] Plan Of Care PT-OP-T Assessment and Plan Start: 07/13/19 08:14 Freq: Status: Active Protocol: Document 09/07/19 14:31 [facility] (Rec: 09/07/19 14:41 [facility] [email or web address]) Physical Therapy Assessment Goals Four Impairment Cancer related fatigue Residential Goal (LTG) With a individualized training program Ana Luisa is able to reduce effects of fatigue with radiation therapy. She is able to return to work in August after she finishes radiation treatment. EXCELLENT PROGRESS, Ana Luisa has returned to work and feels as if she is slowly gaining her energy back LTG Duration 8 weeks Three Impairment Decreased flexion and abduction strength of the left shoulder Pattern Checker Goal (LTG) Ana Luisa demonstrates improved strength of the left shoulder and her strength is improved to 5/5 MMT Ana Luisa has been able to work on her rotator cuff and stretches throughout radiation . She would benefit from continued strengthening for the left UE especially once her skin has healed from the radiation Two Impairment Shoulder pain rated 2/10 Short Term Goal (STG) Ana Luisa is able to begin strengthening her rotator cuff for improved stabilization of the left shoulder and decreased c/o pain good progress and decreased c/ o shoulder pain now STG Duration 5 weeks One Impairment Pectoralis muscle tightness and restrictions Residential Goal (LTG) Manual therapy techniques will be used to keep the pectoralis muscle for being more restricted as Ana Luisa undergoes radiation therapy and prevent forward shoulder posture. Needs continued work on pec minor but pt tolerating all manual therapy well and is working on pec minor stretches on her own at home with her foam roll LTG Duration 8 weeks Assessment Summary Assessment Ana Luisa has responded well to PT during radiation to help keep her shoulder ROM WNL and to prevent tissue from overtightening. Today Ana Luisa presented with more red and irritated tissue from her course of radiation. Care was taken today to avoid the anterior chest wall, I was still able to get under the scapula to release her tissue and release the attachments at the coracoid process for the pec minor. She would benefit from intercostal release once her tissue has had a chance to heal more. She would benefit from continued PT as she has returned to work and needs full ROM and strength of her Left UE. Physical Therapy Plan Frequency and Duration Frequency of Treatment 2xms/week Duration of Treatment 8 Plan of Care Start Date 09/07/19 Plan of Care End Date 11/02/19 Therapeutic Interventions Therapeutic Interventions Home Exercise Program,Manual Therapy,Patient/Caregiver Education,Self-Care/Home Management,Soft Tissue Mobilization,Therapeutic Exercises Next Visit Focus/Plan Next Note Type Treatment Note Next Visit Plan continue working on tissue restrictions from radiation, work on scapula upward rotation and decreasing shoulder impingement Plan of Care Dates Plan of Care Start Date 09/07/19 Plan of Care End Date 11/02/19 Electronically Signed by: Cookie Pelaez, PT 09/07/19 0122 Please Sign and Return: I have reviewed this Plan of Care and certify that the skilled therapy services above are required to meet the patient?s needs. Physician Signature Date Printed Name and Credentials Clinical Instructor Signature Printed Name and Credentials
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
--- NOTE | 2019-09-29 09:13 | PT.OTN ---
Current Diagnoses Lymphedema, not elsewhere classified (09/28/19) Pain in left shoulder (09/28/19) Physical Therapy Treatment Note PT-OP-A Visit Information Start: 07/13/19 08:14 Freq: Status: Active Protocol: Document 09/28/19 09:05 [facility] (Rec: 09/29/19 09:13 [facility] [id number]) Out-Patient Physical Therapy Visit Information Visit Information Visit Type Treatment Note Visit Start Time 13:45 Visit Stop Time 14:10 Total Visit Minutes 25 Visit Number 10 PT-OP-B Current Condition Start: 07/13/19 08:14 Freq: Status: Active Protocol: Document 07/13/19 13:29 [facility] (Rec: 07/13/19 13:48 [facility] [id number]) Current Condition History of Current Condition Onset Date surgical date 01/17/19 History of Current Condition pt underwent Left sided masectomy with lymph node removal 01/17/19. She has finished her course of chemotherapy over 3 weeks ago and is starting her radiaton next thursday07/19/19. 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 She reports she has had little to no c/o swelling in the left arm which was her surgical side however her right arm did become swollen due to the port. At one point she described pain down the back of her right arm to her elbow. A ultrasound was taken to rule out a blood clot and this was negative. She is having her port removed tomorrow. 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 She was seen in PT in June of 2017 for her shoulder. At this point Ana Luisa feels her shoulder ROM restrictions are more from this old injury than from her masectomy. She rates her left shoulder pain as 2/10. Future Testing and Treatments Planned Ana Luisa will be starting daily radiation on tuesday 07/18 for 5 weeks. Treatment Goals Patient/Caregiver Goals Ana Luisa's goals are for prevention of muscle restiction, ROM restrictions and prevention of lymphedema as she is returning to work in August 2019. Prior Functional Status Baseline Function- Other prior history of left sided pain and decreased ROM Current Functional Impairments (Reported) Functional Limitations- ADL's Decreased energy s/p chemo therapy and she is somewhat limited with doing her usual activities at home at this time due to decreased energy. Her shoulder pain is rated 2/ 10 and does cause pain with full shoulder flexion over head and with full ER. PT-OP-C Subjective Start: 07/13/19 08:14 Freq: Status: Active Protocol: Document 09/28/19 09:05 [facility] (Rec: 09/29/19 09:13 [facility] [id number]) OP-PT Subjective Patient Comments Patient Comments Ana Luisa states she feels tight in her left chest and shoulder today. She has been getting in her pool often and trying to stretch PT-OP-F Manual Assessment Start: 07/13/19 08:14 Freq: Status: Active Protocol: Document 07/13/19 19:02 [facility] (Rec: 07/18/19 19:13 [facility] [id number]) Manual Assessments Soft Tissue Assessment Soft Tissue Mobility Assessment Ana Luisa's incisions appear well healed from her left masectomy and she is happy with the limited amount of scar tissue. There is palpable tightness of the pec minor at both corocoid and attachment to the ribs. Suscapularis is tight with shoulder PROM abduction She is very tender to palpation on the right side at her port location and this will be taken out tomorrow PT-OP-J Posture/Palpation/Skin Start: 07/13/19 08:14 Freq: Status: Active Protocol: Document 07/13/19 19:02 [facility] (Rec: 07/18/19 19:13 [facility] [id number]) Palpation Assessment Location right chest tenderness Palpation Location tenderness at the region of the port on the right side chest wall Palpation Findings None/Normal,Tenderness left pec minor Palpation Findings Soft Tissue Tightness PT-OP-K Range of Motion Start: 07/13/19 08:14 Freq: Status: Active Protocol: Document 07/13/19 13:52 [facility] (Rec: 07/13/19 13:55 [facility] [email or web address]) Shoulder Goniometric Range of Motion Shoulder Right Shoulder ROM WFL Yes Left Shoulder ROM WFL No Testing Position Sitting Flexion 150 Abduction 120 External Rotation at 45 degrees 35 Abduction Shoulder ROM Limitations Shoulder ROM Limitations Soft Tissue Tightness Comments supine L shoulder ROM was more painful than sitting. left side flexion to 150, abduction to 90 degrees prior to pain, 30 with pec minor stretch, IR full ROM, ER pain at end range of 40 degrees. There is some pec minor tightness limiting abduction but Ana Luisa feels that most of these ROM restrictions are due to her previous shoulder injury PT-OP-M Strength Start: 07/13/19 08:14 Freq: Status: Active Protocol: Document 07/13/19 19:02 [facility] (Rec: 07/18/19 19:13 [facility] [id number]) Shoulder Strength Shoulder Manual Muscle Testing Right Flexion 5 Normal Abduction (C5) 5 Normal External Rotation 5 Normal Left Flexion 3 Fair Abduction (C5) 3 Fair External Rotation 4 Good PT-OP-N Lymphedema Start: 07/13/19 08:14 Freq: Status: Active Protocol: Document 07/13/19 19:02 [facility] (Rec: 07/18/19 19:13 [facility] [id number]) Lymphedema Measurements Upper Extremity Circumference Measurements Left MCP 18 cm Wrist 15.5 cm 10 cm From Distal Crease 20 cm 20 cm From Distal Crease 27 cm 35 cm From Distal Crease 37 cm Right MCP 18 cm Wrist 15.5 cm 10 cm From Distal Crease 21 cm 20 cm From Distal Crease 27 cm 30 cm From Distal Crease 37 cm Comments Lymphedema Comments The right UE had the port placement which gave Ana Luisa more trouble than the surgical side on the left. Ana Luisa reports she did have a good amount of swelling in her right arm at one point. She measures 1 cm more on the right side at 10 cm distal from the wrist crease as compared to the left. PT-OP-Q Treatments Start: 07/13/19 08:14 Freq: Status: Active Protocol: Document 09/28/19 09:05 [facility] (Rec: 09/29/19 09:13 [facility] [id number]) Manual Therapy Treatment Soft Tissue Mobilization 3 Body Location STM/MFR at the left rib cage Comments release above the diaphragm and rib cage release of intercostals 1 Body Location gentle STM and stretching of the pec minor on the left pectoralis Intensity/Depth Superficial Body Position Supine Comments Ana Luisa's skin shows a great improvement with healing today Manual Techniques 1 Type manual PROM of the left shoulder Comments working on flexion,abduction, ER PT-OP-T Assessment and Plan Start: 07/13/19 08:14 Freq: Status: Active Protocol: Document 09/28/19 09:05 [facility] (Rec: 09/29/19 09:13 [facility] [email or web address]) Physical Therapy Assessment Assessment Summary Assessment Treatment started late today due to therapist running late and ana luisa needed to leave by 2 :15 for a scheduled C section today. Ana Luisa felt tight in her left shoulder today, areas of tissue restrictions found in the left anterior chest wall and intercostals Physical Therapy Plan Frequency and Duration Frequency of Treatment 2xms/week Duration of Treatment 8 Plan of Care Start Date 09/07/19 Plan of Care End Date 11/02/19 Therapeutic Interventions Therapeutic Interventions Home Exercise Program,Manual Therapy,Patient/Caregiver Education,Self-Care/Home Management,Soft Tissue Mobilization,Therapeutic Exercises Next Visit Focus/Plan Next Note Type Treatment Note Next Visit Plan continue working on tissue restrictions from radiation, work on scapula upward rotation and decreasing shoulder impingement ADD IN WALL SERRATUS ANTERIOR press and horizonal abduction next visit
--- NOTE | 2019-10-05 15:33 | PT.OTN ---
Current Diagnoses Lymphedema, not elsewhere classified (10/05/19) Pain in left shoulder (10/05/19) Physical Therapy Treatment Note PT-OP-A Visit Information Start: 07/13/19 08:14 Freq: Status: Active Protocol: Document 10/05/19 15:10 [facility] (Rec: 10/05/19 15:33 [facility] [id number]) Out-Patient Physical Therapy Visit Information Visit Information Visit Type Progress Note Visit Start Time 13:30 Visit Stop Time 14:15 Total Visit Minutes 45 Visit Number 11 PT-OP-B Current Condition Start: 07/13/19 08:14 Freq: Status: Active Protocol: Document 07/13/19 13:29 [facility] (Rec: 07/13/19 13:48 [facility] [email or web address]) Current Condition History of Current Condition Onset Date surgical date 01/17/19 History of Current Condition pt underwent Left sided masectomy with lymph node removal 01/17/19. She has finished her course of chemotherapy over 3 weeks ago and is starting her radiaton next thursday07/19/19. 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 She reports she has had little to no c/o swelling in the left arm which was her surgical side however her right arm did become swollen due to the port. At one point she described pain down the back of her right arm to her elbow. A ultrasound was taken to rule out a blood clot and this was negative. She is having her port removed tomorrow. 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 She was seen in PT in June of 2017 for her shoulder. At this point Ana Luisa feels her shoulder ROM restrictions are more from this old injury than from her masectomy. She rates her left shoulder pain as 2/10. Future Testing and Treatments Planned Ana Luisa will be starting daily radiation on tuesday 07/18 for 5 weeks. Treatment Goals Patient/Caregiver Goals Ana Luisa's goals are for prevention of muscle restiction, ROM restrictions and prevention of lymphedema as she is returning to work in August 2019. Prior Functional Status Baseline Function- Other prior history of left sided pain and decreased ROM Current Functional Impairments (Reported) Functional Limitations- ADL's Decreased energy s/p chemo therapy and she is somewhat limited with doing her usual activities at home at this time due to decreased energy. Her shoulder pain is rated 2/ 10 and does cause pain with full shoulder flexion over head and with full ER. PT-OP-C Subjective Start: 07/13/19 08:14 Freq: Status: Active Protocol: Document 10/05/19 15:10 [facility] (Rec: 10/05/19 15:33 [facility] [id number]) OP-PT Subjective Patient Comments Patient Comments Ana Luisa has tightness today in her left shoulder. She has returned to surgeries and does notice tightness afterwards. She is trying to stretch and use the pool as well as doing her theraband exercises. Ana Luisa asks for continued PT as she feels the manual stretching and release of her pectoralis is beneficial. PT-OP-F Manual Assessment Start: 07/13/19 08:14 Freq: Status: Active Protocol: Document 07/13/19 19:02 [facility] (Rec: 07/18/19 19:13 [facility] [email or web address]) Manual Assessments Soft Tissue Assessment Soft Tissue Mobility Assessment Ana Luisa's incisions appear well healed from her left masectomy and she is happy with the limited amount of scar tissue. There is palpable tightness of the pec minor at both corocoid and attachment to the ribs. Suscapularis is tight with shoulder PROM abduction She is very tender to palpation on the right side at her port location and this will be taken out tomorrow PT-OP-J Posture/Palpation/Skin Start: 07/13/19 08:14 Freq: Status: Active Protocol: Document 07/13/19 19:02 [facility] (Rec: 07/18/19 19:13 [facility] [email or web address]) Palpation Assessment Location right chest tenderness Palpation Location tenderness at the region of the port on the right side chest wall Palpation Findings None/Normal,Tenderness left pec minor Palpation Findings Soft Tissue Tightness PT-OP-K Range of Motion Start: 07/13/19 08:14 Freq: Status: Active Protocol: Document 07/13/19 13:52 [facility] (Rec: 07/13/19 13:55 [facility] [email or web address]) Shoulder Goniometric Range of Motion Shoulder Right Shoulder ROM WFL Yes Left Shoulder ROM WFL No Testing Position Sitting Flexion 150 Abduction 120 External Rotation at 45 degrees 35 Abduction Shoulder ROM Limitations Shoulder ROM Limitations Soft Tissue Tightness Comments supine L shoulder ROM was more painful than sitting. left side flexion to 150, abduction to 90 degrees prior to pain, 30 with pec minor stretch, IR full ROM, ER pain at end range of 40 degrees. There is some pec minor tightness limiting abduction but Ana Luisa feels that most of these ROM restrictions are due to her previous shoulder injury PT-OP-M Strength Start: 07/13/19 08:14 Freq: Status: Active Protocol: Document 07/13/19 19:02 [facility] (Rec: 07/18/19 19:13 [facility] [email or web address]) Shoulder Strength Shoulder Manual Muscle Testing Right Flexion 5 Normal Abduction (C5) 5 Normal External Rotation 5 Normal Left Flexion 3 Fair Abduction (C5) 3 Fair External Rotation 4 Good PT-OP-N Lymphedema Start: 07/13/19 08:14 Freq: Status: Active Protocol: Document 07/13/19 19:02 [facility] (Rec: 07/18/19 19:13 [facility] [email or web address]) Lymphedema Measurements Upper Extremity Circumference Measurements Left MCP 18 cm Wrist 15.5 cm 10 cm From Distal Crease 20 cm 20 cm From Distal Crease 27 cm 35 cm From Distal Crease 37 cm Right MCP 18 cm Wrist 15.5 cm 10 cm From Distal Crease 21 cm 20 cm From Distal Crease 27 cm 30 cm From Distal Crease 37 cm Comments Lymphedema Comments The right UE had the port placement which gave Ana Luisa more trouble than the surgical side on the left. Ana Luisa reports she did have a good amount of swelling in her right arm at one point. She measures 1 cm more on the right side at 10 cm distal from the wrist crease as compared to the left. PT-OP-Q Treatments Start: 07/13/19 08:14 Freq: Status: Active Protocol: Document 10/05/19 15:10 [facility] (Rec: 10/05/19 15:33 [facility] [id number]) Manual Therapy Treatment Soft Tissue Mobilization 1 Body Location gentle STM and stretching of the pec minor on the left pectoralis Intensity/Depth Superficial Body Position Supine Comments I was able to work on all areas of tissue today as her skin has healed really nicely after radiation. Joint Mobilizations 2 Joint gentle posterior and inferior glides of the left shoulder Body Position Supine 1 Joint sidelying scapular mobilizations Comments with manual pec minor stretch Taping 1 Body Location taping to facilitate the lower trapezius Comments kinesio tape of the lower trapezius for improved facilitation. Manual Techniques 1 Type manual PROM of the left shoulder Comments working on flexion,abduction, ER PT-OP-T Assessment and Plan Start: 07/13/19 08:14 Freq: Status: Active Protocol: Document 10/05/19 15:10 [facility] (Rec: 10/05/19 15:33 [facility] [id number]) Physical Therapy Assessment Goals Four Impairment Cancer related fatigue Detention Goal (LTG) With a individualized training program Ana Luisa is able to reduce effects of fatigue with radiation therapy. She is able to return to work in August after she finishes radiation treatment. EXCELLENT PROGRESS, Ana Luisa has returned to work and feels as if she is slowly gaining her energy back. She feels 85% back with her energy LTG Duration 8 weeks Three Impairment Decreased flexion and abduction strength of the left shoulder Eeler Goal (LTG) Ana Luisa demonstrates improved strength of the left shoulder and her strength is improved to 5/5 MMT Ana Luisa has been able to work on her rotator cuff and stretches throughout radiation . She is working on a home program now for strengtheing of the rotator cuff and scapula stabilizers. Two Impairment Shoulder pain rated 2/10 Short Term Goal (STG) Ana Luisa is able to begin strengthening her rotator cuff for improved stabilization of the left shoulder and decreased c/o pain Ana Luisa is tolerating a home strengthening program. With the demands on her shoulder with surgery she is still feeling pain and tightness. STG Duration 5 weeks One Impairment Pectoralis muscle tightness and restrictions Eeler Goal (LTG) Manual therapy techniques will be used to keep the pectoralis muscle for being more restricted as Ana Luisa undergoes radiation therapy and prevent forward shoulder posture. Needs continued work on pec minor but pt tolerating all manual therapy well and is working on pec minor stretches on her own at home with her foam roll LTG Duration 8 weeks Progress Towards Goals Progress Towards Goals Progressing Toward Goals Assessment Summary Assessment Ana Luisa has been seen in PT throughout her radiation for breast cancer. 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 She feels that her shoulder gets tighter in surgeries and feels PT is a continued benefit to her. She is still experiencing impingement symptoms. Her skin is healing really well and I was able to do a ice massage today over the biceps tendon as well as tape her shoulder to help activate the postural muscles during the day. Ana Luisa would benefit from continued PT to help decrease shoulder pain and continue stretching her anterior chest wall from the tissue changes with radiation pulling her shoulder forward. Physical Therapy Plan Frequency and Duration Frequency of Treatment 2xms/week Duration of Treatment 8 Plan of Care Start Date 10/05/19 Plan of Care End Date 12/07/19
--- NOTE | 2019-10-05 15:33 | PT.OPPOC ---
Physical, Occupational & Speech Therapy At [facility] Current Diagnoses Lymphedema, not elsewhere classified (10/05/19) Pain in left shoulder (10/05/19) Visit Care Team Role Provider Type Jeison Vences MD Attending Provider Physician Primary Care Provider Referring Provider Specialty: Family Practice Address: [address] [place] [address], [id number] Email: [email or web address] Plan Of Care PT-OP-T Assessment and Plan Start: 07/13/19 08:14 Freq: Status: Active Protocol: Document 10/05/19 15:10 [facility] (Rec: 10/05/19 15:33 [facility] [id number]) Physical Therapy Assessment Goals Four Impairment Cancer related fatigue [facility]ci Goal (LTG) With a individualized training program Ana Luisa is able to reduce effects of fatigue with radiation therapy. She is able to return to work in August after she finishes radiation treatment. EXCELLENT PROGRESS, Ana Luisa has returned to work and feels as if she is slowly gaining her energy back. She feels 85% back with her energy LTG Duration 8 weeks Three Impairment Decreased flexion and abduction strength of the left shoulder Cloth Covered Helmet Puller Goal (LTG) Ana Luisa demonstrates improved strength of the left shoulder and her strength is improved to 5/5 MMT Ana Luisa has been able to work on her rotator cuff and stretches throughout radiation . She is working on a home program now for strengthening of the rotator cuff and scapula stabilizers. Two Impairment Shoulder pain rated 2/10 Short Term Goal (STG) Ana Luisa is able to begin strengthening her rotator cuff for improved stabilization of the left shoulder and decreased c/o pain Ana Luisa is tolerating a home strengthening program. With the demands on her shoulder with surgery she is still feeling pain and tightness. STG Duration 5 weeks One Impairment Pectoralis muscle tightness and restrictions [facility]ci Goal (LTG) Manual therapy techniques will be used to keep the pectoralis muscle for being more restricted as Ana Luisa undergoes radiation therapy and prevent forward shoulder posture. Needs continued work on pec minor but pt tolerating all manual therapy well and is working on pec minor stretches on her own at home with her foam roll LTG Duration 8 weeks Progress Towards Goals Progress Towards Goals Progressing Toward Goals Assessment Summary Assessment Ana Luisa has been seen in PT throughout her radiation for breast cancer. 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 She feels that her shoulder gets tighter in surgeries and feels PT is a continued benefit to her. She is still experiencing impingement symptoms. Her skin is healing really well and I was able to do a ice massage today over the biceps tendon as well as tape her shoulder to help activate the postural muscles during the day. Ana uLisa would benefit from continued PT to help decrease shoulder pain and continue stretching her anterior chest wall from the tissue changes with radiation pulling her shoulder forward. Physical Therapy Plan Frequency and Duration Frequency of Treatment 2xms/week Duration of Treatment 8 Plan of Care Start Date 10/05/19 Plan of Care End Date 12/07/19 Plan of Care Dates Plan of Care Start Date 10/05/19 Plan of Care End Date 12/07/19 Electronically Signed by: Cookie Pelaez, PT 10/05/19 [id number] Please Sign and Return: I have reviewed this Plan of Care and certify that the skilled therapy services above are required to meet the patient?s needs. Physician Signature Date Printed Name and Credentials Clinical Instructor Signature Printed Name and Credentials
--- NOTE | 2019-10-19 15:59 | PT.OTN ---
Current Diagnoses Lymphedema, not elsewhere classified (10/19/19) Pain in left shoulder (10/19/19) Physical Therapy Treatment Note PT-OP-A Visit Information Start: 07/13/19 08:14 Freq: Status: Active Protocol: Document 10/19/19 15:55 [facility] (Rec: 10/19/19 15:59 [facility] [id number]) Out-Patient Physical Therapy Visit Information Visit Information Visit Type Treatment Note Visit Start Time 13:30 Visit Stop Time 14:15 Total Visit Minutes 45 Visit Number 12 PT-OP-B Current Condition Start: 07/13/19 08:14 Freq: Status: Active Protocol: Document 07/13/19 13:29 [facility] (Rec: 07/13/19 13:48 [facility] [id number]) Current Condition History of Current Condition Onset Date surgical date 01/17/19 History of Current Condition pt underwent Left sided masectomy with lymph node removal 01/17/19. She has finished her course of chemotherapy over 3 weeks ago and is starting her radiaton next thursday07/19/19. 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 She reports she has had little to no c/o swelling in the left arm which was her surgical side however her right arm did become swollen due to the port. At one point she described pain down the back of her right arm to her elbow. A ultrasound was taken to rule out a blood clot and this was negative. She is having her port removed tomorrow. 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 She was seen in PT in June of 2017 for her shoulder. At this point Ana Luisa feels her shoulder ROM restrictions are more from this old injury than from her masectomy. She rates her left shoulder pain as 2/10. Future Testing and Treatments Planned Ana Luisa will be starting daily radiation on tuesday 07/18 for 5 weeks. Treatment Goals Patient/Caregiver Goals Ana Luisa's goals are for prevention of muscle restiction, ROM restrictions and prevention of lymphedema as she is returning to work in August 2019. Prior Functional Status Baseline Function- Other prior history of left sided pain and decreased ROM Current Functional Impairments (Reported) Functional Limitations- ADL's Decreased energy s/p chemo therapy and she is somewhat limited with doing her usual activities at home at this time due to decreased energy. Her shoulder pain is rated 2/ 10 and does cause pain with full shoulder flexion over head and with full ER. PT-OP-C Subjective Start: 07/13/19 08:14 Freq: Status: Active Protocol: Document 10/19/19 15:55 [facility] (Rec: 10/19/19 15:59 [facility] [id number]) OP-PT Subjective Patient Comments Patient Comments Ana Luisa reports she had a incident this past week where she sat up from a chair in the OR and had right sided SI pain that she couldn't move from. She is doing better now . She is feeling like her energy levels are continuing to improve PT-OP-F Manual Assessment Start: 07/13/19 08:14 Freq: Status: Active Protocol: Document 07/13/19 19:02 [facility] (Rec: 07/18/19 19:13 [facility] [id number]) Manual Assessments Soft Tissue Assessment Soft Tissue Mobility Assessment Ana Luisa's incisions appear well healed from her left masectomy and she is happy with the limited amount of scar tissue. There is palpable tightness of the pec minor at both corocoid and attachment to the ribs. Suscapularis is tight with shoulder PROM abduction She is very tender to palpation on the right side at her port location and this will be taken out tomorrow PT-OP-J Posture/Palpation/Skin Start: 07/13/19 08:14 Freq: Status: Active Protocol: Document 07/13/19 19:02 [facility] (Rec: 07/18/19 19:13 [facility] [id number]) Palpation Assessment Location right chest tenderness Palpation Location tenderness at the region of the port on the right side chest wall Palpation Findings None/Normal,Tenderness left pec minor Palpation Findings Soft Tissue Tightness PT-OP-K Range of Motion Start: 07/13/19 08:14 Freq: Status: Active Protocol: Document 07/13/19 13:52 [facility] (Rec: 07/13/19 13:55 [facility] [id number]) Shoulder Goniometric Range of Motion Shoulder Right Shoulder ROM WFL Yes Left Shoulder ROM WFL No Testing Position Sitting Flexion 150 Abduction 120 External Rotation at 45 degrees 35 Abduction Shoulder ROM Limitations Shoulder ROM Limitations Soft Tissue Tightness Comments supine L shoulder ROM was more painful than sitting. left side flexion to 150, abduction to 90 degrees prior to pain, 30 with pec minor stretch, IR full ROM, ER pain at end range of 40 degrees. There is some pec minor tightness limiting abduction but Ana Luisa feels that most of these ROM restrictions are due to her previous shoulder injury PT-OP-M Strength Start: 07/13/19 08:14 Freq: Status: Active Protocol: Document 07/13/19 19:02 [facility] (Rec: 07/18/19 19:13 [facility] [id number]) Shoulder Strength Shoulder Manual Muscle Testing Right Flexion 5 Normal Abduction (C5) 5 Normal External Rotation 5 Normal Left Flexion 3 Fair Abduction (C5) 3 Fair External Rotation 4 Good PT-OP-N Lymphedema Start: 07/13/19 08:14 Freq: Status: Active Protocol: Document 07/13/19 19:02 [facility] (Rec: 07/18/19 19:13 [facility] [id number]) Lymphedema Measurements Upper Extremity Circumference Measurements Left MCP 18 cm Wrist 15.5 cm 10 cm From Distal Crease 20 cm 20 cm From Distal Crease 27 cm 35 cm From Distal Crease 37 cm Right MCP 18 cm Wrist 15.5 cm 10 cm From Distal Crease 21 cm 20 cm From Distal Crease 27 cm 30 cm From Distal Crease 37 cm Comments Lymphedema Comments The right UE had the port placement which gave Ana Luisa more trouble than the surgical side on the left. Ana Luisa reports she did have a good amount of swelling in her right arm at one point. She measures 1 cm more on the right side at 10 cm distal from the wrist crease as compared to the left. PT-OP-Q Treatments Start: 07/13/19 08:14 Freq: Status: Active Protocol: Document 10/19/19 15:55 [facility] (Rec: 10/19/19 15:59 [facility] [id number]) Manual Therapy Treatment Soft Tissue Mobilization 3 Body Location STM/MFR at the left rib cage Comments release above the diaphragm and rib cage release of intercostals 1 Body Location gentle STM and stretching of the pec minor on the left pectoralis Intensity/Depth Superficial Body Position Supine Comments I was able to work on all areas of tissue today as her skin has healed really nicely after radiation. Joint Mobilizations 1 Joint sidelying scapular mobilizations Comments with manual pec minor stretch Taping 1 Body Location taping to facilitate the lower trapezius Comments kinesio tape of the lower trapezius for improved facilitation. Manual Techniques 1 Type manual PROM of the left shoulder Comments working on flexion,abduction, ER PT-OP-T Assessment and Plan Start: 07/13/19 08:14 Freq: Status: Active Protocol: Document 10/19/19 15:55 [facility] (Rec: 10/19/19 15:59 [facility] [id number]) Physical Therapy Assessment Assessment Summary Assessment Ana Luisa was approved for more PT visit through October. She is still having episodes of shoulder pain especially with reaching up like to pull the covers up in bed. She is working on her rotator cuff stabilizating exercises as well as icing at home. She does like the tape for her shoulder. Physical Therapy Plan Next Visit Focus/Plan Next Note Type Treatment Note Next Visit Plan continue working on tissue restrictions from radiation, work on scapula upward rotation and decreasing shoulder impingement ADD IN WALL SERRATUS ANTERIOR press and horizonal abduction next visit
--- NOTE | 2019-10-20 17:58 | PT.OTN ---
Current Diagnoses Lymphedema, not elsewhere classified (10/19/19) Pain in left shoulder (10/19/19) Physical Therapy Treatment Note PT-OP-A Visit Information Start: 07/13/19 08:14 Freq: Status: Active Protocol: Document 10/19/19 15:55 [facility] (Rec: 10/19/19 15:59 [facility] [id number]) Out-Patient Physical Therapy Visit Information Visit Information Visit Type Treatment Note Visit Start Time 13:30 Visit Stop Time 14:15 Total Visit Minutes 45 Visit Number 13 PT-OP-B Current Condition Start: 07/13/19 08:14 Freq: Status: Active Protocol: Document 07/13/19 13:29 [facility] (Rec: 07/13/19 13:48 [facility] [id number]) Current Condition History of Current Condition Onset Date surgical date 01/17/19 History of Current Condition pt underwent Left sided masectomy with lymph node removal 01/17/19. She has finished her course of chemotherapy over 3 weeks ago and is starting her radiaton next thursday07/19/19. 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 She reports she has had little to no c/o swelling in the left arm which was her surgical side however her right arm did become swollen due to the port. At one point she described pain down the back of her right arm to her elbow. A ultrasound was taken to rule out a blood clot and this was negative. She is having her port removed tomorrow. 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 She was seen in PT in June of 2017 for her shoulder. At this point Ana Luisa feels her shoulder ROM restrictions are more from this old injury than from her masectomy. She rates her left shoulder pain as 2/10. Future Testing and Treatments Planned Ana Luisa will be starting daily radiation on tuesday 07/18 for 5 weeks. Treatment Goals Patient/Caregiver Goals Ana Luisa's goals are for prevention of muscle restiction, ROM restrictions and prevention of lymphedema as she is returning to work in August 2019. Prior Functional Status Baseline Function- Other prior history of left sided pain and decreased ROM Current Functional Impairments (Reported) Functional Limitations- ADL's Decreased energy s/p chemo therapy and she is somewhat limited with doing her usual activities at home at this time due to decreased energy. Her shoulder pain is rated 2/ 10 and does cause pain with full shoulder flexion over head and with full ER. PT-OP-C Subjective Start: 07/13/19 08:14 Freq: Status: Active Protocol: Document 10/19/19 15:55 [facility] (Rec: 10/19/19 15:59 [facility] [id number]) OP-PT Subjective Patient Comments Patient Comments Ana Luisa reports she had a incident this past week where she sat up from a chair in the OR and had right sided SI pain that she couldn't move from. She is doing better now . She is feeling like her energy levels are continuing to improve PT-OP-F Manual Assessment Start: 07/13/19 08:14 Freq: Status: Active Protocol: Document 07/13/19 19:02 [facility] (Rec: 07/18/19 19:13 [facility] [id number]) Manual Assessments Soft Tissue Assessment Soft Tissue Mobility Assessment Ana Luisa's incisions appear well healed from her left masectomy and she is happy with the limited amount of scar tissue. There is palpable tightness of the pec minor at both corocoid and attachment to the ribs. Suscapularis is tight with shoulder PROM abduction She is very tender to palpation on the right side at her port location and this will be taken out tomorrow PT-OP-J Posture/Palpation/Skin Start: 07/13/19 08:14 Freq: Status: Active Protocol: Document 07/13/19 19:02 [facility] (Rec: 07/18/19 19:13 [facility] [id number]) Palpation Assessment Location right chest tenderness Palpation Location tenderness at the region of the port on the right side chest wall Palpation Findings None/Normal,Tenderness left pec minor Palpation Findings Soft Tissue Tightness PT-OP-K Range of Motion Start: 07/13/19 08:14 Freq: Status: Active Protocol: Document 07/13/19 13:52 [facility] (Rec: 07/13/19 13:55 [facility] [email or web address]) Shoulder Goniometric Range of Motion Shoulder Right Shoulder ROM WFL Yes Left Shoulder ROM WFL No Testing Position Sitting Flexion 150 Abduction 120 External Rotation at 45 degrees 35 Abduction Shoulder ROM Limitations Shoulder ROM Limitations Soft Tissue Tightness Comments supine L shoulder ROM was more painful than sitting. left side flexion to 150, abduction to 90 degrees prior to pain, 30 with pec minor stretch, IR full ROM, ER pain at end range of 40 degrees. There is some pec minor tightness limiting abduction but Ana Luisa feels that most of these ROM restrictions are due to her previous shoulder injury PT-OP-M Strength Start: 07/13/19 08:14 Freq: Status: Active Protocol: Document 07/13/19 19:02 [facility] (Rec: 07/18/19 19:13 [facility] [id number]) Shoulder Strength Shoulder Manual Muscle Testing Right Flexion 5 Normal Abduction (C5) 5 Normal External Rotation 5 Normal Left Flexion 3 Fair Abduction (C5) 3 Fair External Rotation 4 Good PT-OP-N Lymphedema Start: 07/13/19 08:14 Freq: Status: Active Protocol: Document 07/13/19 19:02 [facility] (Rec: 07/18/19 19:13 [facility] [email or web address]) Lymphedema Measurements Upper Extremity Circumference Measurements Left MCP 18 cm Wrist 15.5 cm 10 cm From Distal Crease 20 cm 20 cm From Distal Crease 27 cm 35 cm From Distal Crease 37 cm Right MCP 18 cm Wrist 15.5 cm 10 cm From Distal Crease 21 cm 20 cm From Distal Crease 27 cm 30 cm From Distal Crease 37 cm Comments Lymphedema Comments The right UE had the port placement which gave Ana Luisa more trouble than the surgical side on the left. Ana Luisa reports she did have a good amount of swelling in her right arm at one point. She measures 1 cm more on the right side at 10 cm distal from the wrist crease as compared to the left. PT-OP-Q Treatments Start: 07/13/19 08:14 Freq: Status: Active Protocol: Document 10/19/19 15:55 [facility] (Rec: 10/19/19 15:59 [facility] [id number]) Manual Therapy Treatment Soft Tissue Mobilization 3 Body Location STM/MFR at the left rib cage Comments release above the diaphragm and rib cage release of intercostals 1 Body Location gentle STM and stretching of the pec minor on the left pectoralis Intensity/Depth Superficial Body Position Supine Comments I was able to work on all areas of tissue today as her skin has healed really nicely after radiation. Joint Mobilizations 1 Joint sidelying scapular mobilizations Comments with manual pec minor stretch Taping 1 Body Location taping to facilitate the lower trapezius Comments kinesio tape of the lower trapezius for improved facilitation. Manual Techniques 1 Type manual PROM of the left shoulder Comments working on flexion,abduction, ER PT-OP-T Assessment and Plan Start: 07/13/19 08:14 Freq: Status: Active Protocol: Document 10/19/19 15:55 [facility] (Rec: 10/19/19 15:59 [facility] [id number]) Physical Therapy Assessment Assessment Summary Assessment Ana Luisa was approved for more PT visit through October. She is still having episodes of shoulder pain especially with reaching up like to pull the covers up in bed. She is working on her rotator cuff stabilizating exercises as well as icing at home. She does like the tape for her shoulder. Physical Therapy Plan Next Visit Focus/Plan Next Note Type Treatment Note Next Visit Plan continue working on tissue restrictions from radiation, work on scapula upward rotation and decreasing shoulder impingement ADD IN WALL SERRATUS ANTERIOR press and horizonal abduction next visit
--- NOTE | 2019-11-06 15:55 | PT.OTN ---
Current Diagnoses Lymphedema, not elsewhere classified (11/02/19) Pain in left shoulder (11/02/19) Physical Therapy Treatment Note PT-OP-A Visit Information Start: 07/13/19 08:14 Freq: Status: Active Protocol: Document 11/02/19 14:54 [facility] (Rec: 11/02/19 14:55 [facility] [email or web address]) Out-Patient Physical Therapy Visit Information Visit Information Visit Type Treatment Note Visit Start Time 13:35 Visit Stop Time 14:20 Total Visit Minutes 45 Visit Number 14 PT-OP-B Current Condition Start: 07/13/19 08:14 Freq: Status: Active Protocol: Document 07/13/19 13:29 [facility] (Rec: 07/13/19 13:48 [facility] [email or web address]) Current Condition History of Current Condition Onset Date surgical date 01/17/19 History of Current Condition pt underwent Left sided masectomy with lymph node removal 01/17/19. She has finished her course of chemotherapy over 3 weeks ago and is starting her radiaton next thursday07/19/19. 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 She reports she has had little to no c/o swelling in the left arm which was her surgical side however her right arm did become swollen due to the port. At one point she described pain down the back of her right arm to her elbow. A ultrasound was taken to rule out a blood clot and this was negative. She is having her port removed tomorrow. 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 She was seen in PT in June of 2017 for her shoulder. At this point Ana Luisa feels her shoulder ROM restrictions are more from this old injury than from her masectomy. She rates her left shoulder pain as 2/10. Future Testing and Treatments Planned Ana Luisa will be starting daily radiation on tuesday 07/18 for 5 weeks. Treatment Goals Patient/Caregiver Goals Ana Luisa's goals are for prevention of muscle restiction, ROM restrictions and prevention of lymphedema as she is returning to work in August 2019. Prior Functional Status Baseline Function- Other prior history of left sided pain and decreased ROM Current Functional Impairments (Reported) Functional Limitations- ADL's Decreased energy s/p chemo therapy and she is somewhat limited with doing her usual activities at home at this time due to decreased energy. Her shoulder pain is rated 2/ 10 and does cause pain with full shoulder flexion over head and with full ER. 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 She had her SI go out again on her and she was very fatigued last week. This week she feels better and she has been trying to stretch PT-OP-F Manual Assessment Start: 07/13/19 08:14 Freq: Status: Active Protocol: Document 07/13/19 19:02 [facility] (Rec: 07/18/19 19:13 [facility] [id number]) Manual Assessments Soft Tissue Assessment Soft Tissue Mobility Assessment Ana Luisa's incisions appear well healed from her left masectomy and she is happy with the limited amount of scar tissue. There is palpable tightness of the pec minor at both corocoid and attachment to the ribs. Suscapularis is tight with shoulder PROM abduction She is very tender to palpation on the right side at her port location and this will be taken out tomorrow PT-OP-J Posture/Palpation/Skin Start: 07/13/19 08:14 Freq: Status: Active Protocol: Document 07/13/19 19:02 [facility] (Rec: 07/18/19 19:13 [facility] [id number]) Palpation Assessment Location right chest tenderness Palpation Location tenderness at the region of the port on the right side chest wall Palpation Findings None/Normal,Tenderness left pec minor Palpation Findings Soft Tissue Tightness PT-OP-K Range of Motion Start: 07/13/19 08:14 Freq: Status: Active Protocol: Document 07/13/19 13:52 [facility] (Rec: 07/13/19 13:55 [facility] [email or web address]) Shoulder Goniometric Range of Motion Shoulder Right Shoulder ROM WFL Yes Left Shoulder ROM WFL No Testing Position Sitting Flexion 150 Abduction 120 External Rotation at 45 degrees 35 Abduction Shoulder ROM Limitations Shoulder ROM Limitations Soft Tissue Tightness Comments supine L shoulder ROM was more painful than sitting. left side flexion to 150, abduction to 90 degrees prior to pain, 30 with pec minor stretch, IR full ROM, ER pain at end range of 40 degrees. There is some pec minor tightness limiting abduction but Ana Luisa feels that most of these ROM restrictions are due to her previous shoulder injury PT-OP-M Strength Start: 07/13/19 08:14 Freq: Status: Active Protocol: Document 07/13/19 19:02 [facility] (Rec: 07/18/19 19:13 [facility] [email or web address]) Shoulder Strength Shoulder Manual Muscle Testing Right Flexion 5 Normal Abduction (C5) 5 Normal External Rotation 5 Normal Left Flexion 3 Fair Abduction (C5) 3 Fair External Rotation 4 Good PT-OP-N Lymphedema Start: 07/13/19 08:14 Freq: Status: Active Protocol: Document 07/13/19 19:02 [facility] (Rec: 07/18/19 19:13 [facility] [email or web address]) Lymphedema Measurements Upper Extremity Circumference Measurements Left MCP 18 cm Wrist 15.5 cm 10 cm From Distal Crease 20 cm 20 cm From Distal Crease 27 cm 35 cm From Distal Crease 37 cm Right MCP 18 cm Wrist 15.5 cm 10 cm From Distal Crease 21 cm 20 cm From Distal Crease 27 cm 30 cm From Distal Crease 37 cm Comments Lymphedema Comments The right UE had the port placement which gave Ana Luisa more trouble than the surgical side on the left. Ana Luisa reports she did have a good amount of swelling in her right arm at one point. She measures 1 cm more on the right side at 10 cm distal from the wrist crease as compared to the left. PT-OP-Q Treatments Start: 07/13/19 08:14 Freq: Status: Active Protocol: Document 11/02/19 13:30 [facility] (Rec: 11/06/19 15:55 [facility] [id number]) Manual Therapy Treatment Soft Tissue Mobilization 3 Body Location STM/MFR at the left rib cage Comments release above the diaphragm and rib cage release of intercostals 1 Body Location gentle STM and stretching of the pec minor on the left pectoralis Intensity/Depth Superficial Body Position Supine Comments I was able to work on all areas of tissue today as her skin has healed really nicely after radiation. Taping 1 Body Location taping to facilitate the lower trapezius Comments kinesio tape of the lower trapezius for improved facilitation. Manual Techniques 1 Type manual PROM of the left shoulder Comments working on flexion,abduction, ER PT-OP-T Assessment and Plan Start: 07/13/19 08:14 Freq: Status: Active Protocol: Document 11/02/19 13:30 [facility] (Rec: 11/06/19 15:55 [facility] [email or web address]) Physical Therapy Assessment Assessment Summary Assessment Ana Luisa's shoulder felt like she had improved ROM today and not as much tightness. Her stretches and getting into the pool are really helping Physical Therapy Plan Frequency and Duration Frequency of Treatment 2xms/week Duration of Treatment 8 Plan of Care Start Date 10/05/19 Plan of Care End Date 12/07/19 Therapeutic Interventions Therapeutic Interventions Home Exercise Program,Manual Therapy,Patient/Caregiver Education,Self-Care/Home Management,Soft Tissue Mobilization,Therapeutic Exercises Next Visit Focus/Plan Next Note Type Treatment Note Next Visit Plan continue working on tissue restrictions from radiation, work on scapula upward rotation and decreasing shoulder impingement ADD IN WALL SERRATUS ANTERIOR press and horizonal abduction next visit
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
--- NOTE | 2019-11-30 14:14 | PT.OTN ---
Current Diagnoses Lymphedema, not elsewhere classified (11/30/19) Pain in left shoulder (11/30/19) Physical Therapy Treatment Note PT-OP-A Visit Information Start: 07/13/19 08:14 Freq: Status: Active Protocol: Document 11/30/19 14:08 [facility] (Rec: 11/30/19 14:14 [facility] [email or web address]) Out-Patient Physical Therapy Visit Information Visit Information Visit Type Treatment Note Visit Start Time 11:15 Visit Stop Time 12:00 Total Visit Minutes 45 Visit Number 16 PT-OP-B Current Condition Start: 07/13/19 08:14 Freq: Status: Active Protocol: Document 07/13/19 13:29 [facility] (Rec: 07/13/19 13:48 [facility] [email or web address]) Current Condition History of Current Condition Onset Date surgical date 01/17/19 History of Current Condition pt underwent Left sided masectomy with lymph node removal 01/17/19. She has finished her course of chemotherapy over 3 weeks ago and is starting her radiaton next thursday07/19/19. 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 She reports she has had little to no c/o swelling in the left arm which was her surgical side however her right arm did become swollen due to the port. At one point she described pain down the back of her right arm to her elbow. A ultrasound was taken to rule out a blood clot and this was negative. She is having her port removed tomorrow. 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 She was seen in PT in June of 2017 for her shoulder. At this point Ana Luisa feels her shoulder ROM restrictions are more from this old injury than from her masectomy. She rates her left shoulder pain as 2/10. Future Testing and Treatments Planned Ana Luisa will be starting daily radiation on tuesday 07/18 for 5 weeks. Treatment Goals Patient/Caregiver Goals Ana Luisa's goals are for prevention of muscle restiction, ROM restrictions and prevention of lymphedema as she is returning to work in August 2019. Prior Functional Status Baseline Function- Other prior history of left sided pain and decreased ROM Current Functional Impairments (Reported) Functional Limitations- ADL's Decreased energy s/p chemo therapy and she is somewhat limited with doing her usual activities at home at this time due to decreased energy. Her shoulder pain is rated 2/ 10 and does cause pain with full shoulder flexion over head and with full ER. PT-OP-C Subjective Start: 07/13/19 08:14 Freq: Status: Active Protocol: Document 11/30/19 14:08 [facility] (Rec: 11/30/19 14:14 [facility] [email or web address]) OP-PT Subjective Patient Comments Patient Comments Ana Luisa reports her shoulder continues to be really sore and she describes referred pain into her left arm. SHe has a MRI scheduled the week after next and a appointment with Dr. Huddleston PT-OP-F Manual Assessment Start: 07/13/19 08:14 Freq: Status: Active Protocol: Document 07/13/19 19:02 [facility] (Rec: 07/18/19 19:13 [facility] [email or web address]) Manual Assessments Soft Tissue Assessment Soft Tissue Mobility Assessment Ana Luisa's incisions appear well healed from her left masectomy and she is happy with the limited amount of scar tissue. There is palpable tightness of the pec minor at both corocoid and attachment to the ribs. Suscapularis is tight with shoulder PROM abduction She is very tender to palpation on the right side at her port location and this will be taken out tomorrow PT-OP-J Posture/Palpation/Skin Start: 07/13/19 08:14 Freq: Status: Active Protocol: Document 07/13/19 19:02 [facility] (Rec: 07/18/19 19:13 [facility] [email or web address]) Palpation Assessment Location right chest tenderness Palpation Location tenderness at the region of the port on the right side chest wall Palpation Findings None/Normal,Tenderness left pec minor Palpation Findings Soft Tissue Tightness PT-OP-K Range of Motion Start: 07/13/19 08:14 Freq: Status: Active Protocol: Document 07/13/19 13:52 [facility] (Rec: 07/13/19 13:55 [facility] [email or web address]) Shoulder Goniometric Range of Motion Shoulder Right Shoulder ROM WFL Yes Left Shoulder ROM WFL No Testing Position Sitting Flexion 150 Abduction 120 External Rotation at 45 degrees 35 Abduction Shoulder ROM Limitations Shoulder ROM Limitations Soft Tissue Tightness Comments supine L shoulder ROM was more painful than sitting. left side flexion to 150, abduction to 90 degrees prior to pain, 30 with pec minor stretch, IR full ROM, ER pain at end range of 40 degrees. There is some pec minor tightness limiting abduction but Ana Luisa feels that most of these ROM restrictions are due to her previous shoulder injury PT-OP-M Strength Start: 07/13/19 08:14 Freq: Status: Active Protocol: Document 07/13/19 19:02 [facility] (Rec: 07/18/19 19:13 [facility] [email or web address]) Shoulder Strength Shoulder Manual Muscle Testing Right Flexion 5 Normal Abduction (C5) 5 Normal External Rotation 5 Normal Left Flexion 3 Fair Abduction (C5) 3 Fair External Rotation 4 Good PT-OP-N Lymphedema Start: 07/13/19 08:14 Freq: Status: Active Protocol: Document 07/13/19 19:02 [facility] (Rec: 07/18/19 19:13 [facility] [email or web address]) Lymphedema Measurements Upper Extremity Circumference Measurements Left MCP 18 cm Wrist 15.5 cm 10 cm From Distal Crease 20 cm 20 cm From Distal Crease 27 cm 35 cm From Distal Crease 37 cm Right MCP 18 cm Wrist 15.5 cm 10 cm From Distal Crease 21 cm 20 cm From Distal Crease 27 cm 30 cm From Distal Crease 37 cm Comments Lymphedema Comments The right UE had the port placement which gave Ana Luisa more trouble than the surgical side on the left. Ana Luisa reports she did have a good amount of swelling in her right arm at one point. She measures 1 cm more on the right side at 10 cm distal from the wrist crease as compared to the left. PT-OP-Q Treatments Start: 07/13/19 08:14 Freq: Status: Active Protocol: Document 11/30/19 14:08 [facility] (Rec: 11/30/19 14:14 [facility] [email or web address]) Manual Therapy Treatment Soft Tissue Mobilization 3 Body Location STM/MFR at the left rib cage Comments release above the diaphragm and rib cage release of intercostals 2 Body Location SCM release on the left Comments worked in supine on SCM release the whole length of the muscle and at the attachment to the sternum and clavicle. 1 Body Location gentle STM and stretching of the pec minor on the left pectoralis Intensity/Depth Superficial Body Position Supine Comments I was able to work on all areas of tissue today as her skin has healed really nicely after radiation. Joint Mobilizations 2 Joint gentle posterior and inferior glides of the left shoulder Body Position Supine 1 Joint sidelying scapular mobilizations Comments with manual pec minor stretch PT-OP-R Modalities Start: 11/17/19 09:43 Freq: Status: Active Protocol: Document 11/09/19 13:30 [facility] (Rec: 11/17/19 09:43 [facility] [email or web address]) Hot Pack/Cold Pack Treatment Ice Massage Location ice massage over the left supraspinatus tendon Patient Position Sitting Patient Tolerance Good PT-OP-T Assessment and Plan Start: 07/13/19 08:14 Freq: Status: Active Protocol: Document 11/30/19 14:08 [facility] (Rec: 11/30/19 14:14 [facility] [email or web address]) Physical Therapy Assessment Assessment Summary Assessment Ana Luisa is having signs of rotator cuff impingement and is very painful with abduction and ER. A MRI will be helpful at determining the next step for her. She may benefit from a cortisone injection Physical Therapy Plan Frequency and Duration Frequency of Treatment 2xms/week Duration of Treatment 8 Plan of Care Start Date 10/05/19 Plan of Care End Date 12/07/19 Therapeutic Interventions Therapeutic Interventions Home Exercise Program,Manual Therapy,Patient/Caregiver Education,Self-Care/Home Management,Soft Tissue Mobilization,Therapeutic Exercises
--- NOTE | 2019-12-07 13:59 | PT.OTN ---
Current Diagnoses Lymphedema, not elsewhere classified (12/07/19) Pain in left shoulder (12/07/19) Physical Therapy Treatment Note PT-OP-A Visit Information Start: 07/13/19 08:14 Freq: Status: Active Protocol: Document 12/07/19 13:45 [facility] (Rec: 12/07/19 13:55 [facility] [email or web address]) Out-Patient Physical Therapy Visit Information Visit Information Visit Type Progress Note Visit Start Time 11:15 Visit Stop Time 12:00 Total Visit Minutes 45 Visit Number 17 PT-OP-B Current Condition Start: 07/13/19 08:14 Freq: Status: Active Protocol: Document 07/13/19 13:29 [facility] (Rec: 07/13/19 13:48 [facility] [email or web address]) Current Condition History of Current Condition Onset Date surgical date 01/17/19 History of Current Condition pt underwent Left sided masectomy with lymph node removal 01/17/19. She has finished her course of chemotherapy over 3 weeks ago and is starting her radiaton next thursday07/19/19. 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 She reports she has had little to no c/o swelling in the left arm which was her surgical side however her right arm did become swollen due to the port. At one point she described pain down the back of her right arm to her elbow. A ultrasound was taken to rule out a blood clot and this was negative. She is having her port removed tomorrow. 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 She was seen in PT in June of 2017 for her shoulder. At this point Ana Luisa feels her shoulder ROM restrictions are more from this old injury than from her masectomy. She rates her left shoulder pain as 2/10. Future Testing and Treatments Planned Ana Luisa will be starting daily radiation on tuesday 07/18 for 5 weeks. Treatment Goals Patient/Caregiver Goals Ana Luisa's goals are for prevention of muscle restiction, ROM restrictions and prevention of lymphedema as she is returning to work in August 2019. Prior Functional Status Baseline Function- Other prior history of left sided pain and decreased ROM Current Functional Impairments (Reported) Functional Limitations- ADL's Decreased energy s/p chemo therapy and she is somewhat limited with doing her usual activities at home at this time due to decreased energy. Her shoulder pain is rated 2/ 10 and does cause pain with full shoulder flexion over head and with full ER. PT-OP-C Subjective Start: 07/13/19 08:14 Freq: Status: Active Protocol: Document 11/30/19 14:08 [facility] (Rec: 11/30/19 14:14 [facility] [email or web address]) OP-PT Subjective Patient Comments Patient Comments Ana Luisa reports her shoulder continues to be really sore and she describes referred pain into her left arm. SHe has a MRI scheduled the week after next and a appointment with Dr. Huddleston PT-OP-F Manual Assessment Start: 07/13/19 08:14 Freq: Status: Active Protocol: Document 07/13/19 19:02 [facility] (Rec: 07/18/19 19:13 [facility] [email or web address]) Manual Assessments Soft Tissue Assessment Soft Tissue Mobility Assessment Ana Luisa's incisions appear well healed from her left masectomy and she is happy with the limited amount of scar tissue. There is palpable tightness of the pec minor at both corocoid and attachment to the ribs. Suscapularis is tight with shoulder PROM abduction She is very tender to palpation on the right side at her port location and this will be taken out tomorrow PT-OP-J Posture/Palpation/Skin Start: 07/13/19 08:14 Freq: Status: Active Protocol: Document 07/13/19 19:02 [facility] (Rec: 07/18/19 19:13 [facility] [email or web address]) Palpation Assessment Location right chest tenderness Palpation Location tenderness at the region of the port on the right side chest wall Palpation Findings None/Normal,Tenderness left pec minor Palpation Findings Soft Tissue Tightness PT-OP-K Range of Motion Start: 07/13/19 08:14 Freq: Status: Active Protocol: Document 12/07/19 13:55 [facility] (Rec: 12/07/19 13:56 [facility] [email or web address]) Shoulder Goniometric Range of Motion Shoulder Left Shoulder ROM WFL No Testing Position Sitting Flexion 150 Abduction 120 External Rotation at 45 degrees 35 Abduction Comments Ana Luisa remains painful in these ranges and presents with rotator cuff impingement vs tear symptoms PT-OP-M Strength Start: 07/13/19 08:14 Freq: Status: Active Protocol: Document 12/07/19 13:59 [facility] (Rec: 12/07/19 13:59 [facility] [email or web address]) Shoulder Strength Shoulder Manual Muscle Testing Left Flexion 3 Fair Abduction (C5) 3 Fair External Rotation 4 Good Comments Ana Luisa remains painful with shoulder MMR despite working on her home program. MRI will be helpful to look at the rotator cuff supraspinatus tendon. PT-OP-N Lymphedema Start: 07/13/19 08:14 Freq: Status: Active Protocol: Document 07/13/19 19:02 [facility] (Rec: 07/18/19 19:13 [facility] [email or web address]) Lymphedema Measurements Upper Extremity Circumference Measurements Left MCP 18 cm Wrist 15.5 cm 10 cm From Distal Crease 20 cm 20 cm From Distal Crease 27 cm 35 cm From Distal Crease 37 cm Right MCP 18 cm Wrist 15.5 cm 10 cm From Distal Crease 21 cm 20 cm From Distal Crease 27 cm 30 cm From Distal Crease 37 cm Comments Lymphedema Comments The right UE had the port placement which gave Ana Luisa more trouble than the surgical side on the left. Ana Luisa reports she did have a good amount of swelling in her right arm at one point. She measures 1 cm more on the right side at 10 cm distal from the wrist crease as compared to the left. PT-OP-Q Treatments Start: 07/13/19 08:14 Freq: Status: Active Protocol: Document 12/07/19 13:45 [facility] (Rec: 12/07/19 13:55 [facility] [email or web address]) Therapeutic Exercises Standing Exercises standing lat pull down Standing Exercise Name standing lat pull down for HEP Equipment Used level 1 theraband Reps/Minutes pt to work towards 3 sets of 10 reps Manual Therapy Treatment Soft Tissue Mobilization scar tissue work with the guasha Body Location pec minor, scar tissue over the left chest wall Comments scar tissue release over the biceps tendon and left anterior chest wall. 1 Body Location gentle STM and stretching of the pec minor on the left pectoralis Intensity/Depth Superficial Body Position Supine Comments I was able to work on all areas of tissue today as her skin has healed really nicely after radiation. Joint Mobilizations 2 Joint gentle posterior and inferior glides of the left shoulder Body Position Supine 1 Joint sidelying scapular mobilizations Comments with manual pec minor stretch Taping 1 Body Location taping to facilitate the lower trapezius Comments kinesio tape of the lower trapezius for improved facilitation. Added in tape for inhibition of the pec minor today Manual Techniques 1 Type end range stretch for ER/IR PT-OP-R Modalities Start: 11/17/19 09:43 Freq: Status: Active Protocol: Document 11/09/19 13:30 [facility] (Rec: 11/17/19 09:43 [facility] [email or web address]) Hot Pack/Cold Pack Treatment Ice Massage Location ice massage over the left supraspinatus tendon Patient Position Sitting Patient Tolerance Good PT-OP-T Assessment and Plan Start: 07/13/19 08:14 Freq: Status: Active Protocol: Document 12/07/19 13:45 [facility] (Rec: 12/07/19 13:55 [facility] [email or web address]) Physical Therapy Assessment Goals Four Impairment Cancer related fatigue Group Home Goal (LTG) With a individualized training program Ana Luisa is able to reduce effects of fatigue with radiation therapy. She is able to return to work in August after she finishes radiation treatment. EXCELLENT PROGRESS, Ana Luisa has returned to work and feels as if she is slowly gaining her energy back. She feels 85% back with her energy LTG Duration 8 weeks Three Impairment Decreased flexion and abduction strength of the left shoulder Equity Holder Goal (LTG) Ana Luisa demonstrates improved strength of the left shoulder and her strength is improved to 5/5 MMT Ana Luisa has been able to work on her rotator cuff and stretches throughout radiation . She is working on a home program now for strengtheing of the rotator cuff and scapula stabilizers. Two Impairment Shoulder pain rated 2/10 Short Term Goal (STG) Ana Luisa is able to begin strengthening her rotator cuff for improved stabilization of the left shoulder and decreased c/o pain Ana Luisa is tolerating a home strengthening program. With the demands on her shoulder with surgery she is still feeling pain and tightness. STG Duration 5 weeks One Impairment Pectoralis muscle tightness and restrictions Equity Holder Goal (LTG) Manual therapy techniques will be used to keep the pectoralis muscle for being more restricted as Ana Luisa undergoes radiation therapy and prevent forward shoulder posture. Needs continued work on pec minor but pt tolerating all manual therapy well and is working on pec minor stretches on her own at home with her foam roll LTG Duration 8 weeks Progress Towards Goals Progress Towards Goals Progressing Toward Goals Progress Comments Ana Luisa continues to make progress however she also continues to have impingement type pain from her left shoulder. When performing surgeries she tends to tighten up in her upper traps and needs to use her left arm. She tends to have more pain following this. She will be seen by her MD this next week and would benefit from a MRI to look at her rotator cuff. In 2017 when she had her last MRI it was shown she had calcific tnedinitis of the supraspinatus tnedon and mild to moderate AC joint degeneration. Assessment Summary Assessment Ana Luisa would benefit from continued PT for her left shoulder. She feels manual therapy treatments help to loosen up her shoulder blade and help her to get through her surgeries with less pain. Today I added in more scar tissue work with a trial of guasha scar tissue work over the pec minor and biceps tendon. Ana Luisa was given information on ordering for home. I also added in lat pull down to help with scapular stabilization. Pt has her MD appt next week to order a MRI for further work up on her shoulder due to her continued pain. Physical Therapy Plan Frequency and Duration Frequency of Treatment 2xms/week Duration of Treatment 8 Plan of Care Start Date 12/07/19 Plan of Care End Date 02/08/20 Therapeutic Interventions Therapeutic Interventions Home Exercise Program,Manual Therapy,Patient/Caregiver Education,Self-Care/Home Management,Soft Tissue Mobilization,Therapeutic Exercises Next Visit Focus/Plan Next Note Type Treatment Note Next Visit Plan progress rotator cuff strengthening, work on decreasing shoulder impingement.
--- NOTE | 2019-12-07 14:00 | PT.OPPOC ---
Physical, Occupational & Speech Therapy At [facility] Current Diagnoses Lymphedema, not elsewhere classified (12/07/19) Pain in left shoulder (12/07/19) Visit Care Team Role Provider Type Jeison Vences MD Attending Provider Physician Primary Care Provider Referring Provider Specialty: Family Practice Address: [address] [place] [address], [id number] Email: [email or web address] Plan Of Care PT-OP-T Assessment and Plan Start: 07/13/19 08:14 Freq: Status: Active Protocol: Document 12/07/19 13:45 [facility] (Rec: 12/07/19 13:55 [facility] [email or web address]) Physical Therapy Assessment Goals Four Impairment Cancer related fatigue Machine Feeder Goal (LTG) With a individualized training program Ana Luisa is able to reduce effects of fatigue with radiation therapy. She is able to return to work in August after she finishes radiation treatment. EXCELLENT PROGRESS, Ana Luisa has returned to work and feels as if she is slowly gaining her energy back. She feels 85% back with her energy LTG Duration 8 weeks Three Impairment Decreased flexion and abduction strength of the left shoulder Machine Feeder Goal (LTG) Ana Luisa demonstrates improved strength of the left shoulder and her strength is improved to 5/5 MMT Ana Luisa has been able to work on her rotator cuff and stretches throughout radiation She is working on a home program now for strengthening of the rotator cuff and scapula stabilizer but strength remains limited due to pain. A MRI will be helpful to assess supraspinatus tendon Two Impairment Shoulder pain rated 2/10 Short Term Goal (STG) Ana Luisa is able to begin strengthening her rotator cuff for improved stabilization of the left shoulder and decreased c/o pain Ana Luisa is tolerating a home strengthening program. With the demands on her shoulder with surgery she is still feeling pain and tightness. STG Duration 5 weeks One Impairment Pectoralis muscle tightness and restrictions Longterm Goal (LTG) Manual therapy techniques will be used to keep the pectoralis muscle for being more restricted as Ana Luisa undergoes radiation therapy and prevent forward shoulder posture. Needs continued work on pec minor but pt tolerating all manual therapy well and is working on pec minor stretches on her own at home with her foam roll LTG Duration 8 weeks Progress Towards Goals Progress Towards Goals Progressing Toward Goals Progress Comments Ana Luisa continues to make progress however she also continues to have impingement type pain from her left shoulder. When performing surgeries she tends to tighten up in her upper traps and needs to use her left arm. She tends to have more pain following this. She will be seen by her MD this next week and would benefit from a MRI to look at her rotator cuff, specifically the supraspinatus In 2017 when she had her last MRI it was shown she had calcific tendinitis of the supraspinatus tendon and mild to moderate AC joint degeneration. Assessment Summary Assessment Ana Luisa would benefit from continued PT for her left shoulder. She feels manual therapy treatments help to loosen up her shoulder blade and help her to get through her surgeries with less pain. Today I added in more scar tissue work with a trial of guasha tool scar tissue work over the pec minor and biceps tendon. Ana Luisa was given information on ordering for home. I also added in lat pull down to help with scapular stabilization. Pt has her MD appt next week to order a MRI for further work up on her shoulder due to her continued pain. Physical Therapy Plan Frequency and Duration Frequency of Treatment 2xms/week Duration of Treatment 8 Plan of Care Start Date 12/07/19 Plan of Care End Date 02/08/20 Therapeutic Interventions Therapeutic Interventions Home Exercise Program,Manual Therapy,Patient/Caregiver Education,Self-Care/Home Management,Soft Tissue Mobilization,Therapeutic Exercises Next Visit Focus/Plan Next Note Type Treatment Note Next Visit Plan progress rotator cuff strengthening, work on decreasing shoulder impingement. Plan of Care Dates Plan of Care Start Date 12/07/19 Plan of Care End Date 02/08/20 Electronically Signed by: Cookie Pelaez PT 12/07/19 1400 Please Sign and Return: I have reviewed this Plan of Care and certify that the skilled therapy services above are required to meet the patient?s needs. Physician Signature Date Printed Name and Credentials Clinical Instructor Signature Printed Name and Credentials
--- NOTE | 2020-01-17 13:59 | PT.OPDS ---
Current Diagnoses Lymphedema, not elsewhere classified (12/07/19) Pain in left shoulder (12/07/19) Visit Care Team Role Provider Type Jeison Vences MD Attending Provider Physician Primary Care Provider Referring Provider Specialty: Family [facility] Address: [address] [place] [address], [id number] Email: [email or web address] Visit Number Visit Number 17 Discharge Summary PT-OP-B Current Condition Start: 07/13/19 08:14 Freq: Status: Active Protocol: Document 07/13/19 13:29 [facility] (Rec: 07/13/19 13:48 [facility] [id number]) Current Condition History of Current Condition Onset Date surgical date 01/17/19 History of Current Condition pt underwent Left sided masectomy with lymph node removal 01/17/19. She has finished her course of chemotherapy over 3 weeks ago and is starting her radiaton next thursday07/19/19. 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 She reports she has had little to no c/o swelling in the left arm which was her surgical side however her right arm did become swollen due to the port. At one point she described pain down the back of her right arm to her elbow. A ultrasound was taken to rule out a blood clot and this was negative. She is having her port removed tomorrow. 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 She was seen in PT in June of 2017 for her shoulder. At this point Ana Luisa feels her shoulder ROM restrictions are more from this old injury than from her masectomy. She rates her left shoulder pain as 2/10. Future Testing and Treatments Planned Ana Luisa will be starting daily radiation on tuesday 07/18 for 5 weeks. Treatment Goals Patient/Caregiver Goals Ana Luisa's goals are for prevention of muscle restiction, ROM restrictions and prevention of lymphedema as she is returning to work in August 2019. Prior Functional Status Baseline Function- Other prior history of left sided pain and decreased ROM Current Functional Impairments (Reported) Functional Limitations- ADL's Decreased energy s/p chemo therapy and she is somewhat limited with doing her usual activities at home at this time due to decreased energy. Her shoulder pain is rated 2/ 10 and does cause pain with full shoulder flexion over head and with full ER. PT-OP-C Subjective Start: 07/13/19 08:14 Freq: Status: Active Protocol: Document 11/30/19 14:08 [facility] (Rec: 11/30/19 14:14 [facility] [email or web address]) OP-PT Subjective Patient Comments Patient Comments Ana Luisa reports her shoulder continues to be really sore and she describes referred pain into her left arm. SHe has a MRI scheduled the week after next and a appointment with Dr. Huddleston PT-OP-F Manual Assessment Start: 07/13/19 08:14 Freq: Status: Active Protocol: Document 07/13/19 19:02 [facility] (Rec: 07/18/19 19:13 [facility] [email or web address]) Manual Assessments Soft Tissue Assessment Soft Tissue Mobility Assessment Ana Luisa's incisions appear well healed from her left masectomy and she is happy with the limited amount of scar tissue. There is palpable tightness of the pec minor at both corocoid and attachment to the ribs. Suscapularis is tight with shoulder PROM abduction She is very tender to palpation on the right side at her port location and this will be taken out tomorrow PT-OP-J Posture/Palpation/Skin Start: 07/13/19 08:14 Freq: Status: Active Protocol: Document 07/13/19 19:02 [facility] (Rec: 07/18/19 19:13 [facility] [email or web address]) Palpation Assessment Location right chest tenderness Palpation Location tenderness at the region of the port on the right side chest wall Palpation Findings None/Normal,Tenderness left pec minor Palpation Findings Soft Tissue Tightness PT-OP-K Range of Motion Start: 07/13/19 08:14 Freq: Status: Active Protocol: Document 12/07/19 13:55 [facility] (Rec: 12/07/19 13:56 [facility] [email or web address]) Shoulder Goniometric Range of Motion Shoulder Left Shoulder ROM WFL No Testing Position Sitting Flexion 150 Abduction 120 External Rotation at 45 degrees 35 Abduction Comments Ana Luisa remains painful in these ranges and presents with rotator cuff impingement vs tear symptoms PT-OP-M Strength Start: 07/13/19 08:14 Freq: Status: Active Protocol: Document 12/07/19 13:59 [facility] (Rec: 12/07/19 13:59 [facility] [email or web address]) Shoulder Strength Shoulder Manual Muscle Testing Left Flexion 3 Fair Abduction (C5) 3 Fair External Rotation 4 Good Comments Ana Luisa remains painful with shoulder MMR despite working on her home program. MRI will be helpful to look at the rotator cuff supraspinatus tendon. PT-OP-N Lymphedema Start: 07/13/19 08:14 Freq: Status: Active Protocol: Document 07/13/19 19:02 [facility] (Rec: 07/18/19 19:13 [facility] [email or web address]) Lymphedema Measurements Upper Extremity Circumference Measurements Left MCP 18 cm Wrist 15.5 cm 10 cm From Distal Crease 20 cm 20 cm From Distal Crease 27 cm 35 cm From Distal Crease 37 cm Right MCP 18 cm Wrist 15.5 cm 10 cm From Distal Crease 21 cm 20 cm From Distal Crease 27 cm 30 cm From Distal Crease 37 cm Comments Lymphedema Comments The right UE had the port placement which gave Ana Luisa more trouble than the surgical side on the left. Ana Luisa reports she did have a good amount of swelling in her right arm at one point. She measures 1 cm more on the right side at 10 cm distal from the wrist crease as compared to the left. PT-OP-T Assessment and Plan Start: 07/13/19 08:14 Freq: Status: Active Protocol: Document 01/17/20 13:56 [facility] (Rec: 01/17/20 13:59 [facility] [id number]) Physical Therapy Assessment Goals Four Impairment Cancer related fatigue Custodial Goal (LTG) With a individualized training program Ana Luisa is able to reduce effects of fatigue with radiation therapy. She is able to return to work in August after she finishes radiation treatment. EXCELLENT PROGRESS, Ana Luisa has returned to work and feels as if she is slowly gaining her energy back. 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 One Impairment Pectoralis muscle tightness and restrictions Custodial Goal (LTG) Manual therapy techniques will be used to keep the pectoralis muscle for being more restricted as Ana Luisa undergoes radiation therapy and prevent forward shoulder posture. Needs continued work on pec minor but pt tolerating all manual therapy well and is working on pec minor stretches on her own at home with her foam roll LTG Duration 8 weeks Assessment Summary Assessment Ana Luisa experienced a flare of her symptoms as was not able to resume Pt. She had a MRI done and it does show a tear of the supraspinatus. She underwent a cortisone injection which she noted really helped her. SHe will be discharged from this chart and will resume Pt with a new order once cleared to begin PT . Physical Therapy Plan Discharge Physical Therapy Discharge Reasons Change in Medical Status Discharge Comments Ana Luisa is being discharged from this chart as she needed to have a cortisone injection. She will resume PT once ready
== END 2020-02-03 10:50 ==
LOC: PHYS 12:00
PROVIDERS: PCP Family Medicine; Referring Provider Family Medicine; Visit Provider Family Medicine
DX: I89.0 Lymphedema, not elsewhere classified (principal); M25.512 Pain in left shoulder
CPT/HCPCS: 97110; 97140; 97162

== ENCOUNTER → 2019-12-09 08:06 | Outpatient (CLI) | payer OTHER, SELFPAY ==
[2019-01-17 22:53] VITALS: BMI 68.3
--- NOTE | 2019-12-09 08:08 | DI.MG.S_ITS ---
UNILATERAL RIGHT DIGITAL SCREENING MAMMOGRAM 3D/2D WITH CAD POST MASTECTOMY: 12/09/2019 CLINICAL: Routine screening. Personal history of left breast cancer. Comparison is made to exams dated: 12/17/2018 breast MRI, 11/18/2018 mammogram, 11/26/2017 mammogram, and 10/15/2017 mammogram - [facility]. The tissue of right breast is heterogeneously dense. This may lower the sensitivity of mammography. Current study was also evaluated with a Computer Aided Detection (CAD) system. There is an irregular focal asymmetry in the right breast at 1 o'clock posterior depth. This is seen in additional views. No other significant masses or calcifications are seen in the breast. IMPRESSION: INCOMPLETE: NEEDS ADDITIONAL IMAGING EVALUATION The irregular focal asymmetry in the right breast is indeterminate. An ultrasound is recommended. This exam was interpreted at Station ID: [id number]. NOTE: For mammograms, a report in lay terms will be sent to the patient. Approximately 15% of breast malignancies will not be visualized mammographically. In the management of a palpable breast mass, a negative mammogram must not discourage biopsy of a clinically suspicious lesion. Electronically Signed By: Mitzi rogers/:12/09/2019 15:21:11 copy to: [facility]IO MELGAR BI-RADS Category 0: Incomplete [id number]
== END ==
PROVIDERS: PCP Family Medicine; Referring Provider Family Medicine; Visit Provider Family Medicine
DX: Z12.31 Encounter for screening mammogram for malignant neoplasm of breast (principal); C50.919 Malignant neoplasm of unspecified site of unspecified female breast; C77.3 Secondary and unspecified malignant neoplasm of axilla and upper limb lymph nodes
CPT/HCPCS: 77063; 77067

== ENCOUNTER → 2019-12-16 12:52 | Outpatient (CLI) | payer OTHER, SELFPAY ==
[2019-01-17 22:53] VITALS: BMI 68.3
--- NOTE | 2019-12-16 | PATH_ITS ---
[facility] Accession Number: [id number] . 01 Material submitted: . breast - RIGHT BREAST MASS 1:00 2 CM FN . 01 Clinical history: . PAIN LEFT SHOULDER MASS LEFT ARM RIGHT BREAST . 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 Negative for atypia, carcinoma in situ, and malignancy. . COMMENT: Clinical and radiographic correlation is recommended. MRV 12/21/2019 0147 Local . 01 Electronically signed: . Leann Smith MD, Pathologist NPI- [id number] . 01 Gross description: . The specimen is received in formalin, labeled breast core biopsy, and consists of five kan-white cores of fibroadipose tissue ranging from 0.5 cm to 2.8 cm in length by 0.2 cm in diameter. The specimen is entirely submitted in cassette A1. . Formalin fixation time: Approximately 43 hours. ([id number]) /JULIO C 12/17/2019 1729 Local . 01 Pathologist provided ICD-10: N63.10, D24.9 . 01 CPT . 962433 Performed at: 01 [facility] [address] [place] [address] [address], [place], [place] [id number] MD Amos Bills MD Phone: [phone]
--- NOTE | 2019-12-16 12:55 | DI.US.S_ITS ---
ULTRASOUND GUIDED BIOPSY RIGHT BREAST USING VACUUM DEVICE WITH MARKING DEVICE INSERTED AND POST MAMMOGRAPHIC AND ULTRASOUND IMAGIN12/16/2019 CLINICAL: Right breast mass. PATIENT CONSENT: Risks (minor bleeding, infection, vasovagal reaction and repeat procedure), benefits and alternatives were explained to the patient and written informed consent was obtained. Correlation is made to exams dated: 12/16/2019 [facility], 12/09/2019 ultrasound - [facility], 12/09/2019 [facility], and 12/31/2018 ultrasound biopsy - [facility]. An ultrasound guided biopsy using real-time ultrasound was performed for the concerning 0.9 cm x 0.6 cm x 0.6 cm circumscribed oval solid mass located in the right breast at 1 o'clock middle depth 2 cm from the nipple. This was described on the previous ultrasound report. The skin was prepped in the usual manner. Local anesthetic was administered to the access site. A skin raffi was made in the breast. The abnormality was approached from the medial aspect. A 13 gauge biopsy needle was placed adjacent to the abnormality under ultrasound guidance. Once the needle was documented to be in the correct location, four specimens were obtained using the Mammotome biopsy system. The patient received additional local anesthetic during the procedure. A Vision marker clip was inserted into the biopsy cavity. A skin closure strip and a sterile dressing were applied to the access site. Post procedure mammographic and ultrasound imaging demonstrates the location device at the targeted area and partial removal of the abnormality. The specimens were sent to the laboratory for pathological analysis. IMPRESSION: ULTRASOUND GUIDED BIOPSY BENIGN Ultrasound guided biopsy of the 0.9 cm x 0.6 cm x 0.6 cm solid mass in the right breast at 1 o'clock middle depth 2 cm from the nipple was successful. 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 Pathology results are concordant with imaging findings. Return to annual mammogram screening schedule is recommended. This exam was interpreted at Station ID: [id number]. Edmar Go M.D. [facility] [place]/:12/22/2019 10:27:37 copy to: [facility] FAM
--- NOTE | 2019-12-16 13:06 | DI.MG.S_ITS ---
UNILATERAL RIGHT DIGITAL DIAGNOSTIC MAMMOGRAM POST-EXCISIONAL BIOPSY: 12/16/2019 CLINICAL: Right breast lump. Comparison is made to exams dated: 12/09/[address] [facility], 12/09/2019 ultrasound - [facility], and 12/17/2018 breast MRI - [facility]. The tissue of right breast is heterogeneously dense. This may lower the sensitivity of mammography. The Vision marker was placed under US visualization fo the mass biopsied earlier today, at the biopsy site margin. The mammogram shows the marker in expected position. IMPRESSION: POST PROCEDURE MAMMOGRAM FOR MARKER PLACEMENT Successful placement of a biopsy site marker at the biopsy margin, demarcated by a small amount of post biopsy gas in that area. The mass itself is much better seen by US. This exam was interpreted at Station ID: [id number]. NOTE: For mammograms, a report in lay terms will be sent to the patient. Approximately 15% of breast malignancies will not be visualized mammographically. In the management of a palpable breast mass, a negative mammogram must not discourage biopsy of a clinically suspicious lesion. Electronically Signed By: Edmar Matthew M.D. [facility]/:12/16/2019 15:38:15 copy to: MARIO FAM ACR BI-RADS Category Post-procedure mammogram for marker placement
--- NOTE | 2019-12-16 15:48 | DI.MRI.S_ITS ---
PROCEDURE: MR HUMERUS LT WO/W CON INDICATIONS: Left biceps mass TECHNIQUE: Noncontrast coronal T1 spin echo and STIR, sagittal T1 spin echo with fat saturation and STIR, axial T1 spin echo and T2 fast spin echo with fat saturation. After the administration of contrast, axial/sagittal/coronal T1 spin echo with fat saturation through the left humerus. COMPARISON: [facility], CT, CT ANGIO CHEST, 04/05/2019, 12:36. [facility], CR, XR CHEST 1V, 02/17/2019, 14:07. [facility], MR, MR SHOULDER LT WO CON, 12/16/2019, 15:55. FINDINGS: Image quality: Excellent. Bones: Surface skin marker is placed over anterior aspect of mid to distal upper arm. The visualized bone marrow demonstrates normal signal on all sequences. The overlying cortex appears intact. No abnormal intraosseous enhancement. Soft tissues: No soft tissue masses are visualized. The scanned muscles demonstrate normal overall bulk and internal signal. Subcutaneous tissues appear normal as well. No abnormal soft tissue enhancement. IMPRESSION: 1. No marrow signal abnormality. No abnormal intraosseous enhancement or suspicious intraosseous lesion. 2. No discrete soft tissue mass or fluid collection. No abnormal soft tissue or intramuscular enhancement. No finding to explain patient's symptoms. Dictated by: Joe Tucker M.D. on 12/19/2019 at 8:35 Approved by: Joe Tucker M.D. on 12/19/2019 at 8:40
--- NOTE | 2019-12-16 15:48 | DI.MRI.S_ITS ---
PROCEDURE: MR SHOULDER LT WO CON INDICATIONS: Left Shoulder pain TECHNIQUE: Noncontrast oblique coronal T2 fast spin echo with fat saturation, oblique sagittal T1 spin echo and T2 fast spin echo with fat saturation, axial T1 spin echo and T2 fast spin echo with fat saturation through the shoulder. COMPARISON: [facility], , SHOULDER WITHOUT CONTRAST, 02/12/2017, 15:42. FINDINGS: Image quality: Excellent. Rotator cuff: Tendinosis and low to moderate grade articular and bursal surface partial thickness tear involving distal supraspinatus at its insertion on the humeral head is seen extending to musculotendinous junction. Calcification involving anterior fibers of distal supraspinatus at its insertion on humeral head is also noted suggestive of calcific tendinitis. Distal infraspinatus and subscapularis tendons are grossly intact. No full-thickness rotator cuff tendon rupture. Sagittal images demonstrate no significant muscle atrophy. Bones and bursae: No bone marrow contusions or fractures. Moderate acromioclavicular joint osteoarthritic changes are seen with downward osteophyte formation depressing the musculotendinous junction of supraspinatus. Small amount of subacromial subdeltoid bursal fluid is seen. Capsule and soft tissues: In the absence of intra-articular contrast, the labrum and glenohumeral ligaments appear intact. The long head of the biceps tendinosis is noted. The rotator interval appears normal, without fibrosis. The coracohumeral ligament is normal in thickness. IMPRESSION: 1. Tendinosis and low to moderate grade articular and bursal surface partial thickness tear involving distal supraspinatus extending to musculotendinous junction. Suggestion of calcific tendinitis involving distal supraspinatus at its insertion on the humeral head. No full-thickness rotator cuff tendon rupture. 2. Moderate acromioclavicular joint osteoarthritis. Small amount of subacromial subdeltoid bursal fluid. 3. No gross focal labral tear in the absence of intra-articular contrast. 4. Proximal intra-articular portion of long head of biceps tendinosis. Dictated by: Joe Tucker M.D. on 12/19/2019 at 8:24 Approved by: Joe Tucker M.D. on 12/19/2019 at 8:35
== END ==
PROVIDERS: PCP Family Medicine; Referring Provider Family Medicine; Visit Provider Specialist
DX: D24.1 Benign neoplasm of right breast (principal); N60.21 Fibroadenosis of right breast; C50.919 Malignant neoplasm of unspecified site of unspecified female breast; C77.3 Secondary and unspecified malignant neoplasm of axilla and upper limb lymph nodes; R22.32 Localized swelling, mass and lump, left upper limb; M25.512 Pain in left shoulder; M19.012 Primary osteoarthritis, left shoulder; M75.112 Incomplete rotator cuff tear or rupture of left shoulder, not specified as traumatic
CPT/HCPCS: 19083; 73220; 73221; 77065; A9579

== ENCOUNTER → 2020-01-03 | Outpatient (CLI) | payer OTHER, SELFPAY ==
[2019-12-22 15:26] VITALS: BMI 68.3
== END ==
PROVIDERS: PCP Family Medicine; Referring Provider Internal Medicine; Visit Provider Internal Medicine
DX: Z23 Encounter for immunization (principal)
CPT/HCPCS: 90471; 90686

== ENCOUNTER 2020-02-11 16:46 | Emergency (ER) | payer OTHER, SELFPAY ==
[2019-12-22 15:26] VITALS: BMI 68.3
[2020-02-11] VITALS (10 sets, daily range): BP systolic 116–135; BP diastolic 61–86; PULSE 86–114; RESP 18–20; TEMP 36.8; O2SAT 93–95
--- NOTE | 2020-02-11 17:07 | DI.US.S_ITS ---
PROCEDURE: US BREAST RT LIMITED COMPARISON: [facility], US, US BREAST LIMITED RIGHT, 12/09/2019, 10:50. [facility], CT, CT CHEST W CON, 02/11/2020, 18:35. INDICATIONS: REDNESS, PAIN, LUMP FINDINGS: There is a dilated retroareolar duct measuring 6 x 10 millimeters. No abscess is identified. IMPRESSION: Dilated retroareolar duct measuring 6 x 10 millimeters. No abscess identified. Recommend follow-up ultrasound of the right breast in 4 weeks after clinical treatment. Dictated by: Vik Cason M.D. on 02/11/2020 at 19:13 Approved by: Vik Cason M.D. on 02/11/2020 at 19:18
--- NOTE | 2020-02-11 17:15 | ED.SEPSIS ---
HPI - Sepsis <Leonarda Mcdaniel DO - Last Filed: 02/12/20 07:14> General Chief Complaint: Fever Mode of arrival: Ambulatory Source: patient Limitations: no limitations Evaluation Narrative: Patient is a 54-year-old female with history of left-sided breast cancer with mastectomy presenting with fever and right breast pain. She states she had rigors last evening and overall does not feel good she complains of body aches. She is extremely sensitive over the right breast she has some mild erythema. She states she did have a biopsy of that right breast but it was in November. No drainage. She is currently afebrile here but did take some ibuprofen prior to arrival Review of Systems <Leonarda Mcdaniel DO - Last Filed: 02/12/20 07:14> Review of Systems ROS Unobtainable: All systems reviewed & are unremarkable except as noted in HPI and below Constitutional Constitutional: Reports body ache(s), Reports chills, Reports fatigue and Denies frequent falls ENT Ears, Nose, Mouth, and Throat: Denies change in voice, Denies dizziness, Denies neck pain and Denies sore throat Cardiovascular Cardiovascular: Denies chest pain, Denies irregular heart rhythm, Denies lightheadedness, Denies palpitations, Denies dyspnea, Denies dyspnea on exertion and Denies orthopnea Respiratory Respiratory: Denies cough, Denies dyspnea, Denies dyspnea on exertion and Denies wheezing Gastrointestinal Gastrointestinal: Denies abdominal pain, Denies change in bowel habits, Denies diarrhea, Denies nausea and Denies vomiting Genitourinary Genitourinary: Denies urinary hesitancy and Denies urinary urgency Genitourinary: Reports system reviewed and no additional complaints, except as documented, Denies urinary hesitancy and Denies urinary urgency Musculoskeletal Musculoskeletal: Denies neck pain and Denies numbness Integumentary/Breasts Skin/Breast: Denies pruritus, Denies erythema, Denies rash and Denies wounds Neurologic Neurologic: Denies behavioral changes, Denies confusion, Denies dizziness, Denies frequent falls and Denies numbness Psychiatric Psychiatric: Denies behavioral changes and Denies confusion Endocrine Endocrine: Reports fatigue and Denies palpitations Allergic/Immunologic Allergic/Immunologic: Denies wheezing Patient History <Leonarda Mcdaniel DO - Last Filed: 02/12/20 07:14> Medical History (Updated 02/11/20 @ 19:33 by Bairon Plaza DO) Breast cancer metastasized to axillary lymph node Hypertension Hypothyroidism Port-A-Cath in place (02/17/19) Surgical History H/O rectocele repair History of breast biopsy History of tonsillectomy S/P left mastectomy (01/17/19) Family History Family/Other Cancer Social History household members: spouse, family and children Smoking Status: Never smoker alcohol intake: current substance use type: does not use Smoking Status: Never smoker alcohol intake frequency: holidays/special occasions only Substance Use Type: does not use Exam <Leonarda Mcdaniel DO - Last Filed: 02/12/20 07:14> Initial Vital Signs Initial Vital Signs: Vital Signs Temperature 98.3 F 02/11/20 17:06 Pulse Rate 114 H 02/11/20 17:06 Respiratory Rate 02/11/20 17:06 Blood Pressure 135/86 02/11/20 17:06 Pulse Oximetry 95 02/11/20 17:06 GENERAL: Appears to not feel well and in no acute distress. HEENT: Head atraumatic,EOMI, pupils reactive, face symmetric, moist mucous membranes CARDIOVASCULAR: Tachycardic regular is no murmur BREAST: Right breast is evaluated mild erythema on just over the areola and nipple. No obvious fluctuation or abscess is appreciated area is extremely sensitive to touch. She complains of pain just below her breast on her ribs most importantly. No erythema is noted on that site either. RESPIRATORY: Breath sounds equal bilaterally, no wheezes rales or rhonchi. ABDOMEN: Soft, nontender. Normoactive bowel sounds all 4 quadrants. No guarding or rebound. EXTREMITIES: Normal range of motion, no clubbing or edema. Neurovascularly intact NEUROLOGICAL: Alert and oriented x4.Normal gait and speech. SKIN: Warm, dry, no laceration, no petechiae, no rashes or lesions. <Bairon Plaza DO - Last Filed: 02/11/20 23:05> Initial Vital Signs Initial Vital Signs: Vital Signs Temperature 98.3 F 02/11/20 17:06 Pulse Rate 114 H 02/11/20 17:06 Respiratory Rate 20 02/11/20 17:06 Blood Pressure 135/86 02/11/20 17:06 Pulse Oximetry 95 02/11/20 17:06 Course <Leonarda Mcdaniel, - Last Filed: 02/12/20 07:14> Orders Ordered: Discontinued Medications Sodium Chloride (Normal Saline 0.9%) 1,000 mls @ 1,000 mls/hr IV CONT ABDIAS Last Admin: 02/11/20 17:23 Dose: 1,000 mls/hr Documented by: MIKE Ceftriaxone Sodium/Dextrose (Rocephin) 1 gm in 50 mls @ 100 mls/hr IV NOW ONE Stop: 02/11/20 17:58 Last Infusion: 02/11/20 18:39 Dose: Infused Documented by: Vancomycin HCl (Vancomycin) 1,250 mg in 250 mls @ 250 mls/hr IV NOW ONE Stop: 02/11/20 18:34 Last Admin: 02/11/20 18:56 Dose: Not Given Documented by: Vancomycin HCl/Dextrose (Vancomycin) 1,500 mg in 300 mls @ 150 mls/hr IV NOW ONE Stop: 02/11/20 19:59 Last Infusion: 02/11/20 20:36 Dose: Infused Documented by: Ondansetron HCl (Ondansetron 4 Mg/2 Ml Inj) 4 mg IV NOW ONE Stop: 02/11/20 17:08 Last Admin: 02/11/20 17:23 Dose: 4 mg Documented by: MIKE Vital Signs Vital signs: Vital Signs - 8 hr 02/11/20 17:06 02/11/20 17:12 02/11/20 17:22 Temperature 98.3 F Pulse Rate 114 H 106 H 107 H Respiratory Rate 20 Blood Pressure 135/86 124/76 Pulse Oximetry 95 94 93 02/11/20 17:30 02/11/20 18:00 02/11/20 18:30 Temperature Pulse Rate 101 H 93 H 96 H Respiratory Rate 18 Blood Pressure 117/71 120/67 125/69 Pulse Oximetry 95 94 95 02/11/20 19:00 02/11/20 19:30 02/11/20 19:47 Temperature Pulse Rate 89 86 Respiratory Rate Blood Pressure 122/65 116/68 Pulse Oximetry 94 94 95 02/11/20 20:32 Temperature Pulse Rate Respiratory Rate Blood Pressure 118/61 Pulse Oximetry <Bairon Bola, DO - Last Filed: 02/11/20 23:05> Course Course Narrative: patient received in signout from Dr. Mcdaniel. I performed an independent history and brief exam. We have reviewed US and CT findings with surgery at bedside. There is no indication of abscess. She feels much better after fluids. She has Rx for Augmentin. She has complete understanding and agreement with assessment, plan, return precautions and need for follow up. She has plan to follow up on Thursday already. She has had questions answered to her apparent satisfaction. Orders Ordered: Discontinued Medications Sodium Chloride (Normal Saline 0.9%) 1,000 mls @ 1,000 mls/hr IV CONT ABDIAS Last Admin: 02/11/20 17:23 Dose: 1,000 mls/hr Documented by: MIKE Ceftriaxone Sodium/Dextrose (Rocephin) 1 gm in 50 mls @ 100 mls/hr IV NOW ONE Stop: 02/11/20 17:58 Last Infusion: 02/11/20 18:39 Dose: Infused Documented by: Vancomycin HCl (Vancomycin) 1,250 mg in 250 mls @ 250 mls/hr IV NOW ONE Stop: 02/11/20 18:34 Last Admin: 02/11/20 18:56 Dose: Not Given Documented by: Vancomycin HCl/Dextrose (Vancomycin) 1,500 mg in 300 mls @ 150 mls/hr IV NOW ONE Stop: 02/11/20 19:59 Last Infusion: 02/11/20 20:36 Dose: Infused Documented by: Ondansetron HCl (Ondansetron 4 Mg/2 Ml Inj) 4 mg IV NOW ONE Stop: 02/11/20 17:08 Last Admin: 02/11/20 17:23 Dose: 4 mg Documented by: MIKE Vital Signs Vital signs: Vital Signs - 8 hr 02/11/20 17:06 02/11/20 17:12 02/11/20 17:22 Temperature 98.3 F Pulse Rate 114 H 106 H 107 H Respiratory Rate 20 Blood Pressure 135/86 124/76 Pulse Oximetry 95 94 93 02/11/20 17:30 02/11/20 18:00 02/11/20 18:30 Temperature Pulse Rate 101 H 93 H 96 H Respiratory Rate 18 Blood Pressure 117/71 120/67 125/69 Pulse Oximetry 95 94 95 02/11/20 19:00 02/11/20 19:30 02/11/20 19:47 Temperature Pulse Rate 89 86 Respiratory Rate Blood Pressure 122/65 116/68 Pulse Oximetry 94 94 95 02/11/20 20:32 Temperature Pulse Rate Respiratory Rate Blood Pressure 118/61 Pulse Oximetry MDM - Sepsis <Leonarda Mcdaniel, - Last Filed: 02/12/20 07:14> Lab Data Attestation: I reviewed the patient's lab results. Result diagrams: 02/11/20 17:22 02/11/20 17:22 Labs: Lab Results 02/11/20 02/11/20 02/11/20 Range/Units 17:22 17:22 17:22 WBC 10.3 (4.5-11.0) X10^3/uL RBC 3.91 L (4.0-5.2) X10^6/uL Hgb 12.6 (12.0-16.0) g/dL Hct 36.2 (36-46) % MCV 92.4 (80-100) fL MCH 32.3 (26-34) PG MCHC 35.0 (30-36) % RDW 13.5 (11.6-14.8) % Plt Count 288 (150-400) X10^3/uL Neut % (Auto) 78.4 H (50-75) % Lymph % (Auto) 11.1 L (25-40) % [place] % (Auto) 9.7 (3-14) % Eos % (Auto) 0.4 L (2-4) % Baso % (Auto) 0.4 (0-2) % Neut # (Auto) 8100 H (6052-6064) /uL Lymph # (Auto) 1100 (1471-1339) /uL [place] # (Auto) 1000 H (0-900) /uL Eos # (Auto) 0 (0-450) /uL Baso # (Auto) 0 (0-100) /uL Sodium 138 (137-145) mmol/L Potassium 3.7 (3.4-5.1) mmol/L Chloride 103 (98-107) mmol/L Carbon Dioxide 28 (22-32) mmol/L BUN 14 (7-17) mg/dL Creatinine 0.62 (0.52-1.04) mg/dL Estimated GFR > 60.0 (>60) mL/min BUN/Creatinine Ratio 22.6 H (6-22) Glucose 118 H (70-100) mg/dL Lactate (0.7-2.1) mmol/L Calcium 9.0 (8.4-10.2) mg/dL Total Bilirubin 0.7 (0.2-1.3) mg/dL AST 19 (14-36) IU/L ALT 23 (<35) IU/L Alkaline Phosphatase 86 (38-126) U/L Total Protein 7.6 (6.3-8.2) g/dL Albumin 4.3 (3.5-5.0) g/dL Globulin 3.3 (1.7-4.1) g/dL Albumin/Globulin Ratio 1.3 (1.0-2.8) Procalcitonin < 0.05 (<0.5) ng/mL COVID-19 PCR (Negative) 02/11/20 02/11/20 Range/Units 17:22 17:30 WBC (4.5-11.0) X10^3/uL RBC (4.0-5.2) X10^6/uL Hgb (12.0-16.0) g/dL Hct (36-46) % MCV (80-100) fL MCH (26-34) PG MCHC (30-36) % RDW (11.6-14.8) % Plt Count (150-400) X10^3/uL Neut % (Auto) (50-75) % Lymph % (Auto) (25-40) % [place] % (Auto) (3-14) % Eos % (Auto) (2-4) % Baso % (Auto) (0-2) % Neut # (Auto) (0965-6356) /uL Lymph # (Auto) (0041-8975) /uL [place] # (Auto) (0-900) /uL Eos # (Auto) (0-450) /uL Baso # (Auto) (0-100) /uL Sodium (137-145) mmol/L Potassium (3.4-5.1) mmol/L Chloride (98-107) mmol/L Carbon Dioxide (22-32) mmol/L BUN (7-17) mg/dL Creatinine (0.52-1.04) mg/dL Estimated GFR (>60) mL/min BUN/Creatinine Ratio (6-22) Glucose (70-100) mg/dL Lactate 0.9 (0.7-2.1) mmol/L Calcium (8.4-10.2) mg/dL Total Bilirubin (0.2-1.3) mg/dL AST (14-36) IU/L ALT (<35) IU/L Alkaline Phosphatase (38-126) U/L Total Protein (6.3-8.2) g/dL Albumin (3.5-5.0) g/dL Globulin (1.7-4.1) g/dL Albumin/Globulin Ratio (1.0-2.8) Procalcitonin (<0.5) ng/mL COVID-19 PCR Negative (Negative) MDM Narrative Medical decision making narrative: Dr. Arora in ED to seen evaluate patient. Recommend waiting for ultrasound. Singed out to Dr. Plaza <Bairon Plaza, DO - Last Filed: 02/11/20 23:05> Lab Data Labs: Lab Results 02/11/20 02/11/20 02/11/20 Range/Units 17:22 17:22 17:22 WBC 10.3 (4.5-11.0) X10^3/uL RBC 3.91 L (4.0-5.2) X10^6/uL Hgb 12.6 (12.0-16.0) g/dL Hct 36.2 (36-46) % MCV 92.4 (80-100) fL MCH 32.3 (26-34) PG MCHC 35.0 (30-36) % RDW 13.5 (11.6-14.8) % Plt Count 288 (150-400) X10^3/uL Neut % (Auto) 78.4 H (50-75) % Lymph % (Auto) 11.1 L (25-40) % [place] % (Auto) 9.7 (3-14) % Eos % (Auto) 0.4 L (2-4) % Baso % (Auto) 0.4 (0-2) % Neut # (Auto) 8100 H (2787-7127) /uL Lymph # (Auto) 1100 (4330-7203) /uL [place] # (Auto) 1000 H (0-900) /uL Eos # (Auto) 0 (0-450) /uL Baso # (Auto) 0 (0-100) /uL Sodium 138 (137-145) mmol/L Potassium 3.7 (3.4-5.1) mmol/L Chloride 103 (98-107) mmol/L Carbon Dioxide 28 (22-32) mmol/L BUN 14 (7-17) mg/dL Creatinine 0.62 (0.52-1.04) mg/dL Estimated GFR > 60.0 (>60) mL/min BUN/Creatinine Ratio 22.6 H (6-22) Glucose 118 H (70-100) mg/dL Lactate (0.7-2.1) mmol/L Calcium 9.0 (8.4-10.2) mg/dL Total Bilirubin 0.7 (0.2-1.3) mg/dL AST 19 (14-36) IU/L ALT 23 (<35) IU/L Alkaline Phosphatase 86 (38-126) U/L Total Protein 7.6 (6.3-8.2) g/dL Albumin 4.3 (3.5-5.0) g/dL Globulin 3.3 (1.7-4.1) g/dL Albumin/Globulin Ratio 1.3 (1.0-2.8) Procalcitonin < 0.05 (<0.5) ng/mL COVID-19 PCR (Negative) 02/11/20 02/11/20 Range/Units 17:22 17:30 WBC (4.5-11.0) X10^3/uL RBC (4.0-5.2) X10^6/uL Hgb (12.0-16.0) g/dL Hct (36-46) % MCV (80-100) fL MCH (26-34) PG MCHC (30-36) % RDW (11.6-14.8) % Plt Count (150-400) X10^3/uL Neut % (Auto) (50-75) % Lymph % (Auto) (25-40) % [place] % (Auto) (3-14) % Eos % (Auto) (2-4) % Baso % (Auto) (0-2) % Neut # (Auto) (0679-5506) /uL Lymph # (Auto) (0295-1154) /uL [place] # (Auto) (0-900) /uL Eos # (Auto) (0-450) /uL Baso # (Auto) (0-100) /uL Sodium (137-145) mmol/L Potassium (3.4-5.1) mmol/L Chloride (98-107) mmol/L Carbon Dioxide (22-32) mmol/L BUN (7-17) mg/dL Creatinine (0.52-1.04) mg/dL Estimated GFR (>60) mL/min BUN/Creatinine Ratio (6-22) Glucose (70-100) mg/dL Lactate 0.9 (0.7-2.1) mmol/L Calcium (8.4-10.2) mg/dL Total Bilirubin (0.2-1.3) mg/dL AST (14-36) IU/L ALT (<35) IU/L Alkaline Phosphatase (38-126) U/L Total Protein (6.3-8.2) g/dL Albumin (3.5-5.0) g/dL Globulin (1.7-4.1) g/dL Albumin/Globulin Ratio (1.0-2.8) Procalcitonin (<0.5) ng/mL COVID-19 PCR Negative (Negative) Imaging Data Breast US: Radiologist's Impression: [address] [id number] ReportSigned Patient: Elena Fairbanks AMR#: [id number]: 1965Acct:[id number]/Sex: 54 / FDate of Service: 02/11/20Loc: EDAccession Number: [id number] Procedure: US breast RT limited Ordering Provider: Leonarda Mcdaniel D.O. PROCEDURE: US BREAST RT LIMITED COMPARISON: [facility], US, US BREAST LIMITED RIGHT, 12/09/2019, 10:50. [facility], CT, CT CHEST W CON, 02/11/2020, 18:35. INDICATIONS: REDNESS, PAIN, LUMP FINDINGS: There is a dilated retroareolar duct measuring 6 x 10 millimeters. No abscess is identified. IMPRESSION: Dilated retroareolar duct measuring 6 x 10 millimeters. No abscess identified. Recommend follow-up ultrasound of the right breast in 4 weeks after clinical treatment. Dictated by: Vik Cason M.D. on 02/11/2020 at 19:13 Approved by: Vik Cason M.D. on 02/11/2020 at 19:18 CT scan - chest: Radiologist's Impression: Chart [facility]er Diagnostics DATE TYPE STATUS REF RANGE/AUTHOR Kin Today 18:33 Vik Cason Today 17:07 Vik Cason 12/16/19 15:48 Joe Tucker 12/16/19 15:48 Joe Tucker 12/16/19 13:06 Edmar Matthew 12/16/19 12:55 Edmar Matthew 12/09/19 08:47 US Breast Limited Right 12/09/19 08:08 KiMitzi olsen 12/09/19 00:00 US Breast Limited Right [facility] 07/01/19 15:01 Luh Presley 06/15/19 13:42 Upper Extremity Venous 06/14/19 10:38 X-Ray chest 04/05/19 12:57 Luh Presley 02/28/19 11:06 Chevy Wilde 02/17/19 14:04 Mitzi Deleon 01/28/19 09:40 Edmar Matthew 01/28/19 07:34 Edmar Matthew 01/28/19 07:34 01/17/19 11:26 Edmar Matthew 12/31/18 15:05 US Biopsy L Breast & 1st Lesion 12/31/18 13:31 MG Post Clip Placement Left 12/31/18 11:54 US Biopsy Breast 1st Lesion Left 12/22/18 11:11 US breast left 12/17/18 07:42 Olson,Edward 12/03/18 10:21 Olson,Edward 12/03/18 10:20 Olson,Edward 11/18/18 00:00 Kimeganat,Mitzi 05/13/18 09:01 02/12/18 14:16 Jacob Brenner 12/10/17 10:29 AmyElena de jesus 54, F0 1965 DEP ER, [facility] 104.372kg Fever Search Chart No Data to Display NonFormulary Not Included in Conflicts RASH GI ONSET 11/17/13 11/17/13 11/17/13 08/30/15 08/30/15 10/07/12 Today 20:32 Elena Fairbanks 54 F 1965 [place] [id number] [place] [id number] Scan ReportSigned Patient: Elena Fairbanks AMR#: [id number]: 1965Acct:[id number]/Sex: 54 / FDate of Service: 02/11/20Loc: EDAccession Number: [id number] Procedure: CT chest w con Ordering Provider: Bairon Plaza D.O. PROCEDURE: CT CHEST W CON INDICATIONS: pain, fever, chills, right breast erythema TECHNIQUE: After the administration of intravenous contrast, 5 mm thick sections acquired from the pulmonary apices to the posterior costophrenic angles. 1 mm axial lung, 5 mm thick coronal and sagittal reformats and 7 mm axial MIP were acquired. For radiation dose reduction, the following was used: automated exposure control, adjustment of mA and/or kV according to patient size. COMPARISON: [facility], US, US BX BREAST PERC W VAC DEVICE, 12/16/2019, 13:07. [facility], CT, CT ANGIO CHEST, 04/05/2019, 12:36. FINDINGS: Image quality: Excellent. Lungs and pleura: No acute air space opacities. A few nodules in the left upper lobe anteriorly centered on series 22/60 are seen. No pleural effusions or pneumothorax. Central and peripheral airways are patent and normal in caliber. Mediastinum: Heart size is normal. No pericardial effusion. No mediastinal or hilar adenopathy by size criteria. Thoracic aorta and central pulmonary arteries are normal in size. Esophagus is normal in caliber. No hiatal hernia. Bones and chest wall: No suspicious bony lesions. No vertebral body compression fractures. No axillary or supraclavicular adenopathy by size criteria. Thyroid gland is normal. Status post left mastectomy and left axillary node dissection. A biopsy clip in the right breast is seen which was not previously present. No breast abscess is identified. Abdomen: Visualized upper abdominal solid organs appear normal. Upper abdominal bowel loops are normal in caliber. IMPRESSION: 1. No acute abnormality of the chest. 2. No abscess in the right breast is present. 3. Status post left mastectomy and left axillary node dissection. 4. Peripheral reticulonodular opacities in the left upper lobe are new compared to the prior CT. This could be due to pneumonitis. The appearance is not typical for metastatic disease, however follow-up CT in 3 months is recommended to ensure resolution. Dictated by: Vik Cason M.D. on 02/11/2020 at 19:18 Approved by: Vik Cason M.D. on 02/11/2020 at 19:28 Discharge Plan Departure Patient Disposition: Home Clinical Impression: Cellulitis of breast Instructions: DI for Cellulitis -- Adult Activity Restrictions/Additional Instructions: *You have been diagnosed with [ Right breast cellulitis. Your imaging was very reassuring and shows no sign of abscess ] *What to do: *Continue to take medications as directed *Follow up with Dr. Craft/Curry, on Thursday as planned. *Return to ER if you should have any new, worsening or concerning symptoms, such as [worsening pain, persistent vomiting or other bothersome symptoms ] Prescriptions: No Action levothyroxine [Levo-T] 112 mcg tablet 112 mcg PO DAILY Qty: 90 RF: 3 (DME) Breast prosthesis and bra fitting Qty: 1 RF: 0 amoxicillin-pot clavulanate [Augmentin] 875-125 mg tablet 1 tab PO BID Qty: 10 RF: 0 pantoprazole [Protonix] 40 mg Tablet,Delayed Release (Dr/Ec) 40 mg PO PRN PRN (Reason: Acid Reflux) RF: 0 lisinopril 10 mg Tablet 10 mg PO DAILY RF: 0 letrozole 2.5 mg Tablet 2.5 mg PO DAILY RF: 0 meloxicam 15 mg tablet 15 mg PO DAILY Qty: 30 RF: 2 Referrals: Jeison Vences MD [Primary Care Provider] - Tarun Craft MD [Physician] -
[2020-02-11] MEDS: ONDANSETRON 4 MG/2 ML INJ IV (17:23)
[2020-02-11] MEDS: SODIUM CHLORIDE 0.9% 1,000 ML 1000 ML IV (17:23)
--- NOTE | 2020-02-11 17:37 | PC.NURSE ---
Dr Zapien in to assess. IV placed and septic workup drawn. Lab called for 2nd set of cultures. swabbed for COVID. IVF infusing and zofran given iVP. NAD. needs met at this time.
[2020-02-11 17:41] LABS: Add Manual Diff / Slide Review NO; Basophils Absolute Auto 0 /uL (0-100); Basophils Percent Auto 0.4 % (0-2); Eosinophils Absolute Auto 0 /uL (0-450); Eosinophils Percent Auto 0.4 % (2-4); Hematocrit 36.2 % (36-46); Hemoglobin 12.6 g/dL (12.0-16.0); Lymphocytes Absolute Auto 1100 /uL (1100-4500); Lymphocytes Percent Auto 11.1 % (25-40); Mean Corpuscular Hemoglobin 32.3 PG (26-34); Mean Corpuscular Volume 92.4 fL (80-100); Monocytes Absolute Auto 1000 /uL (0-900); Monocytes Percent Auto 9.7 % (3-14); Neutrophils Absolute Auto 8100 /uL (1500-7000); Neutrophils Percent Auto 78.4 % (50-75); Platelet Count 288 X10^3/uL (150-400); Red Blood Cell Count 3.91 X10^6/uL (4.0-5.2); Red Cell Distribution Width 13.5 % (11.6-14.8); White Blood Cell Count 10.3 X10^3/uL (4.5-11.0)
--- NOTE | 2020-02-11 17:41 | P.HP_ITS ---
History of Present Illness History of Present Illness Date Patient Seen: 02/11/20 Time Patient Seen: 17:42 Chief complaint: fever,chills, states infection Right breast Narrative: This is a 54 year-old woman with history of left breast cancer who comes into the ER with one day of fevers/chills beginning last evening, and severe right breast pain and erythema with some new nipple retraction that began during the night. She feels that there is a new large mass in the center of her breast behind the nipple which is exquisitely tender. She had a biopsy of the left breast about seven weeks ago which was found to be benign. Prior to last evening she has had no right breast symptoms. Regarding her breast history, she was diagnosed last year with left breast invasive lobular carcinoma metastatic to 3/3 lymph nodes, ER+/[place]+/Her2-. She had a left mastectomy and SLNBx in December of 2018. Due to her diagnosis of invasive lobular carcinoma and annual MRI was recommended for surveillance of the contralateral breast as well as surveillance of her mastectomy site. I do not see that an MRI has been done recently. She may be due for it now. Postoperatively she was treated with adjuvant dose dense ACT with her final dose of Taxol June 14, 2019. Post chemotherapy she had radiation to the left chest wall that she finished on August 29. ROS: Positive for fevers, chills. Positive for right breast pain. Denies nipple discharge. Denies headache, cough, respiratory symptoms, dysuria, abdominal pain, abnormal bowel movements, constipation/diarrhea/nausea/vomiting. Thirteen system review is otherwise negative other than as mentioned below and in HPI. Past medical history 1. Current medications include Synthroid 0.112 mg daily and as needed pantoprazole 40 mg daily 2. She is allergic to sulfa and codeine 3. High blood pressure 4. Hypothyroidism, on replacement 5. She denies diabetes, rheumatic fever, tuberculosis, heart attacks, strokes, stomach ulcers, pneumonia or any of the any other kind of cancer 6. Previous surgeries include a colonoscopy, tonsillectomy, left mastectomy, and vaginal sling Menarche at age 12 menopause at age 50. She was on intermittent hormonal replacement therapy but only took about 30 pills over several years. 7. Her brother had a glioblastoma at age 40. Paternal grandmother had breast cancer in her 70s. A maternal aunt had breast cancer at 42 and contralateral breast cancer of 53, and colon cancer at age 59. A paternal aunt had breast cancer at age 44 contralateral breast cancer in her 80s. The patient has had genetic testing that was negative 8. 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 She is is very supportive family. She is a never smoker and occasional drinker. She exercises regularly and eats a healthy diet. PE: GENERAL: Alert, mild distress due to fevers/chills/breast pain. Appears stated age. Answers questions promptly and appropriately. Vital signs noted. HENT: Normocephalic, atraumatic. Hearing intact. EYES: Conjunctiva pink, sclera white, no periorbital swelling. CARDIOVASCULAR: Mild tachycardia at 101. No pedal edema. RESPIRATORY: Non-tachypneic, breathing comfortably on room air. GASTROINTESTINAL: Abdomen soft and non-distended Breast exam: Right breast is soft, with streaky erythema along the upper outer and lower outer quadrants, slight nipple retraction, vaguely palpable large mass like area in the center of the breast at 12:00, just deep to the nipple-areolar complex, exquisitely tender on palpation of the lower outer quadrant, soft, not firm, not diffusely red, no skin puckering or peau de orange appearance, does not appear like inflammatory breast cancer, well-healed 2 mm biopsy incision on the upper inner quadrant of the right breast; left breast post mastectomy GENITALURINARY: No flank tenderness. MUSCULOSKELETAL: Equal tone and mass bilaterally. SKIN: Warm, dry, soft, appropriate color for ethnicity. No other lesions, rash es, or wounds. NEURO: Alert and Oriented X 3. No gross sensory deficits, or cognitive issues. PSYCH: Appropriate affect and mood. Patient History Medical History (Updated 02/11/20 @ 19:33 by Bairon Plaza DO) Breast cancer metastasized to axillary lymph node Hypertension Hypothyroidism Port-A-Cath in place (02/17/19) Surgical History H/O rectocele repair History of breast biopsy History of tonsillectomy S/P left mastectomy (01/17/19) Family & Social History Family History Family/Other Cancer Social History: household members spouse,family,children Safety & Behavioral: Feels Safe in Current Yes Environment Been Physically Hurt or No Threatened By a Person Tobacco & Substance use: Smoking Status Never smoker alcohol intake current alcohol intake frequency holiday/special occasion Substance Use Type does not use Meds Home Medications and Allergies Home Medications Medication Instructions Recorded Confirmed Type levothyroxine 112 mcg tablet 112 mcg PO DAILY #90 tab 10/30/17 01/25/20 Rx Breast prosthesis and bra fitting #1 ea 05/02/19 01/25/20 Rx pantoprazole [Protonix] 40 mg PO PRN PRN 07/14/19 01/25/20 History letrozole 2.5 mg PO DAILY 12/13/19 01/25/20 History lisinopril 10 mg PO DAILY 12/13/19 01/25/20 History meloxicam 15 mg tablet 15 mg PO DAILY #30 tab 12/28/19 01/25/20 Rx amoxicillin 875 mg-potassium 1 tab PO BID #10 tab 02/11/20 Rx clavulanate 125 mg tablet Allergies Allergy/AdvReac Type Severity Reaction Status Date / Time Sulfa (Sulfonamide Allergy Mild RASH Verified 01/25/20 07:58 Antibiotics) [SULFA (SULFONAMIDE ANTIBIOTICS)] codeine [CODEINE] AdvReac Mild GI Verified 01/25/20 07:58 Exam Vital Signs (past 8 hours): - 02/11/20 17:06 02/11/20 17:12 02/11/20 17:22 Temperature 98.3 F Pulse Rate 114 H 106 H 107 H Respiratory Rate 20 Blood Pressure 135/86 124/76 Pulse Oximetry 95 94 93 02/11/20 17:30 Temperature Pulse Rate 101 H Respiratory Rate 18 Blood Pressure 117/71 Pulse Oximetry 95 Oxygen Delivery Method Room Air Objective Imaging biopsy result 12/16/2019: Radiologist's impression: [place] [address] Pathology Diagnostic ReportSigned Ordering Physician: Tarun Carft MD Patient name: Elena Fairbanks Date of : 1965 Admit Date: 12/16/[address]: Leann Smith MD Collection Date: 12/16/19 [facility] Accession Number: [id number] . 01 Material submitted: . breast - RIGHT BREAST MASS 1:00 2 CM FN . 01 Clinical history: . PAIN LEFT SHOULDER MASS LEFT ARM RIGHT BREAST . 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 Negative for atypia, carcinoma in situ, and malignancy. . COMMENT: Clinical and radiographic correlation is recommended. MRV 12/21/2019 0147 Local . 01 Electronically signed: . Leann Smith MD, Pathologist NPI- [id number] . 01 Gross description: . The specimen is received in formalin, labeled breast core biopsy, and consists of five kan-white cores of fibroadipose tissue ranging from 0.5 cm to 2.8 cm in length by 0.2 cm in diameter. The specimen is entirely submitted in cassette A1. . Formalin fixation time: Approximately 43 hours. ([id number]) /[facility] 12/17/2019 1729 Local . 01 Pathologist provided ICD-10: N63.10, D24.9 . 01 CPT . 574512 Performed at: [address] [id number] MD Amos Bills MD Phone: [phone] Dictated By:Leann Smith MDSigned By:12/21/19906 DD/ 0135TD/TT: 12/21/19906 Breast US right : My impression: some duct ectasia, similar to prior imaging. No significant fluid collection or drainabel abscess Radiologist's impression: Dilated retroareolar duct measuring 6 x 10 millimeters. No abscess identified. Recommend follow-up ultrasound of the right breast in 4 weeks after clinical treatment. CT scan - chest: My impression: No fluid collection or stranding. Radiologist's impression: No acute abnormality in right breast or chest. Labs Result Diagrams: 02/11/20 17:22 02/11/20 17:22 Assessment & Plan Assessment and plan (1) Breast mass, right: Status: Acute (2) Breast cancer metastasized to axillary lymph node: Qualifiers: Laterality: left Qualified Code(s): C50.912 - Malignant neoplasm of unspecified site of left female breast; C77.3 - Secondary and unspecified malignant neoplasm of axilla and upper limb lymph nodes Status: Acute (3) Menopausal symptom: Status: None (4) Essential hypertension: Status: Acute (5) Breast pain, right: Status: Acute Assessment & Plan narrative: This is a 54-year-old woman with new onset right breast pain, with associated fevers and chills starting last night. She started Augmentin this morning, and came into the ER this evening because her symptoms are not abating. She had a biopsy of the right breast about 7 weeks ago. Prior to today she had no symptoms on the right side. She does have a history of left breast cancer metastasized to the lymph nodes, status post mastectomy and sentinel node biopsy 1 year ago. Plan: Right breast ultrasound COVID test Labs Potential incision and drainage under general anesthesia depending on ultrasound findings Addendum: on CBC, WBC not elevated,very slight left shift Prelim look at US, no significant fluid collection. Final read confirms the same. Prelim look at chest CT, no fluid collection stranding. Final read confirms the same. The findings are most consistent with an early/developing mastitis or, more likely, a thrombophlebitis (Mondor disease). NSAIDs, warm compresses, and close follow up recommended. I have told the patient she should come in to see Dr. Craft on Thursday at [facility]. COVID-19 COVID-19 status: Result pending Result date/Date tested (Pos, Neg/Pending): 02/11/20 Time Spent With Patient Time with patient: 25 - 35 minutes
[2020-02-11 17:51] LABS: Lactate (Lactic Acid) 0.9 mmol/L (0.7-2.1)
[2020-02-11 17:52] LABS: Alanine Aminotransferase 23 IU/L (<35); Albumin 4.3 g/dL (3.5-5.0); Albumin Globulin Ratio 1.3 (1.0-2.8); Alkaline Phosphatase 86 U/L (38-126); Aspartate Aminotransferase 19 IU/L (14-36); BUN Creatinine Ratio 22.6 (6-22); Bilirubin Total 0.7 mg/dL (0.2-1.3); Blood Urea Nitrogen 14 mg/dL (7-17); Carbon Dioxide 28 mmol/L (22-32); Chloride 103 mmol/L (98-107); Estimated Glomerular Filt Rate > 60.0 mL/min (>60); Globulin 3.3 g/dL (1.7-4.1); Glucose 118 mg/dL (70-100); HEMOLYSIS < 15 (0-50); Potassium 3.7 mmol/L (3.4-5.1); Sodium 138 mmol/L (137-145); Total Protein 7.6 g/dL (6.3-8.2)
[2020-02-11 18:02] LABS: COVID19 -Nasal RAPID Negative (Negative)
[2020-02-11 18:07] LABS: Procalcitonin < 0.05 ng/mL (<0.5)
[2020-02-11] MEDS: CEFTRIAXONE 1 GM/50 ML FROZ.PIGGY IV (18:09)
--- NOTE | 2020-02-11 18:33 | DI.CT.S_ITS ---
PROCEDURE: CT CHEST W CON INDICATIONS: pain, fever, chills, right breast erythema TECHNIQUE: After the administration of intravenous contrast, 5 mm thick sections acquired from the pulmonary apices to the posterior costophrenic angles. 1 mm axial lung, 5 mm thick coronal and sagittal reformats and 7 mm axial MIP were acquired. For radiation dose reduction, the following was used: automated exposure control, adjustment of mA and/or kV according to patient size. COMPARISON: [facility], US, US BX BREAST PERC W VAC DEVICE, 12/16/2019, 13:07. [facility], CT, CT ANGIO CHEST, 04/05/2019, 12:36. FINDINGS: Image quality: Excellent. Lungs and pleura: No acute air space opacities. A few nodules in the left upper lobe anteriorly centered on series 22/60 are seen. No pleural effusions or pneumothorax. Central and peripheral airways are patent and normal in caliber. Mediastinum: Heart size is normal. No pericardial effusion. No mediastinal or hilar adenopathy by size criteria. Thoracic aorta and central pulmonary arteries are normal in size. Esophagus is normal in caliber. No hiatal hernia. Bones and chest wall: No suspicious bony lesions. No vertebral body compression fractures. No axillary or supraclavicular adenopathy by size criteria. Thyroid gland is normal. Status post left mastectomy and left axillary node dissection. A biopsy clip in the right breast is seen which was not previously present. No breast abscess is identified. Abdomen: Visualized upper abdominal solid organs appear normal. Upper abdominal bowel loops are normal in caliber. IMPRESSION: 1. No acute abnormality of the chest. 2. No abscess in the right breast is present. 3. Status post left mastectomy and left axillary node dissection. 4. Peripheral reticulonodular opacities in the left upper lobe are new compared to the prior CT. This could be due to pneumonitis. The appearance is not typical for metastatic disease, however follow-up CT in 3 months is recommended to ensure resolution. Dictated by: Vik Cason M.D. on 02/11/2020 at 19:18 Approved by: Vik Cason M.D. on 02/11/2020 at 19:28
[2020-02-11] MEDS: VANCOMYCIN 1,500 MG/300 ML PIGGYBACK 150 MG IV (18:54)
--- NOTE | 2020-02-11 20:36 | PC.NURSE ---
Pt states her scalp is itchy, appears red in the front half of her head. Infusion stopped. flushed with NS.Dr Plaza made aware. Advised by Dr Plaza ok to DC remainder of infusion.
== END 2020-02-11 20:41 | disposition home or self-care (01) ==
PROVIDERS: Emergency Medicine; Emergency Provider Emergency Medicine; PCP Family Medicine
DX: N61.0 Mastitis without abscess (principal); R50.9 Fever, unspecified; I10 Essential (primary) hypertension; E03.9 Hypothyroidism, unspecified; C50.912 Malignant neoplasm of unspecified site of left female breast; C77.3 Secondary and unspecified malignant neoplasm of axilla and upper limb lymph nodes; N95.1 Menopausal and female climacteric states; R07.89 Other chest pain
CPT/HCPCS: 36415; 71260; 76642; 80053; 83605; 84145; 85025; 87040; 87635; 96365; 96366; 96367; 96375; 99284; J2405; Q9967

== ENCOUNTER → 2020-03-02 08:56 | Outpatient (CLI) | payer OTHER, SELFPAY ==
[2019-12-22 15:26] VITALS: BMI 68.3
[2020-03-02] MEDS: COVID-19 VACC(MODERNA-1)/PF 100 MCG/0.5 ML VIAL IM (09:05)
== END ==
PROVIDERS: PCP Family Medicine; Visit Provider Internal Medicine
DX: Z23 Encounter for immunization (principal)
CPT/HCPCS: 0011A; 91301

== ENCOUNTER 2020-03-13 07:30 | Outpatient (RCR) | payer OTHER, SELFPAY ==
[2019-12-22 15:26] VITALS: BMI 68.3
--- NOTE | 2020-01-18 15:36 | PT.OIE ---
Current Diagnoses Pain in right shoulder (01/18/20) Impingement syndrome of right shoulder (01/18/20) Past Medical History (Last Reviewed 12/28/19 @ 08:37 by Valente Huddleston DO) Breast cancer metastasized to axillary lymph node Hypertension Hypothyroidism Port-A-Cath in place (02/17/19) Past Surgical History (Last Reviewed 12/28/19 @ 08:37 by Valente Huddleston DO) H/O rectocele repair History of breast biopsy History of tonsillectomy S/P left mastectomy (01/17/19) Visit Care Team Role Provider Type Jeison Vences MD Primary Care Provider Physician Specialty: Family Practice Address: [address] [place] [address], [id number] Email: [email or web address] Aden Krishnan MD Attending Provider Physician Referring Provider Specialty: Orthopedic Surgery Address: [address] [place] [address], [address] Email: [email or web address] Physical Therapy Initial Evaluation PT-OP-A Visit Information Start: 01/11/20 16:44 Freq: Status: Active Protocol: Document 01/18/20 08:11 JEFFERY (Rec: 01/18/20 15:36 [facility]AK [id number]) Out-Patient Physical Therapy Visit Information Visit Information Visit Type Initial Evaluation Visit Start Time 08:11 Visit Stop Time 08:51 Total Visit Minutes 40 Visit Number 1 Evaluation Information Evaluation Date 01/18/20 Precautions Precautions history of breast cancer with mastectomy, chemotherapy, and radiation left. PT-OP-B Current Condition Start: 01/11/20 16:44 Freq: Status: Active Protocol: Document 01/18/20 08:11 SAK (Rec: 01/18/20 09:03 SAK [id number]) Current Condition History of Current Condition Onset Date 2 years Current Complaints left shoulder pain History of Current Condition Patient has history of left shoulder pain worsened by injury at [employer] a couple years ago. Due to breast cancer diagnosis, patient underwent left sided mastectomy February 2019 followed by chemotherapy, and radiation. Had PT for soft tissue mobilization and ROM throughout left chest and shoulder, but some limitations remained and as patient has increased her activity including return to work in July 2019 her left shoulder pain increase. [facility] [address] [facility] Pain improved but patient reports persistent ROM and strength limitationsADL activities including drying her back, putting shirts on, reaching to backseat in car, putting on seatbelt, and reaching top shelves. 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 Also reports she had noted a lump just proximal to her elbow; saw Dr. Krishnan who looked at lump in lower upper arm; had injection of Lidocaine, some better, bicep intact. Had Zometa injection last . week for osteoporosis prevention. Pain with putting seatbelt on, reaching into backseat, drying her back all pain. ROM improved since injection. Denies swelling. Icing shoulder. Intermittant HEP performance, has been moving, lots of stress. Prior Treatments and Tests MRI left shoulder 12/16/19: 1. Tendinosis and low to moderate grade articular and bursal surface partial thickness tear involving distal supraspinatus extending to musculotendinous junction. Suggestion of calcific tendinitis involving distal supraspinatus at its insertion on the humeral head. No full-thickness rotator cuff tendon rupture. 2. Moderate acromioclavicular joint osteoarthritis. Small amount of subacromial subdeltoid bursal fluid. 3. No gross focal labral tear in the absence of intra- articular contrast. 4. Proximal intra-articular portion of long head of biceps tendinosis. Treatment Goals Patient/Caregiver Goals Improve ROM and strength for doing normal movements of shoulder and typical activities without an increase in pain including doing surgery. Prior Functional Status Baseline Function- Other Mild left shoulder pain Current Functional Impairments (Reported) Functional Limitations- Other Difficulty reaching overhead, behind her back, into backseat , difficulty donning shirts, putting on seatbelt. Personal Factors Other Personal Factors That May Effect repepetitive stress to Therapy/Recovery shoulder during surgery activities PT-OP-C Subjective Start: 01/11/20 16:44 Freq: Status: Active Protocol: Document 01/18/20 08:11 [facility] (Rec: 01/18/20 15:36 [facility] [id number]) OP-PT Pain Assessment Pain Assessment Grid Paper Pain Assessment Grid Completed Yes Location Left Shoulder Pain Location Details left shoulder girdle Intensity 8 Scale Used Numeric (0 - 10) Description Aching,Pressure,Sharp, Tightness Frequency Frequent Pain Aggravating Factors Position,Activity,Lifting Pain Alleviating Factors Cold,Medication,Inactivity, Rest Other Pain Alleviating Factors injection Pain Behaviors Pain Behaviors Facial Grimacing,Guarding, Wincing PT-OP-E Functional Tests Start: 01/11/20 16:44 Freq: Status: Active Protocol: Document 01/18/20 08:11 [facility] (Rec: 01/18/20 15:36 [facility] [id number]) Functional Tests Apley's Scratch Test Action 1- Left anterior shoulder Action 1- Right posterior shoulder Action 2- Left posterior neck Action 2- Right T3 Action 3- Left L1 Action 3- Right T4 PT-OP-H Neuro Start: 01/11/20 16:44 Freq: Status: Active Protocol: Document 01/18/20 08:11 [facility] (Rec: 01/18/20 15:36 [facility] [id number]) Sensation Evaluation Gross Sensation Gross Sensation WNL PT-OP-J Posture/Palpation/Skin Start: 01/11/20 16:44 Freq: Status: Active Protocol: Document 01/18/20 08:11 [facility] (Rec: 01/18/20 15:36 [facility] [id number]) Posture Evaluation Position Sitting Head/C-Spine Posture Forward Head T-Spine Posture Increased Kyphosis Shoulder Posture (L) Rounded,(R) Rounded Scapula Posture (L) Protracted Arm Posture (L) Internally Rotated Palpation Assessment Location right chest tenderness Palpation Location chest and shoulder Palpation Findings Soft Tissue Tightness,Muscle Guarding,Tenderness Palpation Details TTP medial left clavicle, palpable possible suture left axilla (patient to be talking with surgeon more about this), increased muscle tension and tightness throughout left UT, LS, pec minor, TTP left subscap, lat, RC insertion. Skin Assessment Incisional Assessment Incision Appearance/Comments well-healed, good mobility PT-OP-K Range of Motion Start: 01/11/20 16:44 Freq: Status: Active Protocol: Document 01/18/20 08:11 [facility] (Rec: 01/18/20 15:36 [facility] [id number]) Cervical Spine Range of Motion Cervical Spine Active Comments WNL except decreased right sidebending due to muscle tension and tightness Shoulder Goniometric Range of Motion Shoulder Right Shoulder ROM WFL Yes Internal Rotation Behind Back (text) T6 Left Shoulder ROM WFL No Flexion 147 Abduction 143 External Rotation at 45 degrees 48 Abduction Internal Rotation Behind Back (text) L3 Comments patient reports both tightness and pain at end-ranges PT-OP-L Special Tests Start: 01/11/20 16:44 Freq: Status: Active Protocol: Document 01/18/20 08:11 [facility] (Rec: 01/18/20 15:36 SAK [id number]) Special Tests Shoulder Special Tests Passive ER Rotator Cuff Test Results painful left IR/Horizontal ADD Impingement Test Results positive Elevation Impingement Test Results positive left Drop Arm Rotator Cuff Test Results negative aurelio PT-OP-M Strength Start: 01/11/20 16:44 Freq: Status: Active Protocol: Document 01/18/20 08:11 [facility] (Rec: 01/18/20 15:36 [facility] [id number]) Shoulder Strength Shoulder Manual Muscle Testing Right Flexion 5 Normal Extension 5 Normal Abduction (C5) 5 Normal External Rotation 4+ Good+ Internal Rotation 5 Normal Left Flexion 4 Good Extension 4 Good Abduction (C5) 4+ Good+ External Rotation 4 Good Internal Rotation 4 Good Elbow/Forearm Strength Elbow and Forearm Manual Muscle Testing aurelio Flexion (C6) 5 Normal Extension (C7) 5 Normal PT-OP-Q Treatments Start: 01/11/20 16:44 Freq: Status: Active Protocol: Document 01/18/20 08:11 [facility] (Rec: 01/18/20 15:36 [facility] [id number]) Manual Therapy Treatment Taping 1 Body Location RC taping Comments 3 Y strips. Consider lower trap facilitation next session Self-Care/Home Management Treatment Education Patient Education Home Exercise Program PT-OP-T Assessment and Plan Start: 01/11/20 16:44 Freq: Status: Active Protocol: Document 01/18/20 08:11 [facility] (Rec: 01/18/20 15:36 [facility] [id number]) Physical Therapy Assessment Goals Four Impairment decreased ROM and signs and symptoms of impingement left shoulder Marine Equipment Engineer Goal (LTG) Patient ROM to return to WNL on left with minimal to no signs or symptoms of imingement. LTG Duration 8 weeks Three Impairment Decreased strength left shoulder Care Home Goal (LTG) Patient will demonstrate improvement of left shoulder strength to at least 4+/5 all motions Two Impairment Shoulder pain rated 0-8/10 STG Duration 8 weeks Care Home Goal (LTG) Patient will report pain no greater than 2/10 will all usual activities including ability to sleep on her left side, reach overhead and behind her back, perform all ADL's and job related tasks. One Impairment Shoulder Quick[employer] disability questionnaire score 24% Marine Equipment Engineer Goal (LTG) Improve shoulder disability score to no greater than 10%. LTG Duration 8 weeks Assessment Summary Assessment Ana Luisa presents to PT with function-limiting pain in her left shoulder with signs and symptoms of impingement, and multiple findings on MRI as noted in history. Her ROM and strength are decreased and limiting for her usual ADL's and for activities including work-related tasks. She has soft tissue tightness in pec minor, lat, and subscapularis, and protracted shoulder girdle on left. She would benefit from physical therapy to address above impairments and help return her to her prior level of function. Physical Therapy Plan Frequency and Duration Frequency of Treatment 2x/Week Duration of Treatment 12 weeks Plan of Care Start Date 01/18/20 Plan of Care End Date 04/17/20 Therapeutic Interventions Therapeutic Interventions Aquatic Therapy,Home Exercise Program,Joint Mobilizations, Manual Therapy,Neuromuscular Re-education,Patient/Caregiver Education,Self-Care/Home Management,Soft Tissue Mobilization,Taping, Therapeutic Exercises Modalities Cold Pack/Ice Massage,Electric Stimulation,Iontophoresis Next Visit Focus/Plan Next Note Type Treatment Note Next Visit Plan Review HEP, gentle progression of ther ex for flexibility, ROM, and strengthening left shoulder girdle. Try prone I, T, Y over therapy ball. Instruct in pin and stretch for shoulder elevation. Scapular mobilization.
--- NOTE | 2020-01-18 15:37 | PT.OPPOC ---
Physical, Occupational & Speech Therapy At Current Diagnoses Pain in right shoulder (01/18/20) Impingement syndrome of right shoulder (01/18/20) Visit Care Team Role Provider Type Jeison Vences MD Primary Care Provider Physician Specialty: Family Practice Address: [address] [place] [address], [address] Email: [email or web address] Aden Krishnan MD Attending Provider Physician Referring Provider Specialty: Orthopedic Surgery Address: [address] [place] [address], [address] Email: [email or web address] Plan Of Care PT-OP-T Assessment and Plan Start: 01/11/20 16:44 Freq: Status: Active Protocol: Document 01/18/20 08:11 [facility] (Rec: 01/18/20 15:36 [facility] [id number]) Physical Therapy Assessment Goals Four Impairment decreased ROM and signs and symptoms of impingement left shoulder Chcf Goal (LTG) Patient ROM to return to WNL on left with minimal to no signs or symptoms of imingement. LTG Duration 8 weeks Three Impairment Decreased strength left shoulder Inspector Open Die Goal (LTG) Patient will demonstrate improvement of left shoulder strength to at least 4+/5 all motions Two Impairment Shoulder pain rated 0-8/10 STG Duration 8 weeks Inspector Open Die Goal (LTG) Patient will report pain no greater than 2/10 will all usual activities including ability to sleep on her left side, reach overhead and behind her back, perform all ADL's and job related tasks. One Impairment Shoulder Quick[employer] disability questionnaire score 24% Inspector Open Die Goal (LTG) Improve shoulder disability score to no greater than 10%. LTG Duration 8 weeks Assessment Summary Assessment Ana Luisa presents to PT with function-limiting pain in her left shoulder with signs and symptoms of impingement, and multiple findings on MRI as noted in history. Her ROM and strength are decreased and limiting for her usual ADL's and for activities including work-related tasks. She has soft tissue tightness in pec minor, lat, and subscapularis, and protracted shoulder girdle on left. She would benefit from physical therapy to address above impairments and help return her to her prior level of function. Physical Therapy Plan Frequency and Duration Frequency of Treatment 2x/Week Duration of Treatment 12 weeks Plan of Care Start Date 01/18/20 Plan of Care End Date 04/17/20 Therapeutic Interventions Therapeutic Interventions Aquatic Therapy,Home Exercise Program,Joint Mobilizations, Manual Therapy,Neuromuscular Re-education,Patient/Caregiver Education,Self-Care/Home Management,Soft Tissue Mobilization,Taping, Therapeutic Exercises Modalities Cold Pack/Ice Massage,Electric Stimulation,Iontophoresis Next Visit Focus/Plan Next Note Type Treatment Note Next Visit Plan Review HEP, gentle progression of ther ex for flexibility, ROM, and strengthening left shoulder girdle. Try prone I, T, Y over therapy ball. Instruct in pin and stretch for shoulder elevation. Scapular mobilization. Plan of Care Dates Plan of Care Start Date 01/18/20 Plan of Care End Date 04/17/20 Electronically Signed by: Alison Dejesus, PT 01/18/20 1367 Please Sign and Return: I have reviewed this Plan of Care and certify that the skilled therapy services above are required to meet the patient?s needs. Physician Signature Date Printed Name and Credentials Clinical Instructor Signature Printed Name and Credentials
--- NOTE | 2020-01-23 16:32 | PT.OTN ---
Current Diagnoses Pain in right shoulder (01/23/20) Impingement syndrome of right shoulder (01/23/20) Physical Therapy Treatment Note PT-OP-A Visit Information Start: 01/11/20 16:44 Freq: Status: Active Protocol: Document 01/23/20 14:29 [facility] (Rec: 01/23/20 15:17 [facility]AK [id number]) Out-Patient Physical Therapy Visit Information Visit Information Visit Type Treatment Note Visit Note Patient 10 min late due to work Visit Start Time 14:40 Visit Stop Time 15:15 Total Visit Minutes 35 Visit Number 2 Evaluation Information Evaluation Date 01/18/20 Precautions Precautions history of breast cancer with mastectomy, chemotherapy, and radiation left. PT-OP-B Current Condition Start: 01/11/20 16:44 Freq: Status: Active Protocol: Document 01/18/20 08:11 [facility]AK (Rec: 01/18/20 09:03 [facility]AK [id number]) Current Condition History of Current Condition Onset Date 2 years Current Complaints left shoulder pain History of Current Condition Patient has history of left shoulder pain worsened by injury at [employer] a couple years ago. Due to breast cancer diagnosis, patient underwent left sided mastectomy February 2019 followed by chemotherapy, and radiation. Had PT for soft tissue mobilization and ROM throughout left chest and shoulder, but some limitations remained and as patient has increased her activity including return to work in July 2019 her left shoulder pain increase. Injection [address] Huddleston ( [facility]). Pain improved but patient reports persistent ROM and strength limitationsADL activities including drying her back, putting shirts on, reaching to backseat in car, putting on seatbelt, and reaching top shelves. 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 Also reports she had noted a lump just proximal to her elbow; saw Dr. Krishnan who looked at lump in lower upper arm; had injection of Lidocaine, some better, bicep intact. Had Zometa injection last . week for osteoporosis prevention. Pain with putting seatbelt on, reaching into backseat, drying her back all pain. ROM improved since injection. Denies swelling. Icing shoulder. Intermittant HEP performance, has been moving, lots of stress. Prior Treatments and Tests MRI left shoulder 12/16/19: 1. Tendinosis and low to moderate grade articular and bursal surface partial thickness tear involving distal supraspinatus extending to musculotendinous junction. Suggestion of calcific tendinitis involving distal supraspinatus at its insertion on the humeral head. No full-thickness rotator cuff tendon rupture. 2. Moderate acromioclavicular joint osteoarthritis. Small amount of subacromial subdeltoid bursal fluid. 3. No gross focal labral tear in the absence of intra- articular contrast. 4. Proximal intra-articular portion of long head of biceps tendinosis. Treatment Goals Patient/Caregiver Goals Improve ROM and strength for doing normal movements of shoulder and typical activities without an increase in pain including doing surgery. Prior Functional Status Baseline Function- Other Mild left shoulder pain Current Functional Impairments (Reported) Functional Limitations- Other Difficulty reaching overhead, behind her back, into backseat , difficulty donning shirts, putting on seatbelt. Personal Factors Other Personal Factors That May Effect repepetitive stress to Therapy/Recovery shoulder during surgery activities PT-OP-C Subjective Start: 01/11/20 16:44 Freq: Status: Active Protocol: Document 01/23/20 14:29 [facility] (Rec: 01/23/20 15:17 [facility] [id number]) OP-PT Subjective Patient Comments Patient Comments Not to bad today. Christelle first PT session/eval well. Likes kinesiotap, compliant with HEP . PT-OP-E Functional Tests Start: 01/11/20 16:44 Freq: Status: Active Protocol: Document 01/18/20 08:11 [facility] (Rec: 01/18/20 15:36 [facility] [id number]) Functional Tests Apley's Scratch Test Action 1- Left anterior shoulder Action 1- Right posterior shoulder Action 2- Left posterior neck Action 2- Right T3 Action 3- Left L1 Action 3- Right T4 PT-OP-H Neuro Start: 01/11/20 16:44 Freq: Status: Active Protocol: Document 01/18/20 08:11 [facility]AK (Rec: 01/18/20 15:36 [facility]AK [id number]) Sensation Evaluation Gross Sensation Gross Sensation WNL PT-OP-J Posture/Palpation/Skin Start: 01/11/20 16:44 Freq: Status: Active Protocol: Document 01/18/20 08:11 [facility] (Rec: 01/18/20 15:36 [facility] [id number]) Posture Evaluation Position Sitting Head/C-Spine Posture Forward Head T-Spine Posture Increased Kyphosis Shoulder Posture (L) Rounded,(R) Rounded Scapula Posture (L) Protracted Arm Posture (L) Internally Rotated Palpation Assessment Location right chest tenderness Palpation Location chest and shoulder Palpation Findings Soft Tissue Tightness,Muscle Guarding,Tenderness Palpation Details TTP medial left clavicle, palpable possible suture left axilla (patient to be talking with surgeon more about this), increased muscle tension and tightness throughout left UT, LS, pec minor, TTP left subscap, lat, RC insertion. Skin Assessment Incisional Assessment Incision Appearance/Comments well-healed, good mobility PT-OP-K Range of Motion Start: 01/11/20 16:44 Freq: Status: Active Protocol: Document 01/18/20 08:11 [facility] (Rec: 01/18/20 15:36 [facility] [id number]) Cervical Spine Range of Motion Cervical Spine Active Comments WNL except decreased right sidebending due to muscle tension and tightness Shoulder Goniometric Range of Motion Shoulder Right Shoulder ROM WFL Yes Internal Rotation Behind Back (text) T6 Left Shoulder ROM WFL No Flexion 147 Abduction 143 External Rotation at 45 degrees 48 Abduction Internal Rotation Behind Back (text) L3 Comments patient reports both tightness and pain at end-ranges PT-OP-L Special Tests Start: 01/11/20 16:44 Freq: Status: Active Protocol: Document 01/18/20 08:11 [facility] (Rec: 01/18/20 15:36 [facility] [id number]) Special Tests Shoulder Special Tests Passive ER Rotator Cuff Test Results painful left IR/Horizontal ADD Impingement Test Results positive Elevation Impingement Test Results positive left Drop Arm Rotator Cuff Test Results negative aurelio PT-OP-M Strength Start: 01/11/20 16:44 Freq: Status: Active Protocol: Document 01/18/20 08:11 [facility] (Rec: 01/18/20 15:36 [facility] [id number]) Shoulder Strength Shoulder Manual Muscle Testing Right Flexion 5 Normal Extension 5 Normal Abduction (C5) 5 Normal External Rotation 4+ Good+ Internal Rotation 5 Normal Left Flexion 4 Good Extension 4 Good Abduction (C5) 4+ Good+ External Rotation 4 Good Internal Rotation 4 Good Elbow/Forearm Strength Elbow and Forearm Manual Muscle Testing aurelio Flexion (C6) 5 Normal Extension (C7) 5 Normal PT-OP-Q Treatments Start: 01/11/20 16:44 Freq: Status: Active Protocol: Document 01/23/20 16:22 [facility] (Rec: 01/23/20 16:32 [facility] [id number]) Therapeutic Exercises Supine Exercises 1 Supine Exercise Name serratus punch Reps/Minutes 10x Prone Exercises I's, T's, Y's Prone Exercise Name min assist for T's left UE Equipment Used 55 cm ball Reps/Minutes 10x Comments prone over therapy ball Sitting Exercises 1 Sitting Exercise Name pulleys for shld flex and abd Side bilateral Reps/Minutes 5 min Manual Therapy Treatment Joint Mobilizations 1 Joint sidelying scapular mobilizations Direction med/lat, diagonals with manual resistance Reps/Duration 5 min Taping 1 Body Location RC taping, lower trap facil Comments 3 Y strips. Lower trap facil with I strip Manual Techniques 1 Type MWM shoulder flex Body Position Supine PT-OP-T Assessment and Plan Start: 01/11/20 16:44 Freq: Status: Active Protocol: Document 01/23/20 16:22 [facility] (Rec: 01/23/20 16:32 [facility] [id number]) Physical Therapy Assessment Goals Four Impairment decreased ROM and signs and symptoms of impingement left shoulder Still Operator Whiskey Goal (LTG) Patient ROM to return to WNL on left with minimal to no signs or symptoms of imingement. LTG Duration 8 weeks Three Impairment Decreased strength left shoulder Still Operator Whiskey Goal (LTG) Patient will demonstrate improvement of left shoulder strength to at least 4+/5 all motions Two Impairment Shoulder pain rated 0-8/10 STG Duration 8 weeks Snf Goal (LTG) Patient will report pain no greater than 2/10 will all usual activities including ability to sleep on her left side, reach overhead and behind her back, perform all ADL's and job related tasks. One Impairment Shoulder Quickdash disability questionnaire score 24% Still Operator Whiskey Goal (LTG) Improve shoulder disability score to no greater than 10%. LTG Duration 8 weeks Assessment Summary Assessment Weakness most notable with prone T's. Patient reported this feels good with serratus punch, instructed to add 1-2 pounds as trial with HEP. Fair christelle for doing surgery this am. Swam at home pool 2x over the weekend. Physical Therapy Plan Frequency and Duration Frequency of Treatment 2x/Week Duration of Treatment 12 weeks Plan of Care Start Date 01/18/20 Plan of Care End Date 04/17/20 Therapeutic Interventions Therapeutic Interventions Aquatic Therapy,Home Exercise Program,Joint Mobilizations, Manual Therapy,Neuromuscular Re-education,Patient/Caregiver Education,Self-Care/Home Management,Soft Tissue Mobilization,Taping, Therapeutic Exercises Modalities Cold Pack/Ice Massage,Electric Stimulation,Iontophoresis Next Visit Focus/Plan Next Note Type Treatment Note Next Visit Plan Evaluate response to today's PT session, add lat pulls and scap diag on lat pull machine. Lat and subscap release.
--- NOTE | 2020-01-23 16:33 | PT.OTN ---
Current Diagnoses Pain in right shoulder (01/23/20) Impingement syndrome of right shoulder (01/23/20) Physical Therapy Treatment Note PT-OP-A Visit Information Start: 01/11/20 16:44 Freq: Status: Active Protocol: Document 01/23/20 14:29 [facility] (Rec: 01/23/20 15:17 [facility] [id number]) Out-Patient Physical Therapy Visit Information Visit Information Visit Type Treatment Note Visit Note Patient 10 min late due to work Visit Start Time 14:40 Visit Stop Time 15:15 Total Visit Minutes 35 Visit Number 2 Evaluation Information Evaluation Date 01/18/20 Precautions Precautions history of breast cancer with mastectomy, chemotherapy, and radiation left. PT-OP-B Current Condition Start: 01/11/20 16:44 Freq: Status: Active Protocol: Document 01/18/20 08:11 [facility] (Rec: 01/18/20 09:03 [facility] [id number]) Current Condition History of Current Condition Onset Date 2 years Current Complaints left shoulder pain History of Current Condition Patient has history of left shoulder pain worsened by injury at [employer] a couple years ago. Due to breast cancer diagnosis, patient underwent left sided mastectomy February 2019 followed by chemotherapy, and radiation. Had PT for soft tissue mobilization and ROM throughout left chest and shoulder, but some limitations remained and as patient has increased her activity including return to work in July 2019 her left shoulder pain increase. Injection [address] Huddleston ( [facility]). Pain improved but patient reports persistent ROM and strength limitationsADL activities including drying her back, putting shirts on, reaching to backseat in car, putting on seatbelt, and reaching top shelves. 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 Also reports she had noted a lump just proximal to her elbow; saw Dr. Krishnan who looked at lump in lower upper arm; had injection of Lidocaine, some better, bicep intact. Had Zometa injection last . week for osteoporosis prevention. Pain with putting seatbelt on, reaching into backseat, drying her back all pain. ROM improved since injection. Denies swelling. Icing shoulder. Intermittant HEP performance, has been moving, lots of stress. Prior Treatments and Tests MRI left shoulder 12/16/19: 1. Tendinosis and low to moderate grade articular and bursal surface partial thickness tear involving distal supraspinatus extending to musculotendinous junction. Suggestion of calcific tendinitis involving distal supraspinatus at its insertion on the humeral head. No full-thickness rotator cuff tendon rupture. 2. Moderate acromioclavicular joint osteoarthritis. Small amount of subacromial subdeltoid bursal fluid. 3. No gross focal labral tear in the absence of intra- articular contrast. 4. Proximal intra-articular portion of long head of biceps tendinosis. Treatment Goals Patient/Caregiver Goals Improve ROM and strength for doing normal movements of shoulder and typical activities without an increase in pain including doing surgery. Prior Functional Status Baseline Function- Other Mild left shoulder pain Current Functional Impairments (Reported) Functional Limitations- Other Difficulty reaching overhead, behind her back, into backseat , difficulty donning shirts, putting on seatbelt. Personal Factors Other Personal Factors That May Effect repepetitive stress to Therapy/Recovery shoulder during surgery activities PT-OP-C Subjective Start: 01/11/20 16:44 Freq: Status: Active Protocol: Document 01/23/20 14:29 [facility] (Rec: 01/23/20 15:17 [facility] [id number]) OP-PT Subjective Patient Comments Patient Comments Not to bad today. Christelle first PT session/eval well. Likes kinesiotap, compliant with HEP . PT-OP-E Functional Tests Start: 01/11/20 16:44 Freq: Status: Active Protocol: Document 01/18/20 08:11 [facility] (Rec: 01/18/20 15:36 [facility] [id number]) Functional Tests Apley's Scratch Test Action 1- Left anterior shoulder Action 1- Right posterior shoulder Action 2- Left posterior neck Action 2- Right T3 Action 3- Left L1 Action 3- Right T4 PT-OP-H Neuro Start: 01/11/20 16:44 Freq: Status: Active Protocol: Document 01/18/20 08:11 [facility] (Rec: 01/18/20 15:36 [facility] [id number]) Sensation Evaluation Gross Sensation Gross Sensation WNL PT-OP-J Posture/Palpation/Skin Start: 01/11/20 16:44 Freq: Status: Active Protocol: Document 01/18/20 08:11 [facility] (Rec: 01/18/20 15:36 [facility] [id number]) Posture Evaluation Position Sitting Head/C-Spine Posture Forward Head T-Spine Posture Increased Kyphosis Shoulder Posture (L) Rounded,(R) Rounded Scapula Posture (L) Protracted Arm Posture (L) Internally Rotated Palpation Assessment Location right chest tenderness Palpation Location chest and shoulder Palpation Findings Soft Tissue Tightness,Muscle Guarding,Tenderness Palpation Details TTP medial left clavicle, palpable possible suture left axilla (patient to be talking with surgeon more about this), increased muscle tension and tightness throughout left UT, LS, pec minor, TTP left subscap, lat, RC insertion. Skin Assessment Incisional Assessment Incision Appearance/Comments well-healed, good mobility PT-OP-K Range of Motion Start: 01/11/20 16:44 Freq: Status: Active Protocol: Document 01/18/20 08:11 [facility] (Rec: 01/18/20 15:36 [facility] [id number]) Cervical Spine Range of Motion Cervical Spine Active Comments WNL except decreased right sidebending due to muscle tension and tightness Shoulder Goniometric Range of Motion Shoulder Right Shoulder ROM WFL Yes Internal Rotation Behind Back (text) T6 Left Shoulder ROM WFL No Flexion 147 Abduction 143 External Rotation at 45 degrees 48 Abduction Internal Rotation Behind Back (text) L3 Comments patient reports both tightness and pain at end-ranges PT-OP-L Special Tests Start: 01/11/20 16:44 Freq: Status: Active Protocol: Document 01/18/20 08:11 [facility] (Rec: 01/18/20 15:36 [facility] [id number]) Special Tests Shoulder Special Tests Passive ER Rotator Cuff Test Results painful left IR/Horizontal ADD Impingement Test Results positive Elevation Impingement Test Results positive left Drop Arm Rotator Cuff Test Results negative aurelio PT-OP-M Strength Start: 01/11/20 16:44 Freq: Status: Active Protocol: Document 01/18/20 08:11 [facility] (Rec: 01/18/20 15:36 [facility] [id number]) Shoulder Strength Shoulder Manual Muscle Testing Right Flexion 5 Normal Extension 5 Normal Abduction (C5) 5 Normal External Rotation 4+ Good+ Internal Rotation 5 Normal Left Flexion 4 Good Extension 4 Good Abduction (C5) 4+ Good+ External Rotation 4 Good Internal Rotation 4 Good Elbow/Forearm Strength Elbow and Forearm Manual Muscle Testing aurelio Flexion (C6) 5 Normal Extension (C7) 5 Normal PT-OP-Q Treatments Start: 01/11/20 16:44 Freq: Status: Active Protocol: Document 01/23/20 14:29 [facility] (Rec: 01/23/20 16:32 [facility] [id number]) Therapeutic Exercises Supine Exercises 1 Supine Exercise Name serratus punch Reps/Minutes 10x Prone Exercises I's, T's, Y's Prone Exercise Name min assist for T's left UE Equipment Used 55 cm ball Reps/Minutes 10x Comments prone over therapy ball Sitting Exercises 1 Sitting Exercise Name pulleys for shld flex and abd Side bilateral Reps/Minutes 5 min Manual Therapy Treatment Joint Mobilizations 1 Joint sidelying scapular mobilizations Direction med/lat, diagonals with manual resistance Reps/Duration 5 min Taping 1 Body Location RC taping, lower trap facil Comments 3 Y strips. Lower trap facil with I strip Manual Techniques 1 Type MWM shoulder flex Body Position Supine PT-OP-T Assessment and Plan Start: 01/11/20 16:44 Freq: Status: Active Protocol: Document 01/23/20 14:29 [facility] (Rec: 01/23/20 16:32 [facility] [id number]) Physical Therapy Assessment Goals Four Impairment decreased ROM and signs and symptoms of impingement left shoulder Data Entry Operator Goal (LTG) Patient ROM to return to WNL on left with minimal to no signs or symptoms of imingement. LTG Duration 8 weeks Three Impairment Decreased strength left shoulder Data Entry Operator Goal (LTG) Patient will demonstrate improvement of left shoulder strength to at least 4+/5 all motions Two Impairment Shoulder pain rated 0-8/10 STG Duration 8 weeks Nursing Home Goal (LTG) Patient will report pain no greater than 2/10 will all usual activities including ability to sleep on her left side, reach overhead and behind her back, perform all ADL's and job related tasks. One Impairment Shoulder Quickdash disability questionnaire score 24% Data Entry Operator Goal (LTG) Improve shoulder disability score to no greater than 10%. LTG Duration 8 weeks Assessment Summary Assessment Weakness most notable with prone T's. Patient reported this feels good with serratus punch, instructed to add 1-2 pounds as trial with HEP. Fair christelle for doing surgery this am. Swam at home pool 2x over the weekend. Physical Therapy Plan Frequency and Duration Frequency of Treatment 2x/Week Duration of Treatment 12 weeks Plan of Care Start Date 01/18/20 Plan of Care End Date 04/17/20 Therapeutic Interventions Therapeutic Interventions Aquatic Therapy,Home Exercise Program,Joint Mobilizations, Manual Therapy,Neuromuscular Re-education,Patient/Caregiver Education,Self-Care/Home Management,Soft Tissue Mobilization,Taping, Therapeutic Exercises Modalities Cold Pack/Ice Massage,Electric Stimulation,Iontophoresis Next Visit Focus/Plan Next Note Type Treatment Note Next Visit Plan Evaluate response to today's PT session, add lat pulls and scap diag on lat pull machine. Lat and subscap release.
--- NOTE | 2020-01-25 16:13 | PT.OTN ---
Current Diagnoses Pain in right shoulder (01/25/20) Impingement syndrome of right shoulder (01/25/20) Physical Therapy Treatment Note PT-OP-A Visit Information Start: 01/11/20 16:44 Freq: Status: Active Protocol: Document 01/25/20 14:32 SAK (Rec: 01/25/20 15:23 SAK [id number]) Out-Patient Physical Therapy Visit Information Visit Information Visit Type Treatment Note Visit Note patient 15 min late Visit Start Time 14:45 Visit Stop Time 15:15 Total Visit Minutes 30 Visit Number 3 Precautions Precautions history of breast cancer with mastectomy, chemotherapy, and radiation left. PT-OP-B Current Condition Start: 01/11/20 16:44 Freq: Status: Active Protocol: Document 01/18/20 08:11 SAK (Rec: 01/18/20 09:03 SAK [id number]) Current Condition History of Current Condition Onset Date 2 years Current Complaints left shoulder pain History of Current Condition Patient has history of left shoulder pain worsened by injury at [employer] a couple years ago. Due to breast cancer diagnosis, patient underwent left sided mastectomy February 2019 followed by chemotherapy, and radiation. Had PT for soft tissue mobilization and ROM throughout left chest and shoulder, but some limitations remained and as patient has increased her activity including return to work in July 2019 her left shoulder pain increase. Injection [address] Huddleston ( [facility]). Pain improved but patient reports persistent ROM and strength limitationsADL activities including drying her back, putting shirts on, reaching to backseat in car, putting on seatbelt, and reaching top shelves. 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 Also reports she had noted a lump just proximal to her elbow; saw Dr. Krishnan who looked at lump in lower upper arm; had injection of Lidocaine, some better, bicep intact. Had Zometa injection last . week for osteoporosis prevention. Pain with putting seatbelt on, reaching into backseat, drying her back all pain. ROM improved since injection. Denies swelling. Icing shoulder. Intermittant HEP performance, has been moving, lots of stress. Prior Treatments and Tests MRI left shoulder 12/16/19: 1. Tendinosis and low to moderate grade articular and bursal surface partial thickness tear involving distal supraspinatus extending to musculotendinous junction. Suggestion of calcific tendinitis involving distal supraspinatus at its insertion on the humeral head. No full-thickness rotator cuff tendon rupture. 2. Moderate acromioclavicular joint osteoarthritis. Small amount of subacromial subdeltoid bursal fluid. 3. No gross focal labral tear in the absence of intra- articular contrast. 4. Proximal intra-articular portion of long head of biceps tendinosis. Treatment Goals Patient/Caregiver Goals Improve ROM and strength for doing normal movements of shoulder and typical activities without an increase in pain including doing surgery. Prior Functional Status Baseline Function- Other Mild left shoulder pain Current Functional Impairments (Reported) Functional Limitations- Other Difficulty reaching overhead, behind her back, into backseat , difficulty donning shirts, putting on seatbelt. Personal Factors Other Personal Factors That May Effect repepetitive stress to Therapy/Recovery shoulder during surgery activities PT-OP-C Subjective Start: 01/11/20 16:44 Freq: Status: Active Protocol: Document 01/25/20 14:32 SAK (Rec: 01/25/20 16:13 [facility] [id number]) OP-PT Subjective Patient Comments Patient Comments Reports decreasing impingement symptoms. PT-OP-E Functional Tests Start: 01/11/20 16:44 Freq: Status: Active Protocol: Document 01/18/20 08:11 [facility] (Rec: 01/18/20 15:36 [facility] [id number]) Functional Tests Apley's Scratch Test Action 1- Left anterior shoulder Action 1- Right posterior shoulder Action 2- Left posterior neck Action 2- Right T3 Action 3- Left L1 Action 3- Right T4 PT-OP-H Neuro Start: 01/11/20 16:44 Freq: Status: Active Protocol: Document 01/18/20 08:11 SAK (Rec: 01/18/20 15:36 [facility] [id number]) Sensation Evaluation Gross Sensation Gross Sensation WNL PT-OP-J Posture/Palpation/Skin Start: 01/11/20 16:44 Freq: Status: Active Protocol: Document 01/18/20 08:11 SAK (Rec: 01/18/20 15:36 [facility] [id number]) Posture Evaluation Position Sitting Head/C-Spine Posture Forward Head T-Spine Posture Increased Kyphosis Shoulder Posture (L) Rounded,(R) Rounded Scapula Posture (L) Protracted Arm Posture (L) Internally Rotated Palpation Assessment Location right chest tenderness Palpation Location chest and shoulder Palpation Findings Soft Tissue Tightness,Muscle Guarding,Tenderness Palpation Details TTP medial left clavicle, palpable possible suture left axilla (patient to be talking with surgeon more about this), increased muscle tension and tightness throughout left UT, LS, pec minor, TTP left subscap, lat, RC insertion. Skin Assessment Incisional Assessment Incision Appearance/Comments well-healed, good mobility PT-OP-K Range of Motion Start: 01/11/20 16:44 Freq: Status: Active Protocol: Document 01/18/20 08:11 [facility] (Rec: 01/18/20 15:36 [facility] [id number]) Cervical Spine Range of Motion Cervical Spine Active Comments WNL except decreased right sidebending due to muscle tension and tightness Shoulder Goniometric Range of Motion Shoulder Right Shoulder ROM WFL Yes Internal Rotation Behind Back (text) T6 Left Shoulder ROM WFL No Flexion 147 Abduction 143 External Rotation at 45 degrees 48 Abduction Internal Rotation Behind Back (text) L3 Comments patient reports both tightness and pain at end-ranges PT-OP-L Special Tests Start: 01/11/20 16:44 Freq: Status: Active Protocol: Document 01/18/20 08:11 [facility] (Rec: 01/18/20 15:36 [facility] [id number]) Special Tests Shoulder Special Tests Passive ER Rotator Cuff Test Results painful left IR/Horizontal ADD Impingement Test Results positive Elevation Impingement Test Results positive left Drop Arm Rotator Cuff Test Results negative aurelio PT-OP-M Strength Start: 01/11/20 16:44 Freq: Status: Active Protocol: Document 01/18/20 08:11 [facility] (Rec: 01/18/20 15:36 [facility] [id number]) Shoulder Strength Shoulder Manual Muscle Testing Right Flexion 5 Normal Extension 5 Normal Abduction (C5) 5 Normal External Rotation 4+ Good+ Internal Rotation 5 Normal Left Flexion 4 Good Extension 4 Good Abduction (C5) 4+ Good+ External Rotation 4 Good Internal Rotation 4 Good Elbow/Forearm Strength Elbow and Forearm Manual Muscle Testing aurelio Flexion (C6) 5 Normal Extension (C7) 5 Normal PT-OP-Q Treatments Start: 01/11/20 16:44 Freq: Status: Active Protocol: Document 01/25/20 14:32 SAK (Rec: 01/25/20 15:23 SAK [id number]) Therapeutic Exercises Supine Exercises shoulder flexion Equipment Used wand Reps/Minutes 10x Comments end range stretch 1 Supine Exercise Name serratus punch Resistance 1#, 2# Reps/Minutes 10x Prone Exercises I's, T's, Y's Prone Exercise Name min assist for T's left UE Equipment Used 55 cm ball Reps/Minutes 10x Comments prone over therapy ball Sidelying Exercises shoulder abduction Reps/Minutes 4x Comments with manual scapular facilitation sidelying shouler ER Sidelying Exercise Name sidelying shoulder ER Reps/Minutes 2x 10 no weight 1 Sidelying Exercise Name open book Reps/Minutes x 5 reps Comments verbal and manual cues, arm at side on left Sitting Exercises 1 Sitting Exercise Name pulleys for shld flex and abd Side bilateral Reps/Minutes 5 min Manual Therapy Treatment Taping 1 Body Location RC taping, lower trap facil Comments 3 Y strips. Lower trap facil with I strip PT-OP-T Assessment and Plan Start: 01/11/20 16:44 Freq: Status: Active Protocol: Document 01/25/20 14:32 [facility] (Rec: 01/25/20 15:23 [facility] [id number]) Physical Therapy Assessment Goals Four Impairment decreased ROM and signs and symptoms of impingement left shoulder Custodial Goal (LTG) Patient ROM to return to WNL on left with minimal to no signs or symptoms of imingement. LTG Duration 8 weeks Three Impairment Decreased strength left shoulder Custodial Goal (LTG) Patient will demonstrate improvement of left shoulder strength to at least 4+/5 all motions Two Impairment Shoulder pain rated 0-8/10 STG Duration 8 weeks Custodial Goal (LTG) Patient will report pain no greater than 2/10 will all usual activities including ability to sleep on her left side, reach overhead and behind her back, perform all ADL's and job related tasks. One Impairment Shoulder Quickdash disability questionnaire score 24% Custodial Goal (LTG) Improve shoulder disability score to no greater than 10%. LTG Duration 8 weeks Assessment Summary Assessment Added open book and sidelying ER; open book modified on left due to pain from what patient feels is a stitch that was left in (she plans to discuss with surgeon). Reporting less impingment symptoms, stretch only with shoulder flex supine with wand. Manual guidance required with prone T due to excess upper trap activation. Physical Therapy Plan Frequency and Duration Frequency of Treatment 2x/Week Duration of Treatment 12 weeks Plan of Care Start Date 01/18/20 Plan of Care End Date 04/17/20 Therapeutic Interventions Therapeutic Interventions Aquatic Therapy,Home Exercise Program,Joint Mobilizations, Manual Therapy,Neuromuscular Re-education,Patient/Caregiver Education,Self-Care/Home Management,Soft Tissue Mobilization,Taping, Therapeutic Exercises Modalities Cold Pack/Ice Massage,Electric Stimulation,Iontophoresis Next Visit Focus/Plan Next Note Type Treatment Note Next Visit Plan Add lat pulls and scap diagnonal on lat pull machine. Lat and subscap release.
--- NOTE | 2020-02-02 14:23 | PT.OTN ---
Current Diagnoses Pain in right shoulder (02/02/20) Impingement syndrome of right shoulder (02/02/20) Physical Therapy Treatment Note PT-OP-A Visit Information Start: 01/11/20 16:44 Freq: Status: Active Protocol: Document 02/02/20 07:28 SAK (Rec: 02/02/20 07:48 SAK [id number]) Out-Patient Physical Therapy Visit Information Visit Information Visit Type Treatment Note Visit Start Time 07:15 Visit Stop Time 07:58 Total Visit Minutes 43 Visit Number 4 Precautions Precautions history of breast cancer with mastectomy, chemotherapy, and radiation left. PT-OP-B Current Condition Start: 01/11/20 16:44 Freq: Status: Active Protocol: Document 01/18/20 08:11 SAK (Rec: 01/18/20 09:03 SAK [id number]) Current Condition History of Current Condition Onset Date 2 years Current Complaints left shoulder pain History of Current Condition Patient has history of left shoulder pain worsened by injury at [employer] a couple years ago. Due to breast cancer diagnosis, patient underwent left sided mastectomy February 2019 followed by chemotherapy, and radiation. Had PT for soft tissue mobilization and ROM throughout left chest and shoulder, but some limitations remained and as patient has increased her activity including return to work in July 2019 her left shoulder pain increase. Injection [address] Huddleston ( [facility]). Pain improved but patient reports persistent ROM and strength limitationsADL activities including drying her back, putting shirts on, reaching to backseat in car, putting on seatbelt, and reaching top shelves. 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 Also reports she had noted a lump just proximal to her elbow; saw Dr. Krishnan who looked at lump in lower upper arm; had injection of Lidocaine, some better, bicep intact. Had Zometa injection last . week for osteoporosis prevention. Pain with putting seatbelt on, reaching into backseat, drying her back all pain. ROM improved since injection. Denies swelling. Icing shoulder. Intermittant HEP performance, has been moving, lots of stress. Prior Treatments and Tests MRI left shoulder 12/16/19: 1. Tendinosis and low to moderate grade articular and bursal surface partial thickness tear involving distal supraspinatus extending to musculotendinous junction. Suggestion of calcific tendinitis involving distal supraspinatus at its insertion on the humeral head. No full-thickness rotator cuff tendon rupture. 2. Moderate acromioclavicular joint osteoarthritis. Small amount of subacromial subdeltoid bursal fluid. 3. No gross focal labral tear in the absence of intra- articular contrast. 4. Proximal intra-articular portion of long head of biceps tendinosis. Treatment Goals Patient/Caregiver Goals Improve ROM and strength for doing normal movements of shoulder and typical activities without an increase in pain including doing surgery. Prior Functional Status Baseline Function- Other Mild left shoulder pain Current Functional Impairments (Reported) Functional Limitations- Other Difficulty reaching overhead, behind her back, into backseat , difficulty donning shirts, putting on seatbelt. Personal Factors Other Personal Factors That May Effect repepetitive stress to Therapy/Recovery shoulder during surgery activities PT-OP-C Subjective Start: 01/11/20 16:44 Freq: Status: Active Protocol: Document 02/02/20 07:28 [facility] (Rec: 02/02/20 07:48 [facility] [id number]) OP-PT Subjective Patient Comments Patient Comments Started back on Letrozole and reports whole body hurts this week, including left shoulder. Has 3 surgeries to perform this am after PT. PT-OP-E Functional Tests Start: 01/11/20 16:44 Freq: Status: Active Protocol: Document 01/18/20 08:11 SAK (Rec: 01/18/20 15:36 [facility] [id number]) Functional Tests Apley's Scratch Test Action 1- Left anterior shoulder Action 1- Right posterior shoulder Action 2- Left posterior neck Action 2- Right T3 Action 3- Left L1 Action 3- Right T4 PT-OP-H Neuro Start: 01/11/20 16:44 Freq: Status: Active Protocol: Document 01/18/20 08:11 SAK (Rec: 01/18/20 15:36 [facility] [id number]) Sensation Evaluation Gross Sensation Gross Sensation WNL PT-OP-J Posture/Palpation/Skin Start: 01/11/20 16:44 Freq: Status: Active Protocol: Document 01/18/20 08:11 SAK (Rec: 01/18/20 15:36 [facility] [id number]) Posture Evaluation Position Sitting Head/C-Spine Posture Forward Head T-Spine Posture Increased Kyphosis Shoulder Posture (L) Rounded,(R) Rounded Scapula Posture (L) Protracted Arm Posture (L) Internally Rotated Palpation Assessment Location right chest tenderness Palpation Location chest and shoulder Palpation Findings Soft Tissue Tightness,Muscle Guarding,Tenderness Palpation Details TTP medial left clavicle, palpable possible suture left axilla (patient to be talking with surgeon more about this), increased muscle tension and tightness throughout left UT, LS, pec minor, TTP left subscap, lat, RC insertion. Skin Assessment Incisional Assessment Incision Appearance/Comments well-healed, good mobility PT-OP-K Range of Motion Start: 01/11/20 16:44 Freq: Status: Active Protocol: Document 01/18/20 08:11 SAK (Rec: 01/18/20 15:36 [facility] [id number]) Cervical Spine Range of Motion Cervical Spine Active Comments WNL except decreased right sidebending due to muscle tension and tightness Shoulder Goniometric Range of Motion Shoulder Right Shoulder ROM WFL Yes Internal Rotation Behind Back (text) T6 Left Shoulder ROM WFL No Flexion 147 Abduction 143 External Rotation at 45 degrees 48 Abduction Internal Rotation Behind Back (text) L3 Comments patient reports both tightness and pain at end-ranges PT-OP-L Special Tests Start: 01/11/20 16:44 Freq: Status: Active Protocol: Document 01/18/20 08:11 SAK (Rec: 01/18/20 15:36 [facility] [id number]) Special Tests Shoulder Special Tests Passive ER Rotator Cuff Test Results painful left IR/Horizontal ADD Impingement Test Results positive Elevation Impingement Test Results positive left Drop Arm Rotator Cuff Test Results negative aurelio PT-OP-M Strength Start: 01/11/20 16:44 Freq: Status: Active Protocol: Document 01/18/20 08:11 SAK (Rec: 01/18/20 15:36 [facility] [id number]) Shoulder Strength Shoulder Manual Muscle Testing Right Flexion 5 Normal Extension 5 Normal Abduction (C5) 5 Normal External Rotation 4+ Good+ Internal Rotation 5 Normal Left Flexion 4 Good Extension 4 Good Abduction (C5) 4+ Good+ External Rotation 4 Good Internal Rotation 4 Good Elbow/Forearm Strength Elbow and Forearm Manual Muscle Testing aurelio Flexion (C6) 5 Normal Extension (C7) 5 Normal PT-OP-Q Treatments Start: 01/11/20 16:44 Freq: Status: Active Protocol: Document 02/02/20 07:28 [facility] (Rec: 02/02/20 07:48 [facility] [id number]) Therapeutic Exercises Supine Exercises 1 Supine Exercise Name serratus punch Resistance 1#, 2# Reps/Minutes 10x Prone Exercises I's, T's, Y's Comments HEP Sidelying Exercises shoulder abduction Reps/Minutes 5x Comments with manual scapular facilitation sidelying shouler ER Sidelying Exercise Name sidelying shoulder ER Reps/Minutes 2x 10 no weight 1 Sidelying Exercise Name open book Reps/Minutes x 5 reps Comments verbal and manual cue, patient able to do with extended elbow Sitting Exercises scapular inf glide Resistance 20 Reps/Minutes 10x Comments lat machine lat pull Resistance 20 Reps/Minutes 5x Comments patient reported pain at mid range 1 Sitting Exercise Name pulleys for shld flex and abd Side bilateral Reps/Minutes 5 min Standing Exercises shoulder extension Equipment Used wand Reps/Minutes 8x 5 Manual Therapy Treatment Soft Tissue Mobilization 3 Body Location STM/MFR at the left rib cage Comments release above the diaphragm and rib cage release of intercostals 1 Body Location gentle STM and stretching of the pec minor on the left pectoralis Taping 1 Body Location RC taping, lower trap facil Comments 3 Y strips. 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 LTG Duration 8 weeks Three Impairment Decreased strength left shoulder Nursing Home Goal (LTG) Patient will demonstrate improvement of left shoulder strength to at least 4+/5 all motions Two Impairment Shoulder pain rated 0-8/10 STG Duration 8 weeks Nursing Home Goal (LTG) Patient will report pain no greater than 2/10 will all usual activities including ability to sleep on her left side, reach overhead and behind her back, perform all ADL's and job related tasks. One Impairment Shoulder Quickdash disability questionnaire score 24% Nursing Home Goal (LTG) Improve shoulder disability score to no greater than 10%. LTG Duration 8 weeks Assessment Summary Assessment Improvement of being able to dry her back with a towel across her upper back per her report, though low tolerance for internal rotation exercise with towel. Physical Therapy Plan Frequency and Duration Frequency of Treatment 2x/Week Duration of Treatment 12 weeks Plan of Care Start Date 01/18/20 Plan of Care End Date 04/17/20 Therapeutic Interventions Therapeutic Interventions Aquatic Therapy,Home Exercise Program,Joint Mobilizations, Manual Therapy,Neuromuscular Re-education,Patient/Caregiver Education,Self-Care/Home Management,Soft Tissue Mobilization,Taping, Therapeutic Exercises Modalities Cold Pack/Ice Massage,Electric Stimulation,Iontophoresis Next Visit Focus/Plan Next Note Type Treatment Note Next Visit Plan MWM for shoulder IR, continue ther ex and manual techniques for improved shoulder ROM and strength, decreased pain.
--- NOTE | 2020-02-08 08:33 | PT.OTN ---
Current Diagnoses Pain in right shoulder (02/08/20) Impingement syndrome of right shoulder (02/08/20) Physical Therapy Treatment Note PT-OP-A Visit Information Start: 01/11/20 16:44 Freq: Status: Active Protocol: Document 02/08/20 07:28 SAK (Rec: 02/08/20 08:33 SAK [id number]) Out-Patient Physical Therapy Visit Information Visit Information Visit Type Treatment Note Visit Start Time 07:15 Visit Stop Time 07:58 Total Visit Minutes 43 Visit Number 4 Precautions Precautions history of breast cancer with mastectomy, chemotherapy, and radiation left. PT-OP-B Current Condition Start: 01/11/20 16:44 Freq: Status: Active Protocol: Document 01/18/20 08:11 SAK (Rec: 01/18/20 09:03 SAK [id number]) Current Condition History of Current Condition Onset Date 2 years Current Complaints left shoulder pain History of Current Condition Patient has history of left shoulder pain worsened by injury at [employer] a couple years ago. Due to breast cancer diagnosis, patient underwent left sided mastectomy February 2019 followed by chemotherapy, and radiation. Had PT for soft tissue mobilization and ROM throughout left chest and shoulder, but some limitations remained and as patient has increased her activity including return to work in July 2019 her left shoulder pain increase. Injection [address] Huddleston ( [facility]). Pain improved but patient reports persistent ROM and strength limitationsADL activities including drying her back, putting shirts on, reaching to backseat in car, putting on seatbelt, and reaching top shelves. 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 Also reports she had noted a lump just proximal to her elbow; saw Dr. Krishnan who looked at lump in lower upper arm; had injection of Lidocaine, some better, bicep intact. Had Zometa injection last . week for osteoporosis prevention. Pain with putting seatbelt on, reaching into backseat, drying her back all pain. ROM improved since injection. Denies swelling. Icing shoulder. Intermittant HEP performance, has been moving, lots of stress. Prior Treatments and Tests MRI left shoulder 12/16/19: 1. Tendinosis and low to moderate grade articular and bursal surface partial thickness tear involving distal supraspinatus extending to musculotendinous junction. Suggestion of calcific tendinitis involving distal supraspinatus at its insertion on the humeral head. No full-thickness rotator cuff tendon rupture. 2. Moderate acromioclavicular joint osteoarthritis. Small amount of subacromial subdeltoid bursal fluid. 3. No gross focal labral tear in the absence of intra- articular contrast. 4. Proximal intra-articular portion of long head of biceps tendinosis. Treatment Goals Patient/Caregiver Goals Improve ROM and strength for doing normal movements of shoulder and typical activities without an increase in pain including doing surgery. Prior Functional Status Baseline Function- Other Mild left shoulder pain Current Functional Impairments (Reported) Functional Limitations- Other Difficulty reaching overhead, behind her back, into backseat , difficulty donning shirts, putting on seatbelt. Personal Factors Other Personal Factors That May Effect repepetitive stress to Therapy/Recovery shoulder during surgery activities PT-OP-C Subjective Start: 01/11/20 16:44 Freq: Status: Active Protocol: Document 02/08/20 07:28 [facility] (Rec: 02/08/20 08:33 [facility] [id number]) OP-PT Subjective Patient Comments Patient Comments Not many exercises this week but have been doing stretches PT-OP-E Functional Tests Start: 01/11/20 16:44 Freq: Status: Active Protocol: Document 01/18/20 08:11 [facility] (Rec: 01/18/20 15:36 [facility] [id number]) Functional Tests Apley's Scratch Test Action 1- Left anterior shoulder Action 1- Right posterior shoulder Action 2- Left posterior neck Action 2- Right T3 Action 3- Left L1 Action 3- Right T4 PT-OP-H Neuro Start: 01/11/20 16:44 Freq: Status: Active Protocol: Document 01/18/20 08:11 SAK (Rec: 01/18/20 15:36 [facility] [id number]) Sensation Evaluation Gross Sensation Gross Sensation WNL PT-OP-J Posture/Palpation/Skin Start: 01/11/20 16:44 Freq: Status: Active Protocol: Document 01/18/20 08:11 SAK (Rec: 01/18/20 15:36 [facility] [id number]) Posture Evaluation Position Sitting Head/C-Spine Posture Forward Head T-Spine Posture Increased Kyphosis Shoulder Posture (L) Rounded,(R) Rounded Scapula Posture (L) Protracted Arm Posture (L) Internally Rotated Palpation Assessment Location right chest tenderness Palpation Location chest and shoulder Palpation Findings Soft Tissue Tightness,Muscle Guarding,Tenderness Palpation Details TTP medial left clavicle, palpable possible suture left axilla (patient to be talking with surgeon more about this), increased muscle tension and tightness throughout left UT, LS, pec minor, TTP left subscap, lat, RC insertion. Skin Assessment Incisional Assessment Incision Appearance/Comments well-healed, good mobility PT-OP-K Range of Motion Start: 01/11/20 16:44 Freq: Status: Active Protocol: Document 01/18/20 08:11 [facility] (Rec: 01/18/20 15:36 [facility] [id number]) Cervical Spine Range of Motion Cervical Spine Active Comments WNL except decreased right sidebending due to muscle tension and tightness Shoulder Goniometric Range of Motion Shoulder Right Shoulder ROM WFL Yes Internal Rotation Behind Back (text) T6 Left Shoulder ROM WFL No Flexion 147 Abduction 143 External Rotation at 45 degrees 48 Abduction Internal Rotation Behind Back (text) L3 Comments patient reports both tightness and pain at end-ranges PT-OP-L Special Tests Start: 01/11/20 16:44 Freq: Status: Active Protocol: Document 01/18/20 08:11 [facility] (Rec: 01/18/20 15:36 [facility] [id number]) Special Tests Shoulder Special Tests Passive ER Rotator Cuff Test Results painful left IR/Horizontal ADD Impingement Test Results positive Elevation Impingement Test Results positive left Drop Arm Rotator Cuff Test Results negative aurelio PT-OP-M Strength Start: 01/11/20 16:44 Freq: Status: Active Protocol: Document 01/18/20 08:11 [facility] (Rec: 01/18/20 15:36 [facility] [id number]) Shoulder Strength Shoulder Manual Muscle Testing Right Flexion 5 Normal Extension 5 Normal Abduction (C5) 5 Normal External Rotation 4+ Good+ Internal Rotation 5 Normal Left Flexion 4 Good Extension 4 Good Abduction (C5) 4+ Good+ External Rotation 4 Good Internal Rotation 4 Good Elbow/Forearm Strength Elbow and Forearm Manual Muscle Testing aurelio Flexion (C6) 5 Normal Extension (C7) 5 Normal PT-OP-Q Treatments Start: 01/11/20 16:44 Freq: Status: Active Protocol: Document 02/08/20 07:28 [facility]AK (Rec: 02/08/20 08:33 [facility] [id number]) Therapeutic Exercises Supine Exercises ER Supine Exercise Name AROM, and stretch with wand Equipment Used towel roll and wand Reps/Minutes 5x10 ea shoulder flexion Equipment Used wand Reps/Minutes 10x Comments end range stretch 1 Supine Exercise Name serratus punch Resistance 2# Reps/Minutes 10x Prone Exercises I's, T's, Y's Prone Exercise Name min assist left UE Equipment Used 55 cm ball Reps/Minutes 10x Comments prone over therapy ball, shown prone on table/bed Sidelying Exercises sidelying shouler ER Sidelying Exercise Name sidelying shoulder ER Resistance 1# Reps/Minutes 2x10 Sitting Exercises scapular inf glide Resistance 20 Reps/Minutes 10x2 Comments lat machine 1 Sitting Exercise Name pulleys for shld flex and abd Side bilateral Reps/Minutes 5 min Standing Exercises body blade Standing Exercise Name IR/ER, fwd/bck elbow bent Side bilateral Reps/Minutes 2x30 ea Manual Therapy Treatment Soft Tissue Mobilization 3 Body Location STM/MFR at the left rib cage Comments with deep breathing Taping 1 Body Location RC taping, lower trap facil Comments 3 Y strips. Lower trap facil with I strip PT-OP-T Assessment and Plan Start: 01/11/20 16:44 Freq: Status: Active Protocol: Document 02/08/20 07:28 [facility] (Rec: 02/08/20 08:33 [facility] [id number]) Physical Therapy Assessment Goals Four Impairment decreased ROM and signs and symptoms of impingement left shoulder [employer] Goal (LTG) Patient ROM to return to WNL on left with minimal to no signs or symptoms of imingement. LTG Duration 8 weeks Three Impairment Decreased strength left shoulder [employer] Goal (LTG) Patient will demonstrate improvement of left shoulder strength to at least 4+/5 all motions Two Impairment Shoulder pain rated 0-8/10 STG Duration 8 weeks [employer] Goal (LTG) Patient will report pain no greater than 2/10 will all usual activities including ability to sleep on her left side, reach overhead and behind her back, perform all ADL's and job related tasks. One Impairment Shoulder [employer] disability questionnaire score 24% Prison Goal (LTG) Improve shoulder disability score to no greater than 10%. LTG Duration 8 weeks Assessment Summary Assessment Scapular movement ratchety on left side, decreased control, ROM, and stabilization as compared to left. Able to add 1# with sidelying ER, scapular punch, and added Body Blade for stabilization. Increase ER stretch with use of wand Physical Therapy Plan Frequency and Duration Frequency of Treatment 2x/Week Duration of Treatment 12 weeks Plan of Care Start Date 01/18/20 Plan of Care End Date 04/17/20 Therapeutic Interventions Therapeutic Interventions Aquatic Therapy,Home Exercise Program,Joint Mobilizations, Manual Therapy,Neuromuscular Re-education,Patient/Caregiver Education,Self-Care/Home Management,Soft Tissue Mobilization,Taping, Therapeutic Exercises Modalities Cold Pack/Ice Massage,Electric Stimulation,Iontophoresis Next Visit Focus/Plan Next Note Type Treatment Note Next Visit Plan Continue PT for continued strengthening and ROM of left shoulder, MWM shoulder IR, MFR , kinesiotape
--- NOTE | 2020-02-15 08:14 | PT.OTN ---
Current Diagnoses Pain in right shoulder (02/15/20) Impingement syndrome of right shoulder (02/15/20) Physical Therapy Treatment Note PT-OP-A Visit Information Start: 01/11/20 16:44 Freq: Status: Active Protocol: Document 02/15/20 07:35 SAK (Rec: 02/15/20 08:12 SAK [id number]) Out-Patient Physical Therapy Visit Information Visit Information Visit Type Treatment Note Visit Start Time 07:15 Visit Stop Time 07:58 Total Visit Minutes 43 Visit Number 6 Precautions Precautions history of breast cancer with mastectomy, chemotherapy, and radiation left. PT-OP-B Current Condition Start: 01/11/20 16:44 Freq: Status: Active Protocol: Document 01/18/20 08:11 SAK (Rec: 01/18/20 09:03 SAK [id number]) Current Condition History of Current Condition Onset Date 2 years Current Complaints left shoulder pain History of Current Condition Patient has history of left shoulder pain worsened by injury at [employer] a couple years ago. Due to breast cancer diagnosis, patient underwent left sided mastectomy February 2019 followed by chemotherapy, and radiation. Had PT for soft tissue mobilization and ROM throughout left chest and shoulder, but some limitations remained and as patient has increased her activity including return to work in July 2019 her left shoulder pain increase. Injection [address] Huddleston ( [facility]). Pain improved but patient reports persistent ROM and strength limitationsADL activities including drying her back, putting shirts on, reaching to backseat in car, putting on seatbelt, and reaching top shelves. 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 Also reports she had noted a lump just proximal to her elbow; saw Dr. Krishnan who looked at lump in lower upper arm; had injection of Lidocaine, some better, bicep intact. Had Zometa injection last . week for osteoporosis prevention. Pain with putting seatbelt on, reaching into backseat, drying her back all pain. ROM improved since injection. Denies swelling. Icing shoulder. Intermittant HEP performance, has been moving, lots of stress. Prior Treatments and Tests MRI left shoulder 12/16/19: 1. Tendinosis and low to moderate grade articular and bursal surface partial thickness tear involving distal supraspinatus extending to musculotendinous junction. Suggestion of calcific tendinitis involving distal supraspinatus at its insertion on the humeral head. No full-thickness rotator cuff tendon rupture. 2. Moderate acromioclavicular joint osteoarthritis. Small amount of subacromial subdeltoid bursal fluid. 3. No gross focal labral tear in the absence of intra- articular contrast. 4. Proximal intra-articular portion of long head of biceps tendinosis. Treatment Goals Patient/Caregiver Goals Improve ROM and strength for doing normal movements of shoulder and typical activities without an increase in pain including doing surgery. Prior Functional Status Baseline Function- Other Mild left shoulder pain Current Functional Impairments (Reported) Functional Limitations- Other Difficulty reaching overhead, behind her back, into backseat , difficulty donning shirts, putting on seatbelt. Personal Factors Other Personal Factors That May Effect repepetitive stress to Therapy/Recovery shoulder during surgery activities PT-OP-C Subjective Start: 01/11/20 16:44 Freq: Status: Active Protocol: Document 02/15/20 07:35 SAK (Rec: 02/15/20 08:14 SAK [id number]) OP-PT Subjective Patient Comments Patient Comments Was in ER for cellulitis right breast on Thursday, improving with antibiotics. Some nausea this am. Minimal HEP past few days due to cellulitis. PT-OP-E Functional Tests Start: 01/11/20 16:44 Freq: Status: Active Protocol: Document 01/18/20 08:11 SAK (Rec: 01/18/20 15:36 [facility] [id number]) Functional Tests Apley's Scratch Test Action 1- Left anterior shoulder Action 1- Right posterior shoulder Action 2- Left posterior neck Action 2- Right T3 Action 3- Left L1 Action 3- Right T4 PT-OP-H Neuro Start: 01/11/20 16:44 Freq: Status: Active Protocol: Document 01/18/20 08:11 SAK (Rec: 01/18/20 15:36 SAK [id number]) Sensation Evaluation Gross Sensation Gross Sensation WNL PT-OP-J Posture/Palpation/Skin Start: 01/11/20 16:44 Freq: Status: Active Protocol: Document 01/18/20 08:11 SAK (Rec: 01/18/20 15:36 SAK [id number]) Posture Evaluation Position Sitting Head/C-Spine Posture Forward Head T-Spine Posture Increased Kyphosis Shoulder Posture (L) Rounded,(R) Rounded Scapula Posture (L) Protracted Arm Posture (L) Internally Rotated Palpation Assessment Location right chest tenderness Palpation Location chest and shoulder Palpation Findings Soft Tissue Tightness,Muscle Guarding,Tenderness Palpation Details TTP medial left clavicle, palpable possible suture left axilla (patient to be talking with surgeon more about this), increased muscle tension and tightness throughout left UT, LS, pec minor, TTP left subscap, lat, RC insertion. Skin Assessment Incisional Assessment Incision Appearance/Comments well-healed, good mobility PT-OP-K Range of Motion Start: 01/11/20 16:44 Freq: Status: Active Protocol: Document 01/18/20 08:11 [facility] (Rec: 01/18/20 15:36 [facility] [id number]) Cervical Spine Range of Motion Cervical Spine Active Comments WNL except decreased right sidebending due to muscle tension and tightness Shoulder Goniometric Range of Motion Shoulder Right Shoulder ROM WFL Yes Internal Rotation Behind Back (text) T6 Left Shoulder ROM WFL No Flexion 147 Abduction 143 External Rotation at 45 degrees 48 Abduction Internal Rotation Behind Back (text) L3 Comments patient reports both tightness and pain at end-ranges PT-OP-L Special Tests Start: 01/11/20 16:44 Freq: Status: Active Protocol: Document 01/18/20 08:11 SAK (Rec: 01/18/20 15:36 [facility] [id number]) Special Tests Shoulder Special Tests Passive ER Rotator Cuff Test Results painful left IR/Horizontal ADD Impingement Test Results positive Elevation Impingement Test Results positive left Drop Arm Rotator Cuff Test Results negative aurelio PT-OP-M Strength Start: 01/11/20 16:44 Freq: Status: Active Protocol: Document 01/18/20 08:11 SAK (Rec: 01/18/20 15:36 [facility] [id number]) Shoulder Strength Shoulder Manual Muscle Testing Right Flexion 5 Normal Extension 5 Normal Abduction (C5) 5 Normal External Rotation 4+ Good+ Internal Rotation 5 Normal Left Flexion 4 Good Extension 4 Good Abduction (C5) 4+ Good+ External Rotation 4 Good Internal Rotation 4 Good Elbow/Forearm Strength Elbow and Forearm Manual Muscle Testing aurelio Flexion (C6) 5 Normal Extension (C7) 5 Normal PT-OP-Q Treatments Start: 01/11/20 16:44 Freq: Status: Active Protocol: Document 02/15/20 07:35 [facility] (Rec: 02/15/20 08:12 [facility] [id number]) Therapeutic Exercises Sitting Exercises scapular inf glide Resistance 20 Reps/Minutes 10x2 Comments lat machine 1 Sitting Exercise Name pulleys for shld flex and abd Side bilateral Reps/Minutes 5 min Standing Exercises body blade Standing Exercise Name IR/ER, fwd/bck elbow bent, out to side Side bilateral Reps/Minutes 2x30 ea Manual Therapy Treatment Soft Tissue Mobilization 3 Body Location STM/MFR at the left rib cage Comments with deep breathing Joint Mobilizations 2 Joint gentle posterior and inferior glides of the left shoulder 1 Joint sidelying scapular mobilizations Direction med/lat, diagonals with manual resistance Reps/Duration 5 min Taping 1 Body Location RC taping, lower trap facil Comments 3 Y strips. Lower trap facil with I strip PT-OP-T Assessment and Plan Start: 01/11/20 16:44 Freq: Status: Active Protocol: Document 02/15/20 07:35 [facility] (Rec: 02/15/20 08:12 [facility] [id number]) Physical Therapy Assessment Goals Four Impairment decreased ROM and signs and symptoms of impingement left shoulder Mcfp Goal (LTG) Patient ROM to return to WNL on left with minimal to no signs or symptoms of imingement. LTG Duration 8 weeks Three Impairment Decreased strength left shoulder Table Machine Operator Goal (LTG) Patient will demonstrate improvement of left shoulder strength to at least 4+/5 all motions Two Impairment Shoulder pain rated 0-8/10 STG Duration 8 weeks Mcfp Goal (LTG) Patient will report pain no greater than 2/10 will all usual activities including ability to sleep on her left side, reach overhead and behind her back, perform all ADL's and job related tasks. One Impairment Shoulder Quickdash disability questionnaire score 24% Table Machine Operator Goal (LTG) Improve shoulder disability score to no greater than 10%. LTG Duration 8 weeks Assessment Summary Assessment Decreased pain and stiffness with treatment. Improved infernior glide of scapula with scapular shrugs. No prone exercises due to recent cellulitis. Progressed body blade ex for stab. ER stretching painful beyond 45 degrees; patient demonstrated improved understanding of stretching. Physical Therapy Plan Frequency and Duration Frequency of Treatment 2x/Week Duration of Treatment 12 weeks Plan of Care Start Date 01/18/20 Plan of Care End Date 04/17/20 Therapeutic Interventions Therapeutic Interventions Aquatic Therapy,Home Exercise Program,Joint Mobilizations, Manual Therapy,Neuromuscular Re-education,Patient/Caregiver Education,Self-Care/Home Management,Soft Tissue Mobilization,Taping, Therapeutic Exercises Modalities Cold Pack/Ice Massage,Electric Stimulation,Iontophoresis Next Visit Focus/Plan Next Note Type Treatment Note Next Visit Plan Continue PT for continued strengthening and ROM of left shoulder, MWM shoulder IR and ER, MFR, kinesiotape.
--- NOTE | 2020-02-22 16:06 | PT.OTN ---
Current Diagnoses Pain in right shoulder (02/22/20) Impingement syndrome of right shoulder (02/22/20) Physical Therapy Treatment Note PT-OP-A Visit Information Start: 01/11/20 16:44 Freq: Status: Active Protocol: Document 02/22/20 15:18 SAK (Rec: 02/22/20 16:06 SAK [id number]) Out-Patient Physical Therapy Visit Information Visit Information Visit Type Treatment Note Visit Start Time 07:15 Visit Stop Time 07:58 Total Visit Minutes 43 Visit Number 7 Precautions Precautions history of breast cancer with mastectomy, chemotherapy, and radiation left. PT-OP-B Current Condition Start: 01/11/20 16:44 Freq: Status: Active Protocol: Document 01/18/20 08:11 SAK (Rec: 01/18/20 09:03 SAK [id number]) Current Condition History of Current Condition Onset Date 2 years Current Complaints left shoulder pain History of Current Condition Patient has history of left shoulder pain worsened by injury at [employer] a couple years ago. Due to breast cancer diagnosis, patient underwent left sided mastectomy February 2019 followed by chemotherapy, and radiation. Had PT for soft tissue mobilization and ROM throughout left chest and shoulder, but some limitations remained and as patient has increased her activity including return to work in July 2019 her left shoulder pain increase. Injection [address] Huddleston ( [facility]). Pain improved but patient reports persistent ROM and strength limitationsADL activities including drying her back, putting shirts on, reaching to backseat in car, putting on seatbelt, and reaching top shelves. 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 Also reports she had noted a lump just proximal to her elbow; saw Dr. Krishnan who looked at lump in lower upper arm; had injection of Lidocaine, some better, bicep intact. Had Zometa injection last . week for osteoporosis prevention. Pain with putting seatbelt on, reaching into backseat, drying her back all pain. ROM improved since injection. Denies swelling. Icing shoulder. Intermittant HEP performance, has been moving, lots of stress. Prior Treatments and Tests MRI left shoulder 12/16/19: 1. Tendinosis and low to moderate grade articular and bursal surface partial thickness tear involving distal supraspinatus extending to musculotendinous junction. Suggestion of calcific tendinitis involving distal supraspinatus at its insertion on the humeral head. No full-thickness rotator cuff tendon rupture. 2. Moderate acromioclavicular joint osteoarthritis. Small amount of subacromial subdeltoid bursal fluid. 3. No gross focal labral tear in the absence of intra- articular contrast. 4. Proximal intra-articular portion of long head of biceps tendinosis. Treatment Goals Patient/Caregiver Goals Improve ROM and strength for doing normal movements of shoulder and typical activities without an increase in pain including doing surgery. Prior Functional Status Baseline Function- Other Mild left shoulder pain Current Functional Impairments (Reported) Functional Limitations- Other Difficulty reaching overhead, behind her back, into backseat , difficulty donning shirts, putting on seatbelt. 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 Still taking antibiotics for cellulitis. PT-OP-E Functional Tests Start: 01/11/20 16:44 Freq: Status: Active Protocol: Document 01/18/20 08:11 SAK (Rec: 01/18/20 15:36 [facility] [id number]) Functional Tests Apley's Scratch Test Action 1- Left anterior shoulder Action 1- Right posterior shoulder Action 2- Left posterior neck Action 2- Right T3 Action 3- Left L1 Action 3- Right T4 PT-OP-H Neuro Start: 01/11/20 16:44 Freq: Status: Active Protocol: Document 01/18/20 08:11 SAK (Rec: 01/18/20 15:36 SAK [id number]) Sensation Evaluation Gross Sensation Gross Sensation WNL PT-OP-J Posture/Palpation/Skin Start: 01/11/20 16:44 Freq: Status: Active Protocol: Document 01/18/20 08:11 SAK (Rec: 01/18/20 15:36 [facility] [id number]) Posture Evaluation Position Sitting Head/C-Spine Posture Forward Head T-Spine Posture Increased Kyphosis Shoulder Posture (L) Rounded,(R) Rounded Scapula Posture (L) Protracted Arm Posture (L) Internally Rotated Palpation Assessment Location right chest tenderness Palpation Location chest and shoulder Palpation Findings Soft Tissue Tightness,Muscle Guarding,Tenderness Palpation Details TTP medial left clavicle, palpable possible suture left axilla (patient to be talking with surgeon more about this), increased muscle tension and tightness throughout left UT, LS, pec minor, TTP left subscap, lat, RC insertion. Skin Assessment Incisional Assessment Incision Appearance/Comments well-healed, good mobility PT-OP-K Range of Motion Start: 01/11/20 16:44 Freq: Status: Active Protocol: Document 01/18/20 08:11 SAK (Rec: 01/18/20 15:36 [facility] [id number]) Cervical Spine Range of Motion Cervical Spine Active Comments WNL except decreased right sidebending due to muscle tension and tightness Shoulder Goniometric Range of Motion Shoulder Right Shoulder ROM WFL Yes Internal Rotation Behind Back (text) T6 Left Shoulder ROM WFL No Flexion 147 Abduction 143 External Rotation at 45 degrees 48 Abduction Internal Rotation Behind Back (text) L3 Comments patient reports both tightness and pain at end-ranges PT-OP-L Special Tests Start: 01/11/20 16:44 Freq: Status: Active Protocol: Document 01/18/20 08:11 SAK (Rec: 01/18/20 15:36 [facility] [id number]) Special Tests Shoulder Special Tests Passive ER Rotator Cuff Test Results painful left IR/Horizontal ADD Impingement Test Results positive Elevation Impingement Test Results positive left Drop Arm Rotator Cuff Test Results negative aurelio PT-OP-M Strength Start: 01/11/20 16:44 Freq: Status: Active Protocol: Document 01/18/20 08:11 SAK (Rec: 01/18/20 15:36 [facility] [id number]) Shoulder Strength Shoulder Manual Muscle Testing Right Flexion 5 Normal Extension 5 Normal Abduction (C5) 5 Normal External Rotation 4+ Good+ Internal Rotation 5 Normal Left Flexion 4 Good Extension 4 Good Abduction (C5) 4+ Good+ External Rotation 4 Good Internal Rotation 4 Good Elbow/Forearm Strength Elbow and Forearm Manual Muscle Testing aurelio Flexion (C6) 5 Normal Extension (C7) 5 Normal PT-OP-Q Treatments Start: 01/11/20 16:44 Freq: Status: Active Protocol: Document 02/22/20 15:18 [facility] (Rec: 02/22/20 16:06 [facility] [id number]) Manual Therapy Treatment Taping 1 Body Location RC taping, lower trap facil Comments 3 Y strips. Lower trap facil with I strip Self-Care/Home Management Treatment Education Other Education See if able to do kinesiotape. Continue HEP Pain questionnaire and QuickDash Questionnaire today PT-OP-T Assessment and Plan Start: 01/11/20 16:44 Freq: Status: Active Protocol: Document 02/22/20 15:18 [facility] (Rec: 02/22/20 16:06 [facility] [id number]) Physical Therapy Assessment Goals Four Impairment decreased ROM and signs and symptoms of impingement left shoulder Skilled Nursing Goal (LTG) Patient ROM to return to WNL on left with minimal to no signs or symptoms of imingement. LTG Duration 8 weeks Three Impairment Decreased strength left shoulder Skilled Nursing Goal (LTG) Patient will demonstrate improvement of left shoulder strength to at least 4+/5 all motions Two Impairment Shoulder pain rated 0-8/10 STG Duration 8 weeks Skilled Nursing Goal (LTG) Patient will report pain no greater than 2/10 will all usual activities including ability to sleep on her left side, reach overhead and behind her back, perform all ADL's and job related tasks. One Impairment Shoulder Quickdash disability questionnaire score 24% Skilled Nursing Goal (LTG) Improve shoulder disability score to no greater than 10%. LTG Duration 8 weeks Assessment Summary Assessment Primarily kinesiotape today due to patient car trouble, time limited. Decreased pain but with decreased workload this week, ROM still limited. Kinesiotape very helpful for support and pain management. Physical Therapy Plan Frequency and Duration Frequency of Treatment 2x/Week Duration of Treatment 12 weeks Plan of Care Start Date 01/18/20 Plan of Care End Date 04/17/20 Therapeutic Interventions Therapeutic Interventions Aquatic Therapy,Home Exercise Program,Joint Mobilizations, Manual Therapy,Neuromuscular Re-education,Patient/Caregiver Education,Self-Care/Home Management,Soft Tissue Mobilization,Taping, Therapeutic Exercises Modalities Cold Pack/Ice Massage,Electric Stimulation,Iontophoresis Next Visit Focus/Plan Next Note Type Treatment Note Next Visit Plan Continue PT for continued strengthening and ROM of left shoulder, MWM shoulder IR and ER, MFR, kinesiotape.
--- NOTE | 2020-02-28 12:18 | PT.OTN ---
Current Diagnoses Pain in right shoulder (02/28/20) Impingement syndrome of right shoulder (02/28/20) Physical Therapy Treatment Note PT-OP-A Visit Information Start: 01/11/20 16:44 Freq: Status: Active Protocol: Document 02/28/20 07:27 SAK (Rec: 02/28/20 08:16 SAK [id number]) Out-Patient Physical Therapy Visit Information Visit Information Visit Type Treatment Note Visit Start Time 07:30 Visit Stop Time 08:15 Total Visit Minutes 45 Visit Number 8 Precautions Precautions history of breast cancer with mastectomy, chemotherapy, and radiation left. PT-OP-B Current Condition Start: 01/11/20 16:44 Freq: Status: Active Protocol: Document 01/18/20 08:11 SAK (Rec: 01/18/20 09:03 SAK [id number]) Current Condition History of Current Condition Onset Date 2 years Current Complaints left shoulder pain History of Current Condition Patient has history of left shoulder pain worsened by injury at [employer] a couple years ago. Due to breast cancer diagnosis, patient underwent left sided mastectomy February 2019 followed by chemotherapy, and radiation. Had PT for soft tissue mobilization and ROM throughout left chest and shoulder, but some limitations remained and as patient has increased her activity including return to work in July 2019 her left shoulder pain increase. Injection [address] Huddleston ( [facility]). Pain improved but patient reports persistent ROM and strength limitationsADL activities including drying her back, putting shirts on, reaching to backseat in car, putting on seatbelt, and reaching top shelves. 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 Also reports she had noted a lump just proximal to her elbow; saw Dr. Krishnan who looked at lump in lower upper arm; had injection of Lidocaine, some better, bicep intact. Had Zometa injection last . week for osteoporosis prevention. Pain with putting seatbelt on, reaching into backseat, drying her back all pain. ROM improved since injection. Denies swelling. Icing shoulder. Intermittant HEP performance, has been moving, lots of stress. Prior Treatments and Tests MRI left shoulder 12/16/19: 1. Tendinosis and low to moderate grade articular and bursal surface partial thickness tear involving distal supraspinatus extending to musculotendinous junction. Suggestion of calcific tendinitis involving distal supraspinatus at its insertion on the humeral head. No full-thickness rotator cuff tendon rupture. 2. Moderate acromioclavicular joint osteoarthritis. Small amount of subacromial subdeltoid bursal fluid. 3. No gross focal labral tear in the absence of intra- articular contrast. 4. Proximal intra-articular portion of long head of biceps tendinosis. Treatment Goals Patient/Caregiver Goals Improve ROM and strength for doing normal movements of shoulder and typical activities without an increase in pain including doing surgery. Prior Functional Status Baseline Function- Other Mild left shoulder pain Current Functional Impairments (Reported) Functional Limitations- Other Difficulty reaching overhead, behind her back, into backseat , difficulty donning shirts, putting on seatbelt. Personal Factors Other Personal Factors That May Effect repepetitive stress to Therapy/Recovery shoulder during surgery activities PT-OP-C Subjective Start: 01/11/20 16:44 Freq: Status: Active Protocol: Document 02/28/20 07:27 [facility] (Rec: 02/28/20 08:16 [facility] [id number]) OP-PT Subjective Patient Comments Patient Comments Stiff this am. Finished antibiotics Thursday. PT-OP-E Functional Tests Start: 01/11/20 16:44 Freq: Status: Active Protocol: Document 01/18/20 08:11 [facility] (Rec: 01/18/20 15:36 [facility] [id number]) Functional Tests Apley's Scratch Test Action 1- Left anterior shoulder Action 1- Right posterior shoulder Action 2- Left posterior neck Action 2- Right T3 Action 3- Left L1 Action 3- Right T4 PT-OP-H Neuro Start: 01/11/20 16:44 Freq: Status: Active Protocol: Document 01/18/20 08:11 [facility] (Rec: 01/18/20 15:36 [facility] [id number]) Sensation Evaluation Gross Sensation Gross Sensation WNL PT-OP-J Posture/Palpation/Skin Start: 01/11/20 16:44 Freq: Status: Active Protocol: Document 01/18/20 08:11 [facility] (Rec: 01/18/20 15:36 [facility] [id number]) Posture Evaluation Position Sitting Head/C-Spine Posture Forward Head T-Spine Posture Increased Kyphosis Shoulder Posture (L) Rounded,(R) Rounded Scapula Posture (L) Protracted Arm Posture (L) Internally Rotated Palpation Assessment Location right chest tenderness Palpation Location chest and shoulder Palpation Findings Soft Tissue Tightness,Muscle Guarding,Tenderness Palpation Details TTP medial left clavicle, palpable possible suture left axilla (patient to be talking with surgeon more about this), increased muscle tension and tightness throughout left UT, LS, pec minor, TTP left subscap, lat, RC insertion. Skin Assessment Incisional Assessment Incision Appearance/Comments well-healed, good mobility PT-OP-K Range of Motion Start: 01/11/20 16:44 Freq: Status: Active Protocol: Document 01/18/20 08:11 [facility] (Rec: 01/18/20 15:36 [facility] [id number]) Cervical Spine Range of Motion Cervical Spine Active Comments WNL except decreased right sidebending due to muscle tension and tightness Shoulder Goniometric Range of Motion Shoulder Right Shoulder ROM WFL Yes Internal Rotation Behind Back (text) T6 Left Shoulder ROM WFL No Flexion 147 Abduction 143 External Rotation at 45 degrees 48 Abduction Internal Rotation Behind Back (text) L3 Comments patient reports both tightness and pain at end-ranges PT-OP-L Special Tests Start: 01/11/20 16:44 Freq: Status: Active Protocol: Document 01/18/20 08:11 [facility] (Rec: 01/18/20 15:36 [facility] [id number]) Special Tests Shoulder Special Tests Passive ER Rotator Cuff Test Results painful left IR/Horizontal ADD Impingement Test Results positive Elevation Impingement Test Results positive left Drop Arm Rotator Cuff Test Results negative aurelio PT-OP-M Strength Start: 01/11/20 16:44 Freq: Status: Active Protocol: Document 02/28/20 07:27 [facility] (Rec: 02/28/20 08:16 [facility] [id number]) Shoulder Strength Shoulder Manual Muscle Testing Left Flexion 4+ Good+ Extension 4+ Good+ Abduction (C5) 4+ Good+ External Rotation 4 Good Internal Rotation 4 Good Comments painful ER and IR PT-OP-Q Treatments Start: 01/11/20 16:44 Freq: Status: Active Protocol: Document 02/28/20 07:27 [facility] (Rec: 02/28/20 08:16 [facility] [id number]) Therapeutic Exercises Sitting Exercises 1 Sitting Exercise Name pulleys for shld flex and abd Side bilateral Reps/Minutes 5 min Standing Exercises body blade Standing Exercise Name IR/ER, fwd/bck elbow bent, out to side Side bilateral Reps/Minutes 2x30 ea Manual Therapy Treatment Joint Mobilizations 2 Joint gentle posterior and inferior glides of the left shoulder 1 Joint sidelying scapular mobilizations Direction med/lat, diagonals with manual resistance Reps/Duration 5 min Taping 1 Body Location RC taping, lower trap facil Comments 3 Y strips. Lower trap facil with I strip PT-OP-T Assessment and Plan Start: 01/11/20 16:44 Freq: Status: Active Protocol: Document 02/28/20 07:27 [facility] (Rec: 02/28/20 08:16 [facility] [id number]) Physical Therapy Assessment Goals Four Impairment decreased ROM and signs and symptoms of impingement left shoulder Network Architect Goal (LTG) Patient ROM to return to WNL on left with minimal to no signs or symptoms of imingement. LTG Duration 8 weeks Three Impairment Decreased strength left shoulder Long-Term Goal (LTG) Patient will demonstrate improvement of left shoulder strength to at least 4+/5 all motions LTG Duration 04/17/20 Two Impairment Shoulder pain rated 0-8/10 STG Duration 8 weeks Long-Term Goal (LTG) Patient will report pain no greater than 2/10 will all usual activities including ability to sleep on her left side, reach overhead and behind her back, perform all ADL's and job related tasks. LTG Duration 04/17/20 One Impairment Shoulder Quickdash disability questionnaire score 24% Network Architect Goal (LTG) Improve shoulder disability score to no greater than 10%. LTG Duration 04/17/20 Assessment Summary Assessment Increased soreness today possibly due to patient increase in workload with increased use of left UE. Lacking full external rotation , causing some continued impingement symptoms. Patient going to see surgeon to see if has suture that was left in that causes some discomfort in subaxillary region. Continues to benefit from PT. reluctant to tape shoulder. Physical Therapy Plan Frequency and Duration Frequency of Treatment 2x/Week Duration of Treatment 12 weeks Plan of Care Start Date 01/18/20 Plan of Care End Date 04/17/20 Therapeutic Interventions Therapeutic Interventions Aquatic Therapy,Home Exercise Program,Joint Mobilizations, Manual Therapy,Neuromuscular Re-education,Patient/Caregiver Education,Self-Care/Home Management,Soft Tissue Mobilization,Taping, Therapeutic Exercises Modalities Cold Pack/Ice Massage,Electric Stimulation,Iontophoresis Next Visit Focus/Plan Next Note Type Treatment Note Next Visit Plan Continue PT for continued strengthening and ROM of left shoulder, MWM shoulder IR and ER, MFR, kinesiotape. Train to do kinesiotape
--- NOTE | 2020-03-13 08:04 | PT.OTN ---
Current Diagnoses Pain in right shoulder (03/13/20) Impingement syndrome of right shoulder (03/13/20) Physical Therapy Treatment Note PT-OP-A Visit Information Start: 01/11/20 16:44 Freq: Status: Active Protocol: Document 03/13/20 07:27 [facility] (Rec: 03/13/20 08:04 [facility] [id number]) Out-Patient Physical Therapy Visit Information Visit Information Visit Type Treatment Note Visit Start Time 07:30 Visit Number 9 Precautions Precautions history of breast cancer with mastectomy, chemotherapy, and radiation left. PT-OP-B Current Condition Start: 01/11/20 16:44 Freq: Status: Active Protocol: Document 01/18/20 08:11 [facility]AK (Rec: 01/18/20 09:03 [facility] [id number]) Current Condition History of Current Condition Onset Date 2 years Current Complaints left shoulder pain History of Current Condition Patient has history of left shoulder pain worsened by injury at [employer] a couple years ago. Due to breast cancer diagnosis, patient underwent left sided mastectomy February 2019 followed by chemotherapy, and radiation. Had PT for soft tissue mobilization and ROM throughout left chest and shoulder, but some limitations remained and as patient has increased her activity including return to work in July 2019 her left shoulder pain increase. Injection [address] Huddleston ( [facility]). Pain improved but patient reports persistent ROM and strength limitationsADL activities including drying her back, putting shirts on, reaching to backseat in car, putting on seatbelt, and reaching top shelves. 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 Also reports she had noted a lump just proximal to her elbow; saw Dr. Krishnan who looked at lump in lower upper arm; had injection of Lidocaine, some better, bicep intact. Had Zometa injection last . week for osteoporosis prevention. Pain with putting seatbelt on, reaching into backseat, drying her back all pain. ROM improved since injection. Denies swelling. Icing shoulder. Intermittant HEP performance, has been moving, lots of stress. Prior Treatments and Tests MRI left shoulder 12/16/19: 1. Tendinosis and low to moderate grade articular and bursal surface partial thickness tear involving distal supraspinatus extending to musculotendinous junction. Suggestion of calcific tendinitis involving distal supraspinatus at its insertion on the humeral head. No full-thickness rotator cuff tendon rupture. 2. Moderate acromioclavicular joint osteoarthritis. Small amount of subacromial subdeltoid bursal fluid. 3. No gross focal labral tear in the absence of intra- articular contrast. 4. Proximal intra-articular portion of long head of biceps tendinosis. Treatment Goals Patient/Caregiver Goals Improve ROM and strength for doing normal movements of shoulder and typical activities without an increase in pain including doing surgery. Prior Functional Status Baseline Function- Other Mild left shoulder pain Current Functional Impairments (Reported) Functional Limitations- Other Difficulty reaching overhead, behind her back, into backseat , difficulty donning shirts, putting on seatbelt. Personal Factors Other Personal Factors That May Effect repepetitive stress to Therapy/Recovery shoulder during surgery activities PT-OP-C Subjective Start: 01/11/20 16:44 Freq: Status: Active Protocol: Document 03/13/20 07:27 [facility]AK (Rec: 03/13/20 08:04 [facility] [id number]) OP-PT Subjective Patient Comments Patient Comments Patient reports area that felt like a suture in axilla, saw , they are vascular clips that occurred during surgery. March 28 being removed. PT-OP-E Functional Tests Start: 01/11/20 16:44 Freq: Status: Active Protocol: Document 01/18/20 08:11 SAK (Rec: 01/18/20 15:36 [facility] [id number]) Functional Tests Apley's Scratch Test Action 1- Left anterior shoulder Action 1- Right posterior shoulder Action 2- Left posterior neck Action 2- Right T3 Action 3- Left L1 Action 3- Right T4 PT-OP-H Neuro Start: 01/11/20 16:44 Freq: Status: Active Protocol: Document 01/18/20 08:11 SAK (Rec: 01/18/20 15:36 [facility] [id number]) Sensation Evaluation Gross Sensation Gross Sensation WNL PT-OP-J Posture/Palpation/Skin Start: 01/11/20 16:44 Freq: Status: Active Protocol: Document 01/18/20 08:11 SAK (Rec: 01/18/20 15:36 [facility] [id number]) Posture Evaluation Position Sitting Head/C-Spine Posture Forward Head T-Spine Posture Increased Kyphosis Shoulder Posture (L) Rounded,(R) Rounded Scapula Posture (L) Protracted Arm Posture (L) Internally Rotated Palpation Assessment Location right chest tenderness Palpation Location chest and shoulder Palpation Findings Soft Tissue Tightness,Muscle Guarding,Tenderness Palpation Details TTP medial left clavicle, palpable possible suture left axilla (patient to be talking with surgeon more about this), increased muscle tension and tightness throughout left UT, LS, pec minor, TTP left subscap, lat, RC insertion. Skin Assessment Incisional Assessment Incision Appearance/Comments well-healed, good mobility PT-OP-K Range of Motion Start: 01/11/20 16:44 Freq: Status: Active Protocol: Document 02/28/20 08:17 [facility] (Rec: 02/28/20 12:22 [facility] [id number]) Shoulder Goniometric Range of Motion Shoulder Left Shoulder ROM WFL No Flexion 156 Extension 150 External Rotation at 45 degrees 53 Abduction Internal Rotation Behind Back (text) L3 PT-OP-L Special Tests Start: 01/11/20 16:44 Freq: Status: Active Protocol: Document 01/18/20 08:11 [facility] (Rec: 01/18/20 15:36 [facility] [id number]) Special Tests Shoulder Special Tests Passive ER Rotator Cuff Test Results painful left IR/Horizontal ADD Impingement Test Results positive Elevation Impingement Test Results positive left Drop Arm Rotator Cuff Test Results negative aurelio PT-OP-M Strength Start: 01/11/20 16:44 Freq: Status: Active Protocol: Document 02/28/20 07:27 [facility] (Rec: 02/28/20 08:16 [facility] [id number]) Shoulder Strength Shoulder Manual Muscle Testing Left Flexion 4+ Good+ Extension 4+ Good+ Abduction (C5) 4+ Good+ External Rotation 4 Good Internal Rotation 4 Good Comments painful ER and IR PT-OP-Q Treatments Start: 01/11/20 16:44 Freq: Status: Active Protocol: Document 03/13/20 07:27 [facility] (Rec: 03/13/20 08:04 [facility] [id number]) Therapeutic Exercises Sidelying Exercises scapular clocks Reps/Minutes 10x Comments with manual resistance 5:00 Manual Therapy Treatment Joint Mobilizations 1 Joint sidelying scapular mobilizations Direction med/lat, diagonals with manual resistance Reps/Duration 5 min Taping 1 Body Location RC taping, lower trap facil Comments 3 Y strips. Lower trap facil with I strip Self-Care/Home Management Treatment Education Other Education 1/2 roll supine thoracic extension mob; issued written handout self massage using tennis or raquetball; issued written cell phone used to take pictures of kinesiotape technique for educating for possible traping of pt at home. PT-OP-T Assessment and Plan Start: 01/11/20 16:44 Freq: Status: Active Protocol: Document 03/13/20 07:27 [facility] (Rec: 03/13/20 08:04 [facility] [id number]) Physical Therapy Assessment Goals Four Impairment decreased ROM and signs and symptoms of impingement left shoulder Email Production Specialist Goal (LTG) Patient ROM to return to WNL on left with minimal to no signs or symptoms of imingement. LTG Duration 8 weeks Three Impairment Decreased strength left shoulder Email Production Specialist Goal (LTG) Patient will demonstrate improvement of left shoulder strength to at least 4+/5 all motions LTG Duration 04/17/20 Two Impairment Shoulder pain rated 0-8/10 STG Duration 8 weeks Email Production Specialist Goal (LTG) Patient will report pain no greater than 2/10 will all usual activities including ability to sleep on her left side, reach overhead and behind her back, perform all ADL's and job related tasks. LTG Duration 04/17/20 One Impairment Shoulder Quick[employer] disability questionnaire score 24% Email Production Specialist Goal (LTG) Improve shoulder disability score to no greater than 10%. LTG Duration 04/17/20 Assessment Summary Assessment Patient demonstrating significant tenderness subscap on left with palpation; instructed in self massage for at home. Has been unable to tolerate prone lower trap ex so initiated scapular clock ex sidelying with good tolerance . Patient to have surgery Mar 28 to remove vascular clips left anterior chest which may be helpful in improving shoulder pain and mobility. Good tolerance to HEP. Physical Therapy Plan Frequency and Duration Frequency of Treatment 2x/Week Duration of Treatment 12 weeks Plan of Care Start Date 01/18/20 Plan of Care End Date 04/17/20 Therapeutic Interventions Therapeutic Interventions Aquatic Therapy,Home Exercise Program,Joint Mobilizations, Manual Therapy,Neuromuscular Re-education,Patient/Caregiver Education,Self-Care/Home Management,Soft Tissue Mobilization,Taping, Therapeutic Exercises Modalities Cold Pack/Ice Massage,Electric Stimulation,Iontophoresis Next Visit Focus/Plan Next Note Type Treatment Note Next Visit Plan Review scapular clock ex, self thoracic mobs and use of ball for self massage. Progress shoulder ROM, strengthening, and stabilization ex. Discuss self-taping with assist of .
--- NOTE | 2020-06-06 10:18 | PT.OPDS ---
Current Diagnoses Pain in right shoulder (03/13/20) Impingement syndrome of right shoulder (03/13/20) Visit Care Team Role Provider Type Jeison Vences MD Primary Care Provider Physician Specialty: Family Practice Address: [address] [place] [address], [id number] Email: [email or web address] Aden Krishnan MD Attending Provider Physician Referring Provider Specialty: Orthopedic Surgery Address: [address] [place] [address], [id number] Email: [email or web address] Visit Number Visit Number 9 Discharge Summary PT-OP-B Current Condition Start: 01/11/20 16:44 Freq: Status: Active Protocol: Document 01/18/20 08:11 JEFFERY (Rec: 01/18/20 09:03 [facility] [id number]) Current Condition History of Current Condition Onset Date 2 years Current Complaints left shoulder pain History of Current Condition Patient has history of left shoulder pain worsened by injury at [email or web address] a couple years ago. Due to breast cancer diagnosis, patient underwent left sided mastectomy February 2019 followed by chemotherapy, and radiation. Had PT for soft tissue mobilization and ROM throughout left chest and shoulder, but some limitations remained and as patient has increased her activity including return to work in July 2019 her left shoulder pain increase. Injection [address] Huddleston ( [facility]). Pain improved but patient reports persistent ROM and strength limitationsADL activities including drying her back, putting shirts on, reaching to backseat in car, putting on seatbelt, and reaching top shelves. 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 Also reports she had noted a lump just proximal to her elbow; saw Dr. Krishnan who looked at lump in lower upper arm; had injection of Lidocaine, some better, bicep intact. Had Zometa injection last . week for osteoporosis prevention. Pain with putting seatbelt on, reaching into backseat, drying her back all pain. ROM improved since injection. Denies swelling. Icing shoulder. Intermittant HEP performance, has been moving, lots of stress. Prior Treatments and Tests MRI left shoulder 12/16/19: 1. Tendinosis and low to moderate grade articular and bursal surface partial thickness tear involving distal supraspinatus extending to musculotendinous junction. Suggestion of calcific tendinitis involving distal supraspinatus at its insertion on the humeral head. No full-thickness rotator cuff tendon rupture. 2. Moderate acromioclavicular joint osteoarthritis. Small amount of subacromial subdeltoid bursal fluid. 3. No gross focal labral tear in the absence of intra- articular contrast. 4. Proximal intra-articular portion of long head of biceps tendinosis. Treatment Goals Patient/Caregiver Goals Improve ROM and strength for doing normal movements of shoulder and typical activities without an increase in pain including doing surgery. Prior Functional Status Baseline Function- Other Mild left shoulder pain Current Functional Impairments (Reported) Functional Limitations- Other Difficulty reaching overhead, behind her back, into backseat , difficulty donning shirts, putting on seatbelt. Personal Factors Other Personal Factors That May Effect repepetitive stress to Therapy/Recovery shoulder during surgery activities PT-OP-C Subjective Start: 01/11/20 16:44 Freq: Status: Active Protocol: Document 03/13/20 07:27 [facility] (Rec: 03/13/20 08:04 [facility] [id number]) OP-PT Subjective Patient Comments Patient Comments Patient reports area that felt like a suture in axilla, saw , they are vascular clips that occurred during surgery. March 28 being removed. PT-OP-E Functional Tests Start: 01/11/20 16:44 Freq: Status: Active Protocol: Document 01/18/20 08:11 [facility] (Rec: 01/18/20 15:36 [facility] [id number]) Functional Tests Apley's Scratch Test Action 1- Left anterior shoulder Action 1- Right posterior shoulder Action 2- Left posterior neck Action 2- Right T3 Action 3- Left L1 Action 3- Right T4 PT-OP-H Neuro Start: 01/11/20 16:44 Freq: Status: Active Protocol: Document 01/18/20 08:11 SAK (Rec: 01/18/20 15:36 [facility] [id number]) Sensation Evaluation Gross Sensation Gross Sensation WNL PT-OP-J Posture/Palpation/Skin Start: 01/11/20 16:44 Freq: Status: Active Protocol: Document 01/18/20 08:11 SAK (Rec: 01/18/20 15:36 [facility] [id number]) Posture Evaluation Position Sitting Head/C-Spine Posture Forward Head T-Spine Posture Increased Kyphosis Shoulder Posture (L) Rounded,(R) Rounded Scapula Posture (L) Protracted Arm Posture (L) Internally Rotated Palpation Assessment Location right chest tenderness Palpation Location chest and shoulder Palpation Findings Soft Tissue Tightness,Muscle Guarding,Tenderness Palpation Details TTP medial left clavicle, palpable possible suture left axilla (patient to be talking with surgeon more about this), increased muscle tension and tightness throughout left UT, LS, pec minor, TTP left subscap, lat, RC insertion. Skin Assessment Incisional Assessment Incision Appearance/Comments well-healed, good mobility PT-OP-K Range of Motion Start: 01/11/20 16:44 Freq: Status: Active Protocol: Document 02/28/20 08:17 [facility] (Rec: 02/28/20 12:22 [facility] [id number]) Shoulder Goniometric Range of Motion Shoulder Left Shoulder ROM WFL No Flexion 156 Extension 150 External Rotation at 45 degrees 53 Abduction Internal Rotation Behind Back (text) L3 PT-OP-L Special Tests Start: 01/11/20 16:44 Freq: Status: Active Protocol: Document 01/18/20 08:11 [facility] (Rec: 01/18/20 15:36 [facility] [id number]) Special Tests Shoulder Special Tests Passive ER Rotator Cuff Test Results painful left IR/Horizontal ADD Impingement Test Results positive Elevation Impingement Test Results positive left Drop Arm Rotator Cuff Test Results negative aurelio PT-OP-M Strength Start: 01/11/20 16:44 Freq: Status: Active Protocol: Document 02/28/20 07:27 [facility] (Rec: 02/28/20 08:16 [facility] [id number]) Shoulder Strength Shoulder Manual Muscle Testing Left Flexion 4+ Good+ Extension 4+ Good+ Abduction (C5) 4+ Good+ External Rotation 4 Good Internal Rotation 4 Good Comments painful ER and IR PT-OP-T Assessment and Plan Start: 01/11/20 16:44 Freq: Status: Active Protocol: Document 06/06/20 10:18 [facility] (Rec: 06/06/20 10:18 [facility] [id number]) Physical Therapy Assessment Assessment Summary Assessment Patient demonstrating significant tenderness subscap on left with palpation; instructed in self massage for at home. Has been unable to tolerate prone lower trap ex so initiated scapular clock ex sidelying with good tolerance . Patient to have surgery Mar 3 to remove vascular clips left anterior chest which may be helpful in improving shoulder pain and mobility. Good tolerance to HEP. Physical Therapy Plan Discharge Physical Therapy Discharge Reasons No Longer Attending PT
== END 2020-06-11 08:42 | disposition home or self-care (01) ==
LOC: PHYS 07:30
PROVIDERS: PCP Family Medicine; Referring Provider Orthopaedic Surgery; Visit Provider Orthopaedic Surgery
DX: M25.511 Pain in right shoulder (principal); M75.41 Impingement syndrome of right shoulder
CPT/HCPCS: 97110; 97140; 97162; 97535

== ENCOUNTER → 2020-03-29 17:15 | Outpatient (CLI) | payer OTHER, SELFPAY ==
[2019-12-22 15:26] VITALS: BMI 68.3
[2020-03-29] MEDS: COVID-19 VACC #2, MRNA(MOD) 100 MCG/0.5 ML VIAL IM (17:19)
== END ==
PROVIDERS: PCP Family Medicine; Visit Provider Internal Medicine
DX: Z23 Encounter for immunization (principal)
CPT/HCPCS: 0012A; 91301

== ENCOUNTER → 2020-05-11 12:22 | Outpatient (CLI) | payer OTHER, SELFPAY ==
[2019-12-22 15:26] VITALS: BMI 68.3
--- NOTE | 2020-05-11 12:23 | DI.NM.S_ITS ---
PROCEDURE: IN BONE SCAN WHOLE BODY RADIOPHARMACEUTICAL: 19.9 mCi Tc-99m MDP IV. INDICATIONS: History of breast cancer thoracic right back pain. r/o mets TECHNIQUE: Delayed whole-body scintigrams were obtained approximately 3-4 hours after intravenous injection of radiotracer. Anterior and posterior views were acquired from vertex to feet. Additional left and right oblique views of the thoracic cage and pelvis were obtained. COMPARISON: [facility], [place], [place] BONE SCAN WHOLE BODY, 01/28/2019, 11:55. [facility], CT, CT CHEST W CON, 02/11/2020, 18:35. FINDINGS: No lesions are identified in skull, sternum, clavicles, scapulae, ribs, bony pelvis, and visualized shafts of the long bones. There is low level increased uptake in cervical, thoracic and lumbar spine with distribution indistinguishable from degenerative disc and facet disease; early metastasis to spine could be obscured by degenerative changes. There are foci of increased periarticular activity involving shoulders, sternoclavicular joints, elbows, wrists, hands, hips, SI joints, ankles and feet, compatible with degenerative/arthritic changes. IMPRESSION: No findings to suggest osseous metastatic disease. A cause for thoracic and right back pain is not identified on the bone scan. Dictated by: Bell Brannon M.D. on 05/11/2020 at 17:30 Approved by: Bell Brannon M.D. on 05/11/2020 at 17:42
== END ==
PROVIDERS: PCP Family Medicine; Referring Provider Internal Medicine; Visit Provider Specialist
DX: C50.912 Malignant neoplasm of unspecified site of left female breast (principal); C77.3 Secondary and unspecified malignant neoplasm of axilla and upper limb lymph nodes; M54.6 Pain in thoracic spine
CPT/HCPCS: 78306; A9503

== ENCOUNTER → 2020-08-03 11:01 | Outpatient (CLI) | payer OTHER, SELFPAY ==
[2019-12-22 15:26] VITALS: BMI 68.3
--- NOTE | 2020-08-03 11:04 | DI.MRI.S_ITS ---
BREAST MRI OF BOTH BREASTS: 08/03/2020 CLINICAL: Breast cancer. INDICATIONS: h/o left mastectomy for invasive lobular carcinoma TECHNIQUE: The patient was placed prone in a dedicated breast imaging coil. Precontrast axial STIR and 3D FLASH without fat saturation sequences were obtained. Both before and after bolus injection of contrast, sequential 1-minute axial 3D FLASH with fat saturation sequences for 3 time points, with subtraction images and maximum intensity projections (MIP's) generated. Delayed sagittal FLASH images with fat saturation were also obtained. Computer-aided detection, including computer algorithm analysis of MRI image data for lesion detection and characterization, pharmacokinetic analysis, with further physician review for interpretation, was performed. COMPARISON: [facility], US, US BREAST RT LIMITED, 02/11/2020, 18:08. [facility], CT, CT CHEST WO CON, 08/03/2020, 11:10. [facility], MR, MR BREAST BI WO/W CON, 12/17/2018, 8:00. FINDINGS: Image quality: Excellent. There is mild background parenchymal enhancement. Right breast: The right breast has retroareolar ductal ectasia with T1 signal hyperintensity consistent with proteinaceous or hemorrhagic intraductal debris, unchanged compared to the prior MRI on 12/17/2018. The right breast demonstrates no abnormal focus, mass, or abnormal enhancement. No axillary or internal mammary chain adenopathy. Left breast: The left breast is status post mastectomy. No residual breast tissue is identified. No abnormal enhancement. No axillary or internal mammary chain adenopathy. A normal appearing left axillary lymph node is seen with no thickening of the cortex. IMPRESSION: BENIGN 1. Postoperative changes of left mastectomy with no evidence of recurrence, adenopathy, or metastatic disease. 2. Ductal ectasia in the right breast stable compared to the prior MRI with no evidence of malignancy. This exam was interpreted at Station ID: [id number]. Electronically Signed By: Vik Cason acr/:08/03/2020 13:21:30 Entry: olivia - 08/06/2020 07:55:02 copy to: [facility] ACR BI-RADS Category 2: Benign Finding(s) [id number]
--- NOTE | 2020-08-03 11:20 | DI.CT.S_ITS ---
PROCEDURE: CT CHEST WO CON INDICATIONS: Follow-up pneumonitis TECHNIQUE: Noncontrast 5 mm thick sections acquired from the pulmonary apices to the posterior costophrenic angles. 1 mm lung window, 5 mm thick coronal and sagittal and 7 mm axial MIP reformats were then acquired. For radiation dose reduction, the following was used: automated exposure control, adjustment of mA and/or kV according to patient size. COMPARISON: [facility], CT, CT ANGIO CHEST, 04/05/2019, 12:36. [facility], [place], [place] BONE SCAN WHOLE BODY, 05/11/2020, 15:51. [facility], CT, CT CHEST W CON, 02/11/2020, 18:35. FINDINGS: Image quality: Excellent. Lungs and pleura: Decreased subpleural reticular nodular infiltrates in left upper lobe anteriorly. No pleural effusions or pneumothorax. Central and peripheral airways are patent and normal in caliber. Mediastinum: Heart size is normal. No pericardial effusion. No mediastinal adenopathy by size criteria. Thoracic aorta and central pulmonary arteries are normal in size. Esophagus is normal in caliber. No hiatal hernia. Bones and chest wall: There is left mastectomy. 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 No recurrent mass in left breast. There is a 1.4 cm subcutaneous nodule in the medial aspect of the right posterior chest wall, unchanged and probably a sebaceous cyst. No suspicious bony lesions. No vertebral body compression fractures. No axillary or supraclavicular adenopathy by size criteria. Thyroid gland is normal. Abdomen: There is mild hepatic steatosis. Visualized upper abdominal solid organs and bowel loops otherwise appear normal in the absence of contrast. IMPRESSION: 1. Decreased radiation pneumonia/pneumonitis in the left upper lobe anteriorly. 2. Left mastectomy and left axillary lymph node dissection. Dictated by: Bell Brannon M.D. on 08/03/2020 at 17:58 Approved by: Bell Brannon M.D. on 08/03/2020 at 18:02
== END ==
PROVIDERS: PCP Family Medicine; Referring Provider Internal Medicine; Visit Provider Internal Medicine
DX: Z08 Encounter for follow-up examination after completed treatment for malignant neoplasm (principal); Z85.3 Personal history of malignant neoplasm of breast; J70.0 Acute pulmonary manifestations due to radiation
CPT/HCPCS: 71250; 77049

== ENCOUNTER → 2021-01-10 11:57 | Outpatient (CLI) | payer OTHER, SELFPAY ==
[2019-12-22 15:26] VITALS: BMI 68.3
== END ==
PROVIDERS: PCP Family Medicine; Referring Provider Internal Medicine; Visit Provider Internal Medicine
DX: Z23 Encounter for immunization (principal)
CPT/HCPCS: 90471; 90686

== ENCOUNTER → 2021-01-15 14:55 | Outpatient (CLI) | payer OTHER, SELFPAY ==
[2019-12-22 15:26] VITALS: BMI 68.3
[2021-01-15 19:19] LABS: COVID19 -Nasal RAPID Negative (Negative)
== END ==
PROVIDERS: PCP Family Medicine; Referring Provider Physician Assistant; Visit Provider Physician Assistant
DX: Z20.822 Contact with and (suspected) exposure to COVID-19 (principal)
CPT/HCPCS: 87635

== ENCOUNTER → 2021-02-28 12:02 | Outpatient (CLI) | payer OTHER, SELFPAY ==
[2019-12-22 15:26] VITALS: BMI 68.3
--- NOTE | 2021-02-28 12:03 | DI.MG.S_ITS ---
UNILATERAL RIGHT DIGITAL SCREENING MAMMOGRAM 3D/2D WITH CAD: 02/28/2021 CLINICAL: Routine screening. Personal history of left breast cancer. Family history of breast cancer. Comparison is made to exams dated: 12/09/2019 mammogram and 08/03/2020 breast [facility]. The tissue of right breast is heterogeneously dense. This may lower the sensitivity of mammography. Current study was also evaluated with a Computer Aided Detection (CAD) system. There are biopsy clips in the right breast. No significant masses, calcifications, or other findings are seen in the breast. There has been no significant interval change. IMPRESSION: NEGATIVE There is no mammographic evidence of malignancy. A 1 year screening mammogram is recommended. Future imaging is recommended as follows: 08/04/2021 screening mammogram. This exam was interpreted at Station ID: [id number]. NOTE: For mammograms, a report in lay terms will be sent to the patient. Approximately 15% of breast malignancies will not be visualized mammographically. In the management of a palpable breast mass, a negative mammogram must not discourage biopsy of a clinically suspicious lesion. Electronically Signed By: Yoav ortiz/ki:02/28/2021 15:34:52 copy to: [facility] letter sent: Normal Exam ACR BI-RADS Category 1: Negative [id number]
== END ==
PROVIDERS: PCP Family Medicine; Referring Provider Family Medicine; Visit Provider Family Medicine
DX: Z12.31 Encounter for screening mammogram for malignant neoplasm of breast (principal); Z80.3 Family history of malignant neoplasm of breast; C50.912 Malignant neoplasm of unspecified site of left female breast; Z17.0 Estrogen receptor positive status [ER+]
CPT/HCPCS: 77063; 77067

== ENCOUNTER → 2021-11-06 10:45 | Outpatient (CLI) | payer OTHER, SELFPAY ==
[2019-12-22 15:26] VITALS: BMI 68.3
--- NOTE | 2021-11-06 | DI.MRI.S_ITS ---
BREAST MRI OF THE RIGHT BREAST: 11/06/2021 CLINICAL: Carcinoma of breast. TECHNIQUE: The patient was placed prone in a dedicated breast imaging coil. Precontrast axial STIR and 3D FLASH without fat saturation sequences were obtained. Both before and after bolus injection of contrast, sequential 1-minute axial 3D FLASH with fat saturation sequences for 3 time points, with subtraction images and maximum intensity projections (MIP's) generated. Delayed sagittal FLASH images with fat saturation were also obtained. 20 cc ProHance gadolinium based IV contrast was administered without complication. Computer-aided detection, including computer algorithm analysis of MRI image data for lesion detection and characterization, pharmacokinetic analysis, with further physician review for interpretation, was performed. COMPARISON: CT, CT CHEST ABD PEL W CON, 01/28/2019, 9:19. [facility], MR, MR BREAST BI WO/W CON, 08/03/2020, 11:39. FINDINGS: Image quality: Excellent. There is mild scattered background parenchymal enhancement. Right breast: There is a 0.6 x 0.4 x 0.3 cm arterially enhancing mass in the anterior right breast in the 1 o'clock position 1-2 cm away from the nipple. Kinetic analysis demonstrates medium initial enhancement, medium peak enhancement, and predominantly persistent delayed enhancement. This mass also demonstrates increased T2 signal on STIR imaging. There are no other new or unique foci of enhancement in the right breast. There are stable, chronic dilated ducts containing proteinaceous material in the 5-7 o'clock region. Left breast: Left mastectomy changes. No suspicious enhancement in the tissue or underlying chest wall. Miscellaneous: The left axilla was not well imaged given patient positioning. No internal mammary chain adenopathy. Stable right axillary lymph nodes with benign fatty nette. There are two enhancing lesions partially imaged in the right hepatic lobe, one measuring 3.2 cm in the other measuring 2.2 cm. These were not included on the field of view on the previous exam. The visible portions of the chest wall, liver, heart, and lungs appear otherwise normal. IMPRESSION: INCOMPLETE: NEEDS ADDITIONAL IMAGING EVALUATION 1. There is a 6 mm arterially enhancing finding in the anterior right breast at the 1 o'clock position, increased size and prominence since the prior study, but demonstrating enhancement and T2 characteristics more suggestive of a fibroadenoma. Development of a fibroadenoma however, would be unusual at this patient's age. Further evaluation with focused ultrasound is recommended. 2. No evidence of local recurrence in the left chest at the mastectomy site. 3. Partially evaluated enhancing liver lesions in the right hepatic lobe. Per reports, the patient has a history hepatic hemangiomas. BIRADS 0, additional imaging needed. COMMENT: The imaging literature indicates that a negative contrast breast MRI examination has a high sensitivity and a moderate specificity for detecting and excluding invasive carcinomas to a detection threshold of 3-5 mm; nonetheless, appropriate clinical and mammographic follow-up are recommended. MRI is not sensitive for detecting DCIS (ductal carcinoma in situ) and may not detect large invasive neoplasms that show only minimal enhancement such as mucinous carcinoma. If there are suspicious calcifications or clinically worrisome palpable masses, then biopsy should still be considered. Invasive neoplasms can be hidden by co-existent and benign enhancement caused by mastitis, hormone therapy effects, radiation therapy, , and recent biopsy or surgery. False positive examinations can occur in a number of circumstances, including breasts that have recently been subject to invasive procedures and those that contain atypical ductal hyperplasia, hormonally stimulated glandular tissue, fat necrosis, or radial scars. This exam was interpreted at Station ID: [id number]. Electronically Signed By: Aracelis haskins/:11/06/2021 16:59:45 copy to: MARIO FAM letter sent: Need Ultrasound ACR BI-RADS Category 0: Incomplete 3340F
== END ==
PROVIDERS: PCP Family Medicine; Referring Provider Internal Medicine Medical Oncology; Visit Provider Internal Medicine Medical Oncology
DX: C50.919 Malignant neoplasm of unspecified site of unspecified female breast (principal); C77.3 Secondary and unspecified malignant neoplasm of axilla and upper limb lymph nodes; N63.10 Unspecified lump in the right breast, unspecified quadrant
CPT/HCPCS: 77049

== ENCOUNTER → 2021-11-13 10:14 | Outpatient (CLI) | payer OTHER, SELFPAY ==
[2019-12-22 15:26] VITALS: BMI 68.3
--- NOTE | 2021-11-13 10:16 | DI.US.S_ITS ---
LIMITED ULTRASOUND OF RIGHT BREAST AND AXILLA: 11/13/2021 CLINICAL: F/U MRI. Comparison is made to exams dated: 11/06/2021 breast MRI, 02/28/2021 mammogram, 08/03/2020 breast MRI, 12/16/2019 mammogram, and 12/17/2018 breast MRI - [facility]. Color flow and real-time ultrasound of the right breast 1-3 o'clock, and axilla regions were performed. Rodríguez scale images of the real-time examination were reviewed. There is a stable benign 0.4 cm x 0.4 cm x 0.3 cm normal lymph node with a circumscribed margin in the right breast at 3 o'clock anterior depth 4 cm from the nipple. This normal lymph node displays posterior acoustic enhancement. This correlates with breast MRI findings. Color flow imaging demonstrates that there is an adjacent vascularity. There also is a benign 0.5 cm dilated duct in the right breast central to the nipple in the retroareolar region. This dilated duct displays internal echoes. This abnormality is not significantly changed and correlates with breast MRI findings. Color flow imaging demonstrates that there is no vascularity present. No significant abnormalities were seen sonographically in the right axilla. IMPRESSION: BENIGN There is no sonographic evidence of malignancy. Small lymph node in the right breast at 3 o'clock anterior depth which corresponds to the MRI finding. This is not significantly change and is benign. Retroareolar dilated duct in the right breast is benign. A 1 year screening mammogram is recommended. 03/01/2022 Patient may qualify for continued breast MRI screening. Exam findings were conveyed to the patient. This exam was interpreted at Station ID: [id number]. Electronically Signed By: Cristino Go M.D. slc/:11/13/2021 11:15:27 copy to: MARIO FAM letter sent: Normal Exam Ultrasound BI-RADS: 2 Benign
== END ==
PROVIDERS: PCP Family Medicine; Referring Provider Obstetrics & Gynecology; Visit Provider Obstetrics & Gynecology
DX: R92.8 Other abnormal and inconclusive findings on diagnostic imaging of breast (principal); N60.41 Mammary duct ectasia of right breast
CPT/HCPCS: 76642

== ENCOUNTER → 2022-02-21 12:25 | Outpatient (CLI) | payer OTHER, SELFPAY ==
[2019-12-22 15:26] VITALS: BMI 68.3
== END ==
PROVIDERS: PCP Family Medicine; Referring Provider Internal Medicine; Visit Provider Internal Medicine
DX: Z23 Encounter for immunization (principal)
CPT/HCPCS: 90471; 90686

== ENCOUNTER → 2022-02-27 07:17 | Outpatient (CLI) | payer OTHER, SELFPAY ==
[2019-12-22 15:26] VITALS: BMI 68.3
[2022-02-27 09:10] LABS: Add Manual Diff / Slide Review NO; Basophils Absolute Auto 0 /uL (0-100); Basophils Percent Auto 0.8 % (0-2); Eosinophils Absolute Auto 100 /uL (0-450); Eosinophils Percent Auto 2.6 % (2-4); Hematocrit 38.6 % (36-46); Hemoglobin 13.1 g/dL (12.0-16.0); Lymphocytes Absolute Auto 1400 /uL (1100-4500); Lymphocytes Percent Auto 38.1 % (25-40); Mean Corpuscular HGB Conc 33.8 % (30-36); Mean Corpuscular Volume 91.6 fL (80-100); Monocytes Absolute Auto 500 /uL (0-900); Monocytes Percent Auto 12.6 % (3-14); Neutrophils Absolute Auto 1700 /uL (1500-7000); Neutrophils Percent Auto 45.9 % (50-75); Platelet Count 345 X10^3/uL (150-400); Red Blood Cell Count 4.21 X10^6/uL (4.0-5.2); Red Cell Distribution Width 13.8 % (11.6-14.8); White Blood Cell Count 3.7 X10^3/uL (4.5-11.0)
[2022-02-27 09:18] LABS: Hemoglobin A1C% w Est Avg Glu 5.8 % (4.0-6.0)
[2022-02-27 09:22] LABS: Alanine Aminotransferase 29 IU/L (<35); Albumin 4.3 g/dL (3.5-5.0); Albumin Globulin Ratio 1.2 (1.0-2.8); Alkaline Phosphatase 75 U/L (38-126); Aspartate Aminotransferase 25 IU/L (14-36); BUN Creatinine Ratio 27.1 (6-22); Bilirubin Total 0.6 mg/dL (0.2-1.3); Blood Urea Nitrogen 19 mg/dL (7-17); Calcium 8.5 mg/dL (8.4-10.2); Carbon Dioxide 28 mmol/L (22-32); Chloride 104 mmol/L (98-107); Estimated Glomerular Filt Rate > 60 mL/min (>60); Globulin 3.5 g/dL (1.7-4.1); Glucose 109 mg/dL (70-100); HEMOLYSIS < 15 (0-50); Lactate Dehydrogenase 156 U/L (120-246); Potassium 3.8 mmol/L (3.4-5.1); Sodium 141 mmol/L (137-145); Total Protein 7.8 g/dL (6.3-8.2)
[2022-02-28 09:27] LABS: CA 15-3 14.7 U/mL (0.0-25.0)
[2022-02-28 12:22] LABS: Insulin Level Total 15.5 uIU/mL (2.6-24.9)
== END ==
PROVIDERS: Internal Medicine Medical Oncology; PCP Family Medicine; Referring Provider Obstetrics & Gynecology; Visit Provider Obstetrics & Gynecology
DX: C50.919 Malignant neoplasm of unspecified site of unspecified female breast (principal); C77.3 Secondary and unspecified malignant neoplasm of axilla and upper limb lymph nodes
CPT/HCPCS: 36415; 80053; 83036; 83525; 83615; 85025; 86300

== ENCOUNTER → 2022-02-28 10:45 | Outpatient (CLI) | payer OTHER, SELFPAY ==
[2019-12-22 15:26] VITALS: BMI 68.3
[2022-03-01 06:11] LABS: Cholesterol 226 mg/dL (140-199); HDL Cholesterol 37 mg/dL (40-60); LDL Cholesterol Calculated 160 mg/dL (<100); Triglycerides 146 mg/dL (35-150)
== END ==
PROVIDERS: PCP Family Medicine; Visit Provider Obstetrics & Gynecology
DX: C50.919 Malignant neoplasm of unspecified site of unspecified female breast (principal)
CPT/HCPCS: 80061

== ENCOUNTER → 2022-07-04 09:51 | Outpatient (CLI) | payer OTHER, SELFPAY ==
[2019-12-22 15:26] VITALS: BMI 68.3
--- NOTE | 2022-07-04 09:54 | DI.MG.S_ITS ---
UNILATERAL RIGHT DIGITAL SCREENING MAMMOGRAM 3D/2D WITH CAD: 07/04/2022 CLINICAL: Routine screening. Personal history of left breast cancer. Comparison is made to exams dated: 11/06/2021 breast MRI, 02/28/2021 mammogram, 08/03/2020 breast MRI, 12/16/2019 ultrasound biopsy, 12/16/2019 mammogram, and 12/09/2019 mammogram - [facility]. The right breast is heterogeneously dense, which may obscure small masses (category c / 51-75% glandular tissue). Current study was also evaluated with a Computer Aided Detection (CAD) system. There are biopsy clips in the right breast. No significant masses, calcifications, or other findings are seen in the breast. There has been no significant interval change. IMPRESSION: NEGATIVE There is no mammographic evidence of malignancy. A 1 year screening mammogram is recommended. Future imaging is recommended as follows: 11/14/2022 screening mammogram. This exam was interpreted at Station ID: [id number]. NOTE: For mammograms, a report in lay terms will be sent to the patient. Approximately 15% of breast malignancies will not be visualized mammographically. In the management of a palpable breast mass, a negative mammogram must not discourage biopsy of a clinically suspicious lesion. Electronically Signed By: Aracelis haskins/ki:07/04/2022 13:06:48 copy to: MARIO FAM letter sent: Normal Exam ACR BI-RADS Category 1: Negative 3341F
== END ==
PROVIDERS: PCP Family Medicine; Referring Provider Family Medicine; Visit Provider Family Medicine
DX: Z12.31 Encounter for screening mammogram for malignant neoplasm of breast (principal); Z85.3 Personal history of malignant neoplasm of breast
CPT/HCPCS: 77063; 77067

== ENCOUNTER → 2022-12-18 15:47 | Outpatient (CLI) | payer OTHER, SELFPAY ==
[2019-12-22 15:26] VITALS: BMI 68.3
== END ==
PROVIDERS: PCP Family Medicine; Referring Provider Family Medicine; Visit Provider Family Medicine
DX: Z23 Encounter for immunization (principal)
CPT/HCPCS: 90471; 90686

== ENCOUNTER → 2023-05-05 10:24 | Outpatient (CLI) | payer OTHER, SELFPAY ==
[2019-12-22 15:26] VITALS: BMI 68.3
--- NOTE | 2023-05-05 11:00 | DI.MRI.S_ITS ---
BREAST MRI OF BOTH BREASTS: 05/05/2023 CLINICAL: Personal History of Breast Cancer. PROCEDURE: MR BREAST BI WO/W CON INDICATIONS: high risk breast cancer screening, history of left breast mastectomy. TECHNIQUE: The patient was placed prone in a dedicated breast imaging coil. Precontrast axial STIR and 3D FLASH without fat saturation sequences were obtained. Both before and after bolus injection of contrast, sequential 1-minute axial 3D FLASH with fat saturation sequences for 3 time points, with subtraction images and maximum intensity projections (MIP's) generated. Delayed sagittal FLASH images with fat saturation were also obtained. Computer-aided detection, including computer algorithm analysis of MRI image data for lesion detection and characterization, pharmacokinetic analysis, with further physician review for interpretation, was performed. COMPARISON: Breast MRI 11/06/2021, 08/03/2020 Right breast ultrasound 11/13/2021 Mammogram 07/04/2022 FINDINGS: Image quality: Diagnostic. There is heterogeneous amount of fibroglandular tissue in the right breast. There is mild amount background parenchymal enhancement. Right breast: See clips in the right breast. No suspicious enhancement or lymphadenopathy. Left breast: Status post left breast mastectomy. No suspicious enhancement or lymphadenopathy. Miscellaneous: Stable T2 hyperintense right hepatic structure, probable cyst. IMPRESSION: BENIGN Status post left breast mastectomy and right breast needle biopsy. No MRI evidence of malignancy. Recommend annual mammography and MRI screening. This exam was interpreted at Station ID: [id number]. Electronically Signed By: Stella Swartz M.D., PH.D eb/:05/05/2023 16:43:38 copy to: MARIO [facility] ACR BI-RADS Category 2: Benign Finding(s) 3342F
== END ==
LOC: MRI 10:24
PROVIDERS: PCP Family Medicine; Referring Provider Specialist; Visit Provider Specialist
DX: Z12.39 Encounter for other screening for malignant neoplasm of breast (principal); C50.919 Malignant neoplasm of unspecified site of unspecified female breast; Z90.12 Acquired absence of left breast and nipple
CPT/HCPCS: 77049; A9579

== ENCOUNTER → 2023-08-21 17:49 | Outpatient (CLI) | payer OTHER, SELFPAY ==
[2019-12-22 15:26] VITALS: BMI 68.3
[2023-08-24 22:11] LABS: QuantiFERON Mitogen Value >10.00 IU/mL (.); QuantiFERON Nil Value 0.01 IU/mL (.); QuantiFERON TB Gold Plus Negative (Negative); QuantiFERON TB1 Ag Value 0.02 IU/mL (.); QuantiFERON TB2 Ag Value 0.04 IU/mL (.)
== END ==
PROVIDERS: PCP Family Medicine; Referring Provider Student in an Organized Health Care Education/Training Program; Visit Provider Student in an Organized Health Care Education/Training Program
DX: Z13.9 Encounter for screening, unspecified (principal)
CPT/HCPCS: 36415; 86480

== ENCOUNTER 2023-10-06 23:13 | Emergency (ER) | payer OTHER, SELFPAY ==
[2019-12-22 15:26] VITALS: BMI 68.3
[2023-10-06 23:14] VITALS: BP 147/89; PULSE 99; RESP 20; TEMP 37.1; O2SAT 95; BMI 35.5
--- NOTE | 2023-10-06 23:28 | ED_ITS ---
HPI - Abdominal Pain General Chief Complaint: Abdominal Pain Stated Complaint: rt lower quad pain Time Seen by Provider: 10/06/23 23:17 Source: patient, RN notes reviewed and old records reviewed Mode of arrival: Family Vehicle Limitations: no limitations History of Present Illness HPI narrative: 58-year-old female history of breast cancer with prior mastectomy, hypertension, hypothyroidism who presents with complaint of right lower quadrant pain that has been present over the last 1-2 days, initially was intermittent sort of waxing and waning but has become more persistent and more frequent over the past day. No flank pain states all in the right lower quadrant. No fevers has had some nausea, no vomiting. Had normal bowel movements today with no black or bloody stools. No dysuria urgency or frequency. No vaginal bleeding or discharge. Patient has had prior mastectomy, port and lymph node removal for prior breast cancer. No prior appendectomy still has ovaries present. Has allergies to sulfa and codeine. No tobacco, alcohol or recreational drugs. Dr. Kent is her primary care physician. Related Data Home Medications Medication Instructions Recorded Confirmed levothyroxine 125 mcg tablet 125 mcg PO DAILY 12/26/20 04/25/22 Previous Rx's Medication Instructions Recorded Breast prosthesis and bra fitting #1 ea 05/02/19 exemestane 25 mg tablet 25 mg PO DAILY #90 tabs 02/15/20 lisinopril 10 mg tablet See Rx Instructions .Route 02/21/20 .COMPLEX #90 tabs azithromycin 250 mg tablet See Rx Instructions PO .COMPLEX #6 01/22/22 tabs semaglutide 1 mg/dose (4 mg/3 mL) 0.5 mg (0.375 mL) SUBCUT QWEEK #3 03/17/22 subcutaneous pen injector (Ozempic) mL promethazine 25 mg tablet 25 mg PO TID PRN nausea and 03/31/22 vomiting #20 tabs sumatriptan succinate 25 mg tablet See Rx Instructions PO .COMPLEX 03/31/22 #10 tabs scopolamine base 1 mg over 3 days 1 patch transdermal Q3D PRN motion 05/14/23 transdermal patch sickness #4 ea Allergies Allergy/AdvReac Type Severity Reaction Status Date / Time Sulfa (Sulfonamide Allergy Mild RASH Verified 04/25/22 16:11 Antibiotics) [SULFA (SULFONAMIDE ANTIBIOTICS)] codeine [CODEINE] AdvReac Mild GI Verified 04/25/22 16:11 Review of Systems Review of Systems ROS Unobtainable: All systems reviewed & are unremarkable except as noted in HPI and below Patient History Medical History Bilateral foot pain Somatic dysfunction of lower extremity Sacral region somatic dysfunction Pelvic somatic dysfunction Lumbar region somatic dysfunction Cervical somatic dysfunction Segmental and somatic dysfunction of abdomen and other regions Acquired short leg syndrome on left Pes planus of both feet Neck stiffness Thoracic region somatic dysfunction Segmental and somatic dysfunction of rib cage Rib pain on right side Port-A-Cath in place (02/17/19) Breast cancer metastasized to axillary lymph node Hypothyroidism Hypertension Surgical History S/P left mastectomy (01/17/19) History of breast biopsy History of tonsillectomy H/O rectocele repair Family History Family/Other Cancer Social History household members: spouse, family and children Smoking Status: Never smoker alcohol intake: current substance use type: does not use Smoking Status: Never smoker alcohol intake frequency: holidays/special occasions only Substance Use Type: does not use Exam Narrative Exam Narrative: GENERAL: Alert and oriented x three, female in moderate distress. HEENT: Head normocephalic, atraumatic, EOMI, pupils reactive, face symmetric, moist mucous membranes NECK: Supple, full range of motion CARDIOVASCULAR: Regular rate and rhythm without murmurs, rubs or gallops. RESPIRATORY: Breath sounds equal bilaterally, no wheezes rales or rhonchi. ABDOMEN: Soft, patient has positive Rovsing sign, nontender right upper and left upper quadrant. Patient is quite tender in the right lower quadrant with rebound, no rigidity, no guarding or mass. Normoactive bowel sounds all 4 quadrants. : No CVA tenderness bilaterally. EXTREMITIES: Normal range of motion, no clubbing or edema. Neurovascularly intact NEUROLOGICAL: Cranial nerves II through XII grossly intact. Moving all extremities SKIN: Warm, dry, no petechiae, no rashes or lesions. Initial Vital Signs Initial Vital Signs: Vital Signs Temperature 98.7 F 10/06/23 23:14 Pulse Rate 99 H 10/06/23 23:14 Respiratory Rate 20 10/06/23 23:14 Blood Pressure 147/89 H 10/06/23 23:14 Pulse Oximetry 95 10/06/23 23:14 Oxygen Delivery Method Room Air 10/06/23 23:14 Course Orders Ordered: ED Orders 10/06/23 23:30 CT abdomen pelvis w con Stat 10/06/23 23:40 CBC Auto Diff [Complete Blood Count AUTO DIFF] Stat CMP [Comprehensive Metabolic Panel] Stat Lipase Stat 10/07/23 00:31 US pelvic complete Stat 10/07/23 01:55 Urine Culture Stat Urine Microscopic Stat Discontinued Medications Hydrocodone Bitart/Acetaminophen (Hydrocodone/Acet 5/325 Prepack) 1 bottle MISC DIRECTED ONE Stop: 10/07/23 03:01 Last Admin: 10/07/23 03:30 Dose: 1 bottle Documented By: AMIRAH Sodium Chloride (Normal Saline 0.9%) 1,000 mls @ 1,000 mls/hr IV BOLUS ONE Stop: 10/07/23 00:29 Last Infusion: 10/07/23 00:55 Dose: Infused Documented By: Admin: 10/06/23 23:54 Dose: 1,000 mls/hr Documented By: AMIRAH Ketorolac Tromethamine (Ketorolac 30 Mg/Ml Vial) 15 mg IV NOW ONE Stop: 10/06/23 23:31 Last Admin: 10/06/23 23:55 Dose: 15 mg Documented By: AMIRAH Morphine Sulfate (Morphine 2 Mg/Ml Inj) 2 mg IV NOW ONE Stop: 10/07/23 00:30 Last Admin: 10/07/23 00:32 Dose: 2 mg Documented By: AMIRAH Morphine Sulfate (Morphine 2 Mg/Ml Inj) 2 mg IV NOW ONE Stop: 10/07/23 03:01 Last Admin: 10/07/23 03:22 Dose: 2 mg Documented By: AMIRAH Ondansetron HCl (Ondansetron 4 Mg/2 Ml Inj) 4 mg IV NOW ONE Stop: 10/07/23 00:30 Last Admin: 10/07/23 00:32 Dose: 4 mg Documented By: AMIRAH Ondansetron HCl (Ondansetron 4 Mg Odt Prepack) 1 bottle MISC DIRECTED ONE Stop: 10/07/23 03:06 Last Admin: 10/07/23 03:30 Dose: 1 bottle Documented By: AMIRAH Vital Signs Vital signs: Vital Signs - 8 hr 10/06/23 23:14 10/07/23 00:41 10/07/23 00:42 Temperature 98.7 F Pulse Rate 99 H Respiratory Rate 20 Blood Pressure 147/89 H 164/89 H Pulse Oximetry 95 94 Oxygen Delivery Method Room Air 10/07/23 00:42 10/07/23 01:00 10/07/23 01:30 Temperature Pulse Rate 80 88 73 Respiratory Rate Blood Pressure Pulse Oximetry 95 95 95 Oxygen Delivery Method 10/07/23 03:30 10/07/23 03:30 Temperature Pulse Rate 79 Respiratory Rate Blood Pressure 139/62 Pulse Oximetry 93 Oxygen Delivery Method MDM - Abdominal Pain Lab Data 10/06/23 23:40 10/06/23 23:40 Labs: Lab Results 10/06/23 10/07/23 Range/Units 23:40 01:55 WBC 5.7 (4.5-11.0) X10^3/uL RBC 4.15 (4.0-5.2) X10^6/uL Hgb 13.1 (12.0-16.0) g/dL Hct 38.2 (36-46) % MCV 92.2 (80-100) fL MCH 31.6 (26-34) PG MCHC 34.3 (30-36) % RDW 13.7 (11.6-14.8) % Plt Count 336 (150-400) X10^3/uL Neut % (Auto) 45.5 L (50-75) % Lymph % (Auto) 40.0 (25-40) % [place] % (Auto) 11.1 (3-14) % Eos % (Auto) 2.4 (2-4) % Baso % (Auto) 1.0 (0-2) % Neut # (Auto) 2600 (4354-5310) /uL Lymph # (Auto) 2300 (0403-7182) /uL [place] # (Auto) 600 (0-900) /uL Eos # (Auto) 100 (0-450) /uL Baso # (Auto) 100 (0-100) /uL Sodium 139 (137-145) mmol/L Potassium 3.8 (3.4-5.1) mmol/L Chloride 107 (98-107) mmol/L Carbon Dioxide 28 (22-32) mmol/L BUN 23 H (7-17) mg/dL Creatinine 0.73 (0.52-1.04) mg/dL Estimated GFR > 60 (>60) mL/min BUN/Creatinine Ratio 31.5 H (6-22) Glucose 155 H (70-100) mg/dL Calcium 8.8 (8.4-10.2) mg/dL Total Bilirubin 0.5 (0.2-1.3) mg/dL AST 27 (14-36) IU/L ALT 30 (<35) IU/L Alkaline Phosphatase 78 (38-126) U/L Total Protein 7.4 (6.3-8.2) g/dL Albumin 4.2 (3.5-5.0) g/dL Globulin 3.2 (1.7-4.1) g/dL Albumin/Globulin Ratio 1.3 (1.0-2.8) Lipase 84 (23-300) U/L Urine RBC 0-1/hpf (0-5/HPF) Urine WBC None seen (0-5/HPF) Ur Squamous Epith Cells 0-1 /hpf (0-5/HPF) Urine Bacteria None seen (None) Ur Culture Indicated? Cult not indicated Vol Urine Centrifuged 10ml (spun) Point of care testing: Urine Dip Bedside Urine Glucose Negative Bedside Urine Bilirubin - Negative Bedside Urine Ketone - Negative Urine Specific [place] 1.010 Bedside Urine Occult Blood +/- Bedside Urine pH 5.5 Bedside Urine Protein - Negative Bedside Urine Urobilinogen - Negative Bedside Urine Nitrite - Negative Bedside Urine Leukocytes - Negative Esterase MDM Narrative Medical decision making narrative: 58-year-old with progressive right lower quadrant pain is waxing and waning intensity but becoming more persistent. Patient is quite tender on examination the right lower quadrant also positive Rovsing sign. Labs labs show white count of 5.7 hemoglobin of 13 platelets of 336. Electrolytes are appropriate BUN 23 creatinine 0.73 glucose is 155 LFTs are negative. Lipase is normal. CT abdomen pelvis shows no acute findings no nephrolithiasis, normal gallbladder, normal appendix ovaries are not enlarged. Aortic at inferior vena cava normal in size. No lymphadenopathy normal colonic caliber without any wall thickening. Pelvic ultrasound ovaries are not visualized normal symmetric size on CT does not favor pathology at this time endometrium was 7 mm no pathologic free fluid in the abdomen or pelvis. Anteverted uterus normal size 5.9 x 3.7 x 5, myometrium is homogeneous. Urine positive live on trip, 1 red cell, no white cells, 1 squamous, no bacteria. No nitrates or leuks but urine culture was ordered. Patient had fluids, pain medication. Toradol was minimally helpful patient had some narcotic pain medication did have some improvement. Patient and I reviewed their findings from [facility]. Labs show normal white count, normal renal function and LFTs with negative lipase. Urine shows small amount of blood but no other signs of infection was sent for culture. Patient has negative CT abdomen and pelvic ultrasound vision ovaries were not visualized. Patient's exam patient is quite tender she does have some red urine, possibility of kidney stones but no hydro. She states feels different has had kidney stones in the past. Asked for 1 additional dose of pain medication prefers to return home rather than observation overnight we discussed possibility of early appendicitis, kidney stone possible ovarian torsion. Discussed return precautions patient is to have a low threshold to come back. Discharge Plan Departure Patient Disposition: Home Clinical Impression: Right lower quadrant abdominal pain Instructions: DI for Abdominal Pain-Adult Activity Restrictions/Additional Instructions: Your workup today you had a little bit of hematuria but no other changes to your labs indicate the cause of your symptoms. Your CT had a normal appendix and no other acute changes ovaries appeared normal on your CT we were not able to visualize them on ultrasound. Possibilities of early appendicitis, colitis, kidney stone, ovarian torsion or other possible causes. I would like for you to have a recheck in the next 12 hours if your symptoms have not improved. You can take [place] 1-2 tablets every 6 hours as needed for pain. Return for fevers, worsening pain, vomiting, black or bloody stools, lightheadedness or passing out, difficulty with urination or other new or concerning changes. Prescriptions: No Action (DME) Breast prosthesis and bra fitting Qty: 1 0RF Rx Instructions: Please fit patient for breast prosthesis and bra/garments lisinopril 10 mg tablet See Rx Instructions .ROUTE .COMPLEX Qty: 90 2RF Dose Instruction: TAKE 1 TABLET BY MOUTH DAILY Rx Instructions: TAKE 1 TABLET BY MOUTH DAILY azithromycin 250 mg tablet See Rx Instructions PO .COMPLEX Qty: 6 0RF Rx Instructions: For 250 mg dose pack: take 500 mg today (day 1), then 250 mg for 4 days (days 2-5) PO Ozempic 1 mg/dose (4 mg/3 mL) pen injector 0.5 mg SUBCUT QWEEK Qty: 3 2RF sumatriptan succinate 25 mg tablet See Rx Instructions PO .COMPLEX Qty: 10 0RF Rx Instructions: take 1 tab at onset of headache; if no relief may repeat 1 tab after at least 2 hrs; max = 4 tabs/24 hr PO promethazine 25 mg tablet 25 mg PO TID PRN (Reason: nausea and vomiting) Qty: 20 0RF scopolamine base 1 mg over 3 days patch 3 day 1 patch transdermal Q3D PRN (Reason: motion sickness) Qty: 4 0RF exemestane 25 mg Tablet 25 mg PO DAILY Qty: 90 3RF Rx Instructions: must administer after a meal levothyroxine 125 mcg Tablet 125 mcg PO DAILY Referrals: Harini Kent MD [Primary Care Provider] - Stand Alone Forms: Patient Portal/API
--- NOTE | 2023-10-06 23:30 | DI.CT.S_ITS ---
PROCEDURE: CT ABDOMEN PELVIS W CON INDICATIONS: RLQ pain, + rebound TECHNIQUE: After the administration of intravenous contrast, axial sections acquired from the lung bases to the pubic symphysis. Coronal and sagittal reformats were performed. For radiation dose reduction, the following was used: automated exposure control, adjustment of mA and/or kV according to patient size. COMPARISON: [facility], CT, CT CHEST ABD PEL W CON, 01/28/2019, 9:19. FINDINGS: Image quality: Diagnostic. Lower Chest: No significant findings. ABDOMEN: Liver: Stable liver lesions, presumably hemangiomas and a small segment 8 cyst. Gallbladder: Contracted. Biliary ducts: No biliary dilation. Pancreas: No ductal dilation. Spleen: Size is within normal limits. Adrenal Glands: No adrenal nodules. Kidneys and Ureters: No hydronephrosis. No solid mass. No complex renal cystic lesion which requires follow up. Stomach and Bowel: Normal colonic caliber, without significant wall thickening. Colonic diverticulosis without evidence of diverticulitis. Normal appendix. Peritoneum: No abnormal intraperitoneal fluid. No free air. Ventral Wall: No significant ventral hernia. Abdominal Nodes: No retroperitoneal or mesenteric adenopathy by size criteria. Vessels: Aorta and inferior vena cava are normal in size. PELVIS: Pelvic Organs: Uterus is present. Ovaries are not enlarged. Bladder: No bladder wall thickening, accounting for underdistention. Pelvic Nodes: No enlarged lymph nodes. Miscellaneous: No inguinal hernias are seen. Bones: No aggressive osseous abnormality. IMPRESSION: No findings to explain the patient's right lower quadrant pain. No nephrolithiasis. Normal gallbladder. Normal appendix. Ovaries are not enlarged. Dictated by: Braden Cameron M.D. on 10/07/2023 at 0:25 Approved by: Braden Cameron M.D. on 10/07/2023 at 0:33
[2023-10-06] MEDS: SODIUM CHLORIDE 0.9% 1,000 ML 1000 ML IV (23:54)
[2023-10-06] MEDS: KETOROLAC 30 MG/ML VIAL 15 MG IV (23:55)
[2023-10-06 23:56] LABS: Add Manual Diff / Slide Review NO; Basophils Absolute Auto 100 /uL (0-100); Eosinophils Absolute Auto 100 /uL (0-450); Eosinophils Percent Auto 2.4 % (2-4); Hematocrit 38.2 % (36-46); Hemoglobin 13.1 g/dL (12.0-16.0); Lymphocytes Absolute Auto 2300 /uL (1100-4500); Mean Corpuscular HGB Conc 34.3 % (30-36); Mean Corpuscular Hemoglobin 31.6 PG (26-34); Mean Corpuscular Volume 92.2 fL (80-100); Monocytes Absolute Auto 600 /uL (0-900); Monocytes Percent Auto 11.1 % (3-14); Neutrophils Absolute Auto 2600 /uL (1500-7000); Neutrophils Percent Auto 45.5 % (50-75); Platelet Count 336 X10^3/uL (150-400); Red Blood Cell Count 4.15 X10^6/uL (4.0-5.2); Red Cell Distribution Width 13.7 % (11.6-14.8); White Blood Cell Count 5.7 X10^3/uL (4.5-11.0)
[2023-10-07 00:03] LABS: Alanine Aminotransferase 30 IU/L (<35); Albumin 4.2 g/dL (3.5-5.0); Albumin Globulin Ratio 1.3 (1.0-2.8); Alkaline Phosphatase 78 U/L (38-126); Aspartate Aminotransferase 27 IU/L (14-36); BUN Creatinine Ratio 31.5 (6-22); Bilirubin Total 0.5 mg/dL (0.2-1.3); Blood Urea Nitrogen 23 mg/dL (7-17); Calcium 8.8 mg/dL (8.4-10.2); Carbon Dioxide 28 mmol/L (22-32); Chloride 107 mmol/L (98-107); Estimated Glomerular Filt Rate > 60 mL/min (>60); Globulin 3.2 g/dL (1.7-4.1); Glucose 155 mg/dL (70-100); HEMOLYSIS < 15 (0-50); Lipase 84 U/L (23-300); Potassium 3.8 mmol/L (3.4-5.1); Sodium 139 mmol/L (137-145); Total Protein 7.4 g/dL (6.3-8.2)
--- NOTE | 2023-10-07 00:31 | DI.US.S_ITS ---
PROCEDURE: US PELVIC COMPLETE INDICATIONS: RLQ pain TECHNIQUE: Real-time scanning was performed of the pelvic organs, with image documentation. Additional endovaginal scanning was necessary due to incomplete visualization of the adnexal and endometrial structures by transabdominal scanning. COMPARISON: [facility], CT, CT ABDOMEN PELVIS W CON, 10/06/2023, 23:40. FINDINGS: Uterus: Uterus is anteverted and normal in size at 5.9 x 3.7 x 5.0 cm. The myometrium is homogeneous. The endometrium measures 7 mm combined thickness. Ovaries: Not visualized due to overlying bowel gas. Other: No pathologic free abdominal or pelvic fluid. IMPRESSION: Ovaries not visualized due to overlying bowel gas. The normal, symmetric size on CT does not favor pathology at this time. We strive to produce accurate, complete, and clear reports of imaging services. To assist us in improving patient care, this report was composed using standard report templates and voice recognition software. Therefore, it may contain abnormal punctuation, insertions and/or omissions. Occasional wrong-word or sound-alike substitutions may occur. Though we review the report and make efforts to correct it, we do recommend that the report be read carefully in proper context to recognize any text inaccuracies. Dictated by: Braden Cameron M.D. on 10/07/2023 at 1:24 Approved by: Braden Cameron M.D. on 10/07/2023 at 1:28
[2023-10-07] MEDS: MORPHINE 2 MG/ML INJ IV ×2 (00:32→03:22)
[2023-10-07] MEDS: ONDANSETRON 4 MG/2 ML INJ IV (00:32)
[2023-10-07 00:41] VITALS: O2SAT 94
[2023-10-07 00:42] VITALS: BP 164/89; PULSE 80; O2SAT 95
[2023-10-07 01:00] VITALS: PULSE 88; O2SAT 95
[2023-10-07 01:30] VITALS: PULSE 73; O2SAT 95
[2023-10-07 02:33] LABS: Urine Volume 10mL (spun)
[2023-10-07 02:34] LABS: Bacteria Urine None Seen; Culture Indicated Urine Cult Not Indicated; RBC Urine 0-1/HPF (0-5/HPF); Squamous Epithelial Cell Urine 0-1 /HPF (0-5/HPF); WBC Urine None Seen (0-5/HPF)
[2023-10-07 03:30] VITALS: BP 139/62; PULSE 79; O2SAT 93
[2023-10-07] MEDS: HYDROCODONE/ACET 5/325 PREPACK 1 BOTTLE MISC (03:30)
[2023-10-07] MEDS: ONDANSETRON 4 MG ODT PREPACK 1 BOTTLE MISC (03:30)
== END 2023-10-07 03:49 | disposition home or self-care (01) ==
PROVIDERS: Emergency Provider Emergency Medicine; PCP Family Medicine
DX: R10.31 Right lower quadrant pain (principal)
CPT/HCPCS: 36415; 74177; 76856; 80053; 81003; 81015; 83690; 85025; 87086; 96361; 96374; 96375; 96376; 99284; J1885; J2270; J2405; Q9967

== ENCOUNTER → 2023-10-08 14:17 | Outpatient (CLI) | payer OTHER, SELFPAY ==
[2019-12-22 15:26] VITALS: BMI 68.3
--- NOTE | 2023-10-08 14:19 | DI.US.S_ITS ---
PROCEDURE: US ABDOMEN LIMITED INDICATIONS: RUQ pain TECHNIQUE: Real-time scanning was performed of the abdominal and retroperitoneal organs, with image documentation. COMPARISON: [facility], CT, CT CHEST ABD PEL W CON, 01/28/2019, 9:19. [facility], CT, CT ABDOMEN PELVIS W CON, 10/06/2023, 23:40. FINDINGS: Liver: Known hemangiomata are difficult to evaluate on today's ultrasound. Gallbladder: No gallstones. No wall thickening. No pericholecystic edema. Negative sonographic Márquez's sign. Biliary ducts: Intrahepatic bile ducts are non-dilated. Extrahepatic bile duct caliber measures 5 mm. Normal is 6-7 mm or less in diameter, or 10 mm or less post-cholecystectomy. Pancreas: Visualized portions of the pancreas are sonographically normal. Miscellaneous: No free abdominal fluid. IMPRESSION: 1. Fatty liver. 2. Known hemangiomata are not well seen. 3. No gallstone disease noted. Dictated by: Nick Mcneil M.D. on 10/08/2023 at 17:27 Approved by: Nick Mcneil M.D. on 10/08/2023 at 17:35
== END ==
PROVIDERS: PCP Family Medicine; Referring Provider Family Medicine; Visit Provider Family Medicine
DX: K76.0 Fatty (change of) liver, not elsewhere classified (principal); D18.09 Hemangioma of other sites; R10.11 Right upper quadrant pain
CPT/HCPCS: 76705

== ENCOUNTER → 2024-08-16 13:01 | Outpatient (CLI) | payer OTHER, SELFPAY ==
[2019-12-22 15:26] VITALS: BMI 68.3
--- NOTE | 2024-08-16 13:02 | DI.MRI.S_ITS ---
MR breast BI wo/w con: 08/16/2024. BI-RADS: 2 CLINICAL: 59-year old female for bilateral diagnostic breast MRI. Patient reports a history of left breast carcinoma. Status-post left mastectomy. No first-degree family history of breast cancer. Current reported family history of breast cancer: maternal grandmother, maternal aunt and paternal aunt. The patient reports testing negative for BRCA gene mutation. PRIOR EXAMS: 05/05/2023, 07/04/2022, 11/13/2021, 11/06/2021, 02/28/2021, 08/03/2020, 12/16/2019, 12/09/2019, 12/31/2018, 12/22/2018, 12/17/2018, 12/03/2018, 11/18/2018, 12/10/2017, 11/26/2017, 10/15/2017, 10/04/2015. MRI TECHNIQUE: Bilateral breast MRI was performed on a 1.5 Abby magnet using a dedicated breast coil with mild compression. Axial T1 and T2 STIR sequences were obtained. Dynamic contrast enhanced VIBRANT fat-suppressed sequences were obtained. Delayed sagittal high resolution or sagittal reconstructed isotropic sequence was also obtained. Subtraction images and maximum intensity projection images were obtained. The study was evaluated using [employer] Steps software. IV Contrast: 20 ml ProHance. FIBROGLANDULAR TISSUE Right: C. Heterogeneous fibroglandular tissue. Left: Mastectomy. BACKGROUND PARENCHYMAL ENHANCEMENT Right: Mild background parenchymal enhancement. Left: Mastectomy. BREAST FINDINGS Right: There is no suspicious mass or non-mass enhancement. No suspicious architectural distortion. No skin or nipple abnormalities. No internal mammary chain or axillary adenopathy. Susceptibility artifact from biopsy markers. Stable pattern and distribution of background parenchymal enhancement. Left: Status post left mastectomy. No areas of abnormal enhancement. No focal masses. No adenopathy. No focal abnormalities in the upper outer quadrant. CHEST FINDINGS Visualized portions of the chest appear unremarkable. ABDOMEN FINDINGS Redemonstration of liver cyst. Likely right hepatic lobe hemangioma is again noted. Other visualized portions of the upper abdomen appear unremarkable. IMPRESSION: * No evidence of malignancy with benign findings. RECOMMENDATIONS Right * Annual screening mammography. COMMENTS * Consider continued annual adjunct screening breast MRI. OVERALL ASSESSMENT CATEGORY BI-RADS-2: Benign. ELECTRONICALLY SIGNED: Kayden Marcelo M.D. on 08/17/2024 at 09:30:14 AM PT Interpreting Station ID: [id number]
--- NOTE | 2024-08-16 13:02 | DI.US.S_ITS ---
US breast LT limited: 08/16/2024. BI-RADS: 2 CLINICAL: 59-year old female for left diagnostic breast ultrasound. No Tyrer- Cuzick risk score calculation due to the patient's personal history of breast cancer. Patient reports a history of left breast carcinoma. Status-post left mastectomy. No first-degree family history of breast cancer. Current reported family history of breast cancer: maternal grandmother, maternal aunt and paternal aunt. The patient reports testing negative for BRCA gene mutation. PRIOR EXAMS 05/05/2023, 07/04/2022, 11/13/2021, 11/06/2021, 02/28/2021, 08/03/2020, 12/16/2019, 12/09/2019, 12/31/2018, 12/22/2018, 12/17/2018, 12/03/2018, 11/18/2018, 12/10/2017, 11/26/2017, 10/15/2017, 10/04/2015. ULTRASOUND TECHNIQUE TARGETED Left Breast Ultrasound: Real-time ultrasound exam was performed focused to area of clinical and/or imaging concern. ULTRASOUND FINDINGS Left: Upper Outer at 2:00: There is no sonographic correlate for the palpable abnormality. No suspicious sonographic finding with typically benign findings noted. IMPRESSION: Left * No evidence of malignancy with benign findings. RECOMMENDATIONS Right * Annual screening mammography. COMMENTS: Clinical follow-up is recommended, and further management of palpable abnormalities or other focal signs or symptoms should be based on the results of clinical evaluation. OVERALL ASSESSMENT CATEGORY BI-RADS-2: Benign. ELECTRONICALLY SIGNED: Nathen Reinoso M.D. on 08/16/2024 at 02:38:41 PM PT Interpreting Station ID: [id number]
== END ==
LOC: MRI 13:02
PROVIDERS: PCP Family Medicine; Referring Provider Family Medicine; Visit Provider Family Medicine
DX: R92.321 Mammographic fibroglandular density, right breast (principal); Z85.3 Personal history of malignant neoplasm of breast; Z80.3 Family history of malignant neoplasm of breast; R22.2 Localized swelling, mass and lump, trunk; Z90.12 Acquired absence of left breast and nipple; K76.89 Other specified diseases of liver
CPT/HCPCS: 76642; 77049; A9579